=== PATIENT | male | born 1940 | race Caucasian/White ===

== ENCOUNTER → 2023-12-08 09:03 | Outpatient (REF) | payer MEDICARE, OTHER, SELFPAY ==
[2023-12-08 10:55] LABS: INR 2.37; PT 26.2 Sec (11.4-14.6)
== END ==
LOC: REG 09:03
PROVIDERS: ATTENDING PHYSICIAN Internal Medicine
DX: Z79.01 Long term (current) use of anticoagulants (principal)
CPT/HCPCS: 36415; 85610

== ENCOUNTER 2023-12-22 15:20 | Inpatient (IN) | payer MEDICARE, OTHER, SELFPAY ==
[2023-12-22] VITALS (7 sets, daily range): BP systolic 100–126; BP diastolic 62–88; BMI 25.5
--- NOTE | 2023-12-22 12:05 | ED.GENMED ---
History of Present Illness
General
Chief Complaint: Breathing Problem
Source: patient
Exam Limitations: none
Time Seen by Provider: 12/22/23 11:52
Travel History
Have you had any contact with someone who has COVID-19?: No
Do you have any symptoms of coronavirus? Fever > 100 degrees, chills, cough, shortness of breath, sore throat, loss of taste or smell, muscle aches, or headache?: No
History of Present Illness
History of Present Illness:
83-year-old male with history of atrial fibrillation has a pacer defibrillator on Coumadin presents with progressively worsening shortness of breath over the past 5 to 7 days. He notes a pound weight gain since last evening. He notes leg swelling.
He denies orthopnea. He has history of sleep apnea and uses CPAP machine. No fever or cough. No runny nose or nasal congestion. He has been taking his Coumadin.
Past History
Past History
ED Past Medical History: Arrthythmia, CHF, Hypothyroidism and Other (Status post AICD, A. fib, hypertension, ulcers colitis, sleep apnea)
ED Past Surgical History: Other (History of hernia repair)
Social History
Tobacco: Non-smoker
Alcohol: None
Personal:
Living: with family
Employment: Retired
Family History
Family History: Other (Sleep apnea)
Phy Exam
Physical Exam
Physical Exam:
General: Well-appearing male no acute respiratory distress
HEENT: Normocephalic atraumatic
Heart: Regular rate and rhythm no murmurs
Lungs: Clear bilaterally
Abd: soft, nontender
Ext: No cyanosis, pitting edema noted bilaterally
Scores
Heart Failure Risk
Heart Failure Risk Score: Not Applicable
Course
Orders/Labs/Results
Orders:
Orders
12/22/23 10:49
Electrocardiogram (*1) Urgent
Reason for Study: Shortness of Breath
EKG- Treatment ONCE
12/22/23 11:59
CR Chest - 2 Views Urgent
Comment:
Reason For Exam: sob
12/22/23 12:11
Complete Blood Count/With Diff Urgent
Comprehensive Metabolic Panel Urgent
NT-proBNP Urgent
12/22/23 13:53
Furosemide [Lasix] 40 mg IV NOW STA
Abnormal Lab Results
12/22/23
12:11
RBC 4.35 L 10^6/uL
(4.70-6.10)
MCH 31.5 H pg
(27.0-31.0)
RDW 14.6 H %
(11.5-14.5)
Absolute Lymphs (auto) 1.1 L 10^3/uL
(1.2-3.4)
Lymphocytes % 18.4 L %
(20.5-51.1)
Monocytes % 10.0 H %
(1.7-9.3)
Glucose 105 H mg/dl
(70-99)
Total Bilirubin 1.7 H mg/dl
(0.2-1.3)
12/22/23 12:11
12/22/23 12:11
Vital Signs
Initial and Last Documented VS:
Initial Vital Signs
Temp Pulse Resp BP Pulse Ox
98.1 F 81 24 101/68 97
12/22/23 10:47 12/22/23 10:47 12/22/23 10:47 12/22/23 10:47 12/22/23 10:47
Last Documented Vital Signs
Temp Pulse Resp BP Pulse Ox
98.1 F 75 23 108/81 92
12/22/23 10:47 12/22/23 13:30 12/22/23 13:30 12/22/23 13:18 12/22/23 13:30
MDM/Problems Addressed
Differential Diagnosis Includes:
Shortness of breath with exertion. Consider anemia or electrolyte abnormality CHF versus pneumonia
Patient does appear slightly volume overloaded. Check BNP labs and x-ray.
*Critical Care Note
Total Time (30-74mins, 75-104mins- exclusive of procedures): Not Applicable
Update Note
Update Note:
BNP 8840 chest x-ray consistent with cardiomegaly and trace pleural effusions. Upon minimal exertion here, patient is tachypneic and drops to 88%. Will admit for CHF exacerbation. Lasix IV ordered
ED Attending Note
-
Portions of this chart may have been created with voice recognition software.� Occasional wrong word or��sound alike� substitutions may have occurred due to the inherent limitations of voice recognition software.
Discharge Plan
Departure
Patient Disposition: Admit
Date of Disposition: 12/22/23
Time of Disposition: 13:56
Admit to: Telemetry
Presentation/result/management discussed w/ accepting MD/DO: Hospitalist
Patient with high blood pressure during this ER visit?: No
Discharge Problem:
CHF (congestive heart failure)
Prescriptions:
No Action
multivitamin with folic acid [Tab-A-Lauren] 1 TABLET tablet
1 tab PO DAILY
furosemide [Lasix] 40 MG tablet
40 mg PO DAILY
atorvastatin 20 MG tablet
20 mg PO QPM
enalapril maleate 2.5 MG tablet
2.5 mg PO BID
warfarin [Jantoven] 2.5 MG tablet
2.5 mg PO TH
aspirin [Adult Low Dose Aspirin] 81 MG tablet,delayed release (DR/EC)
81 mg PO DAILY
carvedilol 3.125 MG tablet
3.125 mg PO BID
warfarin [Jantoven] 5 MG tablet
5 mg PO .SUMOTUWEFRSA
mesalamine 800 MG tablet,delayed release (DR/EC)
800 mg PO TID
[id number] serr [Osteo Bi-Flex (5-Loxin)] 1 EACH tablet
1 tab PO DAILY
dofetilide 250 MCG capsule
250 mcg PO Q12H Qty: 60 6RF
docosahexaenoic acid-epa 1 CAP capsule
2 cap PO DAILY
spironolactone 12.5 MG tablet
6.25 mg PO DAILY
cephalexin 500 MG capsule
500 mg PO Q8 Qty: 90 0RF
Referrals:
Shay Mayers MD [Family Provider] -
Interventions
Interventions:
*Risk Screen - Suicide Last Done: 12/22/23 11:33
*General Assessment Last Done: 12/22/23 12:15
*Neglect/Abuse Screening Last Done: 12/22/23 11:33
ED- Fall Risk Assessment Last Done: 12/22/23 11:54
*ED COVID-19 Vaccine History Last Done: 12/22/23 10:49
ED- Cardiac Assessment Last Done: 12/22/23 11:54
ED- Pulmonary Assessment Last Done: 12/22/23 11:54
[2023-12-22 12:22] LABS: % Basophils 0.5 % (0-2); % Immature Granulocytes 0.3 % (0-0.5); % Lymphocytes 18.4 % (20.5-51.1); % Neutrophils 68.8 % (42.2-75.2); Absolute Eosinophils 0.1 10^3/uL (0-0.7); Absolute Lymphocytes 1.1 10^3/uL (1.2-3.4); Absolute Monocytes 0.6 10^3/uL (0.1-0.6); Absolute Neutrophils 4.2 10^3/uL (1.4-6.5); Hematocrit 40.4 % (39.0-52.0); Hemoglobin 13.7 g/dL (13.0-18.0); Mean Corp Hgb Conc. 33.9 g/dL (33.0-37.0); Mean Corpuscular Hgb 31.5 pg (27.0-31.0); Mean Corpuscular Volume 92.9 fL (80.0-94.0); Mean Platelet Volume 10.4 fL (7.4-10.4); Nucleated Red Blood Cells % 0 % (-); Platelet Count 191 10^3/uL (130-400); Red Blood Cell Count 4.35 10^6/uL (4.70-6.10); Red Cell Dist. Width 14.6 % (11.5-14.5)
[2023-12-22 12:35] LABS: ALT (SGPT) 42 U/L (0-50); AST (SGOT) 35 U/L (17-59); Albumin 4.1 g/dl (3.5-5.0); Alkaline Phosphatase 77 U/L (38-126); Blood Urea Nitrogen 20 mg/dl (9-20); Carbon Dioxide 25 mmol/L (22-30); Chloride 99 mmol/L (98-107); Glucose 105 mg/dl (70-99); Potassium 3.9 mmol/L (3.5-5.1); Sodium 135 mmol/L (135-145); Total Bilirubin 1.7 mg/dl (0.2-1.3); Total Protein 6.8 g/dl (6.3-8.2); eGFR > 60.00
[2023-12-22 12:44] LABS: NT-proBNP 8840 pg/ml
[2023-12-22] MEDS: LASIX 40 MG IV ×2 (14:06→20:35)
--- NOTE | 2023-12-22 14:10 | HPS.HSE ---
Addendum entered and electronically signed by Ra Oliveros MD 12/22/23 15:13:
I saw and examined the patient.
The PILATES COORDINATOR or PA's note was reviewed and I agree with the note.
Comment: 83-year-old gentleman with a week of increasing dyspnea on exertion and only minor weight gain has been noted only in the last day or so but more significantly short of breath today prompting evaluation found to have a proBNP of 8800 some
peripheral edema and small pleural effusions on chest x-ray with initial pulse ox of 88% on room air but presently at 96% off oxygen he has already had some diuresis with initial course of IV furosemide with history of chronic systolic heart failure
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
Follows with Dr. Irma monroy echo was sometime last year. Aside from elevated proBNP PT/INR of 3.63 noted with baseline usually in the 2.6-2.7 range had been on antibiotic course for a 'walking pneumonia last month but has been off antibiotics for
weeks. Prior history of ulcerative colitis that is remained stable and quiescent remains on mesalamine.
Agree with treatment for presumptive combined heart failure
-IV furosemide twice daily
-Continue dofetilide and carvedilol /correction of PILATES COORDINATOR note patient not on amlodipine
-Continue enalapril /spironolactone
-Update 2D echocardiogram
-Agree with holding dose of warfarin tonight and resume tomorrow with daily PT/INR
-Cardiology consultation
Listed history of hypothyroidism not on thyroid replacement (from prior amiodarone)?/will check TSH
Rest of comorbidities as outlined below and discussed and agreed on
Allow CPAP nightly l
Original Note:
Family Physician
-
Family Physician: Shay Mayers
Chief Complaint
-
Shortness of breath x 5 to 7 days
History of Present Illness
83-year-old male complaining of worsening shortness of breath over the past 5 to 7 days with a 2 pound weight gain this past week he also complains of bilateral leg pitting edema. He reports today he came to have his INR checked became very
dyspneic on exertion called his primary care provider who told him to come into the ER since he was here at [facility] in the outpatient center. He denies chest pain, orthopnea, palpitations, cough, fever, chills, abdominal pain, nausea,
vomiting, diarrhea, urinary symptoms.
PMH A-fib on Coumadin, V-fib status post AIC2016, HTN, chronic systolic CHF, amiodarone thyroiditis, ulcerative colitis, sleep apnea, CPAP full mask setting 16, history of epistaxis November 2019
Medical History
Past Medical History
Past Medical History: Reports Other
Additional Past Medical History:
A-fib on Coumadin
V-fib status post 2016
HTN, chronic systolic CHF
amiodarone thyroiditis
ulcerative colitis
sleep apnea, CPAP setting 16 full mask
Epistaxis with elevated Coumadin 2019
Past Surgical History: Reports Other
Additional Past Surgical History:
V-fib status post 2016
Hernia repair
Social History
Tobacco: Non-smoker
Alcohol: None
Drug: None
Personal:
Living: With Family ( [place])
Employment: Retired
Family History
Family History: Other (Father sleep apnea, COPD , mother HTN, COPD, heart problems)
Allergies / Home Medications
Allergies reflects when Allergies were last updated in [facility].
Home Medications with original date entered in [facility]
Allergy/Medication List:
Allergies
Allergy/AdvReac Type Severity Reaction Status Date / Time
amiodarone Allergy 'thyroid Verified 12/22/23 10:50
problems'
clindamycin Allergy Heartburn Verified 12/22/23 10:50
metoprolol [From Lopressor] Allergy Hallucinati Verified 12/22/23 10:50
ons
sulfamethoxazole Allergy Chest Verified 12/22/23 10:50
[From Bactrim] tightness
trimethoprim [From Bactrim] Allergy Chest Verified 12/22/23 10:50
tightness
Home Medications
multivitamin with folic acid 400 mcg tablet (Tab-A-Lauren) 1 tab PO DAILY 10/17/11
aspirin 81 mg tablet,delayed release (Adult Low Dose Aspirin) 81 mg PO DAILY 03/30/17
atorvastatin 20 mg tablet 20 mg PO QPM 03/30/17
carvedilol 3.125 mg tablet 3.125 mg PO BID 03/30/17
enalapril maleate 2.5 mg tablet 2.5 mg PO BID 03/30/17
furosemide 40 mg tablet (Lasix) 40 mg PO QPM 03/30/17
glucosamine CAt-I5-Kipbzkozj marylin 1,500 mg-400 unit-100 mg tablet (Osteo Bi-Flex (5-Loxin)) 1 tab PO DAILY 03/30/17
warfarin 2.5 mg tablet (Jantoven) 2.5 mg PO SUTH 03/30/17
warfarin 5 mg tablet (Jantoven) 5 mg PO MOTUWEFRSA 03/30/17
dofetilide 250 mcg capsule 250 mcg PO Q12H #60 caps 04/01/17
docosahexaenoic acid (dha)-epa 120 mg-180 mg capsule 2 cap PO DAILY 02/26/18
spironolactone 25 mg tablet 12.5 mg PO DAILY 02/26/18
mesalamine 400 mg capsule (with delayed release tablets inside) (Delzicol) 800 mg PO TID 12/22/23
Review of Systems
-
History Source: Patient and Family ( )
A 12 point ROS was completed and negative except as noted: Yes
Constitutional: Reports Weight Gain (2lbs past week ); Denies Fever or Chills
EENT: Denies Sore Throat or Runny Nose
Respiratory: Reports Trouble Breathing (jaramillo); Denies Cough
Cardiac: Denies Chest Pain, Diaphoresis, Palpitations or Syncope
Abdomen/GI: Denies Abdominal Pain, Nausea, Vomiting, Diarrhea, Constipated, Bloody Stools or Black Stools
: Denies Dysuria, Frequency, Flank Pain, Incontinence, Difficulty Voiding, Urgency, Bleeding or Dark Urine
Musculoskeletal: Reports Edema (+2 lower extremity pitting edema); Denies Joint Pain
Skin: Denies Itching or Rash
Neurological: Denies Dizzy, Headache or Weakness
Endocrine: Reports No Symptoms
Hematologic/Lymphatic: Reports No Symptoms
Psych: Reports Calm
Physical Exam
Vital Signs
Vital Signs
Temp Pulse Resp BP Pulse Ox
98.1 F 75 23 109/69 92
12/22/23 10:47 12/22/23 13:30 12/22/23 13:30 12/22/23 14:06 12/22/23 13:30
Physical Exam
General: Comfortable and Conversant; No Pain, Fever or Chills
HEENT: NormoCephalic, Anicteric, PERRLA, [place] Conjunctivae and No Ptosis
Respiratory: Clear; No Wheezes, Rales or Rhonchi
Cardiac: S1/S2, Murmur (2/6 systolic), Peripheral Edema (+2 lower extremity pitting edema) and Other (Paced); No Rub or Gallop
Breast: Deferred by me
GI: Soft, Non Tender, Non Distended, Normal Bowel Sounds and No Hepatosplenomegaly
Rectal: Deferred by Provider
Genito-urinary: Deferred by me
Musculoskeletal: No Clubbing, No Cyanosis, Edema, Left Lower Extremity (+2 lower extremity pitting edema) and Edema, Right Lower Extremity (+2 lower extremity pitting edema); No Edema, Left Upper Extremity or Edema, Right Upper Extremity
Skin: Warm and Dry; No Rash
Neuro: AO x 3, No Motor Deficits, Nonfocal/grossly intact, Cranial Nerves Intact and No Sensory Deficits; No Slurred Speech, Facial Droop or Tremors
Psych: Calm
Laboratory Results
-
12/22/23 12:11
12/22/23 12:11
Laboratory Results
PT Cancelled 12/22/23 12:07
INR Cancelled 12/22/23 12:07
Total Bilirubin 1.7 mg/dl (0.2-1.3) H 12/22/23 12:11
AST 35 U/L (17-59) 12/22/23 12:11
ALT 42 U/L (0-50) 12/22/23 12:11
Alkaline Phosphatase 77 U/L (38-126) 12/22/23 12:11
Impression/Plan
-
Impression/plan:
Admit to telemetry
#Acute hypoxic resp insuff 2/2 Acute on chronic systolic vs combined CHF
87% RA after ambulation, 96 % at rest
BNP 8840
-I/O, daily weights
-IV Lasix 40 mg twice daily
- Consult [facility] cardiology
-2d echo-eval cardiac murmur ? new
CXR: Moderate cardiomegaly, trace pleural effusion, no evidence of PNA
#A-fib on Coumadin
#Hx amiodarone thyroiditis
-INR 3.63
-HOLD Coumadin tonight 12/22/2023) pt's pcp manages his coumadin)
-check INR daily but resume dose Coumadin dosingfor now
-Continue carvedilol, Tikosyn
#Permanent pacemaker
#AICD Hx/V-fib 2016
EKG: Ventricular paced rhythm, biventricular pacemaker
#HTN-benign
bp stable
-Continue amlodipine, carvedilol 3.125 mg twice daily
#HLD
-Continue Lipitor
#Ulcerative colitis-no acute issues
-Continue mesalamine 800 mg p.o. 3 times daily
#Sleep apnea/CPAP
full mask setting 16
DVT prophylaxis
-Continue Coumadin
Full code
--- NOTE | 2023-12-22 15:37 | CON.CAR ---
Addendum entered and electronically signed by Dionisio Evans MD 12/22/23 17:04:
patient seen and examined
agree with DAVID Spaulding's notes and assessment
agree with DAVID Spaulding's plan
exam:
heent ncat
jvp 6-7
cor regular (paced)
lungs ctab
abd soft nt nd
1+ ext edema at ankle
he appears in only mild distress
Impression:
Acute HFrEF
CM EF 20-25% by echo 12/22/23
h/o NICM EF 25-45% since 2011
s/p [employer] ICT BUSINESS ANALYST-D
h/o VT/VF
Chronic Tikosyn therapy
Permanent Afib
s/p AV node ablation
Chronic warfarin OAC
h/o Amiodarone thyroiditis
Ulcerative colitis
JULIO CESAR on CPAP
Echo 06/2016: EF 35-40%, AV sclerosis with trivial AI, mildly dilated proximal ascending thoracic aorta
Echo 12/22/23:�preliminary report, EF 20-25%, mod to sev MR, mod AI
Plan:
-[facility] with increased SOB and is now admitted with acute HF. Patient follows with Dr. Davalos, but also follows with Dr. Arora for EP at [facility]. Patient was at in 2016 for VF and shock and his Tikosyn dose was lowered to 250
mcg q 12 hours at that time. Patient's last echo was in 2015 and his EF was 35-40%. He and his are living at [facility] now and patient reports eating soup every day last week and that afterwards he noticed increased SOB and LE edema. He has
been taking his Lasix 40 mg daily, he likes to take it at 1800 daily so that it does not interfere with his daytime activities. Patient was at outpatient lab having INR drawn today when he felt so SOB that he asked his to take him to the ER
instead of going home. In the ER his pro-BNP was 8800 and his initial pulse ox was 88% on RA. Patient reports symptomatic improvement after initial dose of Lasix 40 mg IV in the ER.
-Recommend Lasix 40 mg IV BID. Follow BMP. Patient was taking Lasix 40 mg PO daily prior to admission
-Preliminary echo report suggests that his EF is down to 20-25% and he now has moderate to severe MR and mod AI. Await official reading, but preliminary reports of reduced EF reviewed with patient and . Patient is able to recall that his EF has
been low in the past as well.
-GDMT includes Coreg 3.125 mg BID, spironolactone 12.5 mg daily and enalapril 2.5 mg BID.
-Patient has previously declined Entresto about 3 years ago because he thought he found information on the internet that it caused early Alzheimer's. He is willing to reconsider.
-Patient is also interested in Mirimus, will need to check cost. No changes made tonight because he wants to think about it.
-Will get Yebhi to check his ICT BUSINESS ANALYST-D
-Patient with h/o VT/VF. No recent shocks per his report. Will cont with usual dose of Tikosyn 250 mcg q 12 hours.
-Afib is permanent and he is s/p AVJ. ECG reviewed by me is v paced
-INRs managed by PCP with draws at lab.
Original Note:
Consultation
Consultation Request
Date/Time Consultation Requested: 12/22/23
Date/Time Consultation Performed: 12/22/23
Requesting Provider: Dr. Oliveros
Performing Provider: Dr. Evans
Reason for Consultation: Acute HF
Medical History
-
History of Present Illness:
Patient came to [facility] today with increased SOB and is now admitted with acute HF. Patient follows with Dr. Davalos, but also follows with Dr. Arora for EP at [facility]. Patient was at in 2017 for VF and shock and his Tikosyn dose was lowered to 250 mcg
q 12 hours at that time. Patient's last echo was in 2015 and his EF was 35-40%. He and his are living at [facility] now and patient reports eating soup every day last week and that afterwards he noticed increased SOB and LE edema. He has
been taking his Lasix 40 mg daily, he likes to take it at 1800 daily so that it does not interfere with his daytime activities. Patient was at outpatient lab having INR drawn today when he felt so SOB that he asked his to take him to the ER
instead of going home. In the ER his pro-BNP was 8800 and his initial pulse ox was 88% on RA. Patient reports symptomatic improvement after initial dose of Lasix 40 mg IV in the ER.
PMH:
Chronic HFrEF
CM EF 20-25% by echo 12/22/23
h/o NICM EF 25-45% since 2011
s/p [employer] ICT BUSINESS ANALYST-D
h/o VT/VF
Chronic Tikosyn therapy
Permanent Afib
s/p AV node ablation
Chronic warfarin OAC
h/o Amiodarone thyroiditis
Ulcerative colitis
JULIO CESAR on CPAP
Past Medical History
Past Medical History: Other (in HPI)
Past Surgical History: Cardiac ([employer] ICT BUSINESS ANALYST-D and AVN ablation 2011)
Social History
Tobacco: Non-Smoker
Alcohol: None
Drug: None
Personal:
Living: With Family (independent living at [facility])
Family History
Family History: CAD and Hypertension
Allergies / Home Medications
Allergy/AdvReac Type Severity Reaction Status Date / Time
amiodarone Allergy 'thyroid Verified 12/22/23 10:50
problems'
clindamycin Allergy Heartburn Verified 12/22/23 10:50
metoprolol [From Lopressor] Allergy Hallucinati Verified 12/22/23 10:50
ons
sulfamethoxazole Allergy Chest Verified 12/22/23 10:50
[From Bactrim] tightness
trimethoprim [From Bactrim] Allergy Chest Verified 12/22/23 10:50
tightness
Medication Instructions Recorded Confirmed Type
multivitamin with folic acid 400 1 tab PO DAILY 10/17/11 12/22/23 History
mcg tablet (Tab-A-Lauren)
aspirin 81 mg tablet,delayed 81 mg PO DAILY 03/30/17 12/22/23 History
release (Adult Low Dose Aspirin)
atorvastatin 20 mg tablet 20 mg PO QPM 03/30/17 12/22/23 History
carvedilol 3.125 mg tablet 3.125 mg PO BID 03/30/17 12/22/23 History
enalapril maleate 2.5 mg tablet 2.5 mg PO BID 03/30/17 12/22/23 History
furosemide 40 mg tablet (Lasix) 40 mg PO QPM 03/30/17 12/22/23 History
glucosamine [id number]-[id number]-Emgfjqkjq 1 tab PO DAILY 03/30/17 12/22/23 History
marylin 1,500 mg-400 unit-100 mg
tablet (Osteo Bi-Flex (5-Loxin))
warfarin 2.5 mg tablet (Jantoven) 2.5 mg PO SUTH 03/30/17 12/22/23 History
warfarin 5 mg tablet (Jantoven) 5 mg PO MOTUWEFRSA 03/30/17 12/22/23 History
dofetilide 250 mcg capsule 250 mcg PO Q12H #60 caps 04/01/17 12/22/23 Rx
docosahexaenoic acid (dha)-epa 120 2 cap PO DAILY 02/26/18 12/22/23 History
mg-180 mg capsule
spironolactone 25 mg tablet 12.5 mg PO DAILY 02/26/18 12/22/23 History
mesalamine 400 mg capsule (with 800 mg PO TID 12/22/23 12/22/23 History
delayed release tablets inside)
(Delzicol)
Review of Systems
-
History Source: Patient and Family (talked with as well )
All other systems: Negative unless noted
Physical Exam
Vital Signs
Temp Pulse Resp BP Pulse Ox
98.1 F 86 15 109/69 92
12/22/23 10:47 12/22/23 15:05 12/22/23 15:05 12/22/23 14:06 12/22/23 14:45
GEN: NAD. AAOx3
HEENT: EOMI, MMM
LUNGS: Decreased BS bases without wheeze
CV: Reg, S1/S2, no murmur
ABD: soft, BS+, NT, ND
EXT: Trace B/L LE edema. No cyanosis, clubbing or lesions B/L
NEURO: Gross non-focal
SKIN: Warm, pink, dry. No rash
Lab Results
12/22/23 12:11
12/22/23 12:11
Mpj-Q-Ybvasfnsbta Pept 8840 pg/ml 12/22/23 12:11
Impression / Plan
-
PCP: Dr. Mayers
Primary Machine Cell Tuber: Dr. Davalos
EP: Dr. Arora
Impression:
Acute HFrEF
CM EF 20-25% by echo 12/22/23
h/o NICM EF 25-45% since 2011
s/p [employer] ICT BUSINESS ANALYST-D
h/o VT/VF
Chronic Tikosyn therapy
Permanent Afib
s/p AV node ablation
Chronic warfarin OAC
h/o Amiodarone thyroiditis
Ulcerative colitis
JULIO CESAR on CPAP
Echo 06/2016: EF 35-40%, AV sclerosis with trivial AI, mildly dilated proximal ascending thoracic aorta
Echo 12/22/23: preliminary report, EF 20-25%, mod to sev MR, mod AI
Plan:
-Patient came to [facility] today with increased SOB and is now admitted with acute HF. Patient follows with Dr. Davalos, but also follows with Dr. Arora for EP at [facility]. Patient was at in 2017 for VF and shock and his Tikosyn dose was lowered to 250
mcg q 12 hours at that time. Patient's last echo was in 2016 and his EF was 35-40%. He and his are living at [facility] now and patient reports eating soup every day last week and that afterwards he noticed increased SOB and LE edema. He has
been taking his Lasix 40 mg daily, he likes to take it at 1800 daily so that it does not interfere with his daytime activities. Patient was at outpatient lab having INR drawn today when he felt so SOB that he asked his to take him to the ER
instead of going home. In the ER his pro-BNP was 8800 and his initial pulse ox was 88% on RA. Patient reports symptomatic improvement after initial dose of Lasix 40 mg IV in the ER.
-Recommend Lasix 40 mg IV BID. Follow BMP. Patient was taking Lasix 40 mg PO daily prior to admission
-Preliminary echo report suggests that his EF is down to 20-25% and he now has moderate to severe MR and mod AI. Await official reading, but preliminary reports of reduced EF reviewed with patient and . Patient is able to recall that his EF has
been low in the past as well.
-GDMT includes Coreg 3.125 mg BID, spironolactone 12.5 mg daily and enalapril 2.5 mg BID.
-Patient has previously declined Entresto about 3 years ago because he thought he found information on the internet that it caused early Alzheimer's. He is willing to reconsider.
-Patient is also interested in Mirimus, will need to check cost. No changes made tonight because he wants to think about it.
-Will get Yebhi to check his ICT BUSINESS ANALYST-D
-Patient with h/o VT/VF. No recent shocks per his report. Will cont with usual dose of Tikosyn 250 mcg q 12 hours.
-Afib is permanent and he is s/p AVJ. ECG reviewed by me is v paced
-INRs managed by PCP with draws at lab.
[2023-12-22] MEDS: ASACOL, DELZICOL DR 800 MG PO ×2 (20:28→23:22)
[2023-12-22] MEDS: COREG 3.125 MG PO (20:28)
[2023-12-22] MEDS: LIPITOR 20 MG PO (20:28)
[2023-12-22] MEDS: TIKOSYN 250 MCG PO (20:29)
[2023-12-22] MEDS: VASOTEC 2.5 MG PO (20:30)
[2023-12-23] VITALS (9 sets, daily range): BP systolic 101–119; BP diastolic 60–74; PULSE 78–79; O2SAT 93–94; BMI 25.0
--- NOTE | 2023-12-23 02:28 | PTCARENOTE ---
Patient arrived on unit @1923 via stretcher from ED, ambulate from stretcher to bed. Patient AAOx3 denies any pain or discomfort, no c/o SOB, ambualting hallways. Skin assessment completed, oriented to unit, call arizmendi within reach. Patient had 2
episodes of Vtach this shift which did not sustain. BREASTER made aware, Magnesium lab ordered for AM. Patient asymptomatic with both episodes of Vtach, patient reports 'normally I feel lightheaded with Vtach but I didn't feel anything', will continue
plan of care.
[2023-12-23 05:51] LABS: INR 2.91; PT 30.8 Sec (11.4-14.6)
[2023-12-23 06:07] LABS: % Basophils 0.9 % (0-2); % Eosinophils 3.4 % (0-6); % Immature Granulocytes 0.2 % (0-0.5); % Lymphocytes 26.1 % (20.5-51.1); % Neutrophils 57.4 % (42.2-75.2); Absolute Eosinophils 0.2 10^3/uL (0-0.7); Absolute Lymphocytes 1.2 10^3/uL (1.2-3.4); Absolute Monocytes 0.6 10^3/uL (0.1-0.6); Absolute Neutrophils 2.7 10^3/uL (1.4-6.5); Hematocrit 39.5 % (39.0-52.0); Hemoglobin 13.3 g/dL (13.0-18.0); Mean Corp Hgb Conc. 33.7 g/dL (33.0-37.0); Mean Corpuscular Volume 92.1 fL (80.0-94.0); Mean Platelet Volume 10.4 fL (7.4-10.4); Nucleated Red Blood Cells % 0 % (-); Platelet Count 175 10^3/uL (130-400); Red Blood Cell Count 4.29 10^6/uL (4.70-6.10); Red Cell Dist. Width 14.5 % (11.5-14.5); White Blood Cell Count 4.7 10^3/uL (4.8-10.8)
[2023-12-23 06:40] LABS: ALT (SGPT) 37 U/L (0-50); AST (SGOT) 28 U/L (17-59); Albumin 3.6 g/dl (3.5-5.0); Alkaline Phosphatase 70 U/L (38-126); Blood Urea Nitrogen 18 mg/dl (9-20); Calcium 8.6 mg/dl (8.4-10.2); Carbon Dioxide 25 mmol/L (22-30); Chloride 99 mmol/L (98-107); Estimated Creatinine Clearance 63 ml/min; Glucose 85 mg/dl (70-99); HDL Cholesterol 22 mg/dl; LDL Cholesterol, Calculated 49 mg/dl; Magnesium 2.2 mg/dl (1.6-2.3); Potassium 3.6 mmol/L (3.5-5.1); Sodium 136 mmol/L (135-145); Total Bilirubin 2.8 mg/dl (0.2-1.3); Total Cholesterol 84 mg/dl (50-199); Total Protein 6.2 g/dl (6.3-8.2); Triglyceride 68 mg/dl (10-149); Very Low Density Lipoprotein 13 mg/dl (0-30); eGFR > 60.00
--- NOTE | 2023-12-23 08:41 | W.PN.HOSP.TC ---
Today's Communication/Plan
-
Continue IV diuresis
Medtronic to interrogate ICD pacer
Monitor BMP
Cardiology on board with consideration toward GDMT>> Farxiga patient Entresto
Assessment / Plan
Assessment / Plan
83-year-old gentleman with a week of increasing dyspnea on exertion and only minor weight gain has been noted only in the last day or so but more significantly short of breath today prompting evaluation found to have a proBNP of 8800 some peripheral
edema and small pleural effusions on chest x-ray with initial pulse ox of 88% on room air but presently at 96% off oxygen he has already had some diuresis with initial course of IV furosemide with history of chronic systolic heart failure and
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
Follows with Dr. Irma monroy echo was sometime last year.� Aside from elevated proBNP PT/INR of 3.63 noted with baseline usually in the 2.6-2.7 range had been on antibiotic course for a 'walking pneumonia last month but has been off antibiotics for
weeks.� Prior history of ulcerative colitis that is remained stable and quiescent remains on mesalamine.
#Acute hypoxic resp insuff 2/2 Acute on chronic systolic vs combined CHF
87% RA after ambulation, 96 % at rest
BNP 8840/2D echocardiogram now shows only a 20% EF with biventricular dysfunction and moderate to severe MR
-I/O, daily weights
-IV Lasix 40 mg twice daily
-Prior consideration for Entresto refused by patient years ago now reconsidering also the addition of Farxiga.
- Consult [facility]ology
�� ���CXR:�Moderate cardiomegaly, trace pleural effusion, no evidence of PNA
#A-fib on Coumadin
#Hx amiodarone thyroiditis
-INR 3.63>> 2.91
-HOLD Coumadin tonight 12/22/2023) pt's pcp manages his coumadin)
-check INR daily but � resume dose Coumadin dosingfor now
-Continue carvedilol, Tikosyn
#Permanent pacemaker
#AICD Hx/V-fib 2016
EKG:�Ventricular paced rhythm, biventricular pacemaker
-2 episodes of nonsustained ventricular tachycardia that were asymptomatic no shock given
-Medtronic to interrogate
#HTN-benign
�bp stable
-Continue , carvedilol 3.125 mg twice daily
#HLD
-Continue Lipitor
#Ulcerative colitis-no acute issues
-Continue mesalamine 800 mg p.o. 3 times daily
#Sleep apnea/CPAP
�full mask setting 16
DVT prophylaxis
-Continue Coumadin
Full code
Anticipated Discharge: Within 24 hours
Subjective/Interval History
-
Date of Service: December 23, 2023
Still some shortness of breath and goes to the bathroom walks around room adequate diuresis since admission yesterday/had 2 apparent episodes of nonsustained V. tach that was asymptomatic last night
Objective Data
-
Labs:
Laboratory Results
12/23/23
05:18
WBC 4.7 L
Hgb 13.3
Hct 39.5
Plt Count 175
PT 30.8 H
INR 2.91
Sodium 136
Potassium 3.6
Chloride 99
Carbon Dioxide 25
BUN 18
Creatinine 1.0
Glucose 85
Calcium 8.6
Total Bilirubin 2.8 H D
AST 28
ALT 37
Alkaline Phosphatase 70
Vital Signs:
Vital Signs
Temp Pulse Resp BP Pulse Ox
97.7 F 76 18 114/60 96
12/23/23 03:31 12/23/23 03:31 12/23/23 03:31 12/23/23 03:31 12/23/23 03:31
I&O
12/22/23 12/23/23 12/24/23
06:59 06:59 06:59
Output Total 1939
Balance -1939 / -1939
Review of Systems
-
History Source: Patient
Constitutional: Reports No Symptoms
EENT: Reports No Symptoms Reported
Respiratory: Reports Trouble Breathing and Other (Dyspnea on exertion)
Cardiac: Reports No Symptoms
Abdomen/GI: Reports No Symptoms
Genitourinary: Reports Frequency
Physical Exam
-
General: No Apparent Distress
HEENT: Normocephalic
Respiratory: Crackles
Cardiac: Regular Rhythm (paced/)
Musculoskeletal: No Edema
Neuro: Awake, Alert and Oriented
Data Reviewed
-
Total Time Spent with Patient (in minutes): 45
Labs: Labs Reviewed by me (BNP of 8800/weight down to 87.7 kg from 89.7)
[2023-12-23] MEDS: TIKOSYN 250 MCG PO ×2 (09:00→21:30)
[2023-12-23] MEDS: ASACOL, DELZICOL DR 800 MG PO ×3 (09:00→21:30)
[2023-12-23] MEDS: THERAGRAN 1 TABLET PO (09:01)
[2023-12-23] MEDS: VASOTEC PO ×2 (09:01→21:31)
[2023-12-23] MEDS: COREG 3.125 MG PO ×2 (09:01→21:30)
[2023-12-23] MEDS: LASIX 40 MG IV (09:01)
[2023-12-23] MEDS: ASPIR LOW (ENTERIC COATED) 81 MG PO (09:01)
--- NOTE | 2023-12-23 11:53 | W.PN.CARDCBS ---
Today's Communication / Plan
-
Transition to PO lasix 40mg BID
Stable cardiac status, we will sign off
Recommend BMP in 1-2 weeks
And follow up with primary occupational therapist aide
Impression / Plan
-
PCP: Dr. Mayers
Primary End Worker: Dr. Davalos
EP: Dr. Arora
Impression:
Acute HFrEF
CM EF 20-25% by echo 12/22/23
h/o NICM EF 25-45% since 2011
s/p [employer] INTEGRATION ARCHITECT-D
h/o VT/VF
Chronic Tikosyn therapy
Permanent Afib
s/p AV node ablation
Chronic warfarin OAC
h/o Amiodarone thyroiditis
Ulcerative colitis
JULIO CESAR on CPAP
Echo 06/2016: EF 35-40%, AV sclerosis with trivial AI, mildly dilated proximal ascending thoracic aorta
Echo 12/22/23: preliminary report, EF 20-25%, mod to sev MR, mod AI
[facility] today with increased SOB and is now admitted with acute HF. Patient follows with Dr. Davalos, but also follows with Dr. Arora for EP at [facility]. Patient was at in 2016 for VF and shock and his Tikosyn dose was lowered to 250 mcg
q 12 hours at that time. Patient's last echo was in 2015 and his EF was 35-40%. He and his are living at [facility] now and patient reports eating soup every day last week and that afterwards he noticed increased SOB and LE edema. He has
been taking his Lasix 40 mg daily, he likes to take it at 1800 daily so that it does not interfere with his daytime activities. Patient was at outpatient lab having INR drawn today when he felt so SOB that he asked his to take him to the ER
instead of going home. In the ER his pro-BNP was 8800 and his initial pulse ox was 88% on RA. Patient reports symptomatic improvement after initial dose of Lasix 40 mg IV in the ER.
Plan:
-Volume status is significantly improved with IV lasix, edema has resolved and currently on RA
-Transition to PO lasix 40mg BID
-We reviewed GDMT for CHF. He would be willing to consider switch to Entresto and addition of SGLT2 inhibitor, but would like to discuss with his primary occupational therapist aide.
-Cont Coreg 3.125 mg BID, spironolactone 12.5 mg daily and enalapril 2.5 mg BID.
-Patient with h/o VT/VF. [employer] INTEGRATION ARCHITECT-D in place. No recent shocks per his report. QT interval appears to be estimated on ECG by my review, ok to cont usual dose of Tikosyn 250 mcg q 12 hours.
-Afib is permanent and he is s/p AVJ. ECG reviewed by me is v paced
-INRs managed by PCP with draws at lab.
Stable cardiac status, we will sign off
Recommend BMP in 1-2 weeks
And follow up with primary occupational therapist aide
Progress Note - End Worker
Subjective
Date of Service: December 23, 2023
No acute overnight events. Patient tells me that his breathing is comfortable and edema is significantly improved. Was previously walking the halls with physical therapy and felt well.
Objective
Labs:
12/23/23 05:18
12/23/23 05:18
Labs
Hgb 13.3 g/dL (13.0-18.0) 12/23/23 05:18
Hct 39.5 % (39.0-52.0) 12/23/23 05:18
Plt Count 175 10^3/uL (130-400) 12/23/23 05:18
PT 30.8 Sec (11.4-14.6) H 12/23/23 05:18
INR 2.91 12/23/23 05:18
Sodium 136 mmol/L (135-145) 12/23/23 05:18
Potassium 3.6 mmol/L (3.5-5.1) 12/23/23 05:18
BUN 18 mg/dl (9-20) 12/23/23 05:18
Creatinine 1.0 mg/dL (0.7-1.3) 12/23/23 05:18
Glucose 85 mg/dl (70-99) 12/23/23 05:18
Vital Signs and I&O:
Vital Signs
Temp Pulse Resp BP Pulse Ox
97.5 F 77 16 101/70 96
12/23/23 07:00 12/23/23 07:00 12/23/23 07:00 12/23/23 07:00 12/23/23 07:00
Vital Signs
Temp Pulse Resp BP Pulse Ox
97.5 F 77 16 101/70 96
12/23/23 07:00 12/23/23 07:00 12/23/23 07:00 12/23/23 07:00 12/23/23 07:00
Intake & Output
12/21/23 12/22/23 12/23/23 12/24/23
06:59 06:59 06:59 06:59
Output Total 1939
Balance -1939 /
Physical Exam
Physical Exam
Gen: NAD, AAOx3
HEENT: NC/AT, sclera anicteric
Neck: No JVD
CV: RRR, NL s1/s2
Lungs: CTAB on RA
Abd: S/ND
Ext: No LE edema, overlying chronic venous stasis changes
Skin: Warm, dry
Neuro: Non-focal
--- NOTE | 2023-12-23 15:21 | W.CARD.DEVCH ---
Cardiac Device Check
-
Device: Implanted Cardioverter-Defibrillator
Engineering Technical Writer: [employer]
The patient's device was interrogated with assistance of the device dental sales representative. The device had normal function. Required ATP x2 in 10/2023 for NSVT, which was previously addressed by primary security investigator per rep. Had 2 episodes of NSVT 12 and 14
beats today. will replete potassium as 3.6 today. Mag stable at 2.2
--- NOTE | 2023-12-23 16:21 | W.HF.CON ---
Heart Failure
- LV Function
Left ventricular function study result: LV Ejection fraction </= 35%
Ejection Fraction Percentage: 19-26
- ARNI
Patient already on ARNI: No
Heart Failure ARNI Contraindication: Patient Refusal
- ACEI/ARB
Patient already on ACEI/ARB: Yes
- Beta Sarita
Patient already on Evidence Based Beta Sarita: Yes
- Mineralocorticord Receptor Antagonist
Patient already on MRA: Yes
- SGLT-2 Inhibitor
Patient already on SGLT-2 Inhibitor: No
Heart Failure SGLT-2 Inhibitor Contraindication: Patient Refusal
- Afib Anticoagulation
Patient already on Anticoagulation for Afib: Yes
- NYHA CHF Classification
NYHA CHF Classification Level: Class III - Symptoms w/ min exertion, interferes w/ nml daily activity
- ACC/AHA Stage
ACC/AHA Stage: Stage C: Symptomatic Heart Failure
--- NOTE | 2023-12-23 16:42 | CM ---
Alert awake oriented patient who lives at [facility]. He is independent in driving and in all activities of daily living.He was offered VN he declined need.
CPAP
No VN hx / No SNF history
Pharmacy [facility]
PCP DR Mayers
PLAN Home Declined VN
[2023-12-23] MEDS: LIPITOR 20 MG PO (17:16)
[2023-12-23] MEDS: KCL 20 MEQ PO (17:16)
[2023-12-23] MEDS: LASIX 40 MG PO (17:16)
[2023-12-23] MEDS: COUMADIN 5 MG PO (17:16)
[2023-12-24 03:00] VITALS: BP 112/72
[2023-12-24 06:00] VITALS: BMI 24.6
[2023-12-24 07:00] VITALS: BP 109/70
[2023-12-24 08:12] LABS: % Eosinophils 4.6 % (0-6); % Lymphocytes 26.9 % (20.5-51.1); % Monocytes 12.6 % (1.7-9.3); % Neutrophils 54.9 % (42.2-75.2); Absolute Eosinophils 0.2 10^3/uL (0-0.7); Absolute Lymphocytes 1.1 10^3/uL (1.2-3.4); Absolute Monocytes 0.5 10^3/uL (0.1-0.6); Absolute Neutrophils 2.3 10^3/uL (1.4-6.5); Hematocrit 42.1 % (39.0-52.0); Hemoglobin 14.1 g/dL (13.0-18.0); Mean Corp Hgb Conc. 33.5 g/dL (33.0-37.0); Mean Corpuscular Hgb 31.2 pg (27.0-31.0); Mean Corpuscular Volume 93.1 fL (80.0-94.0); Mean Platelet Volume 10.6 fL (7.4-10.4); Nucleated Red Blood Cells % 0 % (-); Platelet Count 199 10^3/uL (130-400); Red Blood Cell Count 4.52 10^6/uL (4.70-6.10); Red Cell Dist. Width 14.3 % (11.5-14.5); White Blood Cell Count 4.1 10^3/uL (4.8-10.8)
[2023-12-24 08:15] LABS: INR 2.97; PT 30.8 Sec (11.4-14.6)
[2023-12-24] MEDS: ASACOL, DELZICOL DR 800 MG PO (08:18)
[2023-12-24] MEDS: TIKOSYN 250 MCG PO (08:19)
[2023-12-24] MEDS: VASOTEC PO (08:19)
[2023-12-24] MEDS: COREG 3.125 MG PO (08:19)
[2023-12-24] MEDS: THERAGRAN 1 TABLET PO (08:19)
[2023-12-24] MEDS: LASIX 40 MG PO (08:19)
[2023-12-24] MEDS: ASPIR LOW (ENTERIC COATED) 81 MG PO (08:19)
[2023-12-24 08:37] LABS: ALT (SGPT) 34 U/L (0-50); AST (SGOT) 33 U/L (17-59); Albumin 3.6 g/dl (3.5-5.0); Alkaline Phosphatase 79 U/L (38-126); Blood Urea Nitrogen 18 mg/dl (9-20); Calcium 8.3 mg/dl (8.4-10.2); Carbon Dioxide 26 mmol/L (22-30); Chloride 100 mmol/L (98-107); Estimated Creatinine Clearance 63 ml/min; Glucose 82 mg/dl (70-99); Potassium 3.4 mmol/L (3.5-5.1); Sodium 133 mmol/L (135-145); Total Bilirubin 2.6 mg/dl (0.2-1.3); Total Protein 6.2 g/dl (6.3-8.2); eGFR > 60.00
--- NOTE | 2023-12-24 10:12 | W.DS.TRANS ---
DC Summary - Administrative Assistant Front Desk
-
Discharge Instructions:
Discharge Diagnosis/Procedures Acute reduced EF heart failure
Nonischemic cardiomyopathy
Chronic Tikosyn therapy
History of V. tach/V-fib
Diet 2 Gram Sodium,Restrict fluids to 48 oz
Activity As tolerated
Driving Restrictions As prior to admission
Blood Work BMP/mag in 1 week
Specialty Instructions Weigh Daily
Instructions: *[facility] Heart Failure Instructions
Stand-Alone Forms:
Changes to Home Medications: Yes
Discharge Medications:
DC Medications w/original date entered in [employer]
multivitamin with folic acid 400 mcg tablet (Tab-A-Lauren) 1 tab PO DAILY Supplement 10/17/11
aspirin 81 mg tablet,delayed release (Adult Low Dose Aspirin) 81 mg PO DAILY Blood Clot Prevention/Tx 03/30/17
atorvastatin 20 mg tablet 20 mg PO QPM High Cholesterol 03/30/17
carvedilol 3.125 mg tablet 3.125 mg PO BID Heart Disease/Condition 03/30/17
enalapril maleate 2.5 mg tablet 2.5 mg PO BID Blood Pressure 03/30/17
glucosamine [id number] marylin 1,500 mg-400 unit-100 mg tablet (Osteo Bi-Flex (5-Loxin)) 1 tab PO DAILY Supplement 03/30/17
warfarin 2.5 mg tablet (Jantoven) 2.5 mg PO SUTH Blood Clot Prevention/Tx 03/30/17
warfarin 5 mg tablet (Jantoven) 5 mg PO MOTUWEFRSA Blood Clot Prevention/Tx 03/30/17
dofetilide 250 mcg capsule 250 mcg PO Q12H #60 caps 04/01/17
docosahexaenoic acid (dha)-epa 120 mg-180 mg capsule 2 cap PO DAILY Supplement 02/26/18
spironolactone 25 mg tablet 12.5 mg PO DAILY Fluid Retention/Swelling 02/26/18
mesalamine 400 mg capsule (with delayed release tablets inside) (Delzicol) 800 mg PO TID Gastrointestinal Issue 12/22/23
furosemide 40 mg tablet 40 mg PO BID AT 0800,1600 #0 tabs 12/24/23
Home Medication Changes
furosemide 40 mg tablet 40 mg PO BID AT 0800,1600 #0 tabs 12/24/23
Pending Results: No
Total time spent discharging patient (in min): 45
--- NOTE | 2023-12-24 10:44 | CM ---
Met with patient at bedside
IMM benefit explained; form signed
will transport home
Plan: discharge to home; no needs
--- NOTE | 2023-12-24 10:49 | W.PN.CARDCBS ---
Addendum entered and electronically signed by Frank Orlando MD 12/24/23 11:46:
Stable cardiology status for discharge
Discussed with primary service
Original Note:
Today's Communication / Plan
-
replete K
40mg po lasix BID
coreg, enalapril, aldactone. consider arni and SGLT2 inhibitor
BMP in 1 week
Op cardiac follow up arranged
Impression / Plan
-
PCP: Dr. Mayers
Primary Manager Bridge: Dr. Davalos
EP: Dr. Arora
Impression:
Acute HFrEF
CM EF 20-25% by echo 12/22/23
h/o NICM EF 25-45% since 2011
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
h/o VT/VF
Chronic Tikosyn therapy
Permanent Afib
s/p AV node ablation
Chronic warfarin OAC
h/o Amiodarone thyroiditis
Ulcerative colitis
JULIO CESAR on CPAP
Echo 06/2016: EF 35-40%, AV sclerosis with trivial AI, mildly dilated proximal ascending thoracic aorta
Echo 12/22/23: preliminary report, EF 20-25%, mod to sev MR, mod AI
Plan:
-He is feeling much improved. Weight down 11 pounds from admission if accurate. Transition to p.o. Lasix 40 mg BMP
-Device interrogation/review of telemetry with 1 12 beat and 1 14 beat run of NSVT yesterday. Now off telemetry. K 3.4 today, replete prior to discharge. Continue Tikosyn to 50 mcg every 12 hours
-Will need BMP in 1 week as an outpatient
-Continue Coreg, enalapril, spironolactone. Consider transition to Entresto and addition of SGLT2 inhibitor, but patient would like to discuss this with his primary newspaper carrier first
-Permanent A-fib status post AVJ. INR therapeutic.
-Outpatient follow-up with Dr. Davalos arranged
-For discharge today
-Discussed with nursing
PREADMIT DATA:
Patient came to [facility] today with increased SOB and is now admitted with acute HF. Patient follows with Dr. Davalos, but also follows with Dr. Arora for EP at [facility]. Patient was at in 2017 for VF and shock and his Tikosyn dose was lowered to 250 mcg
q 12 hours at that time. Patient's last echo was in 2015 and his EF was 35-40%. He and his are living at [facility] now and patient reports eating soup every day last week and that afterwards he noticed increased SOB and LE edema. He has
been taking his Lasix 40 mg daily, he likes to take it at 1800 daily so that it does not interfere with his daytime activities. Patient was at outpatient lab having INR drawn today when he felt so SOB that he asked his to take him to the ER
instead of going home. In the ER his pro-BNP was 8800 and his initial pulse ox was 88% on RA. Patient reports symptomatic improvement after initial dose of Lasix 40 mg IV in the ER.
Progress Note - Manager Bridge
Subjective
Date of Service: December 24, 2023
Denies chest pain, shortness of breath, palpitations. Feeling well, improved from admission. For discharge today
Objective
Labs:
12/24/23 06:38
12/24/23 06:38
Labs
Hgb 14.1 g/dL (13.0-18.0) 12/24/23 06:38
Hct 42.1 % (39.0-52.0) 12/24/23 06:38
Plt Count 199 10^3/uL (130-400) 12/24/23 06:38
PT 30.8 Sec (11.4-14.6) H 12/24/23 06:38
INR 2.97 12/24/23 06:38
Sodium 133 mmol/L (135-145) L 12/24/23 06:38
Potassium 3.4 mmol/L (3.5-5.1) L 12/24/23 06:38
BUN 18 mg/dl (9-20) 12/24/23 06:38
Creatinine 1.0 mg/dL (0.7-1.3) 12/24/23 06:38
Glucose 82 mg/dl (70-99) 12/24/23 06:38
Vital Signs and I&O:
Vital Signs
Temp Pulse Resp BP Pulse Ox
97.8 F 76 17 109/70 98
12/24/23 07:00 12/24/23 07:00 12/24/23 07:00 12/24/23 07:00 12/24/23 07:00
Vital Signs
Temp Pulse Resp BP Pulse Ox
97.8 F 76 17 109/70 98
12/24/23 07:00 12/24/23 07:00 12/24/23 07:00 12/24/23 07:00 12/24/23 07:00
Intake & Output
12/22/23 12/23/23 12/24/23 12/25/23
07:59 07:59 07:59 08:59
Intake Total 800 / 800
Output Total 1939 / 2199
Balance -1940 / -1939 -1400 / -1400
Physical Exam
Physical Exam
GEN: No distress, awake, alert, oriented x3. sitting in chair
HEENT: supple, anicteric, mmm, eomi
LUNGS: CTA B/L, no wheezes/rales
CV: Irreg, S1/S2, 1/6 syst LSB, no murmur
ABD: soft, BS+, NT/ND
EXT: No cyanosis, clubbing, edema
NEURO: Gross non-focal
SKIN: Warm, pink, dry. No rash
[2023-12-24] MEDS: PREVNAR 20 0.5 ML IM (11:12)
[2023-12-24] MEDS: KCL 40 MEQ PO (11:12)
--- NOTE | 2023-12-24 11:55 | W.DCSUMMARY ---
Discharge Summary
Discharge Data
Date of Admission: 12/22/23
Date of Discharge: 12/24/23
-
Pending Results: No
Hospital Course
Patient presents to the emergency room after increasing shortness of breath for the last several days and noted that he had had a subtle weight increase also. Patient has a longstanding history of nonischemic cardiomyopathy and has an ICD and had a
previous episode of V-fib and is on chronic Tikosyn therapy. He had been complaining of increasing shortness of breath with minimal exertion and was presented in a state of acute heart failure requiring low volumes of oxygen therapy on presentation
and had some relief no significant even in the ER from a single dose of IV furosemide. He was admitted to the medical service and cardiology was consulted he did state possible dietary indiscretions such as eating soup every day for the last week
that tasted pretty salty to him with subsequent increasing shortness of breath and lower extremity edema noted. He has been compliant with Lasix 40 mg daily but had a significant diuretic response with a 40 mg twice daily dosing of IV Lasix. He
has lost 11 pounds of water weight. He did have 2 separate episode of nonsustained ventricular tachycardia after overnight stay and he underwent went a device interrogation with review of telemetry with one 12 beat and 114 beat run of nonsustained
V. tach he will continue on Coreg enalapril and spironolactone he will again reconsider Entresto going forward and the addition of a SGLT2 inhibitor wants to discuss this with his primary income tax return preparer first. Of note his warfarin on presentation was
supratherapeutic and was held the first day he is to resume his prior dosing/only dosing change on medications is furosemide will be 40 mg twice a day/he will have follow-up with his outpatient income tax return preparer Dr. Solis
Prior EF of 35 to 40% now at 20 to 25% with moderate to severe MR and moderate AI
Discharge Plan
-
Patient Disposition: Home (Routine Discharge)
Discharge Diagnosis/Procedures: Acute reduced EF heart failure
Nonischemic cardiomyopathy
Chronic Tikosyn therapy
History of V. tach/V-fib
Diet: 2 Gram Sodium and Restrict fluids to 48 oz
Activity: As tolerated
Driving Restrictions: As prior to admission
Blood Work: BMP/mag in 1 week
Specialty Instructions: Weigh Daily- Call MD for wt gain/loss 3 lbs overnight/5 lbs in 1 week
Instructions: *[facility] Heart Failure Instructions
Referrals:
Shay Mayers MD [Family Provider] -
Chevy Davalos MD [Active] - 12/27/23 10:40 am (Your cardiology follow up appointment has been moved up from 01/19/24. Please call with questions. )
Prescriptions:
New
furosemide 40 mg Tablet
40 mg PO BID AT 0800,1600 Qty: 0 0RF
Continued
multivitamin with folic acid [Tab-A-Lauren] 1 TABLET tablet
1 tab PO DAILY
atorvastatin 20 MG tablet
20 mg PO QPM
enalapril maleate 2.5 MG tablet
2.5 mg PO BID
warfarin [Jantoven] 2.5 MG tablet
2.5 mg PO SUTH
aspirin [Adult Low Dose Aspirin] 81 MG tablet,delayed release (DR/EC)
81 mg PO DAILY
carvedilol 3.125 MG tablet
3.125 mg PO BID
warfarin [Jantoven] 5 MG tablet
5 mg PO MOTUWEFRSA
[id number] serr [Osteo Bi-Flex (5-Loxin)] 1 EACH tablet
1 tab PO DAILY
dofetilide 250 MCG capsule
250 mcg PO Q12H Qty: 60 6RF
docosahexaenoic acid-epa 1 CAP capsule
2 cap PO DAILY
spironolactone 12.5 MG tablet
12.5 mg PO DAILY
mesalamine [Delzicol] 400 mg Capsule (With Del Rel Tablets)
800 mg PO TID
Discontinued
furosemide [Lasix] 40 MG tablet
40 mg PO QPM
Discharge Orders:
Discharge Patient (As Directed); Ordered 12/24/23
Ordered By: Ra Oliveros
Discharge Date and Time
Discharge Date/Time: 12/24/23 11:48
== END 2023-12-24 11:48 | disposition home or self-care (01) | DRG 292 ==
LOC: 3 WEST ACU 15:20
PROVIDERS: Clinical Nurse Specialist Family Health; Internal Medicine Cardiovascular Disease; Physician Assistant; ADMITTING PHYSICIAN Internal Medicine; EMERGENCY PHYSICIAN Emergency Medicine; FAMILY PHYSICIAN Internal Medicine; OTHER PHYSICIAN Physician Assistant Medical
PROC: 4B02XTZ Measurement of Cardiac Defibrillator, External Approach (ICD-10-PCS; 2023-12-23)
DX: I50.23 Acute on chronic systolic (congestive) heart failure (principal); I42.8 Other cardiomyopathies; I48.21 Permanent atrial fibrillation; K51.90 Ulcerative colitis, unspecified, without complications; Z79.01 Long term (current) use of anticoagulants; E78.5 Hyperlipidemia, unspecified; G47.33 Obstructive sleep apnea (adult) (pediatric); I11.0 Hypertensive heart disease with heart failure
CPT/HCPCS: 36415; 71046; 80053; 80061; 83735; 83880; 84443; 85025; 85610; 87070; 90677; 93005; 93306; 94660; 96374; 97161; 97165; 99285; G0009

== ENCOUNTER → 2023-12-26 09:57 | Outpatient (REF) | payer MEDICARE, OTHER, SELFPAY ==
[2023-12-26 11:22] LABS: ALT (SGPT) 35 U/L (0-50); AST (SGOT) 34 U/L (17-59); Albumin 3.9 g/dl (3.5-5.0); Alkaline Phosphatase 75 U/L (38-126); Blood Urea Nitrogen 17 mg/dl (9-20); Carbon Dioxide 30 mmol/L (22-30); Chloride 98 mmol/L (98-107); Glucose 109 mg/dl (70-99); HDL Cholesterol 28 mg/dl; LDL Cholesterol, Calculated 47 mg/dl; Potassium 4.1 mmol/L (3.5-5.1); Sodium 137 mmol/L (135-145); Total Cholesterol 87 mg/dl (50-199); Total Protein 6.7 g/dl (6.3-8.2); Triglyceride 64 mg/dl (10-149); Very Low Density Lipoprotein 12 mg/dl (0-30); eGFR > 60.00
== END ==
LOC: REG 09:57
PROVIDERS: ATTENDING PHYSICIAN Internal Medicine Cardiovascular Disease; FAMILY PHYSICIAN Internal Medicine; REFERRING PHYSICIAN Internal Medicine Cardiovascular Disease
DX: E78.5 Hyperlipidemia, unspecified (principal); I25.10 Atherosclerotic heart disease of native coronary artery without angina pectoris
CPT/HCPCS: 36415; 80053; 80061

== ENCOUNTER → 2024-01-05 10:23 | Outpatient (REF) | payer MEDICARE, OTHER, SELFPAY ==
[2024-01-05 11:08] LABS: INR 2.63; PT 28.5 Sec (11.4-14.6)
[2024-01-05 11:28] LABS: ALT (SGPT) 31 U/L (0-50); AST (SGOT) 29 U/L (17-59); Albumin 4.1 g/dl (3.5-5.0); Alkaline Phosphatase 73 U/L (38-126); Blood Urea Nitrogen 21 mg/dl (9-20); Calcium 9.1 mg/dl (8.4-10.2); Carbon Dioxide 26 mmol/L (22-30); Chloride 99 mmol/L (98-107); Glucose 102 mg/dl (70-99); HDL Cholesterol 31 mg/dl; LDL Cholesterol, Calculated 48 mg/dl; Potassium 4.6 mmol/L (3.5-5.1); Sodium 135 mmol/L (135-145); Total Cholesterol 93 mg/dl (50-199); Total Protein 6.8 g/dl (6.3-8.2); Triglyceride 70 mg/dl (10-149); Very Low Density Lipoprotein 14 mg/dl (0-30); eGFR > 60.00
== END ==
LOC: REG 10:23
PROVIDERS: ATTENDING PHYSICIAN Internal Medicine Cardiovascular Disease; FAMILY PHYSICIAN Internal Medicine; REFERRING PHYSICIAN Internal Medicine Cardiovascular Disease
DX: I25.10 Atherosclerotic heart disease of native coronary artery without angina pectoris (principal); E78.5 Hyperlipidemia, unspecified
CPT/HCPCS: 36415; 80053; 80061; 85610

== ENCOUNTER → 2024-01-19 07:36 | Outpatient (REF) | payer MEDICARE, OTHER, SELFPAY ==
[2024-01-19 10:39] LABS: INR 2.82; PT 30.1 Sec (11.4-14.6)
== END ==
LOC: REG 07:36
PROVIDERS: ATTENDING PHYSICIAN Internal Medicine
DX: Z79.01 Long term (current) use of anticoagulants (principal)
CPT/HCPCS: 36415; 85610

== ENCOUNTER → 2024-02-02 10:50 | Outpatient (REF) | payer MEDICARE, OTHER, SELFPAY ==
[2024-02-02 12:10] LABS: INR 2.46; PT 26.9 Sec (11.4-14.6)
== END ==
LOC: REG 10:50
PROVIDERS: ATTENDING PHYSICIAN Internal Medicine
DX: Z79.01 Long term (current) use of anticoagulants (principal)
CPT/HCPCS: 36415; 85610

== ENCOUNTER → 2024-02-16 08:30 | Outpatient (REF) | payer MEDICARE, OTHER, SELFPAY ==
[2024-02-16 10:33] LABS: INR 2.69
== END ==
LOC: REG 08:30
PROVIDERS: ATTENDING PHYSICIAN Internal Medicine
DX: Z79.01 Long term (current) use of anticoagulants (principal)
CPT/HCPCS: 36415; 85610

== ENCOUNTER → 2024-03-01 09:15 | Outpatient (REF) | payer MEDICARE, OTHER, SELFPAY ==
[2024-03-01 10:37] LABS: INR 2.75; PT 29.5 Sec (11.4-14.6)
== END ==
LOC: REG 09:15
PROVIDERS: ATTENDING PHYSICIAN Internal Medicine
DX: Z79.01 Long term (current) use of anticoagulants (principal)
CPT/HCPCS: 36415; 85610

== ENCOUNTER → 2024-03-13 10:08 | Outpatient (REF) | payer MEDICARE, OTHER, SELFPAY ==
[2024-03-13 13:41] LABS: Blood Urea Nitrogen 16 mg/dl (9-20); Calcium 9.1 mg/dl (8.4-10.2); Carbon Dioxide 26 mmol/L (22-30); Chloride 102 mmol/L (98-107); Glucose 93 mg/dl (70-99); Potassium 4.7 mmol/L (3.5-5.1); Sodium 136 mmol/L (135-145); eGFR > 60.00
== END ==
LOC: REG 10:08
PROVIDERS: ATTENDING PHYSICIAN Internal Medicine Cardiovascular Disease; FAMILY PHYSICIAN Internal Medicine
DX: I25.10 Atherosclerotic heart disease of native coronary artery without angina pectoris (principal)
CPT/HCPCS: 36415; 80048

== ENCOUNTER → 2024-03-15 07:13 | Outpatient (REF) | payer MEDICARE, OTHER, SELFPAY ==
[2024-03-15 10:30] LABS: INR 2.66; PT 28.3 Sec (11.4-14.6)
== END ==
LOC: REG 07:13
PROVIDERS: ATTENDING PHYSICIAN Internal Medicine
DX: Z79.01 Long term (current) use of anticoagulants (principal)
CPT/HCPCS: 36415; 85610

== ENCOUNTER → 2024-03-29 17:51 | Outpatient (REF) | payer MEDICARE, OTHER, SELFPAY ==
[2024-03-29 11:13] LABS: INR 2.26; PT 25.2 Sec (11.4-14.6)
== END ==
LOC: OLAB 17:51
PROVIDERS: ATTENDING PHYSICIAN Internal Medicine
DX: Z79.01 Long term (current) use of anticoagulants (principal); Z79.02 Long term (current) use of antithrombotics/antiplatelets
CPT/HCPCS: 36415; 85610

== ENCOUNTER → 2024-04-12 09:25 | Outpatient (REF) | payer MEDICARE, OTHER, SELFPAY ==
[2024-04-12 11:17] LABS: INR 3.03; PT 31.8 Sec (11.4-14.6)
== END ==
LOC: REG 09:25
PROVIDERS: ATTENDING PHYSICIAN Internal Medicine
DX: Z79.01 Long term (current) use of anticoagulants (principal)
CPT/HCPCS: 36415; 85610

== ENCOUNTER → 2024-04-23 09:45 | Outpatient (REF) | payer MEDICARE, OTHER, SELFPAY ==
[2024-04-23 12:05] LABS: Carbon Dioxide 29 mmol/L (22-30); Chloride 94 mmol/L (98-107); Potassium 3.9 mmol/L (3.5-5.1); Sodium 134 mmol/L (135-145)
== END ==
LOC: REG 09:45
PROVIDERS: ATTENDING PHYSICIAN Internal Medicine Cardiovascular Disease; FAMILY PHYSICIAN Internal Medicine
DX: I50.9 Heart failure, unspecified (principal); I25.10 Atherosclerotic heart disease of native coronary artery without angina pectoris
CPT/HCPCS: 36415; 80051; 82565

== ENCOUNTER → 2024-04-26 08:38 | Outpatient (REF) | payer MEDICARE, OTHER, SELFPAY ==
[2024-04-26 11:10] LABS: INR 2.53; PT 27.6 Sec (11.4-14.6)
== END ==
LOC: REG 08:38
PROVIDERS: ATTENDING PHYSICIAN Internal Medicine
DX: Z79.01 Long term (current) use of anticoagulants (principal)
CPT/HCPCS: 36415; 85610

== ENCOUNTER → 2024-05-10 08:17 | Outpatient (REF) | payer MEDICARE, OTHER, SELFPAY ==
[2024-05-10 10:18] LABS: INR 2.47
[2024-05-10 11:56] LABS: Carbon Dioxide 29 mmol/L (22-30); Chloride 87 mmol/L (98-107); Potassium 2.9 mmol/L (3.5-5.1); Sodium 127 mmol/L (135-145)
== END ==
LOC: REG 08:17
PROVIDERS: ATTENDING PHYSICIAN Internal Medicine; REFERRING PHYSICIAN Internal Medicine Cardiovascular Disease
DX: Z79.01 Long term (current) use of anticoagulants (principal); I25.10 Atherosclerotic heart disease of native coronary artery without angina pectoris
CPT/HCPCS: 36415; 80051; 82565; 85610

== ENCOUNTER 2024-05-14 11:15 | Inpatient (IN) | payer MEDICARE, OTHER, SELFPAY ==
[2024-05-14] VITALS (17 sets, daily range): BP systolic 85–130; BP diastolic 63–107; PULSE 75
[2024-05-14 06:57] LABS: % Basophils 0.5 % (0-2); % Eosinophils 0.3 % (0-6); % Immature Granulocytes 1.9 % (0-0.5); % Lymphocytes 15.9 % (20.5-51.1); % Monocytes 11.2 % (1.7-9.3); % Neutrophils 70.2 % (42.2-75.2); Absolute Immature Granulocytes 0.1 10^3/uL (0-0.05); Absolute Monocytes 0.7 10^3/uL (0.1-0.6); Absolute Neutrophils 4.5 10^3/uL (1.4-6.5); Hematocrit 41.8 % (39.0-52.0); Hemoglobin 14.6 g/dL (13.0-18.0); Mean Corp Hgb Conc. 34.9 g/dL (33.0-37.0); Mean Corpuscular Hgb 30.7 pg (27.0-31.0); Mean Corpuscular Volume 87.8 fL (80.0-94.0); Mean Platelet Volume 11.1 fL (7.4-10.4); Nucleated Red Blood Cells % 0 % (-); Platelet Count 157 10^3/uL (130-400); Red Blood Cell Count 4.76 10^6/uL (4.70-6.10); Red Cell Dist. Width 17.2 % (11.5-14.5); White Blood Cell Count 6.4 10^3/uL (4.8-10.8)
[2024-05-14 07:06] LABS: INR 3.24; PT 33.1 Sec (11.4-14.6)
[2024-05-14 07:07] LABS: APTT 35.6 Sec (23.4-35.0)
[2024-05-14 07:12] LABS: ALT (SGPT) 31 U/L (0-50); AST (SGOT) 35 U/L (17-59); Albumin 4.4 g/dl (3.5-5.0); Alkaline Phosphatase 90 U/L (38-126); Blood Urea Nitrogen 40 mg/dl (9-20); Calcium 9.2 mg/dl (8.4-10.2); Carbon Dioxide 23 mmol/L (22-30); Chloride 90 mmol/L (98-107); Estimated Creatinine Clearance 45 ml/min; Glucose 145 mg/dl (70-99); Potassium 5.6 mmol/L (3.5-5.1); Sodium 125 mmol/L (135-145); Total Bilirubin 3.7 mg/dl (0.2-1.3); eGFR 49.87
[2024-05-14 07:21] LABS: NT-proBNP 16400 pg/ml; Troponin I < 0.012 ng/ml
--- NOTE | 2024-05-14 07:30 | ED.GENMED ---
History of Present Illness
<Otoniel Issa PA-C - Last Filed: 05/14/24 09:32>
General
Chief Complaint: Breathing Problem
Source: patient
Exam Limitations: none
Time Seen by Provider: 05/14/24 07:02
History of Present Illness
History of Present Illness:
83-year-old male with history of atrial fibrillation, CHF, coronary artery disease has a pacer defibrillator presents from [facility] with increased work of breathing and shortness of breath onset overnight. He notes actually
that he is losing weight and his appetite is down. He denies a fever or chest pain. He notes his legs seem to be less swollen than usual. He was here in December of this year for CHF exacerbation. He states this feels similar but not as bad. He
was found to be toxic upon EMS arrival and started on nasal cannula oxygen.
Past History
<Otoniel Issa PA-C - Last Filed: 05/14/24 09:32>
Past History
ED Past Medical History: Arrthythmia, CHF, Hypothyroidism and Other (Status post AICD, A. fib, hypertension, ulcers colitis, sleep apnea)
ED Past Surgical History: Other (History of hernia repair)
Social History
Tobacco: Non-smoker
Alcohol: None
Personal:
Living: with family
Employment: Retired
Family History
Family History: Other (Sleep apnea)
Phy Exam
<Otoniel Issa PA-C - Last Filed: 05/14/24 09:32>
Physical Exam
Physical Exam:
General: Well-appearing male slight increased work of breathing
HEENT: Normocephalic atraumatic neck is supple
Heart: Regular no audible murmurs
Lungs: Mostly clear no obvious wheeze or rales
Abdomen is soft nontender nondistended
Extremities: Mild pitting edema bilateral lower extremities
Skin is warm no rash
Scores
<Otoniel Issa PA-C - Last Filed: 05/14/24 09:32>
Heart Failure Risk
Heart Failure Risk Score: Not Applicable
Course
<Otoniel Issa PA-C - Last Filed: 05/14/24 09:32>
Orders/Labs/Results
Orders:
Orders
05/14/24 06:33
EKG [Electrocardiogram (*1)] Urgent
Reason for Study: Shortness of Breath
05/14/24 06:34
EKG- Treatment ONCE
05/14/24 06:40
Complete Blood Count/With Diff Urgent
Comprehensive Metabolic Panel Urgent
NT-proBNP Urgent
Serum Osmolality Urgent
Comment: SERUM OSM ADDED ON BY FLOOR 1:15 05-14-24
Troponin I Urgent
05/14/24 06:43
INR [Prothrombin Time] Urgent
PTT Urgent
05/14/24 07:29
Interrogate Pacemaker- Treatment ONCE
CR Chest - 2 Views Urgent
Comment:
Reason For Exam: sob
05/14/24 07:40
COVID-19 Antigen Urgent
Source: Nasal Swab
05/14/24 09:30
Furosemide [Lasix] 40 mg IV NOW STA
05/14/24 Lunch
Cholesterol Lowering
At Your Request: Full Participation
Fluid Restriction: 1500 mL/day (50 oz)
Cholesterol Lowering: Sodium, 2 Gram
05/14/24 10:57
Admit/Transfer Patient As Directed
Co-Sign Provider:
Level of Care: Inpatient admission
Assign to:: IVU
Physician / Group: hebert/hospitalist
Diagnosis: AECHF
Reason for Hospitalization: aechf
Expected length of stay greater than two midnights?: Yes
ELOS- Estimated Length of Stay in days: 4
I certify the patient meets the requirements for IP care: Yes
PRN Pain Medication Management As Directed
May give lesser potent ordered pain med per pt: Yes
preference::
Protocol:: Medication orders for pain may be administered in a
manner that supports deferring to patient preference
when the pt is:
- Requesting an ordered lesser potent pain medication.
Least to most potent pain medications are defined
as: acetaminophen < NSAID < tramadol < opioids
(morphine, oxycodone, hydromorphone).
- Requesting a lesser dose of the same medication IF
ORDERED.
- Requesting a less intrusive route of administration
if both routes are prescribed by the provider (PO <
IV).
05/14/24 10:59
Code Status As Directed
Resuscitation Status: Full Code
05/14/24 12:23
Aspirin Low Dose EC [Aspir Low (Enteric Coated)] 81 mg PO DAILY
Carvedilol [Coreg] 3.125 mg PO BID
Dofetilide [Tikosyn] 250 mcg PO Q12
Empagliflozin [Jardiance] 10 mg PO DAILY
vericiguat [Verquvo] 10 mg PO DAILY
05/14/24 12:23
CARDIOLOGY CONSULT Routine
Consulting Provider: Jamie Vasquez
Was physician already notified: Yes
HF DIETARY CONSULT Routine
HF EDUCATOR CONSULT Routine
Comment:
VTE Contraindication Routine
VTE Mechanical Device Contraindication: Edema of lower extremity
Pharmocologic Contraindication: Medical Contraindication
Comment: already on coumadin
Activity As Directed
Activity Level: Out of Bed-Early Mobility
Intake/ Output As Directed
Frequency: Per unit guidelines
Patient Education As Directed
Type: CHF folder
Comment: give on admission. Document in Interdisciplinary Education record
Sleep Apnea Assessment by RN As Directed
Comment:
Physician Instructions:
Vital Signs As Directed
Frequency: Other
Additional Instructions:: Q12 or per unit guidelines if more frequent.
Weight As Directed
Frequency: Daily
Type of Scale: Standing Scale
Comment: Daily morning weight. If unable to stand, use balanced bed scale.
Weight As Directed
Frequency: Once
Type of Scale: Standing Scale
Comment: Upon Admission. If unable to stand, use balanced bed scale.
Pulse Ox/cont/shift [RESP] Routine
Quantity: 1
Special Instructions: Daily pulse oximetry at rest. If greater than 92% at rest also obtain pulse oximetry
while ambulating as tolerated.
05/14/24 12:46
Troponin I Q6H
Comment: at admission & every 6 hours x 2 (3 total), ECG to be done with each level
05/14/24 16:00
Furosemide [Lasix] 40 mg IV BID AT 0800,1600
05/14/24 17:30
Mesalamine Delayed Release [Asacol, Delzicol Dr] 800 mg PO MEALS
05/14/24 18:00
Atorvastatin [Lipitor] 20 mg PO QPM
05/14/24 18:23
Troponin I Q6H
Comment: at admission & every 6 hours x 2 (3 total), ECG to be done with each level
05/15/24 00:23
Troponin I Q6H
Comment: at admission & every 6 hours x 2 (3 total), ECG to be done with each level
05/15/24 06:00
Basic Metabolic Panel IN AM
Magnesium IN AM
Prothrombin Time IN AM
05/15/24 08:00
Multivitamin [Theragran] 1 tablet PO DAILY
docosahexaenoic acid-epa 2 cap PO DAILY
05/16/24 06:00
Basic Metabolic Panel IN AM
Magnesium IN AM
Prothrombin Time IN AM
05/17/24 06:00
Basic Metabolic Panel IN AM
Magnesium IN AM
Prothrombin Time IN AM
05/18/24 06:00
Basic Metabolic Panel IN AM
Prothrombin Time IN AM
05/19/24 06:00
Basic Metabolic Panel IN AM
Prothrombin Time IN AM
05/20/24 06:00
Basic Metabolic Panel IN AM
Prothrombin Time IN AM
05/21/24 06:00
Basic Metabolic Panel IN AM
Prothrombin Time IN AM
Abnormal Lab Results
05/14/24 05/14/24
06:40 06:43
RDW 17.2 H %
(11.5-14.5)
MPV 11.1 H fL
(7.4-10.4)
Abs Immat Gran (auto) 0.1 H 10^3/uL
(0-0.05)
Absolute Lymphs (auto) 1.0 L 10^3/uL
(1.2-3.4)
Absolute Monos (auto) 0.7 H 10^3/uL
(0.1-0.6)
Immature Gran % 1.9 H %
(0-0.5)
Lymphocytes % 15.9 L %
(20.5-51.1)
Monocytes % 11.2 H %
(1.7-9.3)
PT 33.1 H Sec
(11.4-14.6)
APTT 35.6 H Sec
(23.4-35.0)
Sodium 125 L mmol/L
(135-145)
Potassium 5.6 H mmol/L
(3.5-5.1)
Chloride 90 L mmol/L
(98-107)
BUN 40 H mg/dl
(9-20)
Creatinine 1.4 H mg/dL
(0.7-1.3)
Glucose 145 H mg/dl
(70-99)
Total Bilirubin 3.7 H mg/dl
(0.2-1.3)
05/14/24 06:40
05/14/24 06:40
Vital Signs
Initial and Last Documented VS:
Initial Vital Signs
Pulse Resp BP Pulse Ox
77 26 92/69 96
05/14/24 06:30 05/14/24 06:30 05/14/24 06:30 05/14/24 06:30
Last Documented Vital Signs
Temp Pulse Resp BP Pulse Ox
98.5 F 76 22 90/78 97
05/14/24 12:28 05/14/24 14:20 05/14/24 12:00 05/14/24 14:20 05/14/24 12:00
<Jabier Hagan MD - Last Filed: 05/14/24 14:46>
Orders/Labs/Results
Orders:
Orders
05/14/24 06:33
EKG [Electrocardiogram (*1)] Urgent
Reason for Study: Shortness of Breath
05/14/24 06:34
EKG- Treatment ONCE
05/14/24 06:40
Complete Blood Count/With Diff Urgent
Comprehensive Metabolic Panel Urgent
NT-proBNP Urgent
Serum Osmolality Urgent
Comment: SERUM OSM ADDED ON BY FLOOR 1:15 05-14-24
Troponin I Urgent
05/14/24 06:43
INR [Prothrombin Time] Urgent
PTT Urgent
05/14/24 07:29
Interrogate Pacemaker- Treatment ONCE
CR Chest - 2 Views Urgent
Comment:
Reason For Exam: sob
05/14/24 07:40
COVID-19 Antigen Urgent
Source: Nasal Swab
05/14/24 09:30
Furosemide [Lasix] 40 mg IV NOW STA
05/14/24 Lunch
Cholesterol Lowering
At Your Request: Full Participation
Fluid Restriction: 1500 mL/day (50 oz)
Cholesterol Lowering: Sodium, 2 Gram
05/14/24 10:57
Admit/Transfer Patient As Directed
Co-Sign Provider:
Level of Care: Inpatient admission
Assign to:: IVU
Physician / Group: hebert/hospitalist
Diagnosis: AECHF
Reason for Hospitalization: aechf
Expected length of stay greater than two midnights?: Yes
ELOS- Estimated Length of Stay in days: 4
I certify the patient meets the requirements for IP care: Yes
PRN Pain Medication Management As Directed
May give lesser potent ordered pain med per pt: Yes
preference::
Protocol:: Medication orders for pain may be administered in a
manner that supports deferring to patient preference
when the pt is:
- Requesting an ordered lesser potent pain medication.
Least to most potent pain medications are defined
as: acetaminophen < NSAID < tramadol < opioids
(morphine, oxycodone, hydromorphone).
- Requesting a lesser dose of the same medication IF
ORDERED.
- Requesting a less intrusive route of administration
if both routes are prescribed by the provider (PO <
IV).
05/14/24 10:59
Code Status As Directed
Resuscitation Status: Full Code
05/14/24 12:23
Aspirin Low Dose EC [Aspir Low (Enteric Coated)] 81 mg PO DAILY
Carvedilol [Coreg] 3.125 mg PO BID
Dofetilide [Tikosyn] 250 mcg PO Q12
Empagliflozin [Jardiance] 10 mg PO DAILY
vericiguat [Verquvo] 10 mg PO DAILY
05/14/24 12:23
CARDIOLOGY CONSULT Routine
Consulting Provider: Jamie Vasquez
Was physician already notified: Yes
HF DIETARY CONSULT Routine
HF EDUCATOR CONSULT Routine
Comment:
VTE Contraindication Routine
VTE Mechanical Device Contraindication: Edema of lower extremity
Pharmocologic Contraindication: Medical Contraindication
Comment: already on coumadin
Activity As Directed
Activity Level: Out of Bed-Early Mobility
Intake/ Output As Directed
Frequency: Per unit guidelines
Patient Education As Directed
Type: CHF folder
Comment: give on admission. Document in Interdisciplinary Education record
Sleep Apnea Assessment by RN As Directed
Comment:
Physician Instructions:
Vital Signs As Directed
Frequency: Other
Additional Instructions:: Q12 or per unit guidelines if more frequent.
Weight As Directed
Frequency: Daily
Type of Scale: Standing Scale
Comment: Daily morning weight. If unable to stand, use balanced bed scale.
Weight As Directed
Frequency: Once
Type of Scale: Standing Scale
Comment: Upon Admission. If unable to stand, use balanced bed scale.
Pulse Ox/cont/shift [RESP] Routine
Quantity: 1
Special Instructions: Daily pulse oximetry at rest. If greater than 92% at rest also obtain pulse oximetry
while ambulating as tolerated.
05/14/24 12:46
Troponin I Q6H
Comment: at admission & every 6 hours x 2 (3 total), ECG to be done with each level
05/14/24 16:00
Furosemide [Lasix] 40 mg IV BID AT 0800,1600
05/14/24 17:30
Mesalamine Delayed Release [Asacol, Delzicol Dr] 800 mg PO MEALS
05/14/24 18:00
Atorvastatin [Lipitor] 20 mg PO QPM
05/14/24 18:23
Troponin I Q6H
Comment: at admission & every 6 hours x 2 (3 total), ECG to be done with each level
05/15/24 00:23
Troponin I Q6H
Comment: at admission & every 6 hours x 2 (3 total), ECG to be done with each level
05/15/24 06:00
Basic Metabolic Panel IN AM
Magnesium IN AM
Prothrombin Time IN AM
05/15/24 08:00
Multivitamin [Theragran] 1 tablet PO DAILY
docosahexaenoic acid-epa 2 cap PO DAILY
05/16/24 06:00
Basic Metabolic Panel IN AM
Magnesium IN AM
Prothrombin Time IN AM
05/17/24 06:00
Basic Metabolic Panel IN AM
Magnesium IN AM
Prothrombin Time IN AM
05/18/24 06:00
Basic Metabolic Panel IN AM
Prothrombin Time IN AM
05/19/24 06:00
Basic Metabolic Panel IN AM
Prothrombin Time IN AM
05/20/24 06:00
Basic Metabolic Panel IN AM
Prothrombin Time IN AM
05/21/24 06:00
Basic Metabolic Panel IN AM
Prothrombin Time IN AM
Abnormal Lab Results
05/14/24 05/14/24
06:40 06:43
RDW 17.2 H %
(11.5-14.5)
MPV 11.1 H fL
(7.4-10.4)
Abs Immat Gran (auto) 0.1 H 10^3/uL
(0-0.05)
Absolute Lymphs (auto) 1.0 L 10^3/uL
(1.2-3.4)
Absolute Monos (auto) 0.7 H 10^3/uL
(0.1-0.6)
Immature Gran % 1.9 H %
(0-0.5)
Lymphocytes % 15.9 L %
(20.5-51.1)
Monocytes % 11.2 H %
(1.7-9.3)
PT 33.1 H Sec
(11.4-14.6)
APTT 35.6 H Sec
(23.4-35.0)
Sodium 125 L mmol/L
(135-145)
Potassium 5.6 H mmol/L
(3.5-5.1)
Chloride 90 L mmol/L
(98-107)
BUN 40 H mg/dl
(9-20)
Creatinine 1.4 H mg/dL
(0.7-1.3)
Glucose 145 H mg/dl
(70-99)
Total Bilirubin 3.7 H mg/dl
(0.2-1.3)
05/14/24 06:40
05/14/24 06:40
Vital Signs
Initial and Last Documented VS:
Initial Vital Signs
Pulse Resp BP Pulse Ox
77 26 92/69 96
05/14/24 06:30 05/14/24 06:30 05/14/24 06:30 05/14/24 06:30
Last Documented Vital Signs
Temp Pulse Resp BP Pulse Ox
98.5 F 76 22 90/78 97
05/14/24 12:28 05/14/24 14:20 05/14/24 12:00 05/14/24 14:20 05/14/24 12:00
Anialt;Otoniel Issa PA-C - Last Filed: 05/14/24 09:32>
MDM/Problems Addressed
Differential Diagnosis Includes:
Shortness of breath. Differential could include CHF exacerbation versus pneumonia versus COVID. Unlikely to be PE secondary to anticoagulated state. INR today 3.2.
Patient has mild edema in the legs. He is sitting upright with slight increased work of breathing but is on room air satting at 97%.
Check labs including BNP. Chest x-ray pending COVID test pending and will interrogate pacemaker
Personally reviewed labs which demonstrate sodium of 125 which is lower than it has been. Most recent value was 127. Patient's potassium is now high at 5.6. He is on spironolactone. BNP also higher than its ever been at over 16,000.
<Otoniel Issa PA-C - Last Filed: 05/14/24 09:32>
*Critical Care Note
Total Time (30-74mins, 75-104mins- exclusive of procedures): Not Applicable
<Otoniel Issa PA-C - Last Filed: 05/14/24 09:32>
Update Note
Update Note:
BNP over 16,000. Chest x-ray shows cardiomegaly with trace bilateral pleural effusions. Patient ambulated here and gets tachypneic. Also while resting he drops to 84%. He is placed on 2 L nasal cannula oxygen. Will admit to hospital for CHF,
hyponatremia hyperkalemia and acute kidney injury
ED Attending Note
<Otoniel Issa PA-C - Last Filed: 05/14/24 09:32>
-
Portions of this chart may have been created with voice recognition software.� Occasional wrong word or��sound alike� substitutions may have occurred due to the inherent limitations of voice recognition software.
<Jabier Hagan MD - Last Filed: 05/14/24 14:46>
ED Attending Note
Patient seen and examined by attending physician: Yes
ED Attending Note:
History and exam concerning for CHF exacerbation. Patient without any exam findings no history concerning for an acute infectious component. During ambulation ED, patient noted to become tachypneic with shortness of breath, despite pulse ox
remaining greater than 92%. Patient will require IV diuresis and further assessment.
Discharge Plan
Departure
Patient Disposition: Admit
Date of Disposition: 05/14/24
Time of Disposition: 09:31
Admit to: Telemetry
Presentation/result/management discussed w/ accepting MD/DO: Hospitalist
Discharge Problem:
CHF (congestive heart failure), Acute hyponatremia, Acute hyperkalemia
Interventions
Interventions:
*Risk Screen - Suicide Last Done: 05/14/24 06:30
*General Assessment Last Done: 05/14/24 06:30
*Neglect/Abuse Screening Last Done: 05/14/24 06:30
ED- Fall Risk Assessment Last Done: 05/14/24 06:37
*ED COVID-19 Vaccine History Last Done: 05/14/24 13:42
*Nursing Disposition Last Done: 05/14/24 12:24
ED- Cardiac Assessment Last Done: 05/14/24 06:26
ED- Pulmonary Assessment Last Done: 05/14/24 06:38
Discharge Date and Time
Discharge Date/Time: 05/14/24 12:25
[2024-05-14 08:10] LABS: COVID-19 Antigen Negative (Negative)
--- NOTE | 2024-05-14 10:56 | HPS.HSE ---
Family Physician
-
Family Physician: * NONE
Chief Complaint
-
Shortness of breath
History of Present Illness
83-year-old male extensive past medical history of cardiomyopathy presenting from home with shortness of breath. Patient states dyspnea started yesterday. Was unable to sleep overnight basis or PND. States of improvement in lower extremity edema.
States as outpatient his cardiology recently placed him on stronger diuretic 3 times daily weekly which was stopped due to mild hyponatremia and hypokalemia and started on Aldactone. States of losing weight. States that chest pain earlier in the
ER which has resolved now. Denies chest pain with exertion. Denies any productive cough. Denies change in diet. Was unable to lie flat at home and was persistently feeling short of breath and thus decided to come into the ER. In the ER patient
was found to be severely elevated proBNP. Chest x-ray with mild pulmonary edema. Denies any fevers or chills or nausea or vomiting. Denies any abdominal pain. Denies decrease in urination. Currently was seen on oxygenation.
Medical History
Past Medical History
Past Medical History: Reports Other
Additional Past Medical History:
Permanent A-fib on Coumadin
V-fib status post 2016
HTN primary
chronic systolic CHF
amiodarone thyroiditis
ulcerative colitis
sleep apnea, CPAP setting 16 full mask
Epistaxis with elevated Coumadin 2019
Past Surgical History: Reports Other
Additional Past Surgical History:
V-fib status post 2016
Hernia repair
AV node ablation
Social History
Tobacco: Non-smoker
Alcohol: Occasional
Drug: None
Employment: Retired
Family History
Family History: Other (Father sleep apnea, COPD , mother HTN, COPD, heart problems)
Allergies / Home Medications
Allergies reflects when Allergies were last updated in [facility].
Home Medications with original date entered in [facility]
Allergy/Medication List:
Allergies
Allergy/AdvReac Type Severity Reaction Status Date / Time
amiodarone Allergy 'thyroid Verified 05/14/24 06:32
problems'
clindamycin Allergy Heartburn Verified 05/14/24 06:32
metoprolol [From Lopressor] Allergy Hallucinati Verified 05/14/24 06:32
ons
sulfamethoxazole Allergy Chest Verified 05/14/24 06:32
[From Bactrim] tightness
trimethoprim [From Bactrim] Allergy Chest Verified 05/14/24 06:32
tightness
Home Medications
multivitamin with folic acid 400 mcg tablet (Tab-A-Lauren) 1 tab PO DAILY Supplement 10/17/11
aspirin 81 mg tablet,delayed release (Adult Low Dose Aspirin) 81 mg PO DAILY Blood Clot Prevention/Tx 03/30/17
atorvastatin 20 mg tablet 20 mg PO QPM High Cholesterol 03/30/17
carvedilol 3.125 mg tablet 3.125 mg PO BID Heart Disease/Condition 03/30/17
enalapril maleate 2.5 mg tablet 2.5 mg PO DAILY Blood Pressure 03/30/17
glucosamine [id number] marylin 1,500 mg-400 unit-100 mg tablet (Osteo Bi-Flex (5-Loxin)) 1 tab PO DAILY Supplement 03/30/17
warfarin 2.5 mg tablet (Jantoven) 2.5 mg PO SUTH@1800 Blood Clot Prevention/Tx 03/30/17
warfarin 5 mg tablet (Jantoven) 5 mg PO MOTUWEFRSA@1800 Blood Clot Prevention/Tx 03/30/17
dofetilide 250 mcg capsule 250 mcg PO Q12H #60 caps 04/01/17
docosahexaenoic acid (dha)-epa 120 mg-180 mg capsule 2 cap PO DAILY Supplement 02/26/18
spironolactone 25 mg tablet 12.5 mg PO DAILY Fluid Retention/Swelling 02/26/18
mesalamine 400 mg capsule (with delayed release tablets inside) (Delzicol) 800 mg PO TID Gastrointestinal Issue 12/22/23
empagliflozin 10 mg tablet (Jardiance) 10 mg PO DAILY 05/14/24
furosemide 40 mg tablet 40 mg PO BID 05/14/24
potassium chloride 20 mEq tablet,extended release 20 meq PO DAILY 05/14/24
vericiguat 10 mg tablet (Verquvo) 10 mg PO DAILY 05/14/24
Review of Systems
-
History Source: Patient
A 12 point ROS was completed and negative except as noted: Yes
Physical Exam
Vital Signs
Vital Signs
Temp Pulse Resp BP Pulse Ox
97.5 F 75 24 100/73 93
05/14/24 06:36 05/14/24 08:05 05/14/24 08:05 05/14/24 08:05 05/14/24 08:05
Physical Exam
General: Well Developed, Well Nourished and No Apparent Distress
HEENT: NormoCephalic, Moist mucous membranes and Atraumatic
Respiratory: Clear
Cardiac: S1/S2 and Regular Rhythm; No Murmur or Rub
GI: Soft, Non Tender, Non Distended and Normal Bowel Sounds; No Organomegaly
Rectal: Deferred by Provider
Musculoskeletal: No Clubbing, No Cyanosis, Edema, Left Lower Extremity (trace ) and Edema, Right Lower Extremity (trace )
Skin: No Rash
Neuro: Awake and Nonfocal/grossly intact
Psych: Calm
Laboratory Results
-
05/14/24 06:40
05/14/24 06:40
Laboratory Results
PT 33.1 Sec (11.4-14.6) H 05/14/24 06:43
INR 3.24 05/14/24 06:43
APTT 35.6 Sec (23.4-35.0) H 05/14/24 06:43
Total Bilirubin 3.7 mg/dl (0.2-1.3) H 05/14/24 06:40
AST 35 U/L (17-59) 07/29/24 06:40
ALT 31 U/L (0-50) 05/14/24 06:40
Alkaline Phosphatase 90 U/L (38-126) 05/14/24 06:40
Troponin I < 0.012 ng/ml 05/14/24 06:40
Impression/Plan
-
#Acute hypoxic respiratory insufficiency likely secondary to acute on chronic HFrEF exacerbation
#Status post [employer] INSOLE R[employer]-D
Chest x-ray noted
Wean oxygen started
Start patient 40 mg of IV Lasix twice daily if blood pressure can tolerate it.
Echocardiogram last 01/07.
Trend troponin
Strict I's and O's. Daily weights
Continue goal-directed medical therapy with statin, carvedilol, Jardiance
Cardiology evaluation
#Permanent atrial fibrillation status post AV node ablation
#History of V. tach/V-fib
Chronic coagulopathy with Coumadin
Supratherapeutic INR at 3.23
Continue with Tikosyn. Monitor on telemetry. EGK with V-paced.
Hold Coumadin and restart once INR less than 3. Daily INR checks
#Hypokalemia likely secondary to KCl supplementation and on Aldactone
Hold KCl p.o. for now. Hold low-dose NAZIA for now
On diuretics should improve
Repeat BMP later today
#Hyponatremia likely secondary to hypervolemia
Check serum awesome and urine lites unclear if accurate as on diuretics
Repeat BMP later today- If worsening of sodium we will ask nephrology for input as may require Samsca
Ulcerative colitis
Continue mesalamine
DVT prophylaxis supratherapeutic INR. Restart Coumadin once INR less than 3
Full code
I spent a total of 79 minutes with the patient or on the floor. More than 50% of this time involved counseling and coordination of care.
[2024-05-14] MEDS: LASIX 40 MG IV (11:24)
[2024-05-14 13:24] LABS: Troponin I < 0.012 ng/ml
--- NOTE | 2024-05-14 13:41 | CM ---
Chart reviewed. Patient is independent of ADLS, lives with his in an apartment at [facility] [place], 0 DME. Patient is not current with VN. Plan is for the patient to return to [facility]. CM to follow
[2024-05-14] MEDS: ASPIR LOW (ENTERIC COATED) 81 MG PO (14:20)
[2024-05-14] MEDS: TIKOSYN 250 MCG PO ×2 (14:20→23:14)
[2024-05-14] MEDS: JARDIANCE 10 MG PO (14:20)
[2024-05-14] MEDS: COREG 3.125 MG PO ×2 (14:20→19:29)
[2024-05-14 14:42] LABS: Osmolality Serum 277 mOsm/kg (275-300)
--- NOTE | 2024-05-14 14:59 | PTCARENOTE ---
received patient from the ER, patient is on 2 LNC, o2 sat 95%, able to ambulate from stretcher to bed, BARBA. abd. is bloated, which is new for patient. noted on admission left calf/lora area has healed wound. monitor placed, AV paced, BP left 87/67
right 90/78, patient stated, 'My BP is always low'. strongly encouraged to use bottle to void so we get accurate measurement and to watch his fluid intake, patient was somewhat receptive. oriented patient to room and surroundings. patient is
ordering from menu, at bedside.
--- NOTE | 2024-05-14 15:36 | CON.CAR ---
Addendum entered and electronically signed by Jamie Vasquez DO 05/14/24 17:06:
I saw and examined the patient.
The Resident Surgeon's note was reviewed and I agree with the note.
Comment:
Plan:
Cont gentle IV diuresis with careful monitoring of electrolytes
Low threshold for nephrology consult given significant hyponatremia.
Dry wt is difficult due to some possible nutritional wt loss.
HF teaching.
Multiple recent admits for HF to different institutions.
Recent echo reviewed with EF 19-25% December 2023. Repeat echo ordered by primary service is pending.
Monitor QTc for Tikosyn
Cont Coreg.
ACEI and aldactone on hold
Discussed with family at bedside
HPI: Patient came to [facility] today with orthopnea and is now admitted with acute HF and cardiology has been consulted. Patient was admitted to 12/22/2023 until 12/24/2023 with acute HFrEF. Patient has a history of nonischemic cardiomyopathy with
ejection fraction ranging between 25% and 45% since 2011. Patient follows chronically with Dr. Davalos at [facility] and separately follows with Dr. Arora for EP at [facility]. He was previously intolerant to more aggressive GDMT due to hypotension. He also
previously declined Entresto when offered to him in 2020 because he did his own Internet research and found that it might cause early Alzheimer's. During his admission to in December he declined Entresto again and also declined the addition of
SGLT2 inhibitor. He did follow-up with his primary retarder operator as an outpatient and is now taking Jardiance 10 mg daily and was also started on Verquvo as an adjunct to heart failure therapy because he felt he could not tolerate Entresto due to
hypotension. He also had an interval admission to [facility] about 1 to 2 weeks after his admission for chest tightness and HF. During that admission he had a stress test to evaluate his reduced ejection fraction and there was no evidence of ischemia
and the EF was 19%. Looking through W the patient had a phone call to the primary cardiology office on 04/16/2024 for weight gain and edema and metolazone was added. The patient reports that he had tremendous diuresis and weight loss resulting in
electrolyte imbalance. He has been working on getting his electrolytes back on track and has stopped taking metolazone by his report. He has continued to take Lasix 40 mg twice daily. He reports that when he went to bed on Tuesday night he had
some shortness of breath, but this resolved with CPAP. When he tried to go to sleep last night and his orthopnea did not improve with CPAP and so he came to ER early this morning.
Original Note:
Consultation
Consultation Request
Date/Time Consultation Requested: 05/14/24
Date/Time Consultation Performed: 05/14/24
Requesting Provider: Dr. Jean
Performing Provider: Dr. Vasquez
Reason for Consultation: Acute HFrEF
Medical History
-
History of Present Illness:
Patient came to [facility] today with orthopnea and is now admitted with acute HF and cardiology has been consulted. Patient was admitted to 12/22/2023 until 12/24/2023 with acute HFrEF. Patient has a history of nonischemic cardiomyopathy with ejection
fraction ranging between 25% and 45% since 2011. Patient follows chronically with Dr. Davalos at [facility] and separately follows with Dr. Arora for EP at [facility]. He was previously intolerant to more aggressive GDMT due to hypotension. He also previously
declined Entresto when offered to him in 2020 because he did his own Internet research and found that it might cause early Alzheimer's. During his admission to in December he declined Entresto again and also declined the addition of SGLT2
inhibitor. He did follow-up with his primary retarder operator as an outpatient and is now taking Jardiance 10 mg daily and was also started on Verquvo as an adjunct to heart failure therapy because he felt he could not tolerate Entresto due to
hypotension. He also had an interval admission to [facility] about 1 to 2 weeks after his admission for chest tightness and HF. During that admission he had a stress test to evaluate his reduced ejection fraction and there was no evidence of ischemia
and the EF was 19%. Looking through eCW the patient had a phone call to the primary cardiology office on 04/16/2024 for weight gain and edema and metolazone was added. The patient reports that he had tremendous diuresis and weight loss resulting in
electrolyte imbalance. He has been working on getting his electrolytes back on track and has stopped taking metolazone by his report. He has continued to take Lasix 40 mg twice daily. He reports that when he went to bed on Tuesday night he had
some shortness of breath, but this resolved with CPAP. When he tried to go to sleep last night and his orthopnea did not improve with CPAP and so he came to ER early this morning.
PMH:
Chronic HFrEF
CM EF 20-25% by echo 12/22/23
h/o NICM EF between 25% and 45% since 2011
s/p [employer] TICKET PULLER-D
h/o VT/VF
Chronic Tikosyn therapy
Permanent Afib
s/p AV node ablation
Chronic warfarin OAC
h/o Amiodarone thyroiditis
Ulcerative colitis
JULIO CESAR on CPAP
Past Medical History
Past Medical History: Other
Past Surgical History: Cardiac ([employer] TICKET PULLER-D and AVN ablation 2011)
Social History
Tobacco: Non-Smoker
Alcohol: None
Drug: None
Personal:
Living: With Family (independent living at [facility] [place])
Family History
Family History: CAD and Hypertension
Allergies / Home Medications
Allergy/AdvReac Type Severity Reaction Status Date / Time
amiodarone Allergy 'thyroid Verified 05/14/24 06:32
problems'
clindamycin Allergy Heartburn Verified 05/14/24 06:32
metoprolol [From Lopressor] Allergy Hallucinati Verified 05/14/24 06:32
ons
sulfamethoxazole Allergy Chest Verified 05/14/24 06:32
[From Bactrim] tightness
trimethoprim [From Bactrim] Allergy Chest Verified 05/14/24 06:32
tightness
�Medication �Instructions �Recorded �Confirmed �Type
multivitamin with folic acid 400 1 tab PO DAILY Supplement 10/17/11 05/14/24 History
mcg tablet (Tab-A-Lauren)
aspirin 81 mg tablet,delayed 81 mg PO DAILY Blood Clot 03/30/17 05/14/24 History
release (Adult Low Dose Aspirin) Prevention/Tx
atorvastatin 20 mg tablet 20 mg PO QPM High Cholesterol 03/30/17 05/14/24 History
carvedilol 3.125 mg tablet 3.125 mg PO BID Heart 03/30/17 05/14/24 History
Disease/Condition
enalapril maleate 2.5 mg tablet 2.5 mg PO DAILY Blood Pressure 03/30/17 05/14/24 History
glucosamine GXl-C7-Xyyfibpbe 1 tab PO DAILY Supplement 03/30/17 05/14/24 History
marylin 1,500 mg-400 unit-100 mg
tablet (Osteo Bi-Flex (5-Loxin))
warfarin 2.5 mg tablet (Jantoven) 2.5 mg PO SUTH@1800 Blood Clot 03/30/17 05/14/24 History
Prevention/Tx
warfarin 5 mg tablet (Jantoven) 5 mg PO MOTUWEFRSA@1800 Blood Clot 03/30/17 05/14/24 History
Prevention/Tx
dofetilide 250 mcg capsule 250 mcg PO Q12H #60 caps 04/01/17 05/14/24 Rx
docosahexaenoic acid (dha)-epa 120 2 cap PO DAILY Supplement 02/26/18 05/14/24 History
mg-180 mg capsule
spironolactone 25 mg tablet 12.5 mg PO DAILY Fluid 02/26/18 05/14/24 History
Retention/Swelling
mesalamine 400 mg capsule (with 800 mg PO TID Gastrointestinal 12/22/23 05/14/24 History
delayed release tablets inside) Issue
(Delzicol)
empagliflozin 10 mg tablet 10 mg PO DAILY 05/14/24 05/14/24 History
(Jardiance)
furosemide 40 mg tablet 40 mg PO BID 05/14/24 05/14/24 History
potassium chloride 20 mEq 20 meq PO DAILY 05/14/24 05/14/24 History
tablet,extended release
vericiguat 10 mg tablet (Verquvo) 10 mg PO DAILY 05/14/24 05/14/24 History
Review of Systems
-
History Source: Patient and Family ( sitting bedside)
All other systems: Negative unless noted
Physical Exam
Vital Signs
Temp Pulse Resp BP Pulse Ox
98 F 75 20 100/77 100
05/14/24 15:11 05/14/24 15:15 05/14/24 15:11 05/14/24 15:13 05/14/24 15:11
GEN: NAD. AAOx3
HEENT: EOMI, MMM
LUNGS: Decreased BS bases without wheeze or rales
CV: Reg, S1/S2, no murmur
ABD: soft, BS+, NT, ND
EXT: +1 pitting B/L LE edema. No cyanosis, clubbing or lesions B/L
NEURO: Gross non-focal
SKIN: Warm, pink, dry. No rash
Lab Results
05/14/24 06:40
Troponin I < 0.012 ng/ml 05/14/24 12:46
Xcg-G-Rjljxiyhdtq Pept 45317 pg/ml 05/14/24 06:40
Impression / Plan
-
PCP: Dr. Mayers
Primary Commercial Fishing Vessel Operator: Dr. Davalos
EP: Dr. Arora
Impression:
Acute HFrEF
CM EF 20-25% by echo 12/22/23
h/o NICM EF between 25% and 45% since 2011
s/p [employer] TICKET PULLER-D
h/o VT/VF
Chronic Tikosyn therapy
Permanent Afib
s/p AV node ablation
Chronic warfarin OAC
h/o Amiodarone thyroiditis
Ulcerative colitis
JULIO CESAR on CPAP
Hyponatremia
Hyperkalemia, recent hypokalemia as an outpatient
Echo 06/2016: EF 35-40%, AV sclerosis with trivial AI, mildly dilated proximal ascending thoracic aorta
Echo 12/22/23: EF 19% by Cooper's method, 26% by volumetric assessment, global hypokinesis with anterior wall and anteroseptum moving best, reduced RV systolic function, mod MR, mild to mod TR with PAP 50 mmHg
Plan:
-Patient came to [facility] today with orthopnea and is now admitted with acute HF and cardiology has been consulted. Patient was admitted to 12/22/2023 until 12/24/2023 with acute HFrEF. Patient has a history of nonischemic cardiomyopathy with ejection
fraction ranging between 25% and 45% since 2011. Patient follows chronically with Dr. Davalos at [facility] and separately follows with Dr. Arora for EP at [facility]. He was previously intolerant to more aggressive GDMT due to hypotension. He also previously
declined Entresto when offered to him in 2020 because he did his own Internet research and found that it might cause early Alzheimer's. During his admission to in December he declined Entresto again and also declined the addition of SGLT2
inhibitor. He did follow-up with his primary retarder operator as an outpatient and is now taking Jardiance 10 mg daily and was also started on Verquvo as an adjunct to heart failure therapy because he felt he could not tolerate Entresto due to
hypotension. He also had an interval admission to [facility] about 1 to 2 weeks after his admission for chest tightness and HF. During that admission he had a stress test to evaluate his reduced ejection fraction and there was no evidence of ischemia
and the EF was 19%. Looking through eCW the patient had a phone call to the primary cardiology office on 04/16/2024 for weight gain and edema and metolazone was added. The patient reports that he had tremendous diuresis and weight loss resulting in
electrolyte imbalance. He has been working on getting his electrolytes back on track and has stopped taking metolazone by his report. He has continued to take Lasix 40 mg twice daily. He reports that when he went to bed on Tuesday night he had
some shortness of breath, but this resolved with CPAP. When he tried to go to sleep last night and his orthopnea did not improve with CPAP and so he came to ER early this morning.
-Patient reports dry weight at home is 175 lbs. Dry weight at last HF d/c from was 186 lbs. Suspect he has some amount of caloric and muscle mass weight loss and concomitant fluid weight gain. Will diurese and establish a new dry weight.
-Increase Lasix to 60 mg IV BID. Patient was taking Lasix 40 mg PO BID prior to admission.
-Patient will likely need a nephrology consult for hyponatremia. Agree with fluid restriction.
- regimen includes Coreg 3.125 mg BID and this will be continued.
-Outpatient doses of enalapril 2.5 mg daily and spironolactone 12.5 mg daily will be held for hyperkalemia.
-Outpatient dose of Verquvo 10 mg daily can be continued, but is not on formulary at . This was started by his primary retarder operator within the last couple of months.
-Outpatient dose of Jardiance 10 mg daily has been continued.
-Outpatient dose of Tikosyn 250 mcg every 12 hours should be continued. Patient takes this for history of VT/VF.
-Patient reports his [employer] TICKET PULLER�D was interrogated in the ER, will track down report. Device was checked during admission at 12/22/2023 until 12/24/2023 and there were no shocks at that time.
-Afib is permanent and he is s/p AVJ. ECG reviewed by me is v paced
-INRs managed by PCP with draws at lab and an INR goal of 2-3. INR 3.24 today and warfarin to be held tonight and recheck INR in AM
--- NOTE | 2024-05-14 15:53 | PTCARENOTE ---
Echo being completed at bedside.
[2024-05-14] MEDS: LASIX 60 MG IV (16:19)
[2024-05-14] MEDS: FLUSH (NSS) 1 FLUSH IV ×2 (16:23→19:30)
[2024-05-14] MEDS: LIPITOR 20 MG PO (17:35)
[2024-05-14] MEDS: ASACOL, DELZICOL DR 800 MG PO (17:35)
[2024-05-14 18:48] LABS: Troponin I < 0.012 ng/ml
[2024-05-14 18:50] LABS: Blood Urea Nitrogen 44 mg/dl (9-20); Calcium 9.3 mg/dl (8.4-10.2); Carbon Dioxide 28 mmol/L (22-30); Chloride 88 mmol/L (98-107); Estimated Creatinine Clearance 42 ml/min; Glucose 156 mg/dl (70-99); Potassium 5.3 mmol/L (3.5-5.1); Sodium 123 mmol/L (135-145); eGFR 45.91
--- NOTE | 2024-05-14 20:35 | PTCARENOTE ---
Patient received at shift report. Pt in bed, no cough, unlabored respirations. 96% on 2L. Pt encouraged to ask questions on heart failure. Heart failure packet at bedside. First dose of Tikosyn given late, will give second dose at midnight per
patient request. Call [email or web address] within reach.
[2024-05-15] VITALS (10 sets, daily range): BP systolic 84–151; BP diastolic 62–124; BMI 23.3
--- NOTE | 2024-05-15 02:59 | PTCARENOTE ---
Pt tolerated CPAP until 0245, sat on room air on 96%. AM labs sent.
[2024-05-15 03:33] LABS: INR 2.95; PT 30.7 Sec (11.4-14.6)
[2024-05-15 03:46] LABS: Blood Urea Nitrogen 46 mg/dl (9-20); Carbon Dioxide 22 mmol/L (22-30); Chloride 92 mmol/L (98-107); Estimated Creatinine Clearance 45 ml/min; Glucose 120 mg/dl (70-99); Magnesium 2.7 mg/dl (1.6-2.3); Potassium 5.1 mmol/L (3.5-5.1); Sodium 125 mmol/L (135-145); eGFR 49.87
[2024-05-15] MEDS: ASPIR LOW (ENTERIC COATED) 81 MG PO (08:23)
[2024-05-15] MEDS: THERAGRAN 1 TABLET PO (08:23)
[2024-05-15] MEDS: ASACOL, DELZICOL DR 800 MG PO ×3 (08:23→17:36)
[2024-05-15] MEDS: COREG 3.125 MG PO ×2 (08:24→20:12)
--- NOTE | 2024-05-15 09:02 | W.PN.CARDCBS ---
Addendum entered and electronically signed by Arden Hamilton MD 05/15/24 17:11:
I saw and examined the patient.
The Locker Room Attendant's note was reviewed and I agree with the note.
Comment: Briefly, 83-year-old man past medical history of NICM with severely reduced left ventricular ejection fraction (EF 10-15%) as well as VT/VF status post STATION ATTENDANT-D therapy who presents in decompensated heart failure.
Examines volume overloaded with elevated JVP and gallop on physical exam
Would continue IV Lasix twice daily
Monitor daily weights, renal function and electrolytes
Continue home cardiomyopathy meds as blood pressure will tolerate: beta-cali, SGLT2 and vericiguat
NAZIA inhibitor and aldactone on hold for hyperK, hopefully can add back NAZAI inhibitor for afterload reduction
Appreciate nephrology input
Original Note:
Today's Communication / Plan
-
Cont Lasix 60 mg IV BID
Impression / Plan
-
PCP: Dr. Mayers
Primary Compliance Auditor: Dr. Davalos
EP: Dr. Arora
Impression:
Acute HFrEF
CM EF 20-25% by echo 12/22/23
h/o NICM EF between 25% and 45% since 2011
s/p [employer] STATION ATTENDANT-D
h/o VT/VF
Chronic Tikosyn therapy
Permanent Afib
s/p AV node ablation
Chronic warfarin OAC
h/o Amiodarone thyroiditis
Ulcerative colitis
JULIO CESAR on CPAP
Hyponatremia
Hyperkalemia, recent hypokalemia as an outpatient
Echo 06/2016: EF 35-40%, AV sclerosis with trivial AI, mildly dilated proximal ascending thoracic aorta
Echo 12/22/23: EF 19% by Cooper's method, 26% by volumetric assessment, global hypokinesis with anterior wall and anteroseptum moving best, reduced RV systolic function, mod MR, mild to mod TR with PAP 50 mmHg
Echo 05/14/2024: EF 10 to 15% visually, severe global hypokinesis, stage II diastolic dysfunction, moderate to severe MR, moderate TR, mild aortic regurgitation
Plan:
-Weight is down 6 lbs overnight with Lasix 60 mg IV BID. He feels a bit less bloated, but not back to baseline yet. He is no longer requiring oxygen via NC. Patient was taking Lasix 40 mg PO BID prior to admission.
-Weight is down to 176 lbs on 05/15/24 and patient reports dry weight at home is 175 lbs. Dry weight at last HF d/c from was 186 lbs. Suspect he has some amount of caloric and muscle mass weight loss and concomitant fluid weight gain. Will diurese
and establish a new dry weight.
-Nephrology is following for hyponatremia and ODALIS, Samsca is being considered
-CM regimen includes Coreg 3.125 mg BID and this will be continued.
-Outpatient doses of enalapril 2.5 mg daily and spironolactone 12.5 mg daily will be held for hyperkalemia.
-Outpatient dose of Verquvo 10 mg daily can be continued, but is not on formulary at . This was started by his primary raveler within the last couple of months.
-Outpatient dose of Jardiance 10 mg daily has been continued.
-Outpatient dose of Tikosyn 250 mcg every 12 hours should be continued. Patient takes this for history of VT/VF.
-Patient reports his [employer] STATION ATTENDANT�D was interrogated in the ER, will track down report. Device was checked during admission at 12/22/2023 until 12/24/2023 and there were no shocks at that time.
-Afib is permanent and he is s/p AVJ. ECG reviewed by me is v paced
-INRs managed by PCP with draws at lab and an INR goal of 2-3. INR 3.24 today and warfarin to be held tonight and recheck INR in AM
HPI: Patient came to [facility] today with orthopnea and is now admitted with acute HF and cardiology has been consulted. Patient was admitted to 12/22/2023 until 12/24/2023 with acute HFrEF. Patient has a history of nonischemic cardiomyopathy with
ejection fraction ranging between 25% and 45% since 2011. Patient follows chronically with Dr. Davalos at [facility] and separately follows with Dr. Arora for EP at [facility]. He was previously intolerant to more aggressive GDMT due to hypotension. He also
previously declined Entresto when offered to him in 2020 because he did his own Internet research and found that it might cause early Alzheimer's. During his admission to in December he declined Entresto again and also declined the addition of
SGLT2 inhibitor. He did follow-up with his primary raveler as an outpatient and is now taking Jardiance 10 mg daily and was also started on Verquvo as an adjunct to heart failure therapy because he felt he could not tolerate Entresto due to
hypotension. He also had an interval admission to [facility] about 1 to 2 weeks after his admission for chest tightness and HF. During that admission he had a stress test to evaluate his reduced ejection fraction and there was no evidence of ischemia
and the EF was 19%. Looking through eCW the patient had a phone call to the primary cardiology office on 04/16/2024 for weight gain and edema and metolazone was added. The patient reports that he had tremendous diuresis and weight loss resulting in
electrolyte imbalance. He has been working on getting his electrolytes back on track and has stopped taking metolazone by his report. He has continued to take Lasix 40 mg twice daily. He reports that when he went to bed on Tuesday night he had
some shortness of breath, but this resolved with CPAP. When he tried to go to sleep last night and his orthopnea did not improve with CPAP and so he came to ER early this morning.
Progress Note - Compliance Auditor
Subjective
Date of Service: May 15, 2024
He feels a bit less bloated, but not back to baseline, less SOB
Objective
Labs:
05/14/24 06:40
05/15/24 02:54
Labs
Hgb 14.6 g/dL (13.0-18.0) 05/14/24 06:40
Hct 41.8 % (39.0-52.0) 05/14/24 06:40
Plt Count 157 10^3/uL (130-400) 05/14/24 06:40
PT 30.7 Sec (11.4-14.6) H 05/15/24 02:54
INR 2.95 05/15/24 02:54
APTT 35.6 Sec (23.4-35.0) H 05/14/24 06:43
Sodium 125 mmol/L (135-145) L 05/15/24 02:54
Potassium 5.1 mmol/L (3.5-5.1) 05/15/24 02:54
BUN 46 mg/dl (9-20) H 05/15/24 02:54
Creatinine 1.4 mg/dL (0.7-1.3) H 05/15/24 02:54
Glucose 120 mg/dl (70-99) H 05/15/24 02:54
Troponins
05/14/24 05/14/24 05/14/24
06:40 12:46 18:17
Troponin I < 0.012 < 0.012 < 0.012
05/15/24
00:23
Troponin I Cancelled
Vital Signs and I&O:
Vital Signs
Temp Pulse Resp BP Pulse Ox
97.7 F 75 16 91/73 97
05/15/24 08:04 05/15/24 08:45 05/15/24 08:04 05/15/24 08:04 05/15/24 08:46
Vital Signs
Temp Pulse Resp BP Pulse Ox
97.7 F 75 16 91/73 97
05/15/24 08:04 05/15/24 08:45 05/15/24 08:04 05/15/24 08:04 05/15/24 08:46
Intake & Output
05/13/24 05/14/24 05/15/24 05/16/24
06:59 06:59 06:59 06:59
Intake Total 480 / 480
Output Total 400 / 400 450 / 450
Balance 80 / 80 -450 / -450
Physical Exam
Physical Exam
GEN: NAD. AAOx3
HEENT: EOMI
LUNGS: No audible wheeze
CV: Paced on tele
ABD: soft, BS+, NT, ND
EXT: Trace to +1 pitting B/L LE edema
NEURO: Gross non-focal
SKIN: No rash
[2024-05-15] MEDS: LASIX 60 MG IV ×2 (09:30→15:54)
--- NOTE | 2024-05-15 09:40 | W.CON.NEPH ---
Consultation
-
Date/Time Consultation Requested: 9 AM
Date/Time Consultation Performed: 05/15/2024 940 AM
Requesting Provider: Dr. Jean
Performing Provider: Dr. Suarez
Reason for Consultation: Hyponatremia/ODALIS
Medical History
-
Chief Complaint: Hyponatremia
History of Present Illness:
83-year-old male extensive past medical history of cardiomyopathy (maintained on Jardiance and Lasix and enalapril )presenting from home with shortness of breath. The patient also has a history of atrial fibrillation for which she is maintained on
carvedilol and dofetilide and is anticoagulated with coumadin. He is maintained on statin therapy for his dyslipidemia. The patient underwent echocardiogram yesterday on presentations for his CHF symptoms and was noted to have an ejection
fraction of 10 to 15% with severe global hypokinesis. There is also associated moderate to severe mitral regurgitation and moderate tricuspid regurgitation. The patient states dyspnea started yesterday. He was unable to sleep overnight basis or
PND. States as outpatient his cardiology recently placed him on stronger diuretic 3 times daily weekly which was stopped due to mild hyponatremia,and hypokalemia and started on Aldactone. States that chest pain earlier in the ER which has
resolved now. Denies chest pain with exertion. Denies any productive cough. Denies change in diet. He was unable to lie flat at home and was persistently feeling short of breath and thus decided to come into the ER. In the ER patient was found
to be severely elevated proBNP. Chest x-ray with mild pulmonary edema. Denies any fevers or chills or nausea or vomiting. Denies any abdominal pain. Denies decrease in urination. Currently was seen on oxygenation. Nephrology was consulted to
see the patient for hyponatremia with a serum sodium level of 125.
Past Medical History
Nonischemic cardiomyopathy with EF 20% -25%
Permanent A-fib on Coumadin
V-fib status post AICD 2016
HTN primary
chronic systolic CHF
amiodarone thyroiditis
ulcerative colitis
sleep apnea, CPAP setting 16 full mask
Epistaxis with elevated Coumadin 2019
V-fib status post AICD 2016
Hernia repair
AV node ablation
Social History
Tobacco: Non-Smoker
Alcohol: Occasional
Family History
No chronic kidney disease
Allergies / Home Medications
Allergy/AdvReac Type Severity Reaction Status Date / Time
amiodarone Allergy 'thyroid Verified 05/14/24 06:32
problems'
clindamycin Allergy Heartburn Verified 05/14/24 06:32
metoprolol [From Lopressor] Allergy Hallucinati Verified 05/14/24 06:32
ons
sulfamethoxazole Allergy Chest Verified 05/14/24 06:32
[From Bactrim] tightness
trimethoprim [From Bactrim] Allergy Chest Verified 05/14/24 06:32
tightness
�Medication �Instructions �Recorded �Confirmed �Type
multivitamin with folic acid 400 1 tab PO DAILY Supplement 10/17/11 05/14/24 History
mcg tablet (Tab-A-Lauren)
aspirin 81 mg tablet,delayed 81 mg PO DAILY Blood Clot 03/30/17 05/14/24 History
release (Adult Low Dose Aspirin) Prevention/Tx
atorvastatin 20 mg tablet 20 mg PO QPM High Cholesterol 03/30/17 05/14/24 History
carvedilol 3.125 mg tablet 3.125 mg PO BID Heart 03/30/17 05/14/24 History
Disease/Condition
enalapril maleate 2.5 mg tablet 2.5 mg PO DAILY Blood Pressure 03/30/17 05/14/24 History
glucosamine XAj-P2-Plkapsujo 1 tab PO DAILY Supplement 03/30/17 05/14/24 History
marylin 1,500 mg-400 unit-100 mg
tablet (Osteo Bi-Flex (5-Loxin))
warfarin 2.5 mg tablet (Jantoven) 2.5 mg PO SUTH@1800 Blood Clot 03/30/17 05/14/24 History
Prevention/Tx
warfarin 5 mg tablet (Jantoven) 5 mg PO MOTUWEFRSA@1800 Blood Clot 03/30/17 05/14/24 History
Prevention/Tx
dofetilide 250 mcg capsule 250 mcg PO Q12H #60 caps 04/01/17 05/14/24 Rx
docosahexaenoic acid (dha)-epa 120 2 cap PO DAILY Supplement 02/26/18 05/14/24 History
mg-180 mg capsule
spironolactone 25 mg tablet 12.5 mg PO DAILY Fluid 02/26/18 05/14/24 History
Retention/Swelling
mesalamine 400 mg capsule (with 800 mg PO TID Gastrointestinal 12/22/23 05/14/24 History
delayed release tablets inside) Issue
(Delzicol)
empagliflozin 10 mg tablet 10 mg PO DAILY Heart 05/14/24 05/14/24 History
(Jardiance) Disease/Condition
furosemide 40 mg tablet 40 mg PO BID Fluid 05/14/24 05/14/24 History
Retention/Swelling
potassium chloride 20 mEq 20 meq PO DAILY Electrolyte 05/14/24 05/14/24 History
tablet,extended release Repletion
vericiguat 10 mg tablet (Verquvo) 10 mg PO DAILY Heart Failure 05/14/24 05/14/24 History
Review of Systems
-
History Source: Patient
All other systems: Negative unless noted
Constitutional: Fatigue
Respiratory: Other (sob)
Cardiac: Chest Pain and Other (Orthopnea)
Physical Exam
Vital Signs
Vital Signs
Temp Pulse Resp BP Pulse Ox
97.7 F 75 16 91/73 97
05/15/24 08:04 05/15/24 08:45 05/15/24 08:04 05/15/24 08:04 05/15/24 08:46
Lab Results
05/14/24 06:40
05/15/24 02:54
WBC 6.4 10^3/uL (4.8-10.8) 05/14/24 06:40
RBC 4.76 10^6/uL (4.70-6.10) 05/14/24 06:40
Hgb 14.6 g/dL (13.0-18.0) 05/14/24 06:40
Hct 41.8 % (39.0-52.0) 05/14/24 06:40
Plt Count 157 10^3/uL (130-400) 05/14/24 06:40
Sodium 125 mmol/L (135-145) L 05/15/24 02:54
Potassium 5.1 mmol/L (3.5-5.1) 05/15/24 02:54
Chloride 92 mmol/L (98-107) L 05/15/24 02:54
Carbon Dioxide 22 mmol/L (22-30) 05/15/24 02:54
BUN 46 mg/dl (9-20) H 05/15/24 02:54
Creatinine 1.4 mg/dL (0.7-1.3) H 05/15/24 02:54
eGFR 49.87 05/15/24 02:54
Glucose 120 mg/dl (70-99) H 05/15/24 02:54
Calcium 9.0 mg/dl (8.4-10.2) 05/15/24 02:54
Ssi-Z-Zbqhqnvloyy Pept 01645 pg/ml 05/14/24 06:40
Albumin 4.4 g/dl (3.5-5.0) 05/14/24 06:40
Physical Exam
General: AOx3, Nontoxic , NAD
HEENT: PERRL, EOMI, Anicteric, Conjunctivae Clear, Ear/Nose Intact, Hearing Normal, Oropharynx Clear/Moist, Dentition Intact, Facial Symmetry, Neck Supple, Neck: Trachea Midline, No JVD and No Thyromegaly, no Bruits
Respiratory: Coarse breath sounds with decreased breath sounds to the base bilaterally with normal lung exersion, no rales rhonchi or wheezes
Cardiac: S1/S2 and Regular Rate/Rhythm
Breast: Deferred by me
Abdomen: Soft, Nontender, Nondistended, Normal Bowel Sounds and No Hepatosplenomegaly
Rectal: Deferred by Provider
Genito-urinary: No Costovertebral Tenderness
Extremities: No Clubbing, No Cyanosis , no edema
Skin: No Rash or open lesions
Neuro: Nonfocal/Grossly Intact, CN II-XII (Intact) and Strength (Musculoskeletal exam 5 out of 5 both upper and lower extremities)
Hematologic/Lymphatic: No Cervical Lymphadenopathy, No Submandibular Lymphadenopathy and No Supraclavicular Lymphadenopathy
Psych: Mood/afflect pleasant, Insight/judgement good and Appropriate
Vascular: plus 1 pedal and radial pulses
Data Reviewed
-
Radiology: Report Reviewed by me (Chest x-ray personally reviewed notes pacemaker device in left anterior chest wall compartment: no edema or infiltrate)
Medical Tests (Nuc Med, Echo etc): Other (EKG report reviewed shows biventricular pacer at 75 beats per minute per report)
Labs: Labs Reviewed by me (BMP CBC)
Old Records: Reviewed (Sodium level 134 on 04/23/2024 as per review of medical record)
Assessment/Plan
-
Impression:
Hyponatremia
ODALIS
Decompensated congestive heart failure in setting of nonischemic cardiomyopathy
Nonischemic cardiomyopathy with EF of 10 to 15%
History of VT/VF
History of hypothyroidism
Atrial fibrillation (with history of AV node ablation)
History of ulcerative colitis
Plan:
Hyponatremia
-Likely due to elevated ADH in the presence of decompensated congestive heart failure and hypotension
-Maintain fluid restrict (adjusted down to 48oz)
-Obtain urine osmolality and if hyponatremia exacerbates will provide Samsca
-Concur with IV diuresis
ODALIS:
-Likely prerenal in setting of evolving cardiorenal syndrome
-Unfortunately patient will likely require right heart cath his volume status is exceedingly difficult to determine (exam notes no overload)
-If creatinine continues to rise we will need to discontinue the Jardiance
-Follow accurate I's and O's and daily weight
-Will check UA
[2024-05-15] MEDS: TIKOSYN 250 MCG PO ×2 (09:55→20:12)
--- NOTE | 2024-05-15 10:23 | CM ---
Chart reviewed. Patient independent of ADLS, lives with his in a apartment in [place] at [address], 0 DME. Patient does not have VN and is not interested. Plan is for the patient to return home. CM to follow
[2024-05-15] MEDS: JARDIANCE PO (11:22)
[2024-05-15 11:49] LABS: Osmolality Urine 408 mOsm/kg (300-900)
[2024-05-15 11:56] LABS: Urine Albumin Trace (Neg - Trace); Urine Bilirubin Negative (Negative); Urine Character Clear (Clear); Urine Color Yellow; Urine Glucose 3+ (Negative); Urine Ketone Negative (Negative); Urine Leukocyte Negative (Negative); Urine Nitrite Negative (Negative); Urine Occult Blood Negative (Negative); Urine Specific Gravity 1.015 (<1.030); Urine Urobilinogen Negative (Neg - 1+)
--- NOTE | 2024-05-15 12:27 | W.PN.HOSP.TC ---
Addendum entered and electronically signed by Maxx Jean MD 05/15/24 13:56:
Dictation error- should read hyperkalemia (not Hypokalemia)
Original Note:
Today's Communication/Plan
-
IV lasix
trend cr
trend na
Assessment / Plan
Assessment / Plan
General: Well Developed, Well Nourished and No Apparent Distress
HEENT: NormoCephalic, Moist mucous membranes and Atraumatic
Respiratory: Clear
Cardiac: S1/S2 and Regular Rhythm; No Murmur or Rub
GI: Soft, Non Tender, Non Distended and Normal Bowel Sounds; No Organomegaly
Musculoskeletal: No Clubbing, No Cyanosis, Edema, Left Lower Extremity (trace ) and Edema, Right Lower Extremity (trace )
Skin: No Rash
Neuro: Awake and Nonfocal/grossly intact
Psych: Calm
#Acute hypoxic respiratory insufficiency likely secondary to acute on chronic HFrEF and HFpEF exacerbation
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
Chest x-ray noted
Wean oxygen started-seen on room air
Start patient 60 mg of IV Lasix twice daily if blood pressure can tolerate it.
Echocardiogram EF of 10-15%. Severe global hypokinesis. Stage II diastolic dysfunction. Moderate to severe mitral regurgitation. Aortic sclerosis. Moderate tricuspid regurgitation.
Strict I's and O's. Daily weights
Continue goal-directed medical therapy with statin, carvedilol, Jardiance and on Verquvo
May need RHC to assess volume status
Cardiology evaluation
#Permanent atrial fibrillation status post AV node ablation
#History of V. tach/V-fib
Chronic coagulopathy with Coumadin
Supratherapeutic INR on admission
Continue with Tikosyn. Monitor on telemetry. EGK with V-paced.
Daily INR checks
INR downtrended to 2.95. Restart coumadin
#Hypokalemia likely secondary to KCl supplementation and on Aldactone
Hold KCl p.o. for now. Hold low-dose NAZIA for now
On diuretics should improve
K downtrended
#Acute on chronic Hyponatremia likely secondary to hypervolemia
Continue with aggressive IV Lasix.
Nephrology has been consulted.
Ulcerative colitis
Continue mesalamine
DVT prophylaxis-coumadin
Full code
d/w with nephrology
Anticipated Discharge: > 48 hours
Subjective/Interval History
-
Date of Service: May 15, 2024
states breathing has improved
Objective Data
-
Labs:
Laboratory Results
05/15/24
02:54
PT 30.7 H
INR 2.95
Sodium 125 L
Potassium 5.1
Chloride 92 L
Carbon Dioxide 22
BUN 46 H
Creatinine 1.4 H
Glucose 120 H
Calcium 9.0
Vital Signs:
Vital Signs
Temp Pulse Resp BP Pulse Ox
98.5 F 75 16 93/73 97
05/15/24 11:45 05/15/24 11:45 05/15/24 11:45 05/15/24 11:43 05/15/24 11:45
I&O
05/14/24 05/15/24 05/16/24
06:59 06:59 06:59
Intake Total 480 / 480 360 / 360
Output Total 400 / 400 1075 / 1075
Balance 80 / 80 -715 / -715
Data Reviewed
-
Total Time Spent with Patient (in minutes): 58
[2024-05-15] MEDS: NON-FORMULARY ITEM 10 MG PO (15:46)
[2024-05-15] MEDS: JARDIANCE 10 MG PO (15:53)
--- NOTE | 2024-05-15 16:17 | PTCARENOTE ---
Pt c/o had episode earlier of nausea while eating, felt SOB, then had 'chills', called nurse in room, warm blankets given. Bp 84/66, 85/64, HR 70's V-paced, denied lightheadedness. Episode lasted briefly and then he said he felt better.
[2024-05-15] MEDS: LIPITOR 20 MG PO (17:36)
[2024-05-16] VITALS (9 sets, daily range): BP systolic 93–105; BP diastolic 71–83; PULSE 80–82; BMI 23.0
[2024-05-16 05:00] LABS: INR 2.49; PT 26.9 Sec (11.4-14.6)
[2024-05-16 05:15] LABS: Blood Urea Nitrogen 46 mg/dl (9-20); Carbon Dioxide 25 mmol/L (22-30); Chloride 92 mmol/L (98-107); Estimated Creatinine Clearance 48 ml/min; Glucose 101 mg/dl (70-99); Magnesium 2.7 mg/dl (1.6-2.3); Potassium 5.1 mmol/L (3.5-5.1); Sodium 129 mmol/L (135-145); eGFR 54.51
[2024-05-16] MEDS: ASACOL, DELZICOL DR 800 MG PO ×3 (08:46→17:42)
[2024-05-16] MEDS: ASPIR LOW (ENTERIC COATED) 81 MG PO (08:46)
[2024-05-16] MEDS: COREG 3.125 MG PO ×2 (08:46→19:36)
[2024-05-16] MEDS: TIKOSYN 250 MCG PO ×2 (08:46→19:36)
[2024-05-16] MEDS: THERAGRAN 1 TABLET PO (08:47)
[2024-05-16] MEDS: NON-FORMULARY ITEM 10 MG PO (08:47)
[2024-05-16] MEDS: LASIX 60 MG IV ×2 (08:48→15:46)
--- NOTE | 2024-05-16 09:59 | W.PN.CARDCBS ---
Addendum entered and electronically signed by Arden Hamilton MD 05/16/24 13:20:
I saw and examined the patient.
The Process Area Supervisor's note was reviewed and I agree with the note.
Comment: Briefly, 83-year-old man past medical history of end-stage heart failure with reduced ejection fraction (EF 10-15%) presenting in decompensated heart failure
He reports improvement in his dyspnea today
With diuresis his renal function and sodium are improving consistent with cardiorenal syndrome
Suspect his dry weight is closer to 170 pounds
Would continue IV diuresis, appreciate nephrology input
Hopefully can transition to oral diuretics in the next 24 to 48 hours
Would continue to hold NAZIA inhibitor and spironolactone in the setting of ODALIS and hyperkalemia
Original Note:
Today's Communication / Plan
-
Cont Lasix 60 mg IV BID
Follow BMP
Impression / Plan
-
PCP: Dr. Mayers
Primary Sandblast Or Shotblast Equipment Tender: Dr. Davalos
EP: Dr. Arora
Impression:
Acute HFrEF
CM EF 20-25% by echo 12/22/23
h/o NICM EF between 25% and 45% since 2011
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
h/o VT/VF
Chronic Tikosyn therapy
Permanent Afib
s/p AV node ablation
Chronic warfarin OAC
h/o Amiodarone thyroiditis
Ulcerative colitis
JULIO CESAR on CPAP
Hyponatremia
Hyperkalemia, recent hypokalemia as an outpatient
Echo 06/2016: EF 35-40%, AV sclerosis with trivial AI, mildly dilated proximal ascending thoracic aorta
Echo 12/22/23: EF 19% by Cooper's method, 26% by volumetric assessment, global hypokinesis with anterior wall and anteroseptum moving best, reduced RV systolic function, mod MR, mild to mod TR with PAP 50 mmHg
Echo 05/14/24: EF 10 to 15% visually, severe global hypokinesis, stage II diastolic dysfunction, moderate to severe MR, moderate TR, mild aortic regurgitation
Plan:
-Weight is down 8 lbs from admission with Lasix 60 mg IV BID. Patient is now below previous dry weight of 175 lbs at home by his report. Dry weight at last HF d/c from 12/2023 was 186 lbs. Suspect he has some amount of caloric and muscle mass
weight loss and concomitant fluid weight gain.
-Nephrology is following for hyponatremia and ODALIS, Samsca is being considered
-CM regimen includes Coreg 3.125 mg BID and this will be continued.
-Outpatient doses of enalapril 2.5 mg daily and spironolactone 12.5 mg daily will be held for hyperkalemia.
-Outpatient dose of Verquvo 10 mg daily continued. This was started by his primary social work case manager within the last couple of months.
-Outpatient dose of Jardiance 10 mg daily has been continued.
-Outpatient dose of Tikosyn 250 mcg every 12 hours should be continued. Patient takes this for history of VT/VF.
-Afib is permanent and he is s/p AVJ.
-INRs managed by PCP with draws at lab and an INR goal of 2-3. INR supratherapeutic on admission and improved with holding warfarin. Warfarin 2.5 mg SuTh and 5 mg MoTuWeFrSa resumed. INR is 2.49 on 05/16/24.
HPI: [facility] with orthopnea and is now admitted with acute HF and cardiology has been consulted. Patient was admitted to 12/22/2023 until 12/24/2023 with acute HFrEF. Patient has a history of nonischemic cardiomyopathy with
ejection fraction ranging between 25% and 45% since 2011. Patient follows chronically with Dr. Davalos at [facility] and separately follows with Dr. Arora for EP at [facility]. He was previously intolerant to more aggressive GDMT due to hypotension. He also
previously declined Entresto when offered to him in 2020 because he did his own Internet research and found that it might cause early Alzheimer's. During his admission to in December he declined Entresto again and also declined the addition of
SGLT2 inhibitor. He did follow-up with his primary social work case manager as an outpatient and is now taking Jardiance 10 mg daily and was also started on Verquvo as an adjunct to heart failure therapy because he felt he could not tolerate Entresto due to
hypotension. He also had an interval admission to [facility] about 1 to 2 weeks after his admission for chest tightness and HF. During that admission he had a stress test to evaluate his reduced ejection fraction and there was no evidence of ischemia
and the EF was 19%. Looking through eCW the patient had a phone call to the primary cardiology office on 04/16/2024 for weight gain and edema and metolazone was added. The patient reports that he had tremendous diuresis and weight loss resulting in
electrolyte imbalance. He has been working on getting his electrolytes back on track and has stopped taking metolazone by his report. He has continued to take Lasix 40 mg twice daily. He reports that when he went to bed on Tuesday night he had
some shortness of breath, but this resolved with CPAP. When he tried to go to sleep last night and his orthopnea did not improve with CPAP and so he came to ER early this morning.
Progress Note - Sandblast Or Shotblast Equipment Tender
Subjective
Date of Service: May 16, 2024
He thinks he is near baseline today
Objective
Labs:
05/14/24 06:40
05/16/24 04:15
Labs
Hgb 14.6 g/dL (13.0-18.0) 05/14/24 06:40
Hct 41.8 % (39.0-52.0) 05/14/24 06:40
Plt Count 157 10^3/uL (130-400) 05/14/24 06:40
PT 26.9 Sec (11.4-14.6) H 05/16/24 04:15
INR 2.49 05/16/24 04:15
APTT 35.6 Sec (23.4-35.0) H 05/14/24 06:43
Sodium 129 mmol/L (135-145) L 05/16/24 04:15
Potassium 5.1 mmol/L (3.5-5.1) 05/16/24 04:15
BUN 46 mg/dl (9-20) H 05/16/24 04:15
Creatinine 1.3 mg/dL (0.7-1.3) 05/16/24 04:15
Glucose 101 mg/dl (70-99) H 05/16/24 04:15
Troponins
05/14/24 05/14/24 05/14/24
06:40 12:46 18:17
Troponin I < 0.012 < 0.012 < 0.012
05/15/24
00:23
Troponin I Cancelled
Vital Signs and I&O:
Vital Signs
Temp Pulse Resp BP Pulse Ox
98.2 F 75 18 105/77 98
05/16/24 08:35 05/16/24 05:15 05/16/24 08:35 05/16/24 04:05 05/16/24 08:38
Vital Signs
Temp Pulse Resp BP Pulse Ox
98.2 F 75 18 105/77 98
05/16/24 08:35 05/16/24 05:15 05/16/24 08:35 05/16/24 04:05 05/16/24 08:38
Intake & Output
05/14/24 05/15/24 05/16/24 05/17/24
06:59 06:59 06:59 06:59
Intake Total 480 / 480 840 / 840
Output Total 400 / 400 1875 / 1875 675 / 675
Balance 80 / 80 -1035 / -1035 -675 / -675
Physical Exam
Physical Exam
GEN: NAD. AAOx3
HEENT: EOMI
LUNGS: No audible wheeze
CV: Paced on tele
ABD: ND
EXT: Trace pitting B/L LE edema
NEURO: Gross non-focal
SKIN: No rash
--- NOTE | 2024-05-16 11:08 | W.PN.HOSP.TC ---
Today's Communication/Plan
-
Continue with IV Lasix
Trend INR
Nephrology recs
Trend BMP
Assessment / Plan
Assessment / Plan
General: Well Developed, Well Nourished and No Apparent Distress
HEENT: NormoCephalic, Moist mucous membranes and Atraumatic
Respiratory: Clear
Cardiac: S1/S2 and Regular Rhythm; No Murmur or Rub
GI: Soft, Non Tender, Non Distended and Normal Bowel Sounds; No Organomegaly
Musculoskeletal: No Clubbing, No Cyanosis, Edema, Left Lower Extremity (trace ) and Edema, Right Lower Extremity (trace )
Skin: No Rash
Neuro: Awake and Nonfocal/grossly intact
Psych: Calm
#Acute hypoxic respiratory insufficiency likely secondary to acute on chronic HFrEF and HFpEF exacerbation
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
Chest x-ray noted
Wean oxygen started-seen on room air
Start patient 60 mg of IV Lasix twice daily if blood pressure can tolerate it.
Echocardiogram EF of 10-15%. Severe global hypokinesis. Stage II diastolic dysfunction. Moderate to severe mitral regurgitation. Aortic sclerosis. Moderate tricuspid regurgitation.
Strict I's and O's. Daily weights
Continue goal-directed medical therapy with statin, carvedilol, Jardiance and on Verquvo
May need RHC to assess volume status
Cardiology evaluation
#Permanent atrial fibrillation status post AV node ablation
#History of V. tach/V-fib
Chronic coagulopathy with Coumadin
Supratherapeutic INR on admission
Continue with Tikosyn. Monitor on telemetry. EGK with V-paced.
Daily INR checks
INR downtrended to 2.5. Restart coumadin home regimen
#Hypokalemia likely secondary to KCl supplementation and on Aldactone
Hold KCl p.o. for now. Hold low-dose NAZIA for now
On diuretics should improve
K downtrended
#Acute on chronic Hyponatremia likely secondary to hypervolemia
Continue with aggressive IV Lasix. Sodium slowly improving to 129.
Nephrology has been consulted.
# Elevated creatinine likely secondary to cardiorenal syndrome in the setting of severe heart failure exacerbation
Monitor creatinine closely with diuresis.
Ulcerative colitis
Continue mesalamine
DVT prophylaxis-coumadin
Full code
Anticipated Discharge: > 48 hours
Subjective/Interval History
-
Date of Service: May 16, 2024
States breathing has improved
Tolerating diet
Objective Data
-
Labs:
Laboratory Results
05/16/24
04:15
PT 26.9 H
INR 2.49
Sodium 129 L
Potassium 5.1
Chloride 92 L
Carbon Dioxide 25
BUN 46 H
Creatinine 1.3
Glucose 101 H
Calcium 9.0
Vital Signs:
Vital Signs
Temp Pulse Resp BP Pulse Ox
98.2 F 75 18 105/77 98
05/16/24 08:35 05/16/24 05:15 05/16/24 08:35 05/16/24 04:05 05/16/24 08:38
I&O
05/15/24 05/16/24 05/17/24
06:59 06:59 06:59
Intake Total 480 / 480 840 / 840 180 / 180
Output Total 400 / 400 1875 / 1875 849 / 849
Balance 80 / 80 -1035 / -1035 -669 / -669
Data Reviewed
-
Total Time Spent with Patient (in minutes): 54
--- NOTE | 2024-05-16 12:06 | CM ---
Chart reviewed. Patient is independent of ADLS, lives with his in a apartment in [place] at [address], 0 DME. Plan is for the patient to return home.
--- NOTE | 2024-05-16 13:08 | W.PN.NEPH.PH ---
Today's Communication / Plan
-
cont lasix
Assessment/Plan
-
Impression:
Hyponatremia
ODALIS
Decompensated congestive heart failure in setting of nonischemic cardiomyopathy
Nonischemic cardiomyopathy with EF of 10 to 15%
History of VT/VF
History of hypothyroidism
Atrial fibrillation (with history of AV node ablation)
History of ulcerative colitis
Plan:
Hyponatremia
-Likely due to elevated ADH(U osmo 408) in the presence of decompensated congestive heart failure and hypotension
-Maintain fluid restrict (adjusted down to 48oz)
sodium improving with lasix, cont same for now
may use samsca if sodium worsens
ODALIS:
-Likely prerenal in setting of evolving cardiorenal syndrome
UA bland and improving cr with diuresis
follow daily wts and labs
BP soft but stable
-
-
Date of Service: May 16, 2024
CC / HPI / ROS
-
Chief Complaint:
ODALIS, hyponatremia
History of Present Illness:
cr better at 1.3, sodium better at 129
wt decreasing, k better at 5.1
BP soft
Review of Systems:
no cp or sob at rest
feels well today
Labs
-
Labs:
WBC 6.4 10^3/uL (4.8-10.8) 05/14/24 06:40
RBC 4.76 10^6/uL (4.70-6.10) 05/14/24 06:40
Hgb 14.6 g/dL (13.0-18.0) 05/14/24 06:40
Hct 41.8 % (39.0-52.0) 05/14/24 06:40
Plt Count 157 10^3/uL (130-400) 05/14/24 06:40
Sodium 129 mmol/L (135-145) L 05/16/24 04:15
Potassium 5.1 mmol/L (3.5-5.1) 05/16/24 04:15
Chloride 92 mmol/L (98-107) L 05/16/24 04:15
Carbon Dioxide 25 mmol/L (22-30) 05/16/24 04:15
BUN 46 mg/dl (9-20) H 05/16/24 04:15
Creatinine 1.3 mg/dL (0.7-1.3) 05/16/24 04:15
eGFR 54.51 05/16/24 04:15
Glucose 101 mg/dl (70-99) H 05/16/24 04:15
Calcium 9.0 mg/dl (8.4-10.2) 05/16/24 04:15
Iww-S-Toyuskxhfxm Pept 65134 pg/ml 05/14/24 06:40
Albumin 4.4 g/dl (3.5-5.0) 05/14/24 06:40
Physical Exam
-
Vital Signs:
Vital Signs
Temp Pulse Resp BP Pulse Ox
98.5 F 75 18 101/71 97
05/16/24 11:32 05/16/24 11:31 05/16/24 11:32 05/16/24 11:31 05/16/24 11:32
Cardiovascular:: Regular rate and rhythm
Respiratory:: Bilateral: CTA
Lung Excursion:: Normal
Abdomen:: Nontender and Soft
Extremity Edema:: None: Bilateral:
Hood Catheter: No
[2024-05-16] MEDS: JARDIANCE 10 MG PO (15:46)
[2024-05-16] MEDS: COUMADIN 5 MG PO (17:42)
[2024-05-16] MEDS: LIPITOR 20 MG PO (17:42)
--- NOTE | 2024-05-16 19:22 | PTCARENOTE ---
Pt up walking frequently, he denies any discomfort and continues to diurese well. Telemetry shows vent. paced rhythm.
[2024-05-17] VITALS (9 sets, daily range): BP systolic 86–104; BP diastolic 53–79; PULSE 75–88; BMI 23.0
--- NOTE | 2024-05-17 00:36 | PTCARENOTE ---
Pt received start of shift, HR v-paced. Pt updated on plan of care, pt states no questions at this time. Pt w/ a 15 beat run VT - pt states they were sleeping. Asymptomatic. BP 103/77.
[2024-05-17 05:29] LABS: INR 2.39; PT 26.4 Sec (11.4-14.6)
[2024-05-17 05:50] LABS: Blood Urea Nitrogen 38 mg/dl (9-20); Calcium 8.4 mg/dl (8.4-10.2); Carbon Dioxide 25 mmol/L (22-30); Chloride 93 mmol/L (98-107); Estimated Creatinine Clearance 52 ml/min; Glucose 92 mg/dl (70-99); Magnesium 2.6 mg/dl (1.6-2.3); Potassium 3.9 mmol/L (3.5-5.1); Sodium 126 mmol/L (135-145); eGFR > 60.00
--- NOTE | 2024-05-17 06:40 | PTCARENOTE ---
21 beat VT ~0623, asymptomatic
[2024-05-17] MEDS: TIKOSYN 250 MCG PO ×2 (08:53→19:49)
[2024-05-17] MEDS: ASACOL, DELZICOL DR 800 MG PO ×3 (08:53→17:49)
[2024-05-17] MEDS: KCL 20 MEQ PO (08:54)
[2024-05-17] MEDS: LASIX 60 MG IV (08:54)
[2024-05-17] MEDS: ASPIR LOW (ENTERIC COATED) 81 MG PO (08:54)
[2024-05-17] MEDS: COREG 3.125 MG PO ×2 (08:54→19:48)
[2024-05-17] MEDS: THERAGRAN 1 TABLET PO (08:54)
[2024-05-17] MEDS: NON-FORMULARY ITEM 10 MG PO (08:55)
[2024-05-17] MEDS: SAMSCA 7.5 MG PO (10:13)
--- NOTE | 2024-05-17 10:46 | W.PN.HOSP.TC ---
Today's Communication/Plan
-
Trend na/nephro recs
restart lasix
monitor on tele
Assessment / Plan
Assessment / Plan
General: Well Developed, Well Nourished and No Apparent Distress
HEENT: NormoCephalic, Moist mucous membranes and Atraumatic
Respiratory: Clear
Cardiac: S1/S2 and Regular Rhythm; No Murmur or Rub
GI: Soft, Non Tender, Non Distended and Normal Bowel Sounds; No Organomegaly
Musculoskeletal: No Clubbing, No Cyanosis, Edema, Left Lower Extremity (trace ) and Edema, Right Lower Extremity (trace )
Skin: No Rash
Neuro: Awake and Nonfocal/grossly intact
Psych: Calm
#Acute hypoxic respiratory insufficiency likely secondary to acute on chronic HFrEF and HFpEF exacerbation
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
Chest x-ray noted
Wean oxygen started-seen on room air
Start patient 60 mg of IV Lasix twice daily if blood pressure can tolerate it.
Echocardiogram EF of 10-15%. Severe global hypokinesis. Stage II diastolic dysfunction. Moderate to severe mitral regurgitation. Aortic sclerosis. Moderate tricuspid regurgitation.
Strict I's and O's. Daily weights
Continue goal-directed medical therapy with statin, carvedilol, Jardiance and on Verquvo
Cardiology evaluation
#Permanent atrial fibrillation status post AV node ablation
#History of V. tach/V-fib
Chronic coagulopathy with Coumadin
Supratherapeutic INR on admission
Continue with Tikosyn. Monitor on telemetry. EGK with V-paced.
Daily INR checks
INR downtrended to 2.4 Restart coumadin home regimen
#Hyperkalemia likely secondary to KCl supplementation and on Aldactone
Hold low-dose NAZIA for now
On diuretics should improve
K downtrended
#Acute on chronic Hyponatremia likely secondary to hypervolemia
Continue with aggressive IV Lasix. Sodium worsened to 126.
?may need samsca
Nephrology has been consulted.
# Elevated creatinine likely secondary to cardiorenal syndrome in the setting of severe heart failure exacerbation
Monitor creatinine closely with diuresis.
Cr improving
Ulcerative colitis
Continue mesalamine
JULIO CESAR on CPAP
DVT prophylaxis-coumadin
Full code
Anticipated Discharge: Within 24 hours
Subjective/Interval History
-
Date of Service: May 17, 2024
overnight with NSVT
Improvement in sob
Objective Data
-
Labs:
Laboratory Results
05/17/24
04:21
PT 26.4 H
INR 2.39
Sodium 126 L
Potassium 3.9
Chloride 93 L
Carbon Dioxide 25
BUN 38 H
Creatinine 1.2
Glucose 92
Calcium 8.4
Vital Signs:
Vital Signs
Temp Pulse Resp BP Pulse Ox
98.5 F 75 20 95/71 99
05/17/24 07:50 05/17/24 08:30 05/17/24 07:50 05/17/24 07:52 05/17/24 08:38
I&O
05/16/24 05/17/24 05/18/24
06:59 06:59 06:59
Intake Total 840 / 840 180 / 180 240 / 240
Output Total 1875 / 1875 1924 / 1924 925 / 925
Balance -1035 / -1035 -1744 / -1744 -685 / -685
--- NOTE | 2024-05-17 11:22 | CM ---
Chart reviewed. Patient is independent of ADLS, lives with his in a apartment at [facility] [place], 0 DME. Plan is for the patient to return home. CM to follow
[2024-05-17] MEDS: MIRALAX 17 GRAMS PO (12:45)
--- NOTE | 2024-05-17 13:08 | W.PN.NEPH.PH ---
Today's Communication / Plan
-
- samsca, lasix on hold
Assessment/Plan
-
Impression:
Hyponatremia
ODALIS
Decompensated congestive heart failure in setting of nonischemic cardiomyopathy
Nonischemic cardiomyopathy with EF of 10 to 15%
History of VT/VF
History of hypothyroidism
Atrial fibrillation (with history of AV node ablation)
History of ulcerative colitis
Plan:
Hyponatremia
-Likely due to elevated ADH(U osmo 408) in the presence of decompensated congestive heart failure and hypotension
-Maintain fluid restrict (adjusted down to 48oz)
-Na initially improved with lasix, slight drop today
-Samsca today, hold lasix for now
ODALIS:
-Likely prerenal in setting of evolving cardiorenal syndrome
-UA bland and improving cr with diuresis
-follow daily wts and labs
-BP soft but stable
-
-
Date of Service: May 17, 2024
CC / HPI / ROS
-
Chief Complaint:
ODALIS, hyponatremia
History of Present Illness:
cr better at 1.2, sodium worse at 126
wt decreasing, k down to 3.9
BP soft
Review of Systems:
no cp or sob at rest
feels well today
Labs
-
Labs:
WBC 6.4 10^3/uL (4.8-10.8) 05/14/24 06:40
RBC 4.76 10^6/uL (4.70-6.10) 05/14/24 06:40
Hgb 14.6 g/dL (13.0-18.0) 05/14/24 06:40
Hct 41.8 % (39.0-52.0) 05/14/24 06:40
Plt Count 157 10^3/uL (130-400) 05/14/24 06:40
Sodium 126 mmol/L (135-145) L 05/17/24 04:21
Potassium 3.9 mmol/L (3.5-5.1) 05/17/24 04:21
Chloride 93 mmol/L (98-107) L 05/17/24 04:21
Carbon Dioxide 25 mmol/L (22-30) 05/17/24 04:21
BUN 38 mg/dl (9-20) H 05/17/24 04:21
Creatinine 1.2 mg/dL (0.7-1.3) 05/17/24 04:21
eGFR > 60.00 05/17/24 04:21
Glucose 92 mg/dl (70-99) 05/17/24 04:21
Calcium 8.4 mg/dl (8.4-10.2) 05/17/24 04:21
Mur-Q-Fdoimjhfnyo Pept 80613 pg/ml 05/14/24 06:40
Albumin 4.4 g/dl (3.5-5.0) 05/14/24 06:40
Physical Exam
-
Vital Signs:
Vital Signs
Temp Pulse Resp BP Pulse Ox
98.5 F 75 20 95/71 99
05/17/24 07:50 05/17/24 12:45 05/17/24 07:50 05/17/24 07:52 05/17/24 08:38
Cardiovascular:: Regular rate and rhythm
Respiratory:: Bilateral: Coarse
Lung Excursion:: Normal
Abdomen:: Nontender and Soft
Bowel Sounds:: Normal
Extremity Edema:: +1: Bilateral:
Hood Catheter: No
--- NOTE | 2024-05-17 13:57 | W.PN.CARDCBS ---
Addendum entered and electronically signed by Jamie Vasquez DO 05/17/24 14:23:
I saw and examined the patient.
The Logistician's note was reviewed and I agree with the note.
Comment:
Plan:
Appears euvolemic. Lasix on hold as per nephrology. Receiving Samsca
Resume oral lasix once ok with nephrology
NSVT noted, cont Coreg.
Perm aFib s/p AVJ ablation PPM
INRs managed by PCP
Discussed with nursing.
Original Note:
Today's Communication / Plan
-
Lasix on hold per nephrology. Diuresed with Lasix 60 mg IV BID this admission and was taking Lasix 40 mg PO BID prior to admission.
Follow tele
Impression / Plan
-
PCP: Dr. Mayers
Primary Education Trainer: Dr. Davalos
EP: Dr. Arora
Impression:
Acute HFrEF
CM EF 20-25% by echo 12/22/23
h/o NICM EF between 25% and 45% since 2011
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
h/o VT/VF
Chronic Tikosyn therapy
Permanent Afib
s/p AV node ablation
Chronic warfarin OAC
h/o Amiodarone thyroiditis
Ulcerative colitis
JULIO CESAR on CPAP
Hyponatremia
Hyperkalemia, recent hypokalemia as an outpatient
Echo 06/2016: EF 35-40%, AV sclerosis with trivial AI, mildly dilated proximal ascending thoracic aorta
Echo 12/22/23: EF 19% by Cooper's method, 26% by volumetric assessment, global hypokinesis with anterior wall and anteroseptum moving best, reduced RV systolic function, mod MR, mild to mod TR with PAP 50 mmHg
Echo 05/14/24: EF 10 to 15% visually, severe global hypokinesis, stage II diastolic dysfunction, moderate to severe MR, moderate TR, mild aortic regurgitation
Plan:
-Overnight tele reviewed by me and patient with runs of NSVT. Potassium was 5.1 on 05/16/24 and down to 3.9 on 05/17/24. Magnesium 2.6. KCl 20 meq daily ordered. Outpatient dose of spironolactone 12.5 mg daily has been on hold due to ODALIS.
-Weight is stable at 174 lbs on 05/17/24. Patient is now below previous dry weight of 175 lbs at home by his report. Dry weight at last HF d/c from 12/2023 was 186 lbs.
-Lasix on hold per nephrology. Diuresed with Lasix 60 mg IV BID this admission and was taking Lasix 40 mg PO BID prior to admission.
-Nephrology is following for hyponatremia and ODALIS, Samsca ordered 05/17/24
-CM regimen includes Coreg 3.125 mg BID and this will be continued.
-Outpatient doses of enalapril 2.5 mg daily and spironolactone 12.5 mg daily will be held for hyperkalemia.
-Outpatient dose of Verquvo 10 mg daily continued. This was started by his primary clear coat sprayer within the last couple of months.
-Outpatient dose of Jardiance 10 mg daily has been continued.
-Outpatient dose of Tikosyn 250 mcg every 12 hours should be continued. Patient takes this for history of VT/VF.
-Afib is permanent and he is s/p AVJ.
-INRs managed by PCP with draws at lab and an INR goal of 2-3. INR supratherapeutic on admission and improved with holding warfarin. Warfarin 2.5 mg SuTh and 5 mg MoTuWeFrSa resumed. INR is 2.39 on 05/17/24.
HPI: Patient came to [facility] today with orthopnea and is now admitted with acute HF and cardiology has been consulted. Patient was admitted to 12/22/2023 until 12/24/2023 with acute HFrEF. Patient has a history of nonischemic cardiomyopathy with
ejection fraction ranging between 25% and 45% since 2011. Patient follows chronically with Dr. Davalos at [facility] and separately follows with Dr. Arora for EP at [facility]. He was previously intolerant to more aggressive GDMT due to hypotension. He also
previously declined Entresto when offered to him in 2020 because he did his own Internet research and found that it might cause early Alzheimer's. During his admission to in December he declined Entresto again and also declined the addition of
SGLT2 inhibitor. He did follow-up with his primary clear coat sprayer as an outpatient and is now taking Jardiance 10 mg daily and was also started on Verquvo as an adjunct to heart failure therapy because he felt he could not tolerate Entresto due to
hypotension. He also had an interval admission to [facility] about 1 to 2 weeks after his admission for chest tightness and HF. During that admission he had a stress test to evaluate his reduced ejection fraction and there was no evidence of ischemia
and the EF was 19%. Looking through W the patient had a phone call to the primary cardiology office on 04/16/2024 for weight gain and edema and metolazone was added. The patient reports that he had tremendous diuresis and weight loss resulting in
electrolyte imbalance. He has been working on getting his electrolytes back on track and has stopped taking metolazone by his report. He has continued to take Lasix 40 mg twice daily. He reports that when he went to bed on Tuesday night he had
some shortness of breath, but this resolved with CPAP. When he tried to go to sleep last night and his orthopnea did not improve with CPAP and so he came to ER early this morning.
Progress Note - Education Trainer
Subjective
Date of Service: May 17, 2024
No palpitations
Objective
Labs:
05/14/24 06:40
05/17/24 04:21
Labs
Hgb 14.6 g/dL (13.0-18.0) 05/14/24 06:40
Hct 41.8 % (39.0-52.0) 05/14/24 06:40
Plt Count 157 10^3/uL (130-400) 05/14/24 06:40
PT 26.4 Sec (11.4-14.6) H 05/17/24 04:21
INR 2.39 05/17/24 04:21
APTT 35.6 Sec (23.4-35.0) H 05/14/24 06:43
Sodium 126 mmol/L (135-145) L 05/17/24 04:21
Potassium 3.9 mmol/L (3.5-5.1) 05/17/24 04:21
BUN 38 mg/dl (9-20) H 05/17/24 04:21
Creatinine 1.2 mg/dL (0.7-1.3) 05/17/24 04:21
Glucose 92 mg/dl (70-99) 05/17/24 04:21
Troponins
05/14/24 05/15/24
18:17 00:23
Troponin I < 0.012 Cancelled
Vital Signs and I&O:
Vital Signs
Temp Pulse Resp BP Pulse Ox
98.5 F 75 18 86/53 99
05/17/24 13:31 05/17/24 13:31 05/17/24 13:31 05/17/24 13:31 05/17/24 08:38
Vital Signs
Temp Pulse Resp BP Pulse Ox
98.5 F 75 18 86/53 99
05/17/24 13:31 05/17/24 13:31 05/17/24 13:31 05/17/24 13:31 05/17/24 08:38
Intake & Output
05/15/24 05/16/24 05/17/24 05/18/24
06:59 06:59 06:59 06:59
Intake Total 480 / 480 840 / 840 180 / 180 240 / 240
Output Total 400 / 400 1875 / 1875 1924 / 1924 1550 / 1550
Balance 80 / 80 -1035 / -1035 -1744 / -1744 -1310 / -1310
Physical Exam
Physical Exam
GEN: NAD. AAOx3
HEENT: EOMI
LUNGS: No audible wheeze
CV: Paced on tele
ABD: ND
EXT: Trace pitting B/L LE edema
NEURO: Gross non-focal
SKIN: No rash
[2024-05-17] MEDS: LIPITOR 20 MG PO (17:49)
[2024-05-17] MEDS: COUMADIN 2.5 MG PO (17:49)
[2024-05-17] MEDS: JARDIANCE 10 MG PO (17:49)
--- NOTE | 2024-05-17 18:34 | PTCARENOTE ---
Pt up walking in halls, he denies any discomfort. Pt continues to diurese well. Telemetry shows vent. paced rhythm with frequent PVC's and NSVT up to 8 beats today, aware.
--- NOTE | 2024-05-17 20:30 | PTCARENOTE ---
Pt on TELE monitor that alarmed at 19:47 showing a 10 beat run of VTach. Patient was asymptomatic during episode of vt. Pt denied chest pain or palpitations. Patients BP was taken and stable when compared to pt baseline (see flowchart). Pt agreed
to report any pain or discomfort. Yong ARREOLA notified. Tele monitor currently shows VPaced rhythm. Patient sitting at bedside with call arizmendi in reach. Plan of care ongoing.
[2024-05-18] VITALS (12 sets, daily range): BP systolic 81–102; BP diastolic 61–78; PULSE 78; BMI 22.7
--- NOTE | 2024-05-18 03:30 | PTCARENOTE ---
Rec'd pt at change of shift. Pt on TELE monitor in V-paced rhythm. Pt agreed to continue using urninal to get accurate measurement of output. Pt verbalized understanding of monitoring CHF S/S and knowing when to contact HCP.
[2024-05-18 04:59] LABS: PT 27.3 Sec (11.4-14.6)
[2024-05-18 05:08] LABS: Blood Urea Nitrogen 31 mg/dl (9-20); Calcium 8.8 mg/dl (8.4-10.2); Carbon Dioxide 25 mmol/L (22-30); Chloride 96 mmol/L (98-107); Estimated Creatinine Clearance 57 ml/min; Glucose 101 mg/dl (70-99); Potassium 3.7 mmol/L (3.5-5.1); Sodium 130 mmol/L (135-145); eGFR > 60.00
--- NOTE | 2024-05-18 08:24 | W.PN.NEPH.PH ---
Today's Communication / Plan
-
Observe on fluid restriction and IV diuretic
Follow BMP
Assessment/Plan
-
Impression:
Hyponatremia
ODALIS
Decompensated congestive heart failure in setting of nonischemic cardiomyopathy
Nonischemic cardiomyopathy with EF of 10 to 15%
History of VT/VF
History of hypothyroidism
Atrial fibrillation (with history of AV node ablation)
History of ulcerative colitis
Plan:
Hyponatremia
-Likely due to elevated ADH(U osmo 408) in the presence of decompensated congestive heart failure and hypotension
-Maintain fluid restrict (adjusted down to 48oz)
-Na initially improved with lasix
-Samsca provided on 05/17/2024 with sodium rise to 130
-Maintain Lasix with dropping weight
ODALIS:
-Likely prerenal in setting of evolving cardiorenal syndrome
-Creatinine now back to baseline at 1 point
-UA bland and improving cr with diuresis
-follow daily wts and labs
-BP soft but stable
-
-
Date of Service: May 18, 2024
CC / HPI / ROS
-
Chief Complaint:
ODALIS, hyponatremia
History of Present Illness:
cr better at 1.1,
sodium improved to 130 after Samsca administration on 05/17/2024
wt decreasing, k down to 3.9
BP soft
Review of Systems:
no cp or sob at rest
feels well today
Labs
-
Labs:
WBC 6.4 10^3/uL (4.8-10.8) 05/14/24 06:40
RBC 4.76 10^6/uL (4.70-6.10) 05/14/24 06:40
Hgb 14.6 g/dL (13.0-18.0) 05/14/24 06:40
Hct 41.8 % (39.0-52.0) 05/14/24 06:40
Plt Count 157 10^3/uL (130-400) 05/14/24 06:40
Sodium 130 mmol/L (135-145) L 05/18/24 04:23
Potassium 3.7 mmol/L (3.5-5.1) 05/18/24 04:23
Chloride 96 mmol/L (98-107) L 05/18/24 04:23
Carbon Dioxide 25 mmol/L (22-30) 05/18/24 04:23
BUN 31 mg/dl (9-20) H 05/18/24 04:23
Creatinine 1.1 mg/dL (0.7-1.3) 05/18/24 04:23
eGFR > 60.00 05/18/24 04:23
Glucose 101 mg/dl (70-99) H 05/18/24 04:23
Calcium 8.8 mg/dl (8.4-10.2) 05/18/24 04:23
Qts-P-Eqmezrpusbm Pept 85119 pg/ml 05/14/24 06:40
Albumin 4.4 g/dl (3.5-5.0) 05/14/24 06:40
Physical Exam
-
Vital Signs:
Vital Signs
Temp Pulse Resp BP Pulse Ox
98 F 76 20 98/78 97
05/18/24 07:06 05/18/24 05:24 05/18/24 07:06 05/18/24 04:25 05/18/24 07:06
Cardiovascular:: Regular rate and rhythm
Respiratory:: Bilateral: CTA
Lung Excursion:: Normal
Abdomen:: Nontender and Soft
Bowel Sounds:: Normal
Extremity Edema:: None: Bilateral:
[2024-05-18] MEDS: MIRALAX 17 GRAMS PO (09:03)
[2024-05-18] MEDS: KCL 20 MEQ PO ×2 (09:03→11:17)
[2024-05-18] MEDS: ASACOL, DELZICOL DR 800 MG PO ×3 (09:03→17:52)
[2024-05-18] MEDS: COREG 3.125 MG PO ×2 (09:03→19:53)
[2024-05-18] MEDS: NON-FORMULARY ITEM 10 MG PO (09:04)
[2024-05-18] MEDS: THERAGRAN 1 TABLET PO (09:04)
[2024-05-18] MEDS: ASPIR LOW (ENTERIC COATED) 81 MG PO (09:04)
[2024-05-18] MEDS: TIKOSYN 250 MCG PO ×2 (09:04→19:53)
[2024-05-18] MEDS: FLUSH (NSS) 1 FLUSH IV (09:05)
--- NOTE | 2024-05-18 09:48 | W.PN.CARDCBS ---
Addendum entered and electronically signed by Arden Hamilton MD 05/18/24 11:10:
I saw and examined the patient.
The Gas Welder Apprentice's note was reviewed and I agree with the note.
Comment: Briefly, 83-year-old past medical history of end-stage cardiomyopathy EF 10-15% presenting decompensated heart failure
Volume status is significantly improved with IV diuretics, could tentatively transition to oral Lasix, but will defer to nephrology who is also managing hyponatremia
Would not discharge on spironolactone or NAZIA inhibitor due to hyper kalemia and renal insufficiency as well as marginal blood pressure
Patient would prefer to follow-up with our office as it is more convenient, we will arrange for this
Original Note:
Today's Communication / Plan
-
Diuresis per nephrology, may be close to transitioning to PO lasix
Continue coreg for medical therapy
Continue Tikosyn
Will arrange follow up
Impression / Plan
-
PCP: Dr. Mayers
Primary Metalsmith: Dr. Davalos
EP: Dr. Arora
Impression:
Acute HFrEF
CM EF 20-25% by echo 12/22/23
h/o NICM EF between 25% and 45% since 2011
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
h/o VT/VF
Chronic Tikosyn therapy
Permanent Afib
s/p AV node ablation
Chronic warfarin OAC
h/o Amiodarone thyroiditis
Ulcerative colitis
JULIO CESAR on CPAP
Hyponatremia
Hyperkalemia, recent hypokalemia as an outpatient
Echo 06/2016: EF 35-40%, AV sclerosis with trivial AI, mildly dilated proximal ascending thoracic aorta
Echo 12/22/2023: EF 19% by Cooper's method, 26% by volumetric assessment, global hypokinesis with anterior wall and anteroseptum moving best, reduced RV systolic function, mod MR, mild to mod TR with PAP 50 mmHg
Echo 05/14/2024: EF 10 to 15% visually, severe global hypokinesis, stage II diastolic dysfunction, moderate to severe MR, moderate TR, mild aortic regurgitation
Plan:
-Presented with orthopnea and admitted with acute heart failure exacerbation.
-Diuresing with IV lasix 60mg BID, however then developed ODALIS and lasix held in PM 05/17.
-Nephrology saw patient this AM, creat improved to 1.1.
-Weight down to 171lbs, which is below prior dry weight. May be able to transition to PO lasix in AM.
-EF 10-15% by echo 05/14. Continue medical therapy as able. Enalapril and spironolactone held on admission due to hyperkalemia and ODALIS.
-Continue Coreg 3.125mg BID, Verquvo 10mg daily, Jardiance 10mg daily.
-He has permanent atrial fibrillation s/p AVJ ablation.
-On chronic warfarin anticoagulation. INR 2.5 05/18. Goal INR 2-3.
-Continues on Tikosyn 250mcg Q12H for h/o VT/VF
-Continues to have short runs of NSVT on telemetry. K down to 3.7 05/18. On KCl 20 meq daily, will give additional 20meq today with ongoing diuresis.
-Will arrange follow up.
HPI: Patient [facility] today with orthopnea and is now admitted with acute HF and cardiology has been consulted. Patient was admitted to 12/22/2023 until 12/24/2023 with acute HFrEF. Patient has a history of nonischemic cardiomyopathy with
ejection fraction ranging between 25% and 45% since 2011. Patient follows chronically with Dr. Davalos at [facility] and separately follows with Dr. Arora for EP at [facility]. He was previously intolerant to more aggressive GDMT due to hypotension. He also
previously declined Entresto when offered to him in 2020 because he did his own Internet research and found that it might cause early Alzheimer's. During his admission to in December he declined Entresto again and also declined the addition of
SGLT2 inhibitor. He did follow-up with his primary varnishing unit operator as an outpatient and is now taking Jardiance 10 mg daily and was also started on Verquvo as an adjunct to heart failure therapy because he felt he could not tolerate Entresto due to
hypotension. He also had an interval admission to [facility] about 1 to 2 weeks after his admission for chest tightness and HF. During that admission he had a stress test to evaluate his reduced ejection fraction and there was no evidence of ischemia
and the EF was 19%. Looking through eCW the patient had a phone call to the primary cardiology office on 04/16/2024 for weight gain and edema and metolazone was added. The patient reports that he had tremendous diuresis and weight loss resulting in
electrolyte imbalance. He has been working on getting his electrolytes back on track and has stopped taking metolazone by his report. He has continued to take Lasix 40 mg twice daily. He reports that when he went to bed on Tuesday night he had
some shortness of breath, but this resolved with CPAP. When he tried to go to sleep last night and his orthopnea did not improve with CPAP and so he came to ER early this morning.
Progress Note - Metalsmith
Subjective
Date of Service: May 18, 2024
Breathing feels improved today. No issues overnight.
Objective
Labs:
05/14/24 06:40
05/18/24 04:23
Labs
Hgb 14.6 g/dL (13.0-18.0) 05/14/24 06:40
Hct 41.8 % (39.0-52.0) 05/14/24 06:40
Plt Count 157 10^3/uL (130-400) 05/14/24 06:40
PT 27.3 Sec (11.4-14.6) H 05/18/24 04:23
INR 2.50 05/18/24 04:23
APTT 35.6 Sec (23.4-35.0) H 05/14/24 06:43
Sodium 130 mmol/L (135-145) L 05/18/24 04:23
Potassium 3.7 mmol/L (3.5-5.1) 05/18/24 04:23
BUN 31 mg/dl (9-20) H 05/18/24 04:23
Creatinine 1.1 mg/dL (0.7-1.3) 05/18/24 04:23
Glucose 101 mg/dl (70-99) H 05/18/24 04:23
Vital Signs and I&O:
Vital Signs
Temp Pulse Resp BP Pulse Ox
98 F 76 20 102/75 97
05/18/24 07:06 05/18/24 08:00 05/18/24 07:06 05/18/24 07:10 05/18/24 07:06
Vital Signs
Temp Pulse Resp BP Pulse Ox
98 F 76 20 102/75 97
05/18/24 07:06 05/18/24 08:00 05/18/24 07:06 05/18/24 07:10 05/18/24 07:06
Intake & Output
05/16/24 05/17/24 05/18/24 05/19/24
06:59 06:59 06:59 06:59
Intake Total 840 / 840 180 / 180 660 / 660
Output Total 1875 / 1875 1924 / 1924 2500 / 2500 400 / 400
Balance -1035 / -1035 -1744 / -1744 -1840 / -1840 -400 / -400
Physical Exam
Physical Exam
GEN: No distress, awake, alert, oriented x3
HEENT: supple, anicteric, mmm
LUNGS: CTA b/l, no wheezes/rales
CV: Reg, S1/S2, no murmur
EXT: No clubbing, cyanosis, or edema
NEURO: Gross non-focal
SKIN: Warm, dry, no rash
--- NOTE | 2024-05-18 11:49 | CM ---
Chart reviewed. Patient is independent of ADLS, lives with his in a apartment at [facility] [place], 0 DME. Plan is for the patient to return home. CM to follow
--- NOTE | 2024-05-18 12:14 | W.PN.HOSP.TC ---
Today's Communication/Plan
-
IV lasix per nephro
monitor BP
Assessment / Plan
Assessment / Plan
General: Well Developed, Well Nourished and No Apparent Distress
HEENT: NormoCephalic, Moist mucous membranes and Atraumatic
Respiratory: Clear
Cardiac: S1/S2 and Regular Rhythm; No Murmur or Rub
GI: Soft, Non Tender, Non Distended and Normal Bowel Sounds; No Organomegaly
Musculoskeletal: No Clubbing, No Cyanosis, Edema, Left Lower Extremity (trace ) and Edema, Right Lower Extremity (trace )
Skin: No Rash
Neuro: Awake and Nonfocal/grossly intact
Psych: Calm
#Acute hypoxic respiratory insufficiency likely secondary to acute on chronic HFrEF and HFpEF exacerbation
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
Chest x-ray noted
Wean oxygen started-seen on room air
Start patient 60 mg of IV Lasix twice daily if blood pressure can tolerate it.
Echocardiogram EF of 10-15%. Severe global hypokinesis. Stage II diastolic dysfunction. Moderate to severe mitral regurgitation. Aortic sclerosis. Moderate tricuspid regurgitation.
Strict I's and O's. Daily weights
Continue goal-directed medical therapy with statin, carvedilol, Jardiance and on Verquvo
Cardiology evaluation
#Permanent atrial fibrillation status post AV node ablation
#History of V. tach/V-fib
Chronic coagulopathy with Coumadin
Supratherapeutic INR on admission
Continue with Tikosyn. Monitor on telemetry. EGK with V-paced.
Daily INR checks
INR downtrended to 2.4 Restart coumadin home regimen
#Hyperkalemia likely secondary to KCl supplementation and on Aldactone
Hold low-dose NAZIA for now
On diuretics should improve
K downtrended
#Acute on chronic Hyponatremia likely secondary to hypervolemia
Continue with aggressive IV Lasix.
s/p samsca -improvement in sodium to 130
Nephrology has been consulted.
# Elevated creatinine likely secondary to cardiorenal syndrome in the setting of severe heart failure exacerbation
Monitor creatinine closely with diuresis.
Cr improving
Ulcerative colitis
Continue mesalamine
JULIO CESAR on CPAP
DVT prophylaxis-coumadin
Full code
Anticipated Discharge: 24 - 48 hours
Subjective/Interval History
-
Date of Service: May 18, 2024
walking around
no sob
Objective Data
-
Labs:
Laboratory Results
05/18/24
04:23
PT 27.3 H
INR 2.50
Sodium 130 L
Potassium 3.7
Chloride 96 L
Carbon Dioxide 25
BUN 31 H
Creatinine 1.1
Glucose 101 H
Calcium 8.8
Vital Signs:
Vital Signs
Temp Pulse Resp BP Pulse Ox
98.5 F 75 20 91/66 92
05/18/24 11:12 05/18/24 11:14 05/18/24 11:12 05/18/24 11:14 05/18/24 11:14
I&O
05/17/24 05/18/24 05/19/24
06:59 06:59 06:59
Intake Total 180 / 180 660 / 660 480 / 480
Output Total 1923 / 1923 2500 / 2500 400 / 400
Balance -1744 / -1744 -1840 / -1840 80 / 80
[2024-05-18] MEDS: LASIX 60 MG IV (16:09)
[2024-05-18] MEDS: JARDIANCE 10 MG PO (16:12)
[2024-05-18] MEDS: FLUSH (NSS) 2 FLUSH IV (16:12)
[2024-05-18] MEDS: COUMADIN 5 MG PO (17:52)
[2024-05-18] MEDS: LIPITOR 20 MG PO (17:53)
--- NOTE | 2024-05-18 18:30 | PTCARENOTE ---
The patient has been stable all shift. V-pacing noted on the monitor with PVCs. No episodes of NSVT/VT noted. His vitals remain stable. He has been ambulatory all shift, walking frequently throughout in the halls.
[2024-05-18] MEDS: TYLENOL 650 MG PO (23:55)
[2024-05-19] VITALS (7 sets, daily range): BP systolic 86–95; BP diastolic 58–76; BMI 22.8
--- NOTE | 2024-05-19 00:37 | PTCARENOTE ---
Pt on TELE monitor and alarmed showing 13 beat run of VTACH at 23:19. Upon assessment pt laying in bed watching TV. Denies any chest pain during this brief episode of NSVT. BP 90/75. Pt had another episode of 13 beat run of VT at 23:33. RN
notified ELBA Jeffries in regards to both episodes of VT. Orders obtained to add on Magnesium w/ AM labs on 05/19. At approximately 23:38 pt called reporting dull chest discomfort rating pain a a 1 out of 10. Per patient ' pain only lasted 8
seconds'. STAT EKG obtained at 23:51. EKG Vpaced and QT/Qtc 544/607. Tylenol given per order for pain and pt on 2L of oxygen for comfort. PA notified for chest pain. Pt currently chest pain free and resting in Bed with HOB elevated and call arizmendi
in reach. Pt agreed to report any discomfort, pt still on cardiac nurse, and A+O*3. No further orders obtained at this time. Plan of care Continues.
[2024-05-19 04:09] LABS: INR 2.49; PT 26.8 Sec (11.4-14.6)
[2024-05-19 04:22] LABS: Blood Urea Nitrogen 31 mg/dl (9-20); Carbon Dioxide 24 mmol/L (22-30); Chloride 97 mmol/L (98-107); Estimated Creatinine Clearance 56 ml/min; Glucose 120 mg/dl (70-99); Magnesium 2.7 mg/dl (1.6-2.3); Potassium 4.4 mmol/L (3.5-5.1); Sodium 129 mmol/L (135-145); eGFR > 60.00
--- NOTE | 2024-05-19 07:37 | W.PN.CARDCBS ---
Today's Communication / Plan
-
Transition to oral lasix once ok with nephrology.
Monitor lytes
Cont coumadin, INR therapeutic
Outpt cardiac follow up.
Impression / Plan
-
.
PCP: Dr. Mayers
Primary Software Engineer Mobile: Dr. Davalos
EP: Dr. Arora
Impression:
Acute HFrEF
CM EF 20-25% by echo 12/22/23
h/o NICM EF between 25% and 45% since 2011
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
h/o VT/VF
Chronic Tikosyn therapy
Permanent Afib
s/p AV node ablation
Chronic warfarin OAC
h/o Amiodarone thyroiditis
Ulcerative colitis
JULIO CESAR on CPAP
Hyponatremia
Hyperkalemia, recent hypokalemia as an outpatient
Echo 06/2016: EF 35-40%, AV sclerosis with trivial AI, mildly dilated proximal ascending thoracic aorta
Echo 12/22/2023: EF 19% by Cooper's method, 26% by volumetric assessment, global hypokinesis with anterior wall and anteroseptum moving best, reduced RV systolic function, mod MR, mild to mod TR with PAP 50 mmHg
Echo 05/14/2024: EF 10 to 15% visually, severe global hypokinesis, stage II diastolic dysfunction, moderate to severe MR, moderate TR, mild aortic regurgitation
Plan:
-Presented with orthopnea and admitted with acute heart failure exacerbation.
Diuresed with IV lasix 60mg BID, however then developed ODALIS and lasix held in PM 05/17. Nephrology resumed IV lasix.
Cr stable.
Weight is flat last 24 hrs and may be below prior dry weight. May be able to transition to PO lasix in AM but defer to nephro who is managing hyponatremia
Transition to oral lasix once ok with nephrology.
Cont coumadin for Perm aFib s/p AVJ ablation
Cont Tikosyn for hx VT
Monitor EKG, V paced.
Cont to replete lytes as needed
Discussed with nursing.
HPI: Patient came to [facility] today with orthopnea and is now admitted with acute HF and cardiology has been consulted. Patient was admitted to 12/22/2023 until 12/24/2023 with acute HFrEF. Patient has a history of nonischemic cardiomyopathy with
ejection fraction ranging between 25% and 45% since 2011. Patient follows chronically with Dr. Davalos at [facility] and separately follows with Dr. Arora for EP at [facility]. He was previously intolerant to more aggressive GDMT due to hypotension. He also
previously declined Entresto when offered to him in 2020 because he did his own Internet research and found that it might cause early Alzheimer's. During his admission to in December he declined Entresto again and also declined the addition of
SGLT2 inhibitor. He did follow-up with his primary funeral location manager as an outpatient and is now taking Jardiance 10 mg daily and was also started on Verquvo as an adjunct to heart failure therapy because he felt he could not tolerate Entresto due to
hypotension. He also had an interval admission to [facility] about 1 to 2 weeks after his admission for chest tightness and HF. During that admission he had a stress test to evaluate his reduced ejection fraction and there was no evidence of ischemia
and the EF was 19%. Looking through W the patient had a phone call to the primary cardiology office on 04/16/2024 for weight gain and edema and metolazone was added. The patient reports that he had tremendous diuresis and weight loss resulting in
electrolyte imbalance. He has been working on getting his electrolytes back on track and has stopped taking metolazone by his report. He has continued to take Lasix 40 mg twice daily. He reports that when he went to bed on Tuesday night he had
some shortness of breath, but this resolved with CPAP. When he tried to go to sleep last night and his orthopnea did not improve with CPAP and so he came to ER early this morning.
Progress Note - Software Engineer Mobile
Subjective
Date of Service: May 19, 2024
Pt seen and examined. No complaints. No chest pain or shortness of breath.
Objective
Labs:
05/14/24 06:40
05/19/24 03:48
Labs
Hgb 14.6 g/dL (13.0-18.0) 05/14/24 06:40
Hct 41.8 % (39.0-52.0) 05/14/24 06:40
Plt Count 157 10^3/uL (130-400) 05/14/24 06:40
PT 26.8 Sec (11.4-14.6) H 05/19/24 03:48
INR 2.49 05/19/24 03:48
APTT 35.6 Sec (23.4-35.0) H 05/14/24 06:43
Sodium 129 mmol/L (135-145) L 05/19/24 03:48
Potassium 4.4 mmol/L (3.5-5.1) 05/19/24 03:48
BUN 31 mg/dl (9-20) H 05/19/24 03:48
Creatinine 1.1 mg/dL (0.7-1.3) 05/19/24 03:48
Glucose 120 mg/dl (70-99) H 05/19/24 03:48
Vital Signs and I&O:
Vital Signs
Temp Pulse Resp BP Pulse Ox
97.9 F 75 18 86/58 100
05/19/24 03:00 05/19/24 07:25 05/19/24 03:00 05/19/24 07:25 05/19/24 03:00
Vital Signs
Temp Pulse Resp BP Pulse Ox
97.9 F 75 18 86/58 100
05/19/24 03:00 05/19/24 07:25 05/19/24 03:00 05/19/24 07:25 05/19/24 03:00
Intake & Output
08/01/24 08/02/24 08/03/24 08/04/24
06:59 06:59 06:59 06:59
Intake Total 180 / 180 660 / 660 1320 / 1320
Output Total 192 / 192 2500 / 2500 1425 / 1425
Balance -1744 / -1744 -1840 / -1840 -105 / -105
Physical Exam
Physical Exam
General: No acute distress, AAOX3
Neck: Negative JVD
Heart: Paced, Negative S3 positive S1/S2, Negative S4, No murmur
Lungs: CTA b/l, negative wheezes/rales/rhonchi
Abd: Positive BS, NT/ND, neg rebound/rigidity/guarding
Ext: Negative cyanosis/clubbing/edema
Neuro: nonfocal
[2024-05-19] MEDS: MIRALAX 17 GRAMS PO (08:30)
[2024-05-19] MEDS: NON-FORMULARY ITEM 10 MG PO (08:33)
[2024-05-19] MEDS: KCL 20 MEQ PO (08:34)
[2024-05-19] MEDS: LASIX 60 MG IV (08:34)
[2024-05-19] MEDS: COREG 3.125 MG PO (08:34)
[2024-05-19] MEDS: THERAGRAN 1 TABLET PO (08:34)
[2024-05-19] MEDS: FLUSH (NSS) 2 FLUSH IV (08:34)
[2024-05-19] MEDS: ASPIR LOW (ENTERIC COATED) 81 MG PO (08:34)
[2024-05-19] MEDS: TIKOSYN 250 MCG PO (08:34)
[2024-05-19] MEDS: ASACOL, DELZICOL DR 800 MG PO ×2 (08:34→13:02)
--- NOTE | 2024-05-19 10:53 | W.PN.HOSP.TC ---
Today's Communication/Plan
-
Nephro recs
Cont coumadin
IV lasix 60mg
Hold ACEI/Aldactone
Assessment / Plan
Assessment / Plan
General: Well Developed, Well Nourished and No Apparent Distress
HEENT: NormoCephalic, Moist mucous membranes and Atraumatic
Respiratory: Clear
Cardiac: S1/S2 and Regular Rhythm; No Murmur or Rub
GI: Soft, Non Tender, Non Distended and Normal Bowel Sounds; No Organomegaly
Musculoskeletal: No Clubbing, No Cyanosis, Edema, Left Lower Extremity (trace ) and Edema, Right Lower Extremity (trace )
Skin: No Rash
Neuro: Awake and Nonfocal/grossly intact
Psych: Calm
#Acute hypoxic respiratory insufficiency likely secondary to acute on chronic HFrEF and HFpEF exacerbation
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
Chest x-ray noted
Wean oxygen started-seen on room air
Start patient 60 mg of IV Lasix twice daily if blood pressure can tolerate it.
Echocardiogram EF of 10-15%. Severe global hypokinesis. Stage II diastolic dysfunction. Moderate to severe mitral regurgitation. Aortic sclerosis. Moderate tricuspid regurgitation.
Strict I's and O's. Daily weights
Continue goal-directed medical therapy with statin, carvedilol, Jardiance and on Verquvo
Holding NAZIA and Aldactone due to hypotension and can be followed up as outpatient for up titration.
Cardiology evaluation
#Permanent atrial fibrillation status post AV node ablation
#History of V. tach/V-fib
Chronic coagulopathy with Coumadin
Supratherapeutic INR on admission
Continue with Tikosyn. Monitor on telemetry. EGK with V-paced.
Daily INR checks
INR downtrended to 2.49 Restart coumadin home regimen
#Hyperkalemia likely secondary to KCl supplementation and on Aldactone
Hold low-dose NAZIA for now
On diuretics should improve
K downtrended
#Acute on chronic Hyponatremia likely secondary to hypervolemia
Continue with aggressive IV Lasix.
s/p samsca -sodium at 129.
Nephrology has been consulted.
# Elevated creatinine likely secondary to cardiorenal syndrome in the setting of severe heart failure exacerbation
Monitor creatinine closely with diuresis.
Cr improving at 1.1
Ulcerative colitis
Continue mesalamine
JULIO CESAR on CPAP
DVT prophylaxis-coumadin
Full code
Anticipated Discharge: Within 24 hours
Subjective/Interval History
-
Date of Service: May 19, 2024
Feeling better
Tolerating diet
Denies chest pain or shortness of breath
Objective Data
-
Labs:
Laboratory Results
05/19/24
03:48
PT 26.8 H
INR 2.49
Sodium 129 L
Potassium 4.4
Chloride 97 L
Carbon Dioxide 24
BUN 31 H
Creatinine 1.1
Glucose 120 H
Calcium 9.0
Vital Signs:
Vital Signs
Temp Pulse Resp BP Pulse Ox
98.1 F 75 12 86/58 99
05/19/24 08:28 05/19/24 07:25 05/19/24 07:00 05/19/24 07:25 05/19/24 07:00
I&O
05/18/24 05/19/24 05/20/24
06:59 06:59 06:59
Intake Total 660 / 660 1320 / 1320
Output Total 2500 / 2500 1425 / 1425 350 / 350
Balance -1840 / -1840 -105 / -105 -350 / -350
--- NOTE | 2024-05-19 11:03 | W.PN.NEPH.PH ---
Today's Communication / Plan
-
Will change to Lasix 60 mg p.o. twice daily
Assessment/Plan
-
Impression:
Hyponatremia
ODALIS
Decompensated congestive heart failure in setting of nonischemic cardiomyopathy
Nonischemic cardiomyopathy with EF of 10 to 15%
History of VT/VF
History of hypothyroidism
Atrial fibrillation (with history of AV node ablation)
History of ulcerative colitis
Plan:
Hyponatremia
-Likely due to elevated ADH(U osmo 408) in the presence of decompensated congestive heart failure and hypotension
-Maintain fluid restrict (adjusted down to 48oz)
-Na initially improved with lasix
-Samsca provided on 05/17/2024 with sodium rise to 129
-Maintain Lasix with dropping weight
ODALIS:
-Likely prerenal in setting of evolving cardiorenal syndrome
-Creatinine now back to baseline at 1.1
-UA bland and improving cr with diuresis
-follow daily wts and labs
-BP soft but stable
CHF:
-Hypotensive in setting of end-stage cardio myopathy
-Will place back on oral Lasix 60mg po bid
-
-
Date of Service: May 19, 2024
CC / HPI / ROS
-
Chief Complaint:
ODALIS, hyponatremia
History of Present Illness:
cr better at 1.1,
sodium improved to 120 after Samsca administration on 05/17/2024
wt decreasing
BP soft
Review of Systems:
no cp or sob at rest
feels well today
Nonoliguric
Labs
-
Labs:
WBC 6.4 10^3/uL (4.8-10.8) 05/14/24 06:40
RBC 4.76 10^6/uL (4.70-6.10) 05/14/24 06:40
Hgb 14.6 g/dL (13.0-18.0) 05/14/24 06:40
Hct 41.8 % (39.0-52.0) 05/14/24 06:40
Plt Count 157 10^3/uL (130-400) 05/14/24 06:40
Sodium 129 mmol/L (135-145) L 05/19/24 03:48
Potassium 4.4 mmol/L (3.5-5.1) 05/19/24 03:48
Chloride 97 mmol/L (98-107) L 05/19/24 03:48
Carbon Dioxide 24 mmol/L (22-30) 05/19/24 03:48
BUN 31 mg/dl (9-20) H 05/19/24 03:48
Creatinine 1.1 mg/dL (0.7-1.3) 05/19/24 03:48
eGFR > 60.00 05/19/24 03:48
Glucose 120 mg/dl (70-99) H 05/19/24 03:48
Calcium 9.0 mg/dl (8.4-10.2) 05/19/24 03:48
Btr-V-Roumokqlgjy Pept 36731 pg/ml 05/14/24 06:40
Albumin 4.4 g/dl (3.5-5.0) 05/14/24 06:40
Physical Exam
-
Vital Signs:
Vital Signs
Temp Pulse Resp BP Pulse Ox
98.1 F 75 12 86/58 99
05/19/24 08:28 05/19/24 07:25 05/19/24 07:00 05/19/24 07:25 05/19/24 07:00
Cardiovascular:: Regular rate and rhythm
Respiratory:: Bilateral: CTA
Lung Excursion:: Normal
Abdomen:: Nontender and Soft
Bowel Sounds:: Normal
Extremity Edema:: None: Bilateral:
--- NOTE | 2024-05-19 12:01 | W.DCSUMMARY ---
Discharge Summary
Discharge Data
Date of Admission: 05/14/24
Date of Discharge: 05/19/24
-
Pending Results: No
Hospital Course
83-year-old male past medical history of atrial fibrillation status post ablation, history of V. 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
weakness and shortness of breath. Patient was found to be in heart failure exacerbation. Patient with advanced heart failure. Patient was on 60 mg IV Lasix twice daily. Patient echocardiogram with EF of 10-15%. Severe global hypokinesis. Stage
II diastolic dysfunction. Moderate to severe mitral regurgitation. Aortic sclerosis. Moderate tricuspid regurgitation. Patient also with worsening hyponatremia and nephrology was consulted. Patient potassium was elevated on admission and
lisinopril and Aldactone was discontinued. Potassium down trended. Patient on high-dose of Lasix and KCl was started. Patient sodium down trended and received Samsca. Creatinine improved with diuresis. Sodium stabilized. Plan will be to
discontinue enalapril and Aldactone. On discharge Lasix will be increased to 60 mg twice daily (prior to arrival 40 mg twice daily). Patient INR was elevated on admission and Coumadin was held on admission. His INR down trended. Will be
continued on home dose of Coumadin.
Discharge Plan
-
Patient Disposition: Home with Home Care
Discharge Diagnosis/Procedures: Acute hypoxic respiratory insufficiency due to acute on chronic systolic and diastolic heart failure exacerbation
Hyperkalemia
Hyponatremia
Elevated creatinine
Condition: Fair
Diet: 2 Gram Sodium and Restrict fluids to 48 oz
Activity: With assistance and As tolerated
Driving Restrictions: As prior to admission
Blood Work: BMP in 1 week with primary doctor.
Instructions: *DCA Heart Failure Instructions
Referrals:
NONE,* [Family Provider] -
Elvin Jones MD [Active] - 05/21/24 11:20 am ( You have a follow up visit with Dr. Jones at the [facility] in [place]. Please call with questions. )
Additional Discharge Medication Instructions: Enalapril and Aldactone has been discontinued.
Prescriptions:
New
furosemide 20 mg Tablet
60 mg PO BID AT 0800,1600 30 Days Qty: 180 0RF
Continued
multivitamin with folic acid [Tab-A-Lauren] 1 TABLET tablet
1 tab PO DAILY
atorvastatin 20 MG tablet
20 mg PO QPM
warfarin [Jantoven] 2.5 MG tablet
2.5 mg PO SUTH@1800
aspirin [Adult Low Dose Aspirin] 81 MG tablet,delayed release (DR/EC)
81 mg PO DAILY
carvedilol 3.125 MG tablet
3.125 mg PO BID
warfarin [Jantoven] 5 MG tablet
5 mg PO MOTUWEFRSA@1800
[id number] serr [Osteo Bi-Flex (5-Loxin)] 1 EACH tablet
1 tab PO DAILY
dofetilide 250 MCG capsule
250 mcg PO Q12H Qty: 60 6RF
docosahexaenoic acid-epa 1 CAP capsule
2 cap PO DAILY
mesalamine [Delzicol] 400 mg Capsule (With Del Rel Tablets)
800 mg PO TID
potassium chloride 20 mEq Tablet Extended Release
20 meq PO DAILY
Jardiance 10 mg Tablet
10 mg PO DAILY
Verquvo 10 mg Tablet
10 mg PO DAILY
Discontinued
enalapril maleate 2.5 MG tablet
2.5 mg PO DAILY
spironolactone 12.5 MG tablet
12.5 mg PO DAILY
furosemide 40 mg tablet
40 mg PO BID
Discharge Orders:
Discharge Patient (As Directed); Ordered 05/19/24
Ordered By: Maxx Jean
Care Plan Goals
Care Plan Goals:
Problem: Readiness for enhanced knowledge related to diagnosis and treatment plan
Goal: Understand your diagnosis and treatment plan needs, including medications if applicable.
Instructions: Know your diagnosis, underlying causes and treatment plan options, including medications if applicable. Consult with your health care team to learn about your diagnosis and treatment plan, including medications if applicable.
Discharge Date and Time
Print Language: MOLDOVAN
--- NOTE | 2024-05-19 15:08 | PTCARENOTE ---
The patient remained stable all shift. He frequently ambulated in the halls without assist. V-paced noted on the monitor.
--- NOTE | 2024-05-21 11:54 | W.HF.CON ---
Heart Failure
- LV Function
Left ventricular function study result: LV Ejection fraction </= 35%
Ejection Fraction Percentage: 10-15
- ARNI
Patient already on ARNI: No
Heart Failure ARNI Contraindication: Acute Renal Failure
- ACEI/ARB
Patient already on ACEI/ARB: No
Heart Failure ACEI/ARB Contraindication: Acute Renal Failure
- Beta Sarita
Patient already on Evidence Based Beta Sarita: Yes
- Mineralocorticord Receptor Antagonist
Patient already on MRA: No
Heart Failure MRA Contraindication: Acute Renal Insufficiency
- SGLT-2 Inhibitor
Patient already on SGLT-2 Inhibitor: Yes
- Afib Anticoagulation
Patient already on Anticoagulation for Afib: Yes
- NYHA CHF Classification
NYHA CHF Classification Level: Class III - Symptoms w/ min exertion, interferes w/ nml daily activity
- ACC/AHA Stage
ACC/AHA Stage: Stage D: Advanced Heart Failure
== END 2024-05-19 15:23 | disposition home health service (06) | DRG 291 ==
LOC: IVU 11:15
PROVIDERS: Physician Assistant; ADMITTING PHYSICIAN Hospitalist; CONSULT PHYSICIAN Nuclear Medicine Nuclear Cardiology; CONSULT PHYSICIAN Specialist; EMERGENCY PHYSICIAN Emergency Medicine
PROC: 5A09357 Assistance with Respiratory Ventilation, Less than 24 Consecutive Hours, Continuous Positive Airway Pressure (ICD-10-PCS; 2024-05-16)
DX: I11.0 Hypertensive heart disease with heart failure (principal); I50.43 Acute on chronic combined systolic (congestive) and diastolic (congestive) heart failure; I48.21 Permanent atrial fibrillation; E87.1 Hypo-osmolality and hyponatremia; K51.90 Ulcerative colitis, unspecified, without complications; D68.32 Hemorrhagic disorder due to extrinsic circulating anticoagulants; N17.9 Acute kidney failure, unspecified; I47.20 Ventricular tachycardia, unspecified; I25.10 Atherosclerotic heart disease of native coronary artery without angina pectoris; E03.9 Hypothyroidism, unspecified; I42.8 Other cardiomyopathies; G47.33 Obstructive sleep apnea (adult) (pediatric); E87.5 Hyperkalemia; I08.1 Rheumatic disorders of both mitral and tricuspid valves; I95.9 Hypotension, unspecified; R06.89 Other abnormalities of breathing; T45.515A Adverse effect of anticoagulants, initial encounter; R09.02 Hypoxemia; E78.00 Pure hypercholesterolemia, unspecified; Z95.810 Presence of automatic (implantable) cardiac defibrillator; Z79.82 Long term (current) use of aspirin; Z79.84 Long term (current) use of oral hypoglycemic drugs; Z88.2 Allergy status to sulfonamides; Z88.1 Allergy status to other antibiotic agents; Z82.49 Family history of ischemic heart disease and other diseases of the circulatory system; Z79.899 Other long term (current) drug therapy; Z11.52 Encounter for screening for COVID-19
CPT/HCPCS: 71046; 80048; 80053; 81003; 83735; 83880; 83930; 83935; 84484; 85025; 85610; 85730; 87811; 93005; 93288; 93306; 94660; 99285

== ENCOUNTER → 2024-05-31 10:07 | Outpatient (REF) | payer MEDICARE, OTHER, SELFPAY ==
[2024-05-31 11:09] LABS: INR 3.97; PT 39.5 Sec (11.4-14.6)
[2024-05-31 11:51] LABS: Blood Urea Nitrogen 22 mg/dl (9-20); Calcium 8.9 mg/dl (8.4-10.2); Carbon Dioxide 29 mmol/L (22-30); Chloride 95 mmol/L (98-107); Glucose 98 mg/dl (70-99); Potassium 3.8 mmol/L (3.5-5.1); Sodium 133 mmol/L (135-145); eGFR > 60.00
[2024-05-31 11:55] LABS: NT-proBNP 15500 pg/ml
[2024-05-31 12:22] LABS: Digoxin 0.4 ng/ml (0.8-2.0)
== END ==
LOC: REG 10:07
PROVIDERS: ATTENDING PHYSICIAN Internal Medicine Cardiovascular Disease; FAMILY PHYSICIAN Internal Medicine
DX: I50.22 Chronic systolic (congestive) heart failure (principal); I44.7 Left bundle-branch block, unspecified; E78.5 Hyperlipidemia, unspecified; Z79.01 Long term (current) use of anticoagulants
CPT/HCPCS: 36415; 80048; 80162; 83880; 85610

== ENCOUNTER → 2024-06-14 08:32 | Outpatient (REF) | payer MEDICARE, OTHER, SELFPAY ==
[2024-06-14 10:22] LABS: INR 2.98; PT 31.4 Sec (11.4-14.6)
== END ==
LOC: REG 08:32
PROVIDERS: ATTENDING PHYSICIAN Internal Medicine
DX: Z79.01 Long term (current) use of anticoagulants (principal)
CPT/HCPCS: 36415; 85610

== ENCOUNTER → 2024-06-28 09:24 | Outpatient (REF) | payer MEDICARE, OTHER, SELFPAY ==
[2024-06-28 10:51] LABS: INR 3.09; PT 32.3 Sec (11.4-14.6)
[2024-06-28 11:11] LABS: NT-proBNP 14000 pg/ml
[2024-06-28 11:23] LABS: Blood Urea Nitrogen 15 mg/dl (9-20); Calcium 9.1 mg/dl (8.4-10.2); Carbon Dioxide 30 mmol/L (22-30); Chloride 97 mmol/L (98-107); Digoxin 0.5 ng/ml (0.8-2.0); Glucose 101 mg/dl (70-99); Potassium 3.9 mmol/L (3.5-5.1); Sodium 138 mmol/L (135-145); eGFR > 60.00
== END ==
LOC: REG 09:24
PROVIDERS: ATTENDING PHYSICIAN Internal Medicine Cardiovascular Disease; FAMILY PHYSICIAN Internal Medicine
DX: I50.23 Acute on chronic systolic (congestive) heart failure (principal); Z79.01 Long term (current) use of anticoagulants
CPT/HCPCS: 36415; 80048; 80162; 83880; 85610

== ENCOUNTER → 2024-07-12 10:12 | Outpatient (REF) | payer MEDICARE, OTHER, SELFPAY ==
[2024-07-12 11:16] LABS: INR 4.08; PT 40.3 Sec (11.4-14.6)
== END ==
LOC: REG 10:12
PROVIDERS: ATTENDING PHYSICIAN Internal Medicine
DX: Z79.01 Long term (current) use of anticoagulants (principal)
CPT/HCPCS: 36415; 85610

== ENCOUNTER 2024-07-13 21:05 | Inpatient (IN) | payer MEDICARE, OTHER, SELFPAY ==
[2024-07-13 18:22] VITALS: BP 100/71
[2024-07-13 18:38] LABS: % Basophils 1.2 % (0-2); % Eosinophils 1.2 % (0-6); % Immature Granulocytes 0.4 % (0-0.5); % Lymphocytes 18.1 % (20.5-51.1); % Monocytes 11.5 % (1.7-9.3); % Neutrophils 67.6 % (42.2-75.2); Absolute Basophils 0.1 10^3/uL (0-0.2); Absolute Eosinophils 0.1 10^3/uL (0-0.7); Absolute Lymphocytes 0.9 10^3/uL (1.2-3.4); Absolute Monocytes 0.6 10^3/uL (0.1-0.6); Absolute Neutrophils 3.3 10^3/uL (1.4-6.5); Hematocrit 39.2 % (39.0-52.0); Hemoglobin 13.5 g/dL (13.0-18.0); Mean Corp Hgb Conc. 34.4 g/dL (33.0-37.0); Mean Corpuscular Hgb 29.6 pg (27.0-31.0); Mean Platelet Volume 10.6 fL (7.4-10.4); Nucleated Red Blood Cells % 0 % (-); Platelet Count 182 10^3/uL (130-400); Red Blood Cell Count 4.56 10^6/uL (4.70-6.10); Red Cell Dist. Width 20.2 % (11.5-14.5); White Blood Cell Count 4.9 10^3/uL (4.8-10.8)
[2024-07-13 18:50] LABS: ALT (SGPT) 27 U/L (0-50); AST (SGOT) 36 U/L (17-59); Albumin 3.9 g/dl (3.5-5.0); Alkaline Phosphatase 101 U/L (38-126); Blood Urea Nitrogen 19 mg/dl (9-20); Calcium 8.8 mg/dl (8.4-10.2); Carbon Dioxide 25 mmol/L (22-30); Chloride 98 mmol/L (98-107); Glucose 124 mg/dl (70-99); Potassium 3.7 mmol/L (3.5-5.1); Sodium 136 mmol/L (135-145); Total Bilirubin 2.8 mg/dl (0.2-1.3); Total Protein 6.6 g/dl (6.3-8.2); eGFR > 60.00
[2024-07-13 18:52] LABS: INR 3.98; PT 38.9 Sec (11.4-14.6)
[2024-07-13 19:02] LABS: NT-proBNP 11900 pg/ml; Troponin I 0.018 ng/ml
--- NOTE | 2024-07-13 19:25 | ED.GENMED ---
History of Present Illness
General
Chief Complaint: Breathing Problem
Time Seen by Provider: 07/13/24 19:05
History of Present Illness
History of Present Illness:
Patient is a 83-year-old male with history of CHF, A-fib on Coumadin, hypertension, hyperlipidemia presenting to the emergency department with difficulty breathing. Patient states that for the past few days he has been feeling bloated, worsening
leg swelling is having difficulty breathing specially on exertion. This felt like his prior CHF exacerbations. He talked to his doctor who increased his Lasix to 80 mg twice daily. He states that he is still at 172 pounds and his dry weight is
166 pound. He is having ongoing dyspnea on exertion with worsening leg swelling so he came in for further evaluation. Per chart review patient was recently admitted for CHF exacerbation as well as acute hyperkalemia. He denies any chest pain. No
nausea or vomiting. No abdominal pain. He has been compliant with his medications.
Past History
Past History
ED Past Medical History: Arrthythmia, CHF, Hypothyroidism and Other (Status post AICD, A. fib, hypertension, ulcers colitis, sleep apnea)
ED Past Surgical History: Other (History of hernia repair)
Social History
Tobacco: Non-smoker
Alcohol: None
Personal:
Living: with family
Employment: Retired
Family History
Family History: Other (Sleep apnea)
Phy Exam
Physical Exam
Physical Exam:
GENERAL: in no acute distress
HEENT: normocephalic, extraocular movements intact, moist oral mucosa
NECK: normal inspection
RESPIRATORY: no respiratory distress, fine rales at the bases
CARDIOVASCULAR: regular rate and rhythm
ABDOMEN/: soft, , non-tender to palpation, no rebound or guarding
EXTREMITIES: non-tender, bilateral pitting edema
NEUROLOGIC: awake and alert, moves all extremities
SKIN: warm
Scores
Heart Failure Risk
Heart Failure Risk Score: Not Applicable
Course
Orders/Labs/Results
Orders:
Orders
07/13/24 18:21
Electrocardiogram (*1) Urgent
Reason for Study: Shortness of Breath
EKG- Treatment ONCE
07/13/24 18:29
Complete Blood Count/With Diff Urgent
Comprehensive Metabolic Panel Urgent
NT-proBNP Urgent
Troponin I Urgent
07/13/24 18:30
PT/INR [Prothrombin Time] Urgent
07/13/24 19:08
CR Chest - 2 Views Urgent
Comment:
Reason For Exam: sob
07/13/24 19:17
Furosemide [Lasix] 40 mg IV NOW STA
Abnormal Lab Results
07/13/24 07/13/24
18:29 18:30
RBC 4.56 L 10^6/uL
(4.70-6.10)
RDW 20.2 H %
(11.5-14.5)
MPV 10.6 H fL
(7.4-10.4)
Absolute Lymphs (auto) 0.9 L 10^3/uL
(1.2-3.4)
Lymphocytes % 18.1 L %
(20.5-51.1)
Monocytes % 11.5 H %
(1.7-9.3)
PT 38.9 H Sec
(11.4-14.6)
Glucose 124 H mg/dl
(70-99)
Total Bilirubin 2.8 H mg/dl
(0.2-1.3)
07/13/24 18:29
07/13/24 18:29
Vital Signs
Initial and Last Documented VS:
Initial Vital Signs
Temp Pulse Resp Pulse Ox
97.4 F 75 16 97
07/13/24 18:17 07/13/24 18:17 07/13/24 18:17 07/13/24 18:17
Last Documented Vital Signs
Temp Pulse Resp BP Pulse Ox
97.4 F 75 16 100/71 97
07/13/24 18:17 07/13/24 18:17 07/13/24 18:17 07/13/24 18:22 07/13/24 18:17
MDM/Problems Addressed
Differential Diagnosis Includes:
Patient is a 83-year-old male with history of CHF, A-fib on Coumadin, hypertension, hyperlipidemia presenting to the emergency department with dyspnea on exertion and worsening leg swelling. He did increase his Lasix outpatient. Vitals here
notable for blood pressure of 100/71. Exam does show rales at the bases as well as bilateral pitting edema. Likely CHF exacerbation. History and exam not consistent with pneumonia or viral illness. History and exam not consistent with ACS. He
could have some metabolic derangement. Blood work obtained prior to my evaluation does show an INR of 3.98. His goal is 2-3. Will hold Coumadin and trend. He will need admission for IV diuresis. Given the low blood pressure we will start off at
40 mg IV and give additional as needed based off of blood pressure. Discussed with hospitalist who accepted patient to their service. Chest x-ray pending at this time.
*Critical Care Note
Total Time (30-74mins, 75-104mins- exclusive of procedures): Not Applicable
ED Attending Note
-
Portions of this chart may have been created with voice recognition software.� Occasional wrong word or��sound alike� substitutions may have occurred due to the inherent limitations of voice recognition software.
Discharge Plan
Departure
Patient Disposition: Admit
Date of Disposition: 07/13/24
Time of Disposition: 19:29
Presentation/result/management discussed w/ accepting MD/DO: Hospitalist
Discharge Problem:
CHF exacerbation
Prescriptions:
No Action
multivitamin with folic acid [Tab-A-Lauren] 1 TABLET tablet
1 tab PO DAILY
atorvastatin 20 MG tablet
20 mg PO QPM
warfarin [Jantoven] 2.5 MG tablet
2.5 mg PO SUTH@1800
aspirin [Adult Low Dose Aspirin] 81 MG tablet,delayed release (DR/EC)
81 mg PO DAILY
carvedilol 3.125 MG tablet
3.125 mg PO BID
warfarin [Jantoven] 5 MG tablet
5 mg PO MOTUWEFRSA@1800
[id number] serr [Osteo Bi-Flex (5-Loxin)] 1 EACH tablet
1 tab PO DAILY
dofetilide 250 MCG capsule
250 mcg PO Q12H Qty: 60 6RF
docosahexaenoic acid-epa 1 CAP capsule
2 cap PO DAILY
mesalamine [Delzicol] 400 mg Capsule (With Del Rel Tablets)
800 mg PO TID
potassium chloride 20 mEq Tablet Extended Release
20 meq PO DAILY
Jardiance 10 mg Tablet
10 mg PO DAILY
Verquvo 10 mg Tablet
10 mg PO DAILY
furosemide 20 mg Tablet
60 mg PO BID AT 0800,1600 30 Days Qty: 180 0RF
Discharge Date and Time
Print Language: COLOMBIAN
[2024-07-13 19:47] VITALS: BP 101/74
[2024-07-13 19:48] VITALS: BMI 23.6
[2024-07-13] MEDS: LASIX 40 MG IV (19:54)
--- NOTE | 2024-07-13 20:09 | HPS.HSE ---
Family Physician
-
Family Physician: Shay Mayers
Chief Complaint
-
Increasing weight gain and dyspnea on exertion
History of Present Illness
This is an 83-year-old male past medical history of atrial fibrillation status post ablation, history of V. 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
He was last admitted in and discharged [place] CHF exacerbation. He was discharged on lasix 60mg bid. Patient reported that he had decreasing and then stabilized weight at around 165 Ib. Over the last 2 weeks he has been having
increasing weight gain and lower extremity swelling. About 2 days ago he started having skin drainage from his lower extremity swelling. He reports that lasix dose was increased to 80mg bid starting tuesday. Despite this, his weight has steadily
increased from 165Ib to 172 Ibs today with increasing lower extremity edema as well as increased abdominal girth. Due to lack of response to increasing oral lasix patient was advised to come to the emergency department.
He denies chest pain, palpitations, lightheadedness or dizziness. He denies any cough. No shortness of breath, no fevers chills. Denies any other changes in medications.
On arrival in ED he was afebrile. BP 101/74, p 79, 96% on RA. ECG shows a ventricular paced rhythm rate of 82 which is unchanged from prior. QTc 593. CBC was unremarkable. Chemistries are stable with a potassium of 3.7, BUN of 19 and creatinine
of 1.1. Troponin was negative at 0.018. BNP was elevated at 11,900.
Medical History
Past Medical History
Past Medical History: Reports Arrhythmia (afib) and CHF
Additional Past Medical History:
Ulcerative Colitis
Past Surgical History: Reports Cardiac
Social History
Tobacco: Non-smoker
Alcohol: None
Drug: None
Personal:
Living: With Family
Employment: Not Employed
Family History
Family History: Not pertinent
Allergies / Home Medications
Allergies reflects when Allergies were last updated in [facility].
Home Medications with original date entered in [facility]
Allergy/Medication List:
Allergies
Allergy/AdvReac Type Severity Reaction Status Date / Time
amiodarone Allergy 'thyroid Verified 05/14/24 06:32
problems'
clindamycin Allergy Heartburn Verified 05/14/24 06:32
metoprolol [From Lopressor] Allergy Hallucinati Verified 05/14/24 06:32
ons
sulfamethoxazole Allergy Chest Verified 05/14/24 06:32
[From Bactrim] tightness
trimethoprim [From Bactrim] Allergy Chest Verified 05/14/24 06:32
tightness
Home Medications
multivitamin with folic acid 400 mcg tablet (Tab-A-Lauren) 1 tab PO DAILY Supplement 10/17/11
atorvastatin 20 mg tablet 20 mg PO QPM High Cholesterol 03/30/17
carvedilol 3.125 mg tablet 3.125 mg PO BID Heart Disease/Condition 03/30/17
glucosamine [id number] marylin 1,500 mg-400 unit-100 mg tablet (Osteo Bi-Flex (5-Loxin)) 1 tab PO DAILY Supplement 03/30/17
warfarin 5 mg tablet (Jantoven) 5 mg PO MOWESA@1800 Blood Clot Prevention/Tx 03/30/17
docosahexaenoic acid (dha)-epa 120 mg-180 mg capsule 2 cap PO DAILY Supplement 02/26/18
mesalamine 400 mg capsule (with delayed release tablets inside) (Delzicol) 800 mg PO TID@0800,1600,2300 Gastrointestinal Issue 12/22/23
empagliflozin 10 mg tablet (Jardiance) 10 mg PO DAILY Heart Disease/Condition 05/14/24
potassium chloride 20 mEq tablet,extended release 20 meq PO DAILY Electrolyte Repletion 05/14/24
vericiguat 10 mg tablet (Verquvo) 10 mg PO DAILY Heart Failure 05/14/24
digoxin 125 mcg (0.125 mg) tablet 125 mcg PO DAILY@2200 Heart Disease/Condition 07/13/24
dofetilide 250 mcg capsule 250 mcg PO BID@1000,2200 Arrhythmia 07/13/24
furosemide 20 mg tablet 60 mg PO BID@0800,1800 Heart Failure 07/13/24
warfarin 5 mg tablet 2.5 mg PO SUTUTHFR@1800 Blood Clot Prevention/Tx 07/13/24
Review of Systems
-
History Source: Patient
Constitutional: Reports No Symptoms
EENT: Reports No Symptoms
Respiratory: Reports Trouble Breathing
Cardiac: Reports Other (dyspnea on exertion, weight gain)
Abdomen/GI: Reports Other (increased abdominal girth)
: Reports No Symptoms
Musculoskeletal: Reports Edema
Skin: Reports No Symptoms
Neurological: Reports No Symptoms
Hematologic/Lymphatic: Reports No Symptoms
Psych: Reports No Symptoms
Physical Exam
Vital Signs
Vital Signs
Temp Pulse Resp BP Pulse Ox
97.4 F 81 21 101/74 96
07/13/24 18:17 07/13/24 19:54 07/13/24 19:47 07/13/24 19:54 07/13/24 19:47
Physical Exam
General: No Apparent Distress
HEENT: NormoCephalic, Moist mucous membranes, Atraumatic and PERRLA
Respiratory: Clear
Cardiac: S1/S2 and Regular Rhythm
GI: Soft, Non Tender and Normal Bowel Sounds
Rectal: Deferred by Provider
Genito-urinary: Deferred by me
Musculoskeletal: No Clubbing, No Cyanosis, Edema, Left Lower Extremity (2+ pitting and non-pitting edema) and Edema, Right Lower Extremity (2+ pitting and non-pitting edema)
Skin: Warm
Neuro: AO x 3
Hematologic/Lymphatic: No Lymphadenopathy
Psych: Calm
Laboratory Results
-
07/13/24 18:29
07/13/24 18:
Laboratory Results
PT 38.9 Sec (11.4-14.6) H 07/13/24 18:30
INR 3.98 07/13/24 18:30
Total Bilirubin 2.8 mg/dl (0.2-1.3) H 07/13/24 18:
AST 36 U/L (17-59) 07/13/24 18:
ALT 27 U/L (0-50) 07/13/24 18:
Alkaline Phosphatase 101 U/L (38-126) 07/13/24 18:
Troponin I 0.018 ng/ml 07/13/24 18:29
Data Reviewed
-
Medical Tests (Nuc Med, Echo, EKG etc): Image Personally Visualized and interpreted and Report Reviewed by me
Lab Data: Labs Reviewed by me
Old Records: Reviewed
Impression/Plan
-
IMPRESSION:
PLAN:
1. CHF Exacerbation - Patient with increasing weight gain, lower extremity edema and dyspnea on exertion despite increasing oral doses of lasix to 80mg bid over the last 5 days. Weights 172 up from 165 Ib. No oxygen requirements or rales on exam.
Significant JVD noted. Increased abdominal girth and severe LE edema. Renal function is stable. BUN is fairly low. Suspect worsening cardiac function (EF ~10%) with likely gut edema. BP is 100/70 which is around is baseline. He is already on
digoxin and Verquvo.
- admit to telemetry
- trial of iv lasix 80mg iv bid to tid or diuretic gtt
- strict i/o and daily weights
- target approximately 500 ml net fluid loss daily while maintaining bp
- monitor renal changes
- keep K, mag > 4,2
- continue digoxin, and verquvo (hold verquvo if SBP < 90)
- hold jardiance
- continue carvedilol 3.125 w/ hold parameters
2. AFIB - Patient in Vpaced rhythm.
- continue coumadin 5mg //, 2.5 mg other days. INR goal 2-3
- continue digoxin and dofetilide
- QTc is prolonged since December 2023 on dofetilide. Monitor qt, check digoxin level
3. UC
- continue mesalamine
4. JULIO CESAR
- CPAP 10 HS
DVT PPX - on coumadin
Code status - CPR ok, no intubation.
[2024-07-13 20:23] VITALS: BP 97/74
[2024-07-13 21:00] VITALS: BP 94/72
[2024-07-13 21:37] VITALS: BP 99/67; BMI 22.6
[2024-07-13 21:43] VITALS: BMI 22.6
[2024-07-13] MEDS: TIKOSYN 250 MCG PO (22:45)
[2024-07-13] MEDS: LANOXIN 125 MCG PO (22:46)
[2024-07-13] MEDS: ASACOL, DELZICOL DR 800 MG PO (22:46)
[2024-07-13 23:00] VITALS: BP 108/67
[2024-07-14] VITALS (8 sets, daily range): BP systolic 94–108; BP diastolic 61–67; PULSE 85–88; BMI 22.6
[2024-07-14 07:00] LABS: INR 3.64; PT 36.2 Sec (11.4-14.6)
[2024-07-14 07:46] LABS: Blood Urea Nitrogen 16 mg/dl (9-20); Calcium 8.4 mg/dl (8.4-10.2); Carbon Dioxide 26 mmol/L (22-30); Chloride 99 mmol/L (98-107); Digoxin 0.7 ng/ml (0.8-2.0); Estimated Creatinine Clearance 61 ml/min; Glucose 83 mg/dl (70-99); Magnesium 2.3 mg/dl (1.6-2.3); Sodium 137 mmol/L (135-145); eGFR > 60.00
--- NOTE | 2024-07-14 07:51 | CON.CAR ---
Addendum entered and electronically signed by Dionisio Evans MD 07/14/24 13:37:
QTc is noted to be slightly prolonged (is paced) at 593msec although hand measurement appears closer to 540msec. will hold dofetilide today and check ecg in am. dofetilide is for VT so hope to continue in correction. discussed w nursing
Original Note:
Consultation
Consultation Request
Date/Time Consultation Requested: 07/13/2024
Date/Time Consultation Performed: 07/14/2024
Requesting Provider: Hospitalist
Performing Provider: Cristina
Reason for Consultation: Heart failure
Medical History
-
Chief Complaint: Congestive heart failure
History of Present Illness:
Mr. Cooper presents with increased dyspnea on exertion, orthopnea and symptoms of signs of acute on chronic systolic congestive heart failure. Dyspneic with less and less movement. His testing is delineated as below. Complicated
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 He is responding to BiPAP therapy and Lasix. He does have hypokalemia as noted and was
admitted for hyperkalemia in the late summer. Seen at the bedside he is currently feeling much more comfortable today after receiving his Lasix.
PCP: Dr. Mayers
Primary Guardian Family Member: Dr. Davalos
EP: Dr. Arora
PMHx:
Acute HFrEF
CM EF 20-25% by echo 12/22/23
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
h/o VT/VF
Chronic Tikosyn therapy
Permanent Afib
s/p AV node ablation
Chronic warfarin OAC
h/o Amiodarone thyroiditis
Ulcerative colitis
JULIO CESAR on CPAP
Hyponatremia
Hyperkalemia, recent hypokalemia as an outpatient
Echo 06/2016: EF 35-40%, AV sclerosis with trivial AI, mildly dilated proximal ascending thoracic aorta
Echo 12/22/2023: EF 19% by Cooper's method, 26% by volumetric assessment, global hypokinesis with anterior wall and anteroseptum moving best, reduced RV systolic function, mod MR, mild to mod TR with PAP 50 mmHg
Echo 05/14/2024: EF 10 to 15% visually, severe global hypokinesis, stage II diastolic dysfunction, moderate to severe MR, moderate TR, mild aortic regurgitation
Past Medical History
Past Medical History: Arrhythmias and CHF
Social History
Tobacco: Non-Smoker
Alcohol: None
Drug: None
Personal: Other
Living: Other
Employment: Other
Family History
Family History: Reviewed & Not Pertinent
Allergies / Home Medications
Allergy/AdvReac Type Severity Reaction Status Date / Time
amiodarone Allergy 'thyroid Verified 05/14/24 06:32
problems'
clindamycin Allergy Heartburn Verified 05/14/24 06:32
metoprolol [From Lopressor] Allergy Hallucinati Verified 05/14/24 06:32
ons
sulfamethoxazole Allergy Chest Verified 05/14/24 06:32
[From Bactrim] tightness
trimethoprim [From Bactrim] Allergy Chest Verified 05/14/24 06:32
tightness
�Medication �Instructions �Recorded �Confirmed �Type
multivitamin with folic acid 400 1 tab PO DAILY Supplement 10/17/11 07/13/24 History
mcg tablet (Tab-A-Lauren)
atorvastatin 20 mg tablet 20 mg PO QPM High Cholesterol 03/30/17 07/13/24 History
carvedilol 3.125 mg tablet 3.125 mg PO BID Heart 03/30/17 07/13/24 History
Disease/Condition
glucosamine [id number] 1 tab PO DAILY Supplement 03/30/17 07/13/24 History
marylin 1,500 mg-400 unit-100 mg
tablet (Osteo Bi-Flex (5-Loxin))
warfarin 5 mg tablet (Jantoven) 5 mg PO MOWESA@1800 Blood Clot 03/30/17 07/13/24 History
Prevention/Tx
docosahexaenoic acid (dha)-epa 120 2 cap PO DAILY Supplement 02/26/18 07/13/24 History
mg-180 mg capsule
mesalamine 400 mg capsule (with 800 mg PO TID@0800,1600,2300 12/22/23 07/13/24 History
delayed release tablets inside) Gastrointestinal Issue
(Delzicol)
empagliflozin 10 mg tablet 10 mg PO DAILY Heart 05/14/24 07/13/24 History
(Jardiance) Disease/Condition
potassium chloride 20 mEq 20 meq PO DAILY Electrolyte 05/14/24 07/13/24 History
tablet,extended release Repletion
vericiguat 10 mg tablet (Verquvo) 10 mg PO DAILY Heart Failure 05/14/24 07/13/24 History
digoxin 125 mcg (0.125 mg) tablet 125 mcg PO DAILY@2200 Heart 07/13/24 07/13/24 History
Disease/Condition
dofetilide 250 mcg capsule 250 mcg PO BID@1000,2200 Arrhythmia 07/13/24 07/13/24 History
furosemide 20 mg tablet 60 mg PO BID@0800,1800 Heart 07/13/24 07/13/24 History
Failure
warfarin 5 mg tablet 2.5 mg PO SUTUTHFR@1800 Blood Clot 07/13/24 07/13/24 History
Prevention/Tx
Review of Systems
-
All other systems: Negative unless noted
Constitutional: No Symptoms
Respiratory: Trouble Breathing
Cardiac: No Symptoms
Physical Exam
Vital Signs
Temp Pulse Resp BP Pulse Ox
97.6 F 77 18 108/67 95
07/14/24 03:33 07/14/24 03:33 07/14/24 03:33 07/14/24 03:33 07/14/24 03:33
Lab Results
09/27/24 18:29
07/14/24 06:16
Troponin I 0.018 ng/ml 07/13/24 18:29
Apn-Z-Gjjeiiyqvbw Pept 36234 pg/ml 07/13/24 18:29
Physical Exam
General: Well Developed and Well Nourished
HEENT: Normocephalic and Anicteric
Respiratory: Crackles and Non Labored Respirations
Cardiac: Regular Rhythm
Breast: Deferred by me
GI: Soft, Non Tender and Non Distended
Rectal: Deferred by Provider
Musculoskeletal: No Clubbing and No Cyanosis
Skin: Warm, Dry and Rash
Neuro: Awake, Alert and Oriented
Hematologic/Lymphatic: No Lymphadenopathy
Psych: Calm
Impression / Plan
-
PCP: Dr. Mayers
Primary Guardian Family Member: Dr. Davalos
EP: Dr. Arora
Impression
Acute HFrEF
CM EF 20-25% by echo 12/22/23
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
h/o VT/VF
Chronic Tikosyn therapy
Permanent Afib
s/p AV node ablation
Chronic warfarin OAC
h/o Amiodarone thyroiditis
Ulcerative colitis
JULIO CESAR on CPAP
Hyponatremia
Hyperkalemia, recent hypokalemia as an outpatient
Echo 06/2016: EF 35-40%, AV sclerosis with trivial AI, mildly dilated proximal ascending thoracic aorta
Echo 12/22/2023: EF 19% by Cooper's method, 26% by volumetric assessment, global hypokinesis with anterior wall and anteroseptum moving best, reduced RV systolic function, mod MR, mild to mod TR with PAP 50 mmHg
Echo 05/14/2024: EF 10 to 15% visually, severe global hypokinesis, stage II diastolic dysfunction, moderate to severe MR, moderate TR, mild aortic regurgitation
Recommendations:
Continue guideline based medical therapy as you are for congestive heart failure.
CPAP or BiPAP as needed
Continue IV Lasix
Please replete potassium to greater than 4 given history of VT. Maintain dofetilide
If he is amenable could consider Entresto or medication such as Jardiance although he has deferred in the past
Outpatient follow-up with Dr. 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 Arora at [facility] although he appears to be getting his nighttime and weekend care here at [place] more recently
Data Reviewed
-
EKG: Tracing Personally Visualized and interpreted
Radiology: Report Reviewed by me
Medical Tests (Nuc Med, Echo etc): Image Personally Visualized and interpreted
Labs: Labs Reviewed by me
Old Records: Reviewed
[2024-07-14] MEDS: LASIX 60 MG IV ×2 (09:06→16:53)
[2024-07-14] MEDS: TIKOSYN 250 MCG PO (09:06)
[2024-07-14] MEDS: ASACOL, DELZICOL DR 800 MG PO ×3 (09:30→22:17)
[2024-07-14] MEDS: KCL 40 MEQ PO ×2 (13:08→16:52)
--- NOTE | 2024-07-14 14:41 | W.PN.HOSP.TC ---
Today's Communication/Plan
-
see note
Assessment / Plan
Assessment / Plan
1. Acute on chronic combined systolic/diastolic CHF
NICM
-TTE in May 09 showing EF 10-15%, severe global hypokinesis, stage II diastolic dysfunction, Mod-sev MR, mod TR, mild AR
-patient was taking oral lasix 80mg/bid at home and continued to have weight gain/swelling in LE
-CXR clear and no crackles/no hypoxia
-maintained on IV lasix 60mg/bid currently
-f/u weight/cr
-Cardiology following and help appreciated
2. Permanent afib
Supratherapeutic INR
On tikosyn therapy
-maintain on home dose coreg and digoxin
-INR 3.6 and hold warfarin dose for now, f/u INR
-Continue home dose of tikosyn, monitor renal function and will need dose adjusment
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
h/o of VT/VF
Hypokalemia
-EKG reviewed and have paced rhythm
-replaced K 40 meq, repeat 40meq in afternoon, goal K of 4
s/p AV node ablation
h/o Amiodarone thyroiditis
Ulcerative colitis
JULIO CESAR on CPAP
Hyponatremia
DVT PPX - warfarin
Limited DNR -no intubation
Total time spent : 52 mins
Anticipated Discharge: 24 - 48 hours
Subjective/Interval History
-
Date of Service: July 14, 2024
denies having dyspnea/palpitation/chest discomfort
no new issues
Objective Data
-
Labs:
Laboratory Results
07/14/24
06:16
PT 36.2 H
INR 3.64
Sodium 137
Potassium 3.0 L
Chloride 99
Carbon Dioxide 26
BUN 16
Creatinine 1.0
Glucose 83
Calcium 8.4
Vital Signs:
Vital Signs
Temp Pulse Resp BP Pulse Ox
97.9 F 77 18 99/61 98
07/14/24 11:44 07/14/24 11:44 07/14/24 11:44 07/14/24 11:44 07/14/24 11:44
I&O
07/13/24 07/14/24 07/15/24
06:59 06:59 06:59
Intake Total 480 / 480
Output Total 225 / 225
Balance 255 / 255
Review of Systems
-
Respiratory: Reports No Symptoms
Cardiac: Reports No Symptoms
Abdomen/GI: Reports No Symptoms
Physical Exam
-
General: No Apparent Distress and Comfortable
HEENT: Negative Oxygen
Respiratory: Clear to Auscultation
Cardiac: Regular Rhythm and S1/S2; Negative Murmur or Rub
GI: Soft, Nontender, Nondistended and Normal Bowel Sounds
Musculoskeletal: Edema, Right Lower Extrem and Edema, Left Lower Extrem
Neuro: Awake, Alert, Oriented, No Motor Deficits and Nonfocal/Grossly Intact
Psych: Calm
[2024-07-14] MEDS: LIPITOR 20 MG PO (16:53)
[2024-07-14] MEDS: COREG 1.5625 MG PO (22:16)
[2024-07-14] MEDS: LANOXIN 125 MCG PO (22:16)
[2024-07-15] VITALS (8 sets, daily range): BP systolic 95–109; BP diastolic 57–74; PULSE 80–81; BMI 22.6
[2024-07-15 08:14] LABS: INR 3.45; PT 34.7 Sec (11.4-14.6)
[2024-07-15] MEDS: ASACOL, DELZICOL DR 800 MG PO ×3 (08:29→23:03)
[2024-07-15] MEDS: COREG 1.5625 MG PO ×2 (08:29→20:02)
[2024-07-15] MEDS: LASIX 60 MG IV ×2 (08:29→16:57)
--- NOTE | 2024-07-15 08:29 | W.PN.CARDCBS ---
Today's Communication / Plan
-
Cont IV diuresis
Resume Dofetilide
Monitor lytes and replete as needed
Follow Is and Os
Impression / Plan
-
.
PCP: Dr. Mayers
Primary [employer] Employee: Dr. Davalos
EP: Dr. Arora
Impression
Acute HFrEF
CM EF 10-15% by echo May 09
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
Hx VT/VF
Chronic Tikosyn therapy
Permanent Afib
s/p AV node ablation
Chronic warfarin OAC
h/o Amiodarone thyroiditis
Ulcerative colitis
JULIO CESAR on CPAP
Hyponatremia
Hyperkalemia, recent hypokalemia as an outpatient
Echo 06/2016: EF 35-40%, AV sclerosis with trivial AI, mildly dilated proximal ascending thoracic aorta
Echo 12/22/2023: EF 19% by Cooper's method, 26% by volumetric assessment, global hypokinesis with anterior wall and anteroseptum moving best, reduced RV systolic function, mod MR, mild to mod TR with PAP 50 mmHg
Echo 05/14/2024: EF 10 to 15% visually, severe global hypokinesis, stage II diastolic dysfunction, moderate to severe MR, moderate TR, mild aortic regurgitation
Plan:
Continue IV diuresis with lasix currently at 60 mg IV BID
Wt is flat but Is and Os negative almost 1L
Monitor lytes with hx VT, keep potassium greater than 4 and Mg greater than 2
Recent echo reviewed, EF is 10-15% by recent echo
Cr stable at 1 on Jul 14.
If he is amenable could consider Entresto or medication such as Jardiance although he has deferred in the past
Cont BiPAP for CPAP
History of VT, and Dofetilide held Jul 14 for increased QTc which has improved
Resume Dofetilide and continue to monitor QTc
Cont Coumadin for Perm aFib s/p AVJ ablation
Monitor INRs
Dig level 0.7 Jul 14.
Outpatient follow-up with Dr. Davalos at [facility] for his cardiomyopathy and his roll carrier is Dr. Arora at [facility]
Discussed with nursing.
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
HPI: Mr. Cooper presents with increased dyspnea on exertion, orthopnea and symptoms of signs of acute on chronic systolic congestive heart failure. Dyspneic with less and less movement. His testing is delineated as below. Complicated
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 He is responding to BiPAP therapy and Lasix. He does have hypokalemia as noted and was
admitted for hyperkalemia in the late summer. Seen at the bedside he is currently feeling much more comfortable today after receiving his Lasix.
Progress Note - [employer]
Subjective
Date of Service: July 15, 2024
Pt seen and examined. No complaints. No chest pain or shortness of breath.
Objective
Labs:
07/13/24 18:29
Labs
Hgb 13.5 g/dL (13.0-18.0) 07/13/24 18:29
Hct 39.2 % (39.0-52.0) 07/13/24 18:29
Plt Count 182 10^3/uL (130-400) 07/13/24 18:29
PT 34.7 Sec (11.4-14.6) H 07/15/24 07:40
INR 3.45 07/15/24 07:40
Sodium 137 mmol/L (135-145) 07/14/24 06:16
Potassium 3.0 mmol/L (3.5-5.1) L 07/14/24 06:16
BUN 16 mg/dl (9-20) 07/14/24 06:16
Creatinine 1.0 mg/dL (0.7-1.3) 07/14/24 06:16
Glucose 83 mg/dl (70-99) 07/14/24 06:16
Digoxin 0.7 ng/ml (0.8-2.0) L 07/14/24 06:16
Troponins
07/13/24
18:29
Troponin I 0.018
Vital Signs and I&O:
Vital Signs
Temp Pulse Resp BP Pulse Ox
97.9 F 103 18 97/74 95
07/15/24 08:26 07/15/24 08:26 07/15/24 08:26 07/15/24 08:26 07/15/24 08:26
Vital Signs
Temp Pulse Resp BP Pulse Ox
97.9 F 103 18 97/74 95
07/15/24 08:26 07/15/24 08:26 07/15/24 08:26 07/15/24 08:26 07/15/24 08:26
Intake & Output
07/13/24 07/14/24 07/15/24 07/16/24
06:59 06:59 06:59 06:59
Intake Total 480 / 480 1440 / 1440
Output Total 225 / 225 2400 / 2400
Balance 255 / 255 -960 / -960
Physical Exam
Physical Exam
General: No acute distress, AAOX3
Neck: Negative JVD
Heart: Regular, Negative S3 positive S1/S2, Negative S4, No murmur
Lungs: CTA b/l, negative wheezes/rales/rhonchi
Abd: Positive BS, NT/ND, neg rebound/rigidity/guarding
Ext: Negative cyanosis/clubbing. + b/l edema
Neuro: nonfocal
[2024-07-15 08:46] LABS: Blood Urea Nitrogen 16 mg/dl (9-20); Calcium 8.6 mg/dl (8.4-10.2); Carbon Dioxide 29 mmol/L (22-30); Chloride 99 mmol/L (98-107); Estimated Creatinine Clearance 62 ml/min; Glucose 95 mg/dl (70-99); Potassium 3.7 mmol/L (3.5-5.1); Sodium 138 mmol/L (135-145); eGFR > 60.00
[2024-07-15] MEDS: TIKOSYN 250 MCG PO ×2 (10:21→23:02)
--- NOTE | 2024-07-15 13:18 | W.PN.HOSP.TC ---
Today's Communication/Plan
-
provide dose of metolazone
f/u weight/cr
Assessment / Plan
Assessment / Plan
1. Acute on chronic combined systolic/diastolic CHF
NICM
-TTE in May 09 showing EF 10-15%, severe global hypokinesis, stage II diastolic dysfunction, Mod-sev MR, mod TR, mild AR
-patient was taking oral lasix 80mg/bid at home and continued to have weight gain/swelling in LE
-CXR clear and no crackles/no hypoxia
-maintained on IV lasix 60mg/bid currently
-Cardiology following and help appreciated
-weight didnot improve much , will provide metolaxone 5mg x1 dose
-leg elevation as tolerated and [place] wrapping recommended
2. Permanent afib
Supratherapeutic INR
On tikosyn therapy
-maintain on home dose coreg and digoxin
-INR 3.6 and hold warfarin dose for now, f/u INR
-Continue home dose of tikosyn, monitor renal function and will need dose adjusment
3. 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
h/o of VT/VF
Hypokalemia
-EKG reviewed and have paced rhythm
-replace PRN, goal of 4 with h/o of VT/VF
4. LE venous stasis ulcer
-wound care consulted for help
s/p AV node ablation
h/o Amiodarone thyroiditis
Ulcerative colitis
JULIO CESAR on CPAP
Hyponatremia
DVT PPX - warfarin
Limited DNR -no intubation
Anticipated Discharge: > 48 hours
Subjective/Interval History
-
Date of Service: July 15, 2024
no new issues overnight
denies dyspnea/chest discomfort/shortness breath
Objective Data
-
Labs:
Laboratory Results
07/15/24
07:40
PT 34.7 H
INR 3.45
Sodium 138
Potassium 3.7
Chloride 99
Carbon Dioxide 29
BUN 16
Creatinine 1.0
Glucose 95
Calcium 8.6
Vital Signs:
Vital Signs
Temp Pulse Resp BP Pulse Ox
98.1 F 77 16 95/57 93
07/15/24 12:07/15/24 12:07/15/24 12:09 07/15/24 12:07/15/24 12:09
I&O
07/14/24 07/15/24 07/16/24
06:59 06:59 06:59
Intake Total 480 / 480 1440 / 1440
Output Total 225 / 225 2400 / 2400
Balance 255 / 255 -960 / -960
Review of Systems
-
Respiratory: Reports No Symptoms
Cardiac: Reports No Symptoms
Abdomen/GI: Reports No Symptoms
Physical Exam
-
General: No Apparent Distress and Comfortable
HEENT: Negative Oxygen
Respiratory: Clear to Auscultation
Cardiac: Regular Rhythm and S1/S2; Negative Murmur or Rub
GI: Soft, Nontender, Nondistended and Normal Bowel Sounds
Musculoskeletal: Edema, Right Lower Extrem and Edema, Left Lower Extrem
Neuro: Awake, Alert, Oriented, No Motor Deficits and Nonfocal/Grossly Intact
Psych: Calm
[2024-07-15] MEDS: ZAROXOLYN 5 MG PO (13:32)
[2024-07-15] MEDS: LIPITOR 20 MG PO (16:57)
[2024-07-15] MEDS: LANOXIN 125 MCG PO (23:02)
[2024-07-16] VITALS (7 sets, daily range): BP systolic 91–119; BP diastolic 59–71; PULSE 79; BMI 21.8
[2024-07-16] MEDS: ASACOL, DELZICOL DR 800 MG PO ×3 (08:45→22:00)
[2024-07-16] MEDS: COREG 1.5625 MG PO ×2 (08:47→20:42)
[2024-07-16] MEDS: LASIX 60 MG IV ×2 (08:50→14:54)
[2024-07-16 09:17] LABS: INR 2.78; PT 29.2 Sec (11.4-14.6)
[2024-07-16 09:56] LABS: Blood Urea Nitrogen 16 mg/dl (9-20); Calcium 8.7 mg/dl (8.4-10.2); Carbon Dioxide 33 mmol/L (22-30); Chloride 93 mmol/L (98-107); Estimated Creatinine Clearance 59 ml/min; Glucose 89 mg/dl (70-99); Sodium 138 mmol/L (135-145); eGFR > 60.00
[2024-07-16] MEDS: TIKOSYN 250 MCG PO ×2 (10:08→21:55)
--- NOTE | 2024-07-16 10:28 | WOUNDNOTE ---
[facility] RN NOTE: Reviewed chart, met with patient. Patient is a good historian who reports blister of left posterior leg which opened during weight gain/edema. Patient has bilateral LE with venous stasis changes and does not wear compression at home.
+palpable pedal pulses. The wound has a pink wound bed and is surrounded by ecchymosis and adjacent intact blister. Local wound care provided and NAZIA compression applied. Recommended following up at [facility] and for continued assessment during
healing process. Instructed patient on skin care for venous stasis and benefits on use of compression. Patient reports good appetite and ambulates to chair. Sacrum and heels intact. RN Ricardo updated. Will continue to follow as needed.
--- NOTE | 2024-07-16 11:56 | WOUNDNOTE ---
LEFT POSTERIOR LEG WOUND
[2024-07-16] MEDS: KCL 40 MEQ PO (12:50)
--- NOTE | 2024-07-16 13:00 | W.PN.HOSP.TC ---
Addendum entered and electronically signed by Doug Garcia MD 07/16/24 14:26:
I saw and evaluated the patient. I reviewed the resident�s note and agree with findings and plan as documented in the resident�s note.
1. Acute on chronic combined systolic/diastolic CHF
NICM
-TTE in May 09 showing EF 10-15%, severe global hypokinesis, stage II diastolic dysfunction, Mod-sev MR, mod TR, mild AR
-patient was taking oral lasix 80mg/bid at home and continued to have weight gain/swelling in LE
-CXR clear and no crackles/no hypoxia
-maintained on IV lasix 60mg/bid currently
-Cardiology following and help appreciated
-Got dose of metolazone, weight down to 75Kg today, was 77.5 yesterday
2. Permanent afib
Supratherapeutic INR
On tikosyn therapy
-maintain on home dose coreg and digoxin
-Continue home dose of tikosyn, monitor renal function and will need dose adjustment
-INR therapeutic today, resume back on warfarin.
3. 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
h/o of VT/VF
Hypokalemia
-EKG reviewed and have paced rhythm
-K 3 today, giving 40meq K
4. LE venous stasis ulcer
-wound care consulted for help
s/p AV node ablation
h/o Amiodarone thyroiditis
Ulcerative colitis
JULIO CESAR on CPAP
Hyponatremia
DVT PPX - warfarin
Limited DNR -no intubation
Original Note:
Today's Communication/Plan
-
adjust diuretic dose with cardiology consult
echocardiography
wound care consult
discharge tommorrow
Assessment / Plan
Assessment / Plan
IMPRESSION
Patient is 83 year old male,admitted with Acute on chronic heart failure(ejection fraction as of April 2024 is 10-15%). Dry weight 165-167 pounds. Bilateral lower leg edema present with stasis dermatitis.
Assessment and Plan
1. Acute on chronic combined systolic/diastolic CHF
-TTE in May 09 showing EF 10-15%, severe global hypokinesis, stage II diastolic dysfunction, Mod-sev MR, mod TR, mild AR
-patient shows no signs of hypoxia, breathing at room air
-CXR clear
-currently on 60mg intravenous Lasix
-Cardiology following and help appreciated
_Echocardiography today to assess heart function
2. Permanent atrial fibrillation
Supratherapeutic INR
On tikosyn( dofetilide) therapy
-maintain on home dose coreg and digoxin -INR 3.4
-Continue home dose of tikosyn,
- monitor renal function
-monitor QT interval (504),
3. 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
h/o of VT/VF
Hypokalemia
-EKG reviewed and have paced rhythm
-Potassium 3.7, replace as needed and keep monitoring
4. Bilateral venous stasis ulcer
-wound care consulted for help
s/p AV node ablation
h/o Amiodarone thyroiditis
Ulcerative colitis
JULIO CESAR on CPAP
Hyponatremia currently its 137
DVT PPX - warfarin
Limited DNR -no intubation
Anticipated Discharge: 24 - 48 hours
Subjective/Interval History
-
Date of Service: July 16, 2024
Patient able to use washroom and walk in room without being short of breath. He is back to his baseline weight(165-167). breathing on room air, feels comfortable.
Objective Data
-
Labs:
Laboratory Results
07/16/24
08:36
PT 29.2 H
INR 2.78
Sodium 138
Potassium 3.0 L
Chloride 93 L
Carbon Dioxide 33 H
BUN 16
Creatinine 1.0
Glucose 89
Calcium 8.7
Vital Signs:
Vital Signs
Temp Pulse Resp BP Pulse Ox
97.5 F 78 18 104/67 97
07/16/24 11:44 07/16/24 11:44 07/16/24 11:44 07/16/24 11:44 07/16/24 11:44
I&O
07/15/24 07/16/24 07/17/24
06:59 06:59 06:59
Intake Total 1440 / 1440 480 / 480
Output Total 2400 / 2400 1900 / 1900
Balance -960 / -960 -1420 / -1420
Review of Systems
-
All other systems: Reviewed and negative
Physical Exam
-
General: Well Developed, Well Nourished, No Apparent Distress and Comfortable
HEENT: Normocephalic, Atraumatic and Other (breathing on room air))
Respiratory: Clear to Auscultation and Crackles (occasional)
Cardiac: Regular Rhythm and S1/S2
GI: Soft, Nontender and Normal Bowel Sounds
Genito-urinary: No Costovertebral Tender
Musculoskeletal: No Clubbing, No Cyanosis, Edema, Right Lower Extrem (mild), Edema, Left Lower Extrem (mild) and Other (stasis dermatitis on both lower extremities)
Skin: Warm and Other (bilateral stasis dermatitis)
Neuro: Awake, Alert and Oriented
Hematologic / Lymphatic: No Lymphadenopathy
Psych: Calm
--- NOTE | 2024-07-16 14:06 | CM ---
Patient seen bedside, initial assessment completed. Patient resides at [facility], denies use of DME, VN, or SNF. Patient confirms PCP Benjy Mayers, pharmacy [facility] [place] [facility] confirms prescription coverage. Patient
denies insecurities at home, reports he is driving. CM will continue to follow for all discharge planing needs.
Plan; return to [facility]
[2024-07-16] MEDS: ZAROXOLYN 5 MG PO (14:25)
[2024-07-16] MEDS: KCL 270 MEQ IV (14:54)
--- NOTE | 2024-07-16 16:35 | W.PN.CARDCBS ---
Addendum entered and electronically signed by Jamie Vasquez DO 07/16/24 19:45:
I saw and examined the patient.
The Crinkling Machine Operator's note was reviewed and I agree with the note.
Comment:
Continue Lasix 60 mg IV BID
Improved with diuresis with metolazone yesterday, will give another dose today.
Is and Os negative almost 3500 cc.
Wt was flat and is now coming down
Replete potassium
Monitor lytes with hx VT, keep potassium greater than 4 and Mg greater than 2
Recent echo reviewed, EF is 10-15% by echo today
Cr stable remaining stable at 1
Hypotension currently precludes Entresto
He declined Jardiance in the past
Cont BiPAP for CPAP
Cont Coumadin for Perm aFib s/p AVJ ablation
Monitor INRs
Original Note:
Today's Communication / Plan
-
Another dose of metolazone today
Impression / Plan
-
.
PCP: Dr. Mayers
Primary Wallcovering Hanger: Dr. Davalos
EP: Dr. Arora
Impression
Acute HFrEF
CM EF 10-15% by echo May 09
h/o NICM EF between 25% and 45% since 2011s/p [employer] HADOOP ENGINEER-D
Hx VT/VF
Chronic Tikosyn therapy
Permanent Afib
s/p AV node ablation
Chronic warfarin OAC
h/o Amiodarone thyroiditis
Ulcerative colitis
JULIO CESAR on CPAP
Hyponatremia
Hyperkalemia, recent hypokalemia as an outpatient
Hypokalemia
Echo 06/2016: EF 35-40%, AV sclerosis with trivial AI, mildly dilated proximal ascending thoracic aorta
Echo 12/22/2023: EF 19% by Cooper's method, 26% by volumetric assessment, global hypokinesis with anterior wall and anteroseptum moving best, reduced RV systolic function, mod MR, mild to mod TR with PAP 50 mmHg
Echo 05/14/2024: EF 10 to 15% visually, severe global hypokinesis, stage II diastolic dysfunction, moderate to severe MR, moderate TR, mild aortic regurgitation
Plan:
-Weight down 6 lbs overnight after additiona of metolazone 5 mg PO x1 on 07/15/24. Will given another dose of metolazone 5 mg PO x1 at 1430 on 07/16/24 and then his ordered dose of Lasix 60 mg IV BID will give at 1500 to decrease nocturia
-Potassium 3.0 on 07/16/24. KCl 40 meq now and then 40 meq K-rider at 1500 ordered by me
-EF 10-15%.
-Cont Coreg 1.5625 mg BID
-No NAZIA/ARB/aldosterone antagonist due to hypotension
-Patient has declined addition of SGLT-2 in the past
-History of VT and Dofetilide held 07/14/24 for increased QTc which has improved
-INR therapeutic at 2.78 on 07/16/24
-Dig level 0.7 07/14/24
-Outpatient follow-up with Dr. Davalos at [facility] for his cardiomyopathy and his tarring machine operator is Dr. Arora at [facility]
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
HPI: Mr. Cooper presents with increased dyspnea on exertion, orthopnea and symptoms of signs of acute on chronic systolic congestive heart failure. Dyspneic with less and less movement. His testing is delineated as below. Complicated
electrophysiologic history status post permanent atrial fibrillation with AVJ ablation, chronic dofetilide therapy for VT and has a HADOOP ENGINEER-D incensed 2011. He is responding to BiPAP therapy and Lasix. He does have hypokalemia as noted and was
admitted for hyperkalemia in the late summer. Seen at the bedside he is currently feeling much more comfortable today after receiving his Lasix.
Progress Note - Wallcovering Hanger
Subjective
Date of Service: July 16, 2024
He was up frequently to urinate last night
Objective
Labs:
07/13/24 18:29
07/16/24 08:36
Labs
Hgb 13.5 g/dL (13.0-18.0) 07/13/24 18:29
Hct 39.2 % (39.0-52.0) 07/13/24 18:29
Plt Count 182 10^3/uL (130-400) 07/13/24 18:29
PT 29.2 Sec (11.4-14.6) H 07/16/24 08:36
INR 2.78 07/16/24 08:36
Sodium 138 mmol/L (135-145) 07/16/24 08:36
Potassium 3.0 mmol/L (3.5-5.1) L 07/16/24 08:36
BUN 16 mg/dl (9-20) 07/16/24 08:36
Creatinine 1.0 mg/dL (0.7-1.3) 07/16/24 08:36
Glucose 89 mg/dl (70-99) 07/16/24 08:36
Digoxin 0.7 ng/ml (0.8-2.0) L 07/14/24 06:16
Troponins
07/13/24
18:29
Troponin I 0.018
Vital Signs and I&O:
Vital Signs
Temp Pulse Resp BP Pulse Ox
97.6 F 77 18 93/59 93
07/16/24 15:22 07/16/24 15:22 07/16/24 15:22 07/16/24 15:22 07/16/24 15:22
Vital Signs
Temp Pulse Resp BP Pulse Ox
97.6 F 77 18 93/59 93
07/16/24 15:22 07/16/24 15:22 07/16/24 15:22 07/16/24 15:22 07/16/24 15:22
Intake & Output
0907/15/24 07/16/24 07/17/24
06:59 06:59 06:59 06:59
Intake Total 480 / 480 1440 / 1440 480 / 480
Output Total 225 / 225 2400 / 2400 1900 / 1900
Balance 255 / 255 -960 / -960 -1420 / -1420
[2024-07-16] MEDS: LIPITOR 20 MG PO (17:35)
[2024-07-16] MEDS: COUMADIN 5 MG PO (17:35)
--- NOTE | 2024-07-16 19:40 | PTCARENOTE ---
Addendum entered by Lili Donohue RN 07/16/24 22:51:
A-V pacing
Original Note:
Patient had a run of about 15 beats of V-Tach. Patient AAOx3, VSS. Asymptomatic. Patient back to V-Pacing on the monitor. DRILLING CONTRACTOR aware. No new orders.
[2024-07-16] MEDS: LANOXIN 125 MCG PO (21:55)
[2024-07-17] VITALS (9 sets, daily range): BP systolic 83–108; BP diastolic 54–67; PULSE 81–88; BMI 21.0
--- NOTE | 2024-07-17 07:46 | W.PN.HOSP.TC ---
Addendum entered and electronically signed by Doug Garcia MD 07/17/24 15:08:
I saw and evaluated the patient. I reviewed the resident�s note and agree with findings and plan as documented in the resident�s note.
Weight continued to improve, 159 pound today.
Creatinine remains stable around 1.1. Patient have some contraction alkalosis setting in with Bicab 37. Will provide dose of Diamox tomorrow based on bicarb.
Patient severely hypokalemic with potassium of 2.5 -combination from diuresis and transcellular shift with worsening alkalosis. Provide 40meq IV and 40meq oral K, rechekc K in evening, Mg WNL.
Diuretics to be held today until potassium within acceptable range
Discussed with cardiology as well.
INR 2.3 today, will get 2.5 mg warfarin today, f/u INR
Venous stasis ulcer, images reviewed, floor scraper following.
Original Note:
Today's Communication/Plan
-
monitor potassium and magnesium levels
adjust lasix dosing accordingly
Assessment / Plan
Assessment / Plan
IMPRESSION
Patient is 83 year old male,admitted with Acute on chronic heart failure(ejection fraction as of April 2024 is 10-15%). Dry weight 165-167 pounds. Bilateral lower leg edema present with stasis dermatitis.
Assessment and Plan
1. Acute on chronic combined systolic/diastolic CHF
-TTE in May 09 showing EF 10-15%, severe global hypokinesis, stage II diastolic dysfunction, Mod-sev MR, mod TR, mild AR
-patient shows no signs of hypoxia, breathing at room air
-CXR clear
-currently on 60mg intravenous Lasix
-two doses of metazolone given
-Cardiology following and help appreciated
Given significant hypokalemia, will hold further Metolazone for now.
Cont potassium repletion with oral KCL 40 meq and K rider 40 meq and recheck potassium
monitor lytes with hx VT, keep potassium greater than 4 and Mg greater than 2
Repeat Echocardiography 10-15 percent EF(07/16)
2. Permanent atrial fibrillation
Perm aFib s/p AVJ ablation
Supratherapeutic INR
On tikosyn( dofetilide) therapy
-maintain on home dose coreg and digoxin -inr 2.7
potassium 2.5
hold morning lasix
replete potassium
recheck serum potassium and magnesium
-Continue home dose of tikosyn,
- monitor renal function and serum electrolytes
-monitor QT interval (562), 07/16
3. s/p RIVET CATCHER-D
h/o of VT/VF
Hypokalemia
-EKG reviewed and have paced rhythm
-Potassium 3.0, given 40 eq yesterday
repeat serum K and replete as needed
4. Bilateral venous stasis ulcer
-wound care consulted for help
Local wound care provided and NAZIA compression applied. Recommended following up at [facility] and [facility] for continued assessment during healing process. Instructed patient on skin care for venous stasis and benefits on use of compression. Patient reports
good appetite and ambulates to chair. Sacrum and heels intact. DION Silva updated. Will continue to follow as needed.
5.Metabolic Alkalosis
Bicarb is 37
monitor for now, lasix is on hold
if it continues, can give acetazolamide tomorrow
s/p AV node ablation
h/o Amiodarone thyroiditis
Ulcerative colitis
JULIO CESAR on CPAP
Hyponatremia currently its 137
DVT PPX - warfarin
Limited DNR -no intubation
Anticipated Discharge: 24 - 48 hours
Subjective/Interval History
-
Date of Service: July 17, 2024
Asymptomatic, feels well,breathing on room air
Objective Data
-
Labs:
Laboratory Results
07/17/24
07:30
PT Pending
INR Pending
Sodium Pending
Potassium Pending
Chloride Pending
Carbon Dioxide Pending
BUN Pending
Creatinine Pending
Glucose Pending
Calcium Pending
Vital Signs:
Vital Signs
Temp Pulse Resp BP Pulse Ox
97.4 F 77 18 108/65 97
07/17/24 03:20 07/17/24 03:20 07/17/24 03:20 07/17/24 03:20 07/17/24 03:20
I&O
07/16/24 07/17/24 07/18/24
06:59 06:59 06:59
Intake Total 480 / 480 860 / 860 240 / 240
Output Total 1900 / 1900 2455 / 2455 2135 / 2135
Balance -1420 / -1420 -1595 / -1595 -1895 / -1895
Review of Systems
-
All other systems: Reviewed and negative
Physical Exam
-
General: Well Developed, Well Nourished, Comfortable and Conversant
HEENT: Normocephalic and Atraumatic
Respiratory: Clear to Auscultation
Cardiac: Regular Rhythm and S1/S2
GI: Soft, Nontender and Normal Bowel Sounds
Genito-urinary: No Costovertebral Tender
Musculoskeletal: No Clubbing, No Cyanosis and No Edema
Skin: Warm and Dry
Neuro: Awake, Alert and Oriented
Hematologic / Lymphatic: No Lymphadenopathy
Psych: Calm
[2024-07-17 07:59] LABS: INR 2.29; PT 25.1 Sec (11.4-14.6)
[2024-07-17 09:11] LABS: Blood Urea Nitrogen 18 mg/dl (9-20); Calcium 8.9 mg/dl (8.4-10.2); Carbon Dioxide 37 mmol/L (22-30); Chloride 89 mmol/L (98-107); Estimated Creatinine Clearance 52 ml/min; Glucose 98 mg/dl (70-99); Potassium 2.5 mmol/L (3.5-5.1); Sodium 136 mmol/L (135-145); eGFR > 60.00
[2024-07-17] MEDS: ASACOL, DELZICOL DR 800 MG PO ×3 (09:32→22:09)
[2024-07-17] MEDS: COREG 1.5625 MG PO (09:33)
--- NOTE | 2024-07-17 10:04 | W.PN.CARDCBS ---
Today's Communication / Plan
-
Wt is down another 6 lbs (over 10 lbs in last 48 hrs) with Metolazone last 2 days.
Cont IV lasix 60 mg BID.
Given significant hypokalemia, will hold further Metolazone for now.
Cont potassium repletion with oral KCL 40 meq and K rider 40 meq and recheck potassium
Reviewed echo and EF remains 10-15%.
-Cont Coreg 1.5625 mg BID
-No NAZIA/ARB/aldosterone antagonist due to hypotension
-Patient has declined addition of SGLT-2 in the past
History of VT and Dofetilide held 07/14/24 for increased QTc which has improved
-Cont Dofetilide
Cont Coumadin for perm Aib
Monitor INRs
Impression / Plan
-
.
PCP: Dr. Mayers
Primary Associate Software Engineer: Dr. Davalos
EP: Dr. Arora
Impression
Acute HFrEF
CM EF 10-15% by echo May 09
h/o NICM EF between 25% and 45% since 2011s/p [employer] GO GO DANCER-D
Hx VT/VF
Chronic Tikosyn therapy
Permanent Afib
s/p AV node ablation
Chronic warfarin OAC
h/o Amiodarone thyroiditis
Ulcerative colitis
JULIO CESAR on CPAP
Hyponatremia
Hyperkalemia, recent hypokalemia as an outpatient
Hypokalemia
Echo 06/2016: EF 35-40%, AV sclerosis with trivial AI, mildly dilated proximal ascending thoracic aorta
Echo 12/22/2023: EF 19% by Cooper's method, 26% by volumetric assessment, global hypokinesis with anterior wall and anteroseptum moving best, reduced RV systolic function, mod MR, mild to mod TR with PAP 50 mmHg
Echo 05/14/2024: EF 10 to 15% visually, severe global hypokinesis, stage II diastolic dysfunction, moderate to severe MR, moderate TR, mild aortic regurgitation
Echo Sept 2023: Left ventricle is moderately dilated. Severely reduced left ventricular systolic function. EF 10-15%, 17% by Cooper's method; Global hypokinesis. Pacer wire seen in right heart
Moderate to severe mitral regurgitation Mild aortic regurgitation. Moderate to severe tricuspid regurgitation. Estimated pulmonary artery pressure of 35 mmHg,. The IVC is dilated.
-Dig level 0.7 07/14/24
Plan:
Wt is down another 6 lbs (over 10 lbs in last 48 hrs) with Metolazone last 2 days.
Cont IV lasix 60 mg BID.
Given significant hypokalemia, will hold further Metolazone for now.
Cont potassium repletion with oral KCL 40 meq and K rider 40 meq and recheck potassium
Reviewed echo and EF remains 10-15%.
-Cont Coreg 1.5625 mg BID
-No NAZIA/ARB/aldosterone antagonist due to hypotension
-Patient has declined addition of SGLT-2 in the past
History of VT and Dofetilide held 07/14/24 for increased QTc which has improved
-Cont Dofetilide
Cont Coumadin for perm Aib
Monitor INRs
-Outpatient follow-up with Dr. Davalos at [facility] for his cardiomyopathy and his formula clerk is Dr. Arora at [facility]
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 Cooper presents with increased dyspnea on exertion, orthopnea and symptoms of signs of acute on chronic systolic congestive heart failure. Dyspneic with less and less movement. His testing is delineated as below. Complicated
electrophysiologic history status post permanent atrial fibrillation with AVJ ablation, chronic dofetilide therapy for VT and has a GO GO DANCER-D incensed 2011. He is responding to BiPAP therapy and Lasix. He does have hypokalemia as noted and was
admitted for hyperkalemia in the late summer. Seen at the bedside he is currently feeling much more comfortable today after receiving his Lasix.
Progress Note - Associate Software Engineer
Subjective
Date of Service: July 17, 2024
Pt seen and examined. No cp or dyspnea.
Objective
Labs:
07/13/24 18:29
Labs
Hgb 13.5 g/dL (13.0-18.0) 07/13/24 18:29
Hct 39.2 % (39.0-52.0) 07/13/24 18:29
Plt Count 182 10^3/uL (130-400) 07/13/24 18:29
PT 25.1 Sec (11.4-14.6) H 07/17/24 07:30
INR 2.29 07/17/24 07:30
Sodium 136 mmol/L (135-145) 07/17/24 07:30
Potassium 2.5 mmol/L (3.5-5.1) L* 07/17/24 07:30
BUN 18 mg/dl (9-20) 07/17/24 07:30
Creatinine 1.1 mg/dL (0.7-1.3) 07/17/24 07:30
Glucose 98 mg/dl (70-99) 07/17/24 07:30
Digoxin 0.7 ng/ml (0.8-2.0) L 07/14/24 06:16
Vital Signs and I&O:
Vital Signs
Temp Pulse Resp BP Pulse Ox
97.8 F 76 18 103/67 98
07/17/24 06:38 07/17/24 06:38 07/17/24 06:38 07/17/24 06:38 07/17/24 06:38
Vital Signs
Temp Pulse Resp BP Pulse Ox
97.8 F 76 18 103/67 98
07/17/24 06:38 07/17/24 06:38 07/17/24 06:38 07/17/24 06:38 07/17/24 06:38
Intake & Output
07/15/24 07/16/24 07/17/24 07/18/24
06:59 06:59 06:59 06:59
Intake Total 1440 / 1440 480 / 480 860 / 860 240 / 240
Output Total 2400 / 2400 1900 / 1900 2455 / 2455 2135 / 2135
Balance -960 / -960 -1420 / -1420 -1595 / -1595 -1895 / -1895
Physical Exam
Physical Exam
General: No acute distress, AAOX3
Neck: Negative JVD
Heart: Irregularly irregular, Negative S3 positive S1/S2, Negative S4, No murmur
Lungs: CTA b/l, negative wheezes/rales/rhonchi
Abd: Positive BS, NT/ND, neg rebound/rigidity/guarding
Ext: Negative cyanosis/clubbing. +1 b/l edema
Neuro: nonfocal
[2024-07-17] MEDS: LASIX IV (10:16)
[2024-07-17] MEDS: TIKOSYN 250 MCG PO ×2 (11:18→22:06)
[2024-07-17] MEDS: KCL 270 MEQ IV (11:19)
[2024-07-17] MEDS: KCL 40 MEQ PO (11:19)
[2024-07-17 15:45] LABS: Potassium 3.5 mmol/L (3.5-5.1)
[2024-07-17] MEDS: COUMADIN 2.5 MG PO (18:14)
[2024-07-17] MEDS: LIPITOR 20 MG PO (18:15)
[2024-07-17] MEDS: COREG PO (22:06)
[2024-07-17] MEDS: LANOXIN 125 MCG PO (22:06)
[2024-07-18] VITALS (7 sets, daily range): BP systolic 92–117; BP diastolic 62–77; BMI 21.2
--- NOTE | 2024-07-18 07:12 | W.PN.HOSP.TC ---
Addendum entered and electronically signed by Doug Garcia MD 07/18/24 15:41:
I saw and evaluated the patient. I reviewed the resident�s note and agree with findings and plan as documented in the resident�s note.
Systolic heart failure exacerbation -patient diuretics needed to be held yesterday due to severe hypokalemia. Today potassium of 3 point 4 in the morning and patient getting another 40 mEq of potassium. Will provide IV Lasix 60 mg in the
afternoon. Weight has been up 2 lb within last 24hrs. Cr remains stable
Metabolic alkalosis -contraction alkalosis with IV Lasix, bicarb improved somewhat today with 33 years Lasix needed to be held yesterday. Will provide dose of Diamox tomorrow if alkalosis persist. Patient have allergic reaction reported of chest
tightness from Bactrim although able to tolerate Lasix. Will provide trial dose of Diamox tomorrow.
Permanent afib -on Tikosyn/digoxin, continue regimen. Monitor renal function. EKG not helpful to monitor QTc as patient has paced rhythm
Original Note:
Today's Communication/Plan
-
Keep monitoring serum potassium
discuss with cardiology about resuming lasix
can give acetazolamide, after discussing with pharma about sulfa allergy
Assessment / Plan
Assessment / Plan
IMPRESSION
Patient is 83 year old male,admitted with Acute on chronic heart failure with reduced EF(ejection fraction as of April 2024 is 10-15%). Dry weight 165-167 pounds by patient history. Bilateral lower leg edema present with stasis dermatitis.
Assessment and Plan
1. Acute on chronic combined systolic/diastolic CHF
-TTE in May 09 showing EF 10-15%, severe global hypokinesis, stage II diastolic dysfunction, Mod-sev MR, mod TR, mild AR
-patient shows no signs of hypoxia, breathing at room air
-CXR clear
-currently on 60mg intravenous Lasix
-two doses of metazolone given
Given significant hypokalemia, will hold further Metolazone for now.
Cont potassium repletion with oral KCL 40 meq and K rider 40 meq and recheck potassium
monitor electrolytes with hx VT, keep potassium greater than 4 and Mg greater than 2
Echocardiography 10-15 percent EF(07/16)
Cardiology consult appreciated, will give single dose of Lasix 60 mg today,
Potassium replaced 40 mEq in the morning, will replace another 40 mEq, check serum potassium to decide further management.
Serum magnesium follow-up.
2. Permanent atrial fibrillation
Perm aFib s/p AVJ ablation
Supratherapeutic INR
On tikosyn( dofetilide) therapy
-maintain on home dose coreg and digoxin -inr 2.7
-Continue home dose of tikosyn,
- monitor renal function and serum electrolytes
-monitor QT interval (562), 07/16
3. s/p PRESS BRAKE OPERATOR-D
h/o of VT/VF
-EKG reviewed and have paced rhythm
-Potassium 3.3
repeat serum K and replete as needed
4. Bilateral venous stasis ulcer
-wound care consulted for help
Local wound care provided and ANZIA compression applied. Recommended following up at [facility] and [facility] for continued assessment during healing process. Instructed patient on skin care for venous stasis and benefits on use of compression. Patient reports
good appetite and ambulates to chair. Sacrum and heels intact. DION Silva updated. Will continue to follow as needed.
5.Metabolic Alkalosis
Bicarb was 37,Lasix held for hypokalemia concerns, today potassium is 3.3 and bicarb is 32
Discuss about giving Diamox
patient is allergic to sulfonamides
monitor for now
s/p AV node ablation
h/o Amiodarone thyroiditis
Ulcerative colitis
JULIO CESAR on CPAP
Hyponatremia currently its 137
DVT PPX - warfarin
Limited DNR -no intubation
Anticipated Discharge: 24 - 48 hours
Subjective/Interval History
-
Date of Service: July 18, 2024
Weight increase by 1 pound since holding lasix, patient had hypokalemia(potassium 2.5), replaced 80meq, potassium 3.5 and then 3.3.
Still has to resume lasix dose
complains of mild pain on stasis dermatitis wound on legs
Objective Data
-
Labs:
Laboratory Results
07/18/24
07:01
PT Pending
INR Pending
Sodium Pending
Potassium Pending
Chloride Pending
Carbon Dioxide Pending
BUN Pending
Creatinine Pending
Glucose Pending
Calcium Pending
Vital Signs:
Vital Signs
Temp Pulse Resp BP Pulse Ox
97.9 F 77 16 116/73 96
07/18/24 03:56 07/18/24 03:56 07/18/24 03:56 07/18/24 03:56 07/18/24 03:56
I&O
07/17/24 07/18/24 07/19/24
06:59 06:59 06:59
Intake Total 860 / 860 1180 / 1180
Output Total 2455 / 2455 2385 / 2385
Balance -1595 / -1595 -1205 / -1205
Review of Systems
-
All other systems: Reviewed and negative
Physical Exam
-
General: Well Developed, Well Nourished, No Apparent Distress and Comfortable
HEENT: Normocephalic and Atraumatic
Respiratory: Clear to Auscultation and Crackles (occasional)
Cardiac: Regular Rhythm and S1/S2
GI: Soft, Nontender, Nondistended and Normal Bowel Sounds
Genito-urinary: No Costovertebral Tender
Musculoskeletal: Edema, Right Lower Extrem, Edema, Left Lower Extrem and Other
Skin: Warm and Dry
Neuro: Awake, Alert and Oriented
Hematologic / Lymphatic: No Lymphadenopathy
Psych: Calm
[2024-07-18 07:34] LABS: INR 2.61; PT 27.8 Sec (11.4-14.6)
[2024-07-18 07:45] LABS: Blood Urea Nitrogen 22 mg/dl (9-20); Calcium 8.8 mg/dl (8.4-10.2); Carbon Dioxide 32 mmol/L (22-30); Chloride 92 mmol/L (98-107); Estimated Creatinine Clearance 64 ml/min; Glucose 111 mg/dl (70-99); Potassium 3.3 mmol/L (3.5-5.1); Sodium 135 mmol/L (135-145); eGFR > 60.00
[2024-07-18] MEDS: ASACOL, DELZICOL DR 800 MG PO ×3 (09:56→23:26)
[2024-07-18] MEDS: COREG 1.5625 MG PO (09:56)
[2024-07-18] MEDS: TIKOSYN 250 MCG PO ×2 (09:58→21:35)
[2024-07-18] MEDS: FLUSH (NSS) 1 FLUSH IV ×2 (09:59→13:09)
[2024-07-18] MEDS: KCL 40 MEQ PO ×2 (09:59→12:30)
--- NOTE | 2024-07-18 10:26 | CM ---
Patient seen bedside, reports no needs to CM at this time. IMM reviewed, signed, placed in chart. CM will continue to follow for all discharge planning needs.
Plan; return to [place], watch for VN needs.
[2024-07-18] MEDS: TYLENOL 650 MG PO (10:42)
--- NOTE | 2024-07-18 13:02 | W.PN.CARDCBS ---
Addendum entered and electronically signed by Evon Florez DO 07/18/24 18:16:
I saw and examined the patient.
The Dairy Manufacturing Technologist's note was reviewed and I agree with the note.
Comment: Patient seen and examined sitting out of bed to chair. Overall offers no new complaints. He has noted some improvement in shortness of breath and edema. No chest pain or pressure. No dizziness.
GEN: NAD. AAOx3
LUNGS: Bronchovesicular breath sounds, decreased at bases but overall clear
CV: Regular, positive S1-S2. + device +2/6 SM
ABD: ND/NT + BS
EXT: Trace pitting B/L LE edema
Echo 07/16/24: LV moderately dilated with EF 10-15%, 17% by Cooper's method, global hypokinesis, mod to sev MR, mild aortic regurgitation, mod to sev TR with PAP 35 mmHg
Plan:
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
-proBNP 11,900
-Slow improvement in volume status limited by electrolyte abnormalities
-Aggressive repletion of potassium and repeat basic metabolic profile later today. If potassium is normalized would like to resume Zaroxolyn with IV Lasix
-Close monitoring of potassium/magnesium. K greater than 4, mag greater than 2
-Continue attempts to optimize goal-directed medical therapy:Cont Coreg 1.5625 mg BID. no NAZIA/ARB/aldosterone antagonist due to hypotension
-Patient has declined addition of SGLT-2 in the past-will readdress this admission
History of permanent atrial fibrillation status post AV node ablation
-Continue warfarin therapy
-Patient is on Tikosyn and digoxin.
-Digoxin level not elevated, 0.7 on 07/06/2024
-INRs have been therapeutic. Goal INR 2�3 managed by primary care physician
History of VT/VF status post ICD
-Continue Tikosyn and correct electrolytes
-Monitor telemetry
-Repeat EKG
-Outpatient follow-up with Dr. PATRICIA Jones for his cardiomyopathy and his software development coordinator is Dr. Arora at [facility]
Original Note:
Today's Communication / Plan
-
Check QTc on ECG
Cont Tikosyn
Lasix 60 mg IV x1 today
KCl 40 meq PO x1 ordered by me this morning and will order another dose now
Impression / Plan
-
PCP: Dr. Mayers
Primary Fisher Swordfish: Dr. PATRICIA Jones
EP: Dr. Arora
Impression
Acute HFrEF
CM EF 10-15% by echo May 09
h/o NICM EF between 25% and 45% since /p [employer] OTHER SPATIAL SCIENTIST-D
Hx VT/VF
Chronic Tikosyn therapy
Permanent Afib
s/p AV node ablation
Chronic warfarin OAC managed by PCP with labs drawn at
h/o Amiodarone thyroiditis
Ulcerative colitis
JULIO CESAR on CPAP
Hyponatremia
Hyperkalemia, recent hypokalemia as an outpatient
Hypokalemia
Echo 06/2016: EF 35-40%, AV sclerosis with trivial AI, mildly dilated proximal ascending thoracic aorta
Echo 12/22/2023: EF 19% by Cooper's method, 26% by volumetric assessment, global hypokinesis with anterior wall and anteroseptum moving best, reduced RV systolic function, mod MR, mild to mod TR with PAP 50 mmHg
Echo 05/14/2024: EF 10 to 15% visually, severe global hypokinesis, stage II diastolic dysfunction, moderate to severe MR, moderate TR, mild aortic regurgitation
Echo 07/16/24: LV moderately dilated with EF 10-15%, 17% by Cooper's method, global hypokinesis, mod to sev MR, mild aortic regurgitation, mod to sev TR with PAP 35 mmHg
Plan:
-Patient weight is up 2 lbs overnight after Lasix 60 mg IV BID placed on hold 07/17/24 due to profound diuresis and hypokalemia. Will give a dose of Lasix 60 mg IV x1 on 07/18/24
-Potassium has improved with aggressive supplementation. KCl 40 meq given early 07/18/24 and another KCl 40 meq ordered for noon on 07/18/24
-Patient diuresed 10 lbs with Lasix 60 mg IV BID plus metolazone 5 mg PO on 07/16/24 and 07/17/24. Will hold further doses of metolazone.
-EF 10-15% by echo 07/16/24
-Cont Coreg 1.5625 mg BID
-No NAZIA/ARB/aldosterone antagonist due to hypotension
-Patient has declined addition of SGLT-2 in the past
-Patient takes Tikosyn for h/o VT. Tikosyn held on admission for QTc 593 which then improved to 562 and so Tikosyn resumed at usual dose of 250 mcg q 12 hours. Recheck ECG 07/18/24.
-INR therapeutic at 2.61 on 07/18/24. INRs managed by PCP with draws at lab and an INR goal of 2-3.
-Outpatient follow-up with Dr. PATRICIA Jones for his cardiomyopathy and his software development coordinator is Dr. Arora at [facility]
HPI: Mr. Cooper presents with increased dyspnea on exertion, orthopnea and symptoms of signs of acute on chronic systolic congestive heart failure. Dyspneic with less and less movement. His testing is delineated as below. Complicated
electrophysiologic history status post permanent atrial fibrillation with AVJ ablation, chronic dofetilide therapy for VT and has a OTHER SPATIAL SCIENTIST-D incensed 2011. He is responding to BiPAP therapy and Lasix. He does have hypokalemia as noted and was
admitted for hyperkalemia in the late summer. Seen at the bedside he is currently feeling much more comfortable today after receiving his Lasix.
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
Progress Note - Fisher Swordfish
Subjective
Date of Service: July 18, 2024
No chest pain
Objective
Labs:
07/13/24 18:29
Labs
Hgb 13.5 g/dL (13.0-18.0) 07/13/24 18:29
Hct 39.2 % (39.0-52.0) 07/13/24 18:29
Plt Count 182 10^3/uL (130-400) 07/13/24 18:29
PT 27.8 Sec (11.4-14.6) H 07/18/24 07:01
INR 2.61 07/18/24 07:01
Sodium 135 mmol/L (135-145) 07/18/24 07:01
Potassium 3.3 mmol/L (3.5-5.1) L 07/18/24 07:01
BUN 22 mg/dl (9-20) H 07/18/24 07:01
Creatinine 0.9 mg/dL (0.7-1.3) 07/18/24 07:01
Glucose 111 mg/dl (70-99) H 07/18/24 07:01
Digoxin 0.7 ng/ml (0.8-2.0) L 07/14/24 06:16
Vital Signs and I&O:
Vital Signs
Temp Pulse Resp BP Pulse Ox
97.6 F 76 18 104/71 91
07/18/24 11:28 07/18/24 11:28 07/18/24 11:28 07/18/24 11:28 07/18/24 11:28
Vital Signs
Temp Pulse Resp BP Pulse Ox
97.6 F 76 18 104/71 91
07/18/24 11:28 07/18/24 11:28 07/18/24 11:28 07/18/24 11:28 07/18/24 11:28
Intake & Output
07/16/24 07/17/24 07/18/24 07/19/24
06:59 06:59 06:59 06:59
Intake Total 480 / 480 860 / 860 1180 / 1180
Output Total 1900 / 1900 2455 / 2455 2385 / 2385
Balance -1420 / -1420 -1595 / -1595 -1205 / -1205
Physical Exam
Physical Exam
GEN: NAD. AAOx3
HEENT: EOMI
LUNGS: No audible wheeze
CV: Paced on tele
ABD: ND
EXT: Trace pitting B/L LE edema
NEURO: Gross non-focal
SKIN: No rash
[2024-07-18] MEDS: LASIX 60 MG IV (13:09)
--- NOTE | 2024-07-18 16:22 | PTCARENOTE ---
Pt AAO x3, SOTO well, OOB in room/to chair; joyce well, no c/o weakness/dizziness. VSS. Telemetry:V-paced rhythm. On room air- pulseox 97%, no SOB noted. Abd soft, rounded joyce PO well; 1500 ml fl restriction maintained. Voids clear river urine in
urinal. NAZIA wraps intact to BLE. Resting in bed at present, no c/o. Will continue to monitor
[2024-07-18 16:54] LABS: Blood Urea Nitrogen 22 mg/dl (9-20); Calcium 9.2 mg/dl (8.4-10.2); Carbon Dioxide 33 mmol/L (22-30); Chloride 92 mmol/L (98-107); Estimated Creatinine Clearance 58 ml/min; Glucose 97 mg/dl (70-99); Magnesium 2.3 mg/dl (1.6-2.3); Potassium 4.3 mmol/L (3.5-5.1); Sodium 137 mmol/L (135-145); eGFR > 60.00
[2024-07-18] MEDS: COUMADIN 5 MG PO (18:02)
[2024-07-18] MEDS: LIPITOR 20 MG PO (18:02)
[2024-07-18] MEDS: COREG PO (21:32)
[2024-07-18] MEDS: LANOXIN 125 MCG PO (21:35)
[2024-07-19 03:35] VITALS: BP 118/97
[2024-07-19 05:37] VITALS: BMI 21.3
--- NOTE | 2024-07-19 06:38 | W.PN.HOSP.TC ---
Addendum entered and electronically signed by Doug Garcia MD 07/19/24 14:10:
I saw and evaluated the patient. I reviewed the resident�s note and agree with findings and plan as documented in the resident�s note.
Patient potassium has been improved to 3.8 today. Creatinine remain stable on 1
Weight remained close to 161 pound.
Recent back on IV Lasix 60 mg twice daily
Discussed with cardiology and patient getting dose of metolazone 2.5 mg 1 time as well
Possible d/c tomorrow
Original Note:
Today's Communication/Plan
-
Resume 60mg lasix IV twice daily as potassium and magnesium within desired range
Give stat dose of Tramadol for leg pain secondary to venous ulcers on legs due to stasis
Give stat dose of Diamox, Bicarb is 32
Plan discharge with potassium supplements and increased lasix dose after discussing with cardiology
Assessment / Plan
Assessment / Plan
IMPRESSION
Patient is 83 year old male,admitted with Acute on chronic heart failure with reduced EF(ejection fraction as of April 2024 is 10-15%). Dry weight 165-167 pounds by patient history. Bilateral lower leg edema present with stasis dermatitis.
Assessment and Plan
1. Acute on chronic combined systolic/diastolic CHF
-TTE in May 09 showing EF 10-15%, severe global hypokinesis, stage II diastolic dysfunction, Mod-sev MR, mod TR, mild AR
-patient shows no signs of hypoxia, breathing at room air
-CXR clear
-currently on 60mg intravenous Lasix, resumed twice daily as patient has potassium in normal range now
-two doses of metazolone given
-Echocardiography 10-15 percent EF(07/16)
-Cardiology consult appreciated,80 mEq potassium replaced yesterday, follow-up potassium was 4.3 and magnesium was 2.3
- Another metolazone dose given, total 3 doses given till now
-
2. Permanent atrial fibrillation
Perm aFib s/p AVJ ablation
Supratherapeutic INR
On tikosyn( dofetilide) therapy
-maintain on home dose coreg and digoxin -Keep INR between 2-3
-Continue home dose of tikosyn,
- monitor renal function and serum electrolytes
-monitor QT interval (562), 07/16, due to paced heart rhythm not helpful in this patient
3. s/p SWIMMING POOL ATTENDANT-D
h/o of VT/VF
-EKG reviewed and have paced rhythm
-Potassium 4.3
repeat serum K and replete as needed
4. Bilateral venous stasis ulcer
-wound care consulted for help
Local wound care provided and NAZIA compression applied. Recommended following up at WC and VN for continued assessment during healing process. Instructed patient on skin care for venous stasis and benefits on use of compression. Patient reports
good appetite and ambulates to chair. Sacrum and heels intact. RN Ricardo updated. Will continue to follow as needed.
5.Metabolic Alkalosis
Bicarb was 37,Lasix held for hypokalemia concerns,July 18, 2024 potassium was 3.3 and bicarb is 32
After another 80 mEq repletion, potassium 4.3 and magnesium 2.3
Observed bicarb, and downward trend, observe for now
patient is allergic to sulfonamides
Bicarb 32, give Diamox 250mg Po dose stat as single dose(jul)
s/p AV node ablation
h/o Amiodarone thyroiditis
Ulcerative colitis
JULIO CESAR on CPAP
Hyponatremia currently its 137
DVT PPX - warfarin
Limited DNR -no intubation
Anticipated Discharge: 24 - 48 hours
Subjective/Interval History
-
Date of Service: July 19, 2024
Patient has no new complaints. He feels improvement in his shortness of breath and edema. Some pain in the stasis dermatitis wound but not unbearable. Overall feels well
Objective Data
-
Labs:
Laboratory Results
07/19/24
06:00
PT Pending
INR Pending
Sodium Pending
Potassium Pending
Chloride Pending
Carbon Dioxide Pending
BUN Pending
Creatinine Pending
Glucose Pending
Calcium Pending
Vital Signs:
Vital Signs
Temp Pulse Resp BP Pulse Ox
97.4 F 75 16 118/97 96
07/19/24 03:35 07/19/24 03:35 07/19/24 03:35 07/19/24 03:35 07/19/24 03:35
I&O
07/17/24 07/18/24 07/19/24
06:59 06:59 06:59
Intake Total 860 / 860 1180 / 1180 780 / 780
Output Total 2455 / 2455 2385 / 2385 1450 / 1450
Balance -1595 / -1595 -1205 / -1205 -670 / -670
Review of Systems
-
All other systems: Reviewed and negative
Physical Exam
-
General: Well Developed, Well Nourished, No Apparent Distress and Comfortable
HEENT: Normocephalic, Atraumatic and Oxygen (Breathing on room air)
Respiratory: Clear to Auscultation and Decreased Breath Sounds (At bilateral lung base decreased breath sounds, but no crackles)
Cardiac: Regular Rhythm and S1/S2
GI: Soft, Nontender, Nondistended and Normal Bowel Sounds
Genito-urinary: No Costovertebral Tender
Musculoskeletal: No Clubbing, No Cyanosis and No Edema
Skin: Warm and Dry
Neuro: Awake, Alert and Oriented
Hematologic / Lymphatic: No Lymphadenopathy
Psych: Calm
[2024-07-19 08:11] LABS: Blood Urea Nitrogen 26 mg/dl (9-20); Calcium 9.1 mg/dl (8.4-10.2); Carbon Dioxide 32 mmol/L (22-30); Chloride 92 mmol/L (98-107); Estimated Creatinine Clearance 58 ml/min; Glucose 109 mg/dl (70-99); Potassium 3.8 mmol/L (3.5-5.1); Sodium 136 mmol/L (135-145); eGFR > 60.00
[2024-07-19 08:14] VITALS: BP 99/67
[2024-07-19] MEDS: COREG 1.5625 MG PO ×2 (08:44→21:42)
[2024-07-19] MEDS: ASACOL, DELZICOL DR 800 MG PO ×3 (08:44→22:02)
[2024-07-19] MEDS: ULTRAM 25 MG PO (08:45)
[2024-07-19] MEDS: ZAROXOLYN 2.5 MG PO (08:48)
--- NOTE | 2024-07-19 09:19 | PTCARENOTE ---
Telemetry shows 15 beat Vtach; pt sitting up in bed, no c/o. Dr. Garcia notified. Will continue to monitor.
[2024-07-19] MEDS: DIAMOX 250 MG PO (09:36)
[2024-07-19] MEDS: TIKOSYN 250 MCG PO ×2 (09:39→21:42)
[2024-07-19 11:07] VITALS: BMI 21.3
[2024-07-19 11:36] VITALS: BP 91/59
--- NOTE | 2024-07-19 13:37 | W.PN.CARDCBS ---
Addendum entered and electronically signed by Arden Hamilton MD 07/19/24 16:06:
I saw and examined the patient.
The Revenue Specialist's note was reviewed and I agree with the note.
Comment: Briefly, 83-year-old man past medical history of end-stage cardiomyopathy most recent EF 10 to 15% who is presenting in decompensated heart failure
With metolazone and IV Lasix his volume status is significantly improved but unfortunately this brisk diuresis precipitated hypokalemia
Potassium back in the normal range today, will resume IV Lasix
Suspect we can transition to oral Lasix in the next 24 to 48 hours
Would recommend discharging with once weekly metolazone to augment diuresis as an outpatient
Rest per Neisha Spaulding
Original Note:
Today's Communication / Plan
-
Restart Lasix 60 mg IV BID now
Change to Lasix 60 mg PO BID upon d/c plus metolazone 2.5 mg every Tuesday
Cont KCl 20 meq daily except increase to 40 meq BID on Mondays
Check BMP every other week along with INR for the next 3 months to ensure stability given h/o hypokalemia, hyperkalemia, AAD use and VT
Impression / Plan
-
PCP: Dr. Mayers
Primary Basting Machine Operator: Dr. PATRICIA Jones
EP: Dr. Aorra
Impression
Acute HFrEF
CM EF 10-15% by echo May 09
h/o NICM EF between 25% and 45% since 2011s/p [employer] AUTOMOTIVE SERVICES MANAGER-D
Hx VT/VF
Chronic Tikosyn therapy
Permanent Afib
s/p AV node ablation
Chronic warfarin OAC managed by PCP with labs drawn at
h/o Amiodarone thyroiditis
Ulcerative colitis
JULIO CESAR on CPAP
Hyponatremia
Hyperkalemia, recent hypokalemia as an outpatient
Hypokalemia
Echo 06/2016: EF 35-40%, AV sclerosis with trivial AI, mildly dilated proximal ascending thoracic aorta
Echo 12/22/2023: EF 19% by Cooper's method, 26% by volumetric assessment, global hypokinesis with anterior wall and anteroseptum moving best, reduced RV systolic function, mod MR, mild to mod TR with PAP 50 mmHg
Echo 05/14/2024: EF 10 to 15% visually, severe global hypokinesis, stage II diastolic dysfunction, moderate to severe MR, moderate TR, mild aortic regurgitation
Echo 07/16/24: LV moderately dilated with EF 10-15%, 17% by Cooper's method, global hypokinesis, mod to sev MR, mild aortic regurgitation, mod to sev TR with PAP 35 mmHg
Plan:
-Weight is down 12+ lbs this admission. Weight is stable at 161 lbs on 07/19/24. Patient had profound diuresis with Lasix 60 mg IV BID plus metolazone 5 mg PO on 07/16/24 and 07/17/24. Patient then became profoundly hypokalemic with metabolic
alkalosis. Lasix was held 07/17/24 and then resumed with Lasix 60 mg IV x1 on 07/18/24.
-Lasix 60 mg IV BID with doses at 1400 and 2000 on 07/19/24 and then Lasix 60 mg IV BID@0800,1600 starting 07/20/24. If patient continues to feel symptomatically improved then can probably d/c to home 07/20/24 and patient is in agreement.
-Made a plan for metolazone 2.5 mg PO every Tuesday. Due to h/o hypokalemia with metolazone made a plan for KCl 40 meq BID on Mondays otherwise patient will continue his usual dose of KCl 20 meq daily.
-D/C patient a philosophy of quality of life and reducing hospitalization and that metolazone, higher dose KCl and more frequent labs might help us achieve that goal and he was in agreement.
-Patient with h/o hyperkalemia on spironolactone and enalapril, neither of which he is taking now. Check BMP with INR draws every other week for the next 3 months to ensure stability.
-EF 10-15% by echo 07/16/24
-Cont Coreg 1.5625 mg BID
-Outpatient dose of Jardiance changed to Farxiga due to formulary at .
-No NAZIA/ARB/aldosterone antagonist due to hypotension
-Patient has declined addition of SGLT-2 in the past
-Patient takes Tikosyn for h/o VT. Tikosyn held on admission for QTc 593. QTc improved to 533 on 07/18/24.
-INR therapeutic at 2.70 on 07/19/24. INRs managed by PCP with draws at lab and an INR goal of 2-3.
-Outpatient follow-up with Dr. PATRICIA Jones for his cardiomyopathy and his low vision therapist is Dr. Arora at [facility]
HPI: Mr. Cooper presents with increased dyspnea on exertion, orthopnea and symptoms of signs of acute on chronic systolic congestive heart failure. Dyspneic with less and less movement. His testing is delineated as below. Complicated
electrophysiologic history status post permanent atrial fibrillation with AVJ ablation, chronic dofetilide therapy for VT and has a AUTOMOTIVE SERVICES MANAGER-D incensed 2011. He is responding to BiPAP therapy and Lasix. He does have hypokalemia as noted and was
admitted for hyperkalemia in the late summer. Seen at the bedside he is currently feeling much more comfortable today after receiving his Lasix.
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
Progress Note - Basting Machine Operator
Subjective
Date of Service: July 19, 2024
He feels edema has improved, he walked 3 laps in the unit so far today
Objective
Labs:
07/13/24 18:29
07/19/24 07:26
Labs
Hgb 13.5 g/dL (13.0-18.0) 07/13/24 18:29
Hct 39.2 % (39.0-52.0) 07/13/24 18:29
Plt Count 182 10^3/uL (130-400) 07/13/24 18:29
PT 29.0 Sec (11.4-14.6) H 07/19/24 07:26
INR 2.70 07/19/24 07:26
Sodium 136 mmol/L (135-145) 07/19/24 07:26
Potassium 3.8 mmol/L (3.5-5.1) 07/19/24 07:26
BUN 26 mg/dl (9-20) H 07/19/24 07:26
Creatinine 1.0 mg/dL (0.7-1.3) 07/19/24 07:26
Glucose 109 mg/dl (70-99) H 07/19/24 07:26
Digoxin 0.7 ng/ml (0.8-2.0) L 07/14/24 06:16
Vital Signs and I&O:
Vital Signs
Temp Pulse Resp BP Pulse Ox
97.7 F 77 18 91/59 97
07/19/24 11:36 07/19/24 11:36 07/19/24 11:36 07/19/24 11:36 07/19/24 11:36
Vital Signs
Temp Pulse Resp BP Pulse Ox
97.7 F 77 18 91/59 97
07/19/24 11:36 07/19/24 11:36 07/19/24 11:36 07/19/24 11:36 07/19/24 11:36
Intake & Output
07/17/24 07/18/24 07/19/24 07/20/24
06:59 06:59 06:59 06:59
Intake Total 860 / 860 1180 / 1180 780 / 780
Output Total 2455 / 2455 2385 / 2385 1450 / 1450
Balance -1595 / -1595 -1205 / -1205 -670 / -670
Physical Exam
Physical Exam
GEN: NAD. AAOx3
HEENT: EOMI
LUNGS: No audible wheeze
CV: Paced on tele
ABD: ND
EXT: Trace pitting B/L LE edema
NEURO: Gross non-focal
SKIN: No rash
[2024-07-19] MEDS: LASIX 60 MG IV ×2 (14:33→20:05)
[2024-07-19] MEDS: FLUSH (NSS) 1 FLUSH IV (14:34)
[2024-07-19 15:40] VITALS: BP 91/63
--- NOTE | 2024-07-19 17:06 | PTCARENOTE ---
Pt AAO x3, SOTO well, OOB in room/ayala, joyce well without c/o weakness/dizziness. VSS. Telemetry: A noemí with V-pacing; occ shorts runs of Vtach- pt asymptomatic. On room air- pulseox 98%, no SOB noted. Abd soft, non-tender; joyce PO well. Voids
mod amts clear irver urine in urinal. NAZIA wraps intact to BLE. Resting in bed at present. Will continue to monitor.
[2024-07-19] MEDS: COUMADIN 2.5 MG PO (18:18)
[2024-07-19] MEDS: LIPITOR 20 MG PO (18:19)
[2024-07-19 20:13] VITALS: BP 97/66
[2024-07-19] MEDS: LANOXIN 125 MCG PO (21:42)
--- NOTE | 2024-07-19 22:45 | PTCARENOTE ---
Patient had 8 beats of Vtach, asymptomatic. ABBY Lisa made aware.
[2024-07-19 23:21] VITALS: BP 102/69
[2024-07-20 03:27] VITALS: BP 99/63
[2024-07-20 05:07] VITALS: BMI 21.0
[2024-07-20 07:30] VITALS: BP 100/69
[2024-07-20 08:41] LABS: Hematocrit 38.7 % (39.0-52.0); Hemoglobin 13.2 g/dL (13.0-18.0); Mean Corp Hgb Conc. 34.1 g/dL (33.0-37.0); Mean Platelet Volume 10.6 fL (7.4-10.4); Platelet Count 168 10^3/uL (130-400); Red Cell Dist. Width 19.6 % (11.5-14.5); White Blood Cell Count 5.4 10^3/uL (4.8-10.8)
[2024-07-20 09:12] LABS: ALT (SGPT) 26 U/L (0-50); AST (SGOT) 29 U/L (17-59); Albumin 3.7 g/dl (3.5-5.0); Alkaline Phosphatase 99 U/L (38-126); Blood Urea Nitrogen 27 mg/dl (9-20); Calcium 8.9 mg/dl (8.4-10.2); Carbon Dioxide 35 mmol/L (22-30); Chloride 89 mmol/L (98-107); Estimated Creatinine Clearance 52 ml/min; Glucose 95 mg/dl (70-99); Potassium 2.5 mmol/L (3.5-5.1); Sodium 135 mmol/L (135-145); Total Bilirubin 2.3 mg/dl (0.2-1.3); Total Protein 6.3 g/dl (6.3-8.2); eGFR > 60.00
[2024-07-20] MEDS: ASACOL, DELZICOL DR 800 MG PO ×3 (09:41→22:53)
[2024-07-20] MEDS: FARXIGA 10 MG PO (09:41)
[2024-07-20] MEDS: COREG 1.5625 MG PO (09:42)
[2024-07-20] MEDS: TIKOSYN 250 MCG PO ×2 (09:45→21:16)
[2024-07-20] MEDS: TYLENOL 650 MG PO (09:48)
--- NOTE | 2024-07-20 10:11 | CM ---
Patient seen bedside, patient reports no needs at this time. CM offered VN to patient, declining at this time. IMM reviewed, signed, placed in chart. CM will continue to follow for all discharge planning needs.
Plan; return to [place] when stable.
[2024-07-20] MEDS: KCL 40 MEQ PO (10:59)
[2024-07-20] MEDS: KCL 270 MEQ IV (11:00)
[2024-07-20 11:09] VITALS: BP 90/60
--- NOTE | 2024-07-20 11:36 | W.PN.CARDCBS ---
Addendum entered and electronically signed by Arden Hamilton MD 07/20/24 16:21:
I saw and examined the patient.
The Clinical Medical Transcriptionist's note was reviewed and I agree with the note.
Comment: Briefly, 83-year-old man past medical history of end-stage heart failure with a EF 10 to 15% presenting in acute decompensated heart failure
Volume status is significantly improved from admission, still has mild lower extremity edema and would likely benefit from an additional 24 hours of IV Lasix here however his diuretics are limited by hypokalemia
Continue aggressive potassium repletion
Can potentially transition to p.o. Lasix in the next 24 to 48 hours
Unfortunately his blood pressure has been marginal and therefore will likely not tolerate the addition of spironolactone, Entresto or NAZIA/ARB to his medication regimen
Rest per Jessika Lama
Original Note:
Today's Communication / Plan
-
Continue diuresis
Replete K
Impression / Plan
-
PCP: Dr. Mayers
Primary [employer] Unified Communications Engineer: Dr. PATRICIA Jones
EP: Dr. Arora
Impression
Acute HFrEF
CM EF 10-15% by echo May 09
h/o NICM EF between 25% and 45% since 2011s/p [employer] OPTICAL SYSTEMS ENGINEER-D
Hx VT/VF
Chronic Tikosyn therapy
Permanent Afib
s/p AV node ablation
Chronic warfarin OAC managed by PCP with labs drawn at
h/o Amiodarone thyroiditis
Ulcerative colitis
JULIO CESAR on CPAP
Hyponatremia
Hyperkalemia, recent hypokalemia as an outpatient
Hypokalemia
Echo 06/2016: EF 35-40%, AV sclerosis with trivial AI, mildly dilated proximal ascending thoracic aorta
Echo 12/22/2023: EF 19% by Cooper's method, 26% by volumetric assessment, global hypokinesis with anterior wall and anteroseptum moving best, reduced RV systolic function, mod MR, mild to mod TR with PAP 50 mmHg
Echo 05/14/2024: EF 10 to 15% visually, severe global hypokinesis, stage II diastolic dysfunction, moderate to severe MR, moderate TR, mild aortic regurgitation
Echo 07/16/24: LV moderately dilated with EF 10-15%, 17% by Cooper's method, global hypokinesis, mod to sev MR, mild aortic regurgitation, mod to sev TR with PAP 35 mmHg
Plan:
-Presented with increased dyspnea on exertion and orthopnea. Admitted with acute heart failure exacerbation.
-Diuresing with IV Lasix 60 mg BID. Weight down at least 14 pounds this admission, down to 159 pounds 07/20/2024.
-Creatinine stable at 1.1. Likely is close to transitioning to PO lasix. At discharge, would consider once weekly metolazone as he previously has done well with this.
-He has struggled with recurrent hypokalemia this admission. K down to 2.5 again 07/20. Agree with repletion. Continue to follow w/ ongoing diuresis.
-Patient with h/o hyperkalemia on spironolactone and enalapril, neither of which he is taking now. Would recommend checking BMP with INR draws every other week for the next 3 months to ensure stability.
-EF 10-15% by echo 07/16/24
-Cont Coreg 1.5625 mg BID. OP Jardiance changed to Farxiga due to formulary at .
-No NAZIA/ARB/aldosterone antagonist due to hypotension
-Patient takes Tikosyn for h/o VT. Tikosyn held on admission for QTc 593. QTc improved to 533 on 07/18/24.
-INR therapeutic at 2.70 on 07/19/24. INRs managed by PCP with draws at lab and an INR goal of 2-3.
-Outpatient follow-up with Dr. PATRICIA Jones has been arranged
HPI: Mr. Cooper presents with increased dyspnea on exertion, orthopnea and symptoms of signs of acute on chronic systolic congestive heart failure. Dyspneic with less and less movement. His testing is delineated as below. Complicated
electrophysiologic history status post permanent atrial fibrillation with AVJ ablation, chronic dofetilide therapy for VT and has a OPTICAL SYSTEMS ENGINEER-D incensed 2011. He is responding to BiPAP therapy and Lasix. He does have hypokalemia as noted and was
admitted for hyperkalemia in the late summer. Seen at the bedside he is currently feeling much more comfortable today after receiving his Lasix. 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
Progress Note - Cisco Unified Communications Engineer
Subjective
Date of Service: July 20, 2024
No complaints other than LE edema and wound. No SOB.
Objective
Labs:
07/20/24 07:49
07/20/24 07:49
Labs
Hgb 13.2 g/dL (13.0-18.0) 07/20/24 07:49
Hct 38.7 % (39.0-52.0) L 07/20/24 07:49
Plt Count 168 10^3/uL (130-400) 07/20/24 07:49
PT 29.0 Sec (11.4-14.6) H 07/19/24 07:26
INR 2.70 07/19/24 07:26
Sodium 135 mmol/L (135-145) 07/20/24 07:49
Potassium 2.5 mmol/L (3.5-5.1) L* D 07/20/24 07:49
BUN 27 mg/dl (9-20) H 07/20/24 07:49
Creatinine 1.1 mg/dL (0.7-1.3) 07/20/24 07:49
Glucose 95 mg/dl (70-99) 07/20/24 07:49
Digoxin 0.7 ng/ml (0.8-2.0) L 07/14/24 06:16
Vital Signs and I&O:
Vital Signs
Temp Pulse Resp BP Pulse Ox
98.0 F 77 18 90/60 97
07/20/24 11:09 07/20/24 11:09 07/20/24 11:09 07/20/24 11:09 07/20/24 11:09
Vital Signs
Temp Pulse Resp BP Pulse Ox
98.0 F 77 18 90/60 97
07/20/24 11:09 07/20/24 11:09 07/20/24 11:09 07/20/24 11:09 07/20/24 11:09
Intake & Output
07/18/24 07/19/24 07/20/24 07/21/24
06:59 06:59 06:59 06:59
Intake Total 1180 / 1180 780 / 780 840 / 840
Output Total 2385 / 2385 1450 / 1450 3150 / 3150
Balance -1205 / -1205 -670 / -670 -2310 / -2310
Physical Exam
Physical Exam
GEN: NAD. AAOx3
HEENT: EOMI
LUNGS: No audible wheeze
CV: Regular rate/rhythm
EXT: Trace pitting B/L LE edema
NEURO: Gross non-focal
SKIN: No rash
--- NOTE | 2024-07-20 13:19 | W.PN.UPDATE ---
Update Note
Progress Note Update
I saw and evaluated the patient. I reviewed the resident�s note and agree with findings and plan as documented in the resident�s note.
Acute on chronic systolic HF exacerbation
-hold morning lasix dose as will need correction of hypokalemia before resumption of lasix
-weight down to 159 lb, continue monitoring
Recurrent Hypokalemia
Episode of NSVT
-Potassium 2.5 > giving IV 40meq and oral 40meq in morning
-check K and Mg in afternoon
-Maintain on oral Kcl 40meq bid
Hold discharge today
--- NOTE | 2024-07-20 13:35 | W.PN.HOSP.TC ---
Today's Communication/Plan
-
Replete potassium 80 mEq and repeat basic metabolic profile including serum magnesium in the afternoon at 3 PM
Hold Lasix till further order
Monitor INR daily as patient is on warfarin
Assessment / Plan
Assessment / Plan
IMPRESSION
Patient is 83 year old male,admitted with Acute on chronic heart failure with reduced EF(ejection fraction as of April 2024 is 10-15%). Dry weight 165-167 pounds by patient history. Bilateral lower leg edema present with stasis dermatitis.
Assessment and Plan
1. Acute on chronic combined systolic/diastolic CHF
-TTE in May 09 showing EF 10-15%, severe global hypokinesis, stage II diastolic dysfunction, Mod-sev MR, mod TR, mild AR
-patient shows no signs of hypoxia, breathing at room air
-CXR clear
-currently on 60mg intravenous Lasix, resumed on july as patient had potassium in normal range now
-two doses of metazolone given
-Echocardiography 10-15 percent EF(07/16)
-Cardiology consult appreciated,80 mEq potassium replaced on July 18, 2024, follow-up potassium was 4.3 and magnesium was 2.3
- Another metolazone dose given, total 3 doses given till now
-Today on July 20, 2024, patient's potassium 2.5
-Lasix held on July 20, 2024 till further labs available
-Replace 40 mEq potassium orally and 40 mEq potassium intravenously
-Place a maintenance order for potassium
-Repeat basic metabolic profile in the afternoon of July 20, 2024 and manage accordingly
2. Permanent atrial fibrillation
Perm aFib s/p AVJ ablation
-On tikosyn( dofetilide) therapy
-maintain on home dose coreg and digoxin -Keep INR between 2-3
-Last INR done on July 18, 2024 is 2.7
-Repeat INR daily as patient is on warfarin
-Continue home dose of tikosyn,
- monitor renal function and serum electrolytes
-monitor QT interval (562), 07/16, due to paced heart rhythm not helpful in this patient
3. s/p DIRECTOR OF CONSERVATION-D
h/o of VT/VF
-EKG reviewed and have paced rhythm so not helpful in this patient to monitor QT interval
-Potassium 2.5
-Give at least 80 mEq of potassium and repeat serum potassium serum magnesium in the afternoon at 3 PM
4. Bilateral venous stasis ulcer
-wound care consulted for help
Local wound care provided and NAZIA compression applied. Recommended following up at [facility] and VN for continued assessment during healing process. Instructed patient on skin care for venous stasis and benefits on use of compression. Patient reports
good appetite and ambulates to chair. Sacrum and heels intact. RN Ricardo updated. Will continue to follow as needed.
5.Metabolic Alkalosis
Bicarb was 37,Lasix held for hypokalemia concerns,July 18, 2024 potassium was 3.3 and bicarb is 32
After another 80 mEq repletion, potassium 4.3 and magnesium 2.3
Observed bicarb, and downward trend, observe for now
patient is allergic to sulfonamides
Bicarb 32, give Diamox 250mg Po dose stat as single dose(jul)
Bicarb 35 today, replete potassium, hold Lasix till further order
s/p AV node ablation
h/o Amiodarone thyroiditis
Ulcerative colitis
JULIO CESAR on CPAP
Hyponatremia currently its 137
DVT PPX - warfarin
Limited DNR -no intubation
Anticipated Discharge: 24 - 48 hours
Subjective/Interval History
-
Date of Service: July 20, 2024
Patient feels weak and complains of pain in both legs possibly from venous stasis ulcers that have been cleaned by the wound care management.
Objective Data
-
Labs:
Laboratory Results
07/20/24 07/20/24
07:49 15:00
WBC 5.4
Hgb 13.2
Hct 38.7 L
Plt Count 168
Sodium 135 Pending
Potassium 2.5 L* D Pending
Chloride 89 L Pending
Carbon Dioxide 35 H Pending
BUN 27 H Pending
Creatinine 1.1 Pending
Glucose 95 Pending
Calcium 8.9 Pending
Total Bilirubin 2.3 H
AST 29
ALT 26
Alkaline Phosphatase 99
Vital Signs:
Vital Signs
Temp Pulse Resp BP Pulse Ox
98.0 F 77 18 90/60 97
07/20/24 11:09 07/20/24 11:09 07/20/24 11:09 07/20/24 11:09 07/20/24 11:09
I&O
07/19/24 07/20/24 07/21/24
06:59 06:59 06:59
Intake Total 780 / 780 840 / 840
Output Total 1450 / 1450 3150 / 3150
Balance -670 / -670 -2310 / -2310
Review of Systems
-
All other systems: Reviewed and negative
Physical Exam
-
General: Comfortable, Conversant and Cachectic
HEENT: Normocephalic and Atraumatic
Respiratory: Clear to Auscultation and Crackles (Occasional)
Cardiac: Regular Rhythm and S1/S2
GI: Soft, Nontender, Nondistended and Normal Bowel Sounds
Genito-urinary: No Costovertebral Tender
Musculoskeletal: No Clubbing, No Cyanosis and No Edema
Skin: Warm and Other (bilateral redness in both legs, venous stasis ulcers with absorbent bandage in place)
Neuro: Awake, Alert, Oriented and No Motor Deficits
Hematologic / Lymphatic: No Lymphadenopathy
Psych: Calm
[2024-07-20] MEDS: LASIX IV (13:45)
--- NOTE | 2024-07-20 14:30 | PTCARENOTE ---
Assumed care of pt from previous nurse. Pt with some discomfort to ble, tylenol provided with positive results. pt is on tele running a/v paced. Pt call arizmendi placed within reach, pt rings herlinda. will cont to monitor.
[2024-07-20 15:34] VITALS: BP 89/62
[2024-07-20 16:40] LABS: Blood Urea Nitrogen 28 mg/dl (9-20); Calcium 9.5 mg/dl (8.4-10.2); Carbon Dioxide 34 mmol/L (22-30); Chloride 89 mmol/L (98-107); Estimated Creatinine Clearance 52 ml/min; Glucose 101 mg/dl (70-99); Magnesium 2.2 mg/dl (1.6-2.3); Potassium 4.1 mmol/L (3.5-5.1); Sodium 134 mmol/L (135-145); eGFR > 60.00
[2024-07-20] MEDS: LIPITOR 20 MG PO (17:08)
[2024-07-20] MEDS: LASIX 60 MG IV (17:09)
[2024-07-20] MEDS: COUMADIN 2.5 MG PO (17:12)
[2024-07-20] MEDS: SENOKOT-S 1 TABLET PO (17:31)
[2024-07-20] MEDS: DIAMOX 250 MG PO (18:38)
[2024-07-20 19:36] VITALS: BP 97/61
[2024-07-20] MEDS: KLOR-CON 40 MEQ PO (21:14)
[2024-07-20] MEDS: LANOXIN 125 MCG PO (21:16)
[2024-07-20] MEDS: NON-FORMULARY ITEM PO ×6 (22:50→22:52)
[2024-07-20 23:00] VITALS: BP 92/62
[2024-07-21] VITALS (8 sets, daily range): BP systolic 92–104; BP diastolic 57–76; PULSE 74; BMI 20.9
[2024-07-21 08:52] LABS: PT 26.9 Sec (11.4-14.6)
[2024-07-21 08:55] LABS: Blood Urea Nitrogen 25 mg/dl (9-20); Calcium 8.8 mg/dl (8.4-10.2); Carbon Dioxide 33 mmol/L (22-30); Chloride 91 mmol/L (98-107); Estimated Creatinine Clearance 52 ml/min; Glucose 99 mg/dl (70-99); Potassium 2.9 mmol/L (3.5-5.1); Sodium 136 mmol/L (135-145); eGFR > 60.00
[2024-07-21] MEDS: COREG PO ×2 (09:30→09:38)
[2024-07-21] MEDS: ASACOL, DELZICOL DR 800 MG PO ×3 (09:30→21:55)
[2024-07-21] MEDS: KLOR-CON 40 MEQ PO ×2 (09:31→21:55)
[2024-07-21] MEDS: TIKOSYN 250 MCG PO ×2 (09:31→21:54)
[2024-07-21] MEDS: NON-FORMULARY ITEM 10 MG PO (09:32)
[2024-07-21] MEDS: LASIX 60 MG IV ×2 (09:40→17:16)
[2024-07-21] MEDS: FARXIGA 10 MG PO (10:07)
--- NOTE | 2024-07-21 13:50 | W.PN.UPDATE ---
Update Note
Progress Note Update
I saw and evaluated the patient. I reviewed the resident�s note and agree with findings and plan as documented in the resident�s note.
1. Acute on chronic combined systolic/diastolic CHF
NICM
-TTE in May 09 showing EF 10-15%, severe global hypokinesis, stage II diastolic dysfunction, Mod-sev MR, mod TR, mild AR
-patient was taking oral lasix 80mg/bid at home and continued to have weight gain/swelling in LE
-CXR clear and no crackles/no hypoxia
-Patient currently being maintained on IV Lasix 60 mg twice daily, weight history down to 158 pound
2. Recurrent hypokalemia
-Patient have recurrent hypokalemia and requiring repeated potassium supplement
-Currently patient being given 40�20- 40 mEq potassium (totaling 100meq today)
-Mag wnl
-Encouraged patient to have K containing diet
3. NSVT
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
h/o of VT/VF
-Have brief episode of NSVT, asymptomatic
-Maintain potassium and magnesium level in normal range
-Continue on Tikosyn therapy
-INR therapeutic, continue monitoring
4. Chronic hypotension
-due to systolic HF, remains asymptomatic
-OK to give diuretics
-Hold coreg if needed
s/p AV node ablation
h/o Amiodarone thyroiditis
Ulcerative colitis
JULIO CESAR on CPAP
Hyponatremia
DVT PPX - warfarin
Limited DNR -no intubation
Care plan discussed with cardio
Total time spent : 51 mins
[2024-07-21] MEDS: KCL 20 MEQ PO (14:37)
--- NOTE | 2024-07-21 14:40 | PTCARENOTE ---
This nurse assumed care at this time. VSS, pt. sleeping in bed, call arizmendi within reach.
[2024-07-21] MEDS: SENOKOT-S 1 TABLET PO (14:41)
--- NOTE | 2024-07-21 16:31 | W.PN.HOSP.TC ---
Today's Communication/Plan
-
Replace potassium 40 mg in the morning 20mg in the afternoon and 40 mg in the evening
Monitor potassium magnesium and bicarb levels
Keep an eye on heart rhythm for VT episodes
Assessment / Plan
Assessment / Plan
IMPRESSION
Patient is 83 year old male,admitted with Acute on chronic heart failure with reduced EF(ejection fraction as of April 2024 is 10-15%)complicated with hypokalemia and metabolic alkalosis. Dry weight 165-167 pounds by patient history.
Assessment and Plan
1. Acute on chronic combined systolic/diastolic CHF
-TTE in May 09 showing EF 10-15%, severe global hypokinesis, stage II diastolic dysfunction, Mod-sev MR, mod TR, mild AR,
--Echocardiography 10-15 percent EF(07/16)
-patient shows no signs of hypoxia, breathing at room air
-three doses of metazolone given
-Patient is dealing with on and off hypokalemia'
Patient put on a maintenance dose of potassium 40 mg morning 20 mg afternoon and 40 mg in the evening
Will continue Lasix at 60 mg IV twice daily
Plan is to find a balance between diuretic dose and potassium replacement required
2. Permanent atrial fibrillation
Perm aFib s/p AVJ ablation
-On tikosyn( dofetilide) therapy and -Patient has paced heart rhythm
-maintain on home dose coreg and digoxin -Keep INR between 2-3
-Last INR done on July 21, 2024 is 2.5
-Repeat INR daily as patient is on warfarin
-Continue home dose of tikosyn,
- monitor renal function and serum electrolytes
3. 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
h/o of VT/VF
-Patient had multiple episodes of asymptomatic ventricular tachycardia on and off possibly due to electrolyte derangements
These episodes did not require any intervention and resolved on their own within minutes
Keep an eye on patient's rhythm and manage electrolytes aggressively
-EKG reviewed and have paced rhythm so not helpful in this patient to monitor QT interval
4. Bilateral venous stasis ulcer
-wound care consulted for help
Local wound care provided and NAZIA compression applied. Recommended following up at [facility] and VN for continued assessment during healing process. Instructed patient on skin care for venous stasis and benefits on use of compression. Patient reports
good appetite and ambulates to chair. Sacrum and heels intact. RN Ricardo updated. Will continue to follow as needed.
5.Metabolic Alkalosis
Patient had contraction metabolic alkalosis due to diuresis
2 doses of Diamox given, no improvement observed
s/p AV node ablation
h/o Amiodarone thyroiditis
Ulcerative colitis
JULIO CESAR on CPAP
Hyponatremia currently its 134 -137
DVT PPX - warfarin
Limited DNR -no intubation
Anticipated Discharge: 24 - 48 hours
Subjective/Interval History
-
Date of Service: July 21, 2024
Patient has some pain in the legs due to venous stasis dermatitis, he feels better with the as needed tramadol.
Patient had multiple episodes of asymptomatic ventricular tachycardia on an off that resolved spontaneously within minutes without requiring any additional management
Objective Data
-
Labs:
Laboratory Results
07/21/24
08:20
PT 26.9 H
INR 2.50
Sodium 136
Potassium 2.9 L D
Chloride 91 L
Carbon Dioxide 33 H
BUN 25 H
Creatinine 1.1
Glucose 99
Calcium 8.8
Vital Signs:
Vital Signs
Temp Pulse Resp BP Pulse Ox
97.8 F 76 18 99/66 94
07/21/24 11:15 07/21/24 11:15 07/21/24 11:15 07/21/24 11:15 07/21/24 11:15
I&O
07/20/24 07/21/24 07/22/24
06:59 06:59 06:59
Intake Total 840 / 840 360 / 360
Output Total 3150 / 3150 800 / 800 800 / 800
Balance -2310 / -2310 -440 / -440 -800 / -800
Review of Systems
-
All other systems: Reviewed and negative
Physical Exam
-
General: Well Developed, Well Nourished, No Apparent Distress, Comfortable and Other (Bandage on both legs, venous stasis dermatitis wound)
HEENT: Normocephalic and Nose Appears Normal
Respiratory: Clear to Auscultation and Rales (Occasional)
Cardiac: Regular Rhythm and S1/S2
GI: Soft, Nontender and Normal Bowel Sounds
Genito-urinary: No Costovertebral Tender
Musculoskeletal: No Clubbing, No Cyanosis and Other (Both legs have redness and venous dermatitis ulcers, healing well, bandage dry at the time of examination)
Skin: Warm and Dry
Neuro: Awake, Alert and Oriented
Hematologic / Lymphatic: No Lymphadenopathy
Psych: Calm
--- NOTE | 2024-07-21 17:11 | W.PN.CARDCBS ---
Today's Communication / Plan
-
Continue IV Lasix for now, hopefully can transition in the next 24 to 48 hours
Aggressive repletion of potassium
Impression / Plan
-
PCP: Dr. Mayers
Primary Rn Night: Dr. PATRICIA Jones
EP: Dr. Arora
Impression
Acute HFrEF
CM EF 10-15% by echo May 09
h/o NICM EF between 25% and 45% since /p [employer] EXHIBIT DISPLAY REPRESENTATIVE-D
Hx VT/VF
Chronic Tikosyn therapy
Permanent Afib
s/p AV node ablation
Chronic warfarin OAC managed by PCP with labs drawn at
h/o Amiodarone thyroiditis
Ulcerative colitis
JULIO CESAR on CPAP
Hyponatremia
Hyperkalemia, recent hypokalemia as an outpatient
Hypokalemia
Echo 06/2016: EF 35-40%, AV sclerosis with trivial AI, mildly dilated proximal ascending thoracic aorta
Echo 12/22/2023: EF 19% by Cooper's method, 26% by volumetric assessment, global hypokinesis with anterior wall and anteroseptum moving best, reduced RV systolic function, mod MR, mild to mod TR with PAP 50 mmHg
Echo 05/14/2024: EF 10 to 15% visually, severe global hypokinesis, stage II diastolic dysfunction, moderate to severe MR, moderate TR, mild aortic regurgitation
Echo 07/16/24: LV moderately dilated with EF 10-15%, 17% by Cooper's method, global hypokinesis, mod to sev MR, mild aortic regurgitation, mod to sev TR with PAP 35 mmHg
Plan:
-Presented with increased dyspnea on exertion and orthopnea. Admitted with acute heart failure exacerbation.
-Diuresing with IV Lasix 60 mg BID. Weight down significantly.
-Creatinine stable at 1.1.
-Suspect we can transition to PO lasix in the next 24-48hrs. At discharge, would consider once weekly metolazone as he previously has done well with this.
-He has struggled with recurrent hypokalemia this admission. K down to 2.5 again 07/20. Agree with repletion. Continue to follow w/ ongoing diuresis.
-Patient with h/o hyperkalemia on spironolactone and enalapril, neither of which he is taking now. Would recommend checking BMP with INR draws every other week for the next 3 months to ensure stability.
-Cont Coreg 1.5625 mg BID. OP Jardiance changed to Farxiga due to formulary at .
-No NAZIA/ARB/aldosterone antagonist due to hypotension
-Patient takes Tikosyn for h/o VT. Tikosyn held on admission for QTc 593. QTc improved to 533 on 07/18/24.
-INR therapeutic. INRs managed by PCP with draws at lab and an INR goal of 2-3.
-Outpatient follow-up with Dr. PATRICIA Jones has been arranged
HPI: Mr. Cooper presents with increased dyspnea on exertion, orthopnea and symptoms of signs of acute on chronic systolic congestive heart failure. Dyspneic with less and less movement. His testing is delineated as below. Complicated
electrophysiologic history status post permanent atrial fibrillation with AVJ ablation, chronic dofetilide therapy for VT and has a EXHIBIT DISPLAY REPRESENTATIVE-D incensed 2011. He is responding to BiPAP therapy and Lasix. He does have hypokalemia as noted and was
admitted for hyperkalemia in the late summer. Seen at the bedside he is currently feeling much more comfortable today after receiving his Lasix. He was in [employer] in the [place] for the [employer] and I thanked him for his service
Progress Note - Rn Night
Subjective
Date of Service: July 21, 2024
No acute overnight events. Tells me that his breathing has been comfortable and is walking the halls. Still with very mild lower extremity edema but is significantly improved from his initial presentation.
Objective
Labs:
07/20/24 07:49
07/21/24 08:20
Labs
Hgb 13.2 g/dL (13.0-18.0) 07/20/24 07:49
Hct 38.7 % (39.0-52.0) L 07/20/24 07:49
Plt Count 168 10^3/uL (130-400) 07/20/24 07:49
PT 26.9 Sec (11.4-14.6) H 07/21/24 08:20
INR 2.50 07/21/24 08:20
Sodium 136 mmol/L (135-145) 07/21/24 08:20
Potassium 2.9 mmol/L (3.5-5.1) L D 07/21/24 08:20
BUN 25 mg/dl (9-20) H 07/21/24 08:20
Creatinine 1.1 mg/dL (0.7-1.3) 07/21/24 08:20
Glucose 99 mg/dl (70-99) 07/21/24 08:20
Digoxin 0.7 ng/ml (0.8-2.0) L 07/14/24 06:16
Vital Signs and I&O:
Vital Signs
Temp Pulse Resp BP Pulse Ox
97.5 F 77 16 98/70 100
07/21/24 15:40 07/21/24 15:40 07/21/24 15:40 07/21/24 15:40 07/21/24 15:40
Vital Signs
Temp Pulse Resp BP Pulse Ox
97.5 F 77 16 98/70 100
07/21/24 15:40 07/21/24 15:40 07/21/24 15:40 07/21/24 15:40 07/21/24 15:40
Intake & Output
07/19/24 07/20/24 07/21/24 07/22/24
06:59 06:59 06:59 06:59
Intake Total 780 / 780 840 / 840 360 / 360
Output Total 1450 / 1450 3150 / 3150 800 / 800 800 / 800
Balance -670 / -670 -2310 / -2310 -440 / -440 -800 / -800
Physical Exam
Physical Exam
Gen: NAD, AAOx3
HEENT: NC/AT, sclera anicteric
Neck: Mildly elevated JVP
CV: RRR, NL s1/s2
Lungs: CTAB
Abd: S/ND
Ext: Trace LE edema
Skin: Warm, dry
Neuro: Non-focal
[2024-07-21] MEDS: LIPITOR 20 MG PO (17:15)
[2024-07-21] MEDS: COUMADIN 5 MG PO (17:15)
[2024-07-21] MEDS: LANOXIN 125 MCG PO (21:54)
[2024-07-21] MEDS: COREG 1.5625 MG PO (21:55)
[2024-07-22 03:21] VITALS: BP 98/62
[2024-07-22 04:59] VITALS: BMI 20.7
[2024-07-22 07:00] VITALS: BP 104/71
[2024-07-22 07:01] LABS: Hemoglobin 13.2 g/dL (13.0-18.0); Mean Corp Hgb Conc. 33.8 g/dL (33.0-37.0); Mean Corpuscular Hgb 29.9 pg (27.0-31.0); Mean Corpuscular Volume 88.2 fL (80.0-94.0); Mean Platelet Volume 10.6 fL (7.4-10.4); Platelet Count 176 10^3/uL (130-400); Red Blood Cell Count 4.42 10^6/uL (4.70-6.10); Red Cell Dist. Width 19.9 % (11.5-14.5); White Blood Cell Count 4.2 10^3/uL (4.8-10.8)
[2024-07-22 07:25] LABS: ALT (SGPT) 25 U/L (0-50); AST (SGOT) 29 U/L (17-59); Albumin 3.7 g/dl (3.5-5.0); Alkaline Phosphatase 99 U/L (38-126); Blood Urea Nitrogen 23 mg/dl (9-20); Calcium 8.8 mg/dl (8.4-10.2); Carbon Dioxide 32 mmol/L (22-30); Chloride 94 mmol/L (98-107); Estimated Creatinine Clearance 51 ml/min; Glucose 98 mg/dl (70-99); Magnesium 2.3 mg/dl (1.6-2.3); Potassium 3.2 mmol/L (3.5-5.1); Sodium 136 mmol/L (135-145); Total Bilirubin 2.6 mg/dl (0.2-1.3); Total Protein 6.3 g/dl (6.3-8.2); eGFR > 60.00
[2024-07-22 07:30] LABS: INR 2.45; PT 26.5 Sec (11.4-14.6)
[2024-07-22] MEDS: ASACOL, DELZICOL DR 800 MG PO (08:20)
[2024-07-22] MEDS: FARXIGA 10 MG PO (08:20)
[2024-07-22] MEDS: KLOR-CON 40 MEQ PO (08:20)
[2024-07-22] MEDS: COREG 1.5625 MG PO (08:20)
[2024-07-22] MEDS: LASIX 60 MG IV (08:21)
[2024-07-22] MEDS: NON-FORMULARY ITEM 10 MG PO (08:21)
[2024-07-22] MEDS: TIKOSYN 250 MCG PO (10:56)
[2024-07-22 11:00] VITALS: BP 94/67
--- NOTE | 2024-07-22 11:00 | W.DCSUMMARY ---
Discharge Summary
Discharge Data
Date of Admission: 07/13/24
Date of Discharge: 07/22/24
-
Pending Results: No
Hospital Course
Discharging physician: Doug Ortiz, Dr. Purvis
Primary care physician : Richie Mayers
Principal Discharge diagnosis :
Acute on chronic systolic and diastolic heart failure,
Chronic Discharge diagnosis :
Combined systolic diastolic heart failure
Permanent atrial fibrillation S/P AV node ablation
S/p BREAD BAKER-D
History of VT/V-fib
Ulcerative colitis
JULIO CESAR on CPAP
Amiodarone thyroiditis
Hospital Course :
Mr. Cooper is a 83-year-old male known case of combined systolic diastolic heart failure, permanent atrial fibrillation, history of VT with A-fib s/p BREAD BAKER who presented with complaints of increased dyspnea on exertion, orthopnea and symptoms and
signs of acute on chronic heart failure.
Patient's heart failure exacerbation was treated with IV Lasix 60 mg twice daily and total 3 doses of metolazone helped in reversing the patient to baseline weight.
Patient's hospital course was complicated by hypokalemia, which required aggressive potassium replacement, patient kept under observation and home regime decided with cardiology to keep the heart function optimized as well as potassium within normal
limits..
Patient also had bilateral venous stasis dermatitis, wound care consultation was done and NAZIA compression applied. Patient had a superficial skin wound with blistering that was treated and patient was advised about wound care and use of compression
stockings
Problem#1 Acute on chronic heart failure
Patient was managed aggressively with IV Lasix and oral metolazone. Potassium replacement was done and labs were monitored attentively. Care plan discussed with cardiology patient being discharged with daily 60 mg Lasix, 2.5 mg metolazone every
Tuesday, 40 mq(potassium daily and additional 20 if the patient takes metolazone
Problem#2Permanent atrial fibrillation
-maintain on home dose coreg and digoxin -Keep INR between 2-3
-Last INR done on July 21, 2024 is 2.45
-Continue home dose of tikosyn,
Problem#3. s/p BREAD BAKER-D NSVT episodes
-Patient had multiple episodes of asymptomatic ventricular tachycardia on and off possibly due to electrolyte derangements
These episodes did not require any intervention and resolved on their own within minutes
Patient has paced heart rhythm
Problem#4. Bilateral venous stasis ulcer
-wound care consulted for help
Local wound care provided and NAZIA compression applied. Recommended following up at [facility] and for continued assessment during healing process. Instructed patient on skin care for venous stasis and benefits on use of compression. Patient reports
good appetite and ambulates to chair. Sacrum and heels intact. RN Ricardo updated. Will continue to follow as needed.
Problem#5.Metabolic Alkalosis
Patient had contraction metabolic alkalosis due to diuresis
2 doses of Diamox given, no improvement observed
Important image findings
Echocardiography done on June 25, 2024 showed an ejection fraction of 10 to 15% that is unchanged from April 2024
Discharge Plan
-
Patient Disposition: Home (Routine Discharge)
Discharge Diagnosis/Procedures: Acute on chronic combined systolic and diastolic heart failure, s/p BREAD BAKER-D, Permanent Atrial fibrillation
Condition: Fair
Diet: 2 Gram Sodium and Restrict fluids to 48 oz
Activity: As tolerated
Driving Restrictions: As prior to admission
Bathing Restrictions: None
Blood Work: -Check basic metabolic panel to monitor kidney function and electrolytes when you check your INRs every other week. Next check will be 07/26/24.
Specialty Instructions: Weigh Daily- Call MD for wt gain/loss 3 lbs overnight/5 lbs in 1 week
Activity Restrictions/Additional Instructions:
Wound Care Instructions Left LE- Clean with normal saline, soap and water or wound cleanser. Apply adaptic and ABD. Change every other day or PRN if loose or soiled.
Apply NAZIA compression to bilateral LE daily
Apply lotion to skin on dry LE daily
Follow up at wound care center call for an appointment.
Instructions: *[facility] Heart Failure Instructions
Referrals:
Shay Mayers MD [Family Provider] -
Jessika Lama PA-C [Specified Professional Personl] - 08/01/24 12:40 pm (You have cardiology follow-up with Jessika Lama PA-C on August 01 at 12:40 PM in [place] [address] and the [facility] which is located behind the hospital. If you are unable to
make this appointment please call [phone] to reschedule)
Elvin Jones MD [Active] - in two weeks
Additional Discharge Medication Instructions: -Take Lasix (furosemide) 60 mg twice a day (8 AM and 4 PM)
-Take metolazone (Zaroxolyn) 2.5 mg every Tuesday about 30 minutes before the morning dose of Lasix (furosemide).
-Take potassium chloride (KCl) 20 meq once a day except on Mondays take potassium 40 meq (two 20 meq tablets) twice a day.
Prescriptions:
New
carvedilol 3.125 mg Tablet
1.5625 mg PO BID 30 Days Qty: 60 0RF
metolazone 2.5 mg tablet
2.5 mg PO DAILY PRN (Reason: For weight gain > 2 Lb) Qty: 30 0RF
potassium chloride [Klor-Con M20] 20 mEq tablet,ER particles/crystals
40 meq PO DAILY Qty: 60 0RF
potassium chloride [Klor-Con M20] 20 mEq tablet,ER particles/crystals
20 meq PO DAILY PRN (Reason: Take extra with metolazone) Qty: 30 0RF
Rx Instructions:
TAKE ON TOP OF SCHEDULED 40MEQ TO MAKE TOTAL 60MEQ ON THE DAY YOU TAKE METOLAZONE
Continued
multivitamin with folic acid [Tab-A-Lauren] 1 TABLET tablet
1 tab PO DAILY
atorvastatin 20 MG tablet
20 mg PO QPM
warfarin [Jantoven] 5 MG tablet
5 mg PO MOWESA@1800
[id number] serr [Osteo Bi-Flex (5-Loxin)] 1 EACH tablet
1 tab PO DAILY
docosahexaenoic acid-epa 1 CAP capsule
2 cap PO DAILY
mesalamine [Delzicol] 400 mg Capsule (With Del Rel Tablets)
800 mg PO TID@0800,1600,2300
Jardiance 10 mg Tablet
10 mg PO DAILY
Verquvo 10 mg Tablet
10 mg PO DAILY
warfarin 5 mg tablet
2.5 mg PO SUTUTHFR@1800
digoxin 125 mcg (0.125 mg) tablet
125 mcg PO DAILY@2200
dofetilide 250 MCG capsule
250 mcg PO BID@1000,2200
furosemide 20 mg tablet
60 mg PO BID@0800,1800
Discontinued
carvedilol 3.125 MG tablet
3.125 mg PO BID
Rx Instructions:
take 1/2 tab BID
potassium chloride 20 mEq Tablet Extended Release
20 meq PO DAILY
Discharge Orders:
Discharge Patient (As Directed); Ordered 07/22/24
Ordered By: Sharad Purvis
Discharge Date and Time
Discharge Date/Time: 07/22/24 13:23
Print Language: SOMALI
--- NOTE | 2024-07-22 11:27 | W.PN.HOSP.TC ---
Today's Communication/Plan
-
Plan discharge after cardiology consultation
Assessment / Plan
Assessment / Plan
IMPRESSION
Patient is 83 year old male,admitted with Acute on chronic heart failure with reduced EF(ejection fraction as of April 2024 is 10-15%)complicated with hypokalemia and metabolic alkalosis. Dry weight 165-167 pounds by patient history.
Assessment and Plan
1. Acute on chronic combined systolic/diastolic CHF
-TTE in May 09 showing EF 10-15%, severe global hypokinesis, stage II diastolic dysfunction, Mod-sev MR, mod TR, mild AR,
--Echocardiography 10-15 percent EF(07/16)
-patient shows no signs of hypoxia, breathing at room air
-three doses of metazolone given
-Patient is dealing with on and off hypokalemia'
Potassium within normal range on jul 22
Discharge plan discussed with cardiology
Patient will be on oral Lasix 60 mg per oral twice daily
Metolazone 2.5 mg every Tuesday and on as-needed basis if patient has greater than 2 pounds weight gain in 24 hours
Potassium replacement would be 40 meq daily with extra 20 mEq if patient takes metolazone
For the next 3 months patient will have repeat BMP every other week to monitor response to therapy
INR would also be repeated every other week
2. Permanent atrial fibrillation
Perm aFib s/p AVJ ablation
-On tikosyn( dofetilide) therapy and -Patient has paced heart rhythm
-maintain on home dose coreg and digoxin -Keep INR between 2-3
-Last INR done on July 21, 2024 is 2.5
-Continue home dose of tikosyn,
- monitor renal function and serum electrolytes
3. s/p TUBE MAN-D NSVT episodes
h/o of VT/VF
-Patient had multiple episodes of asymptomatic ventricular tachycardia on and off possibly due to electrolyte derangements
These episodes did not require any intervention and resolved on their own within minutes
Keep an eye on patient's rhythm and manage electrolytes aggressively
-EKG reviewed and have paced rhythm so not helpful in this patient to monitor QT interval
4. Bilateral venous stasis ulcer
-wound care consulted for help
Local wound care provided and NAZIA compression applied. Recommended following up at [facility] and VN for continued assessment during healing process. Instructed patient on skin care for venous stasis and benefits on use of compression. Patient reports
good appetite and ambulates to chair. Sacrum and heels intact. RN Ricardo updated. Will continue to follow as needed.
5.Metabolic Alkalosis
Patient had contraction metabolic alkalosis due to diuresis
2 doses of Diamox given, no improvement observed
s/p AV node ablation
h/o Amiodarone thyroiditis
Ulcerative colitis
JULIO CESAR on CPAP
Hyponatremia currently its 134 -137
DVT PPX - warfarin
Limited DNR -no intubation
Anticipated Discharge: Today
Subjective/Interval History
-
Date of Service: July 22, 2024
No active issues. Mild pain in both legs due to stasis dermatitis. wound care provided and pain is manageable
Objective Data
-
Labs:
Laboratory Results
07/22/24
06:46
WBC 4.2 L
Hgb 13.2
Hct 39.0
Plt Count 176
PT 26.5 H
INR 2.45
Sodium 136
Potassium 3.2 L
Chloride 94 L
Carbon Dioxide 32 H
BUN 23 H
Creatinine 1.1
Glucose 98
Calcium 8.8
Total Bilirubin 2.6 H
AST 29
ALT 25
Alkaline Phosphatase 99
Vital Signs:
Vital Signs
Temp Pulse Resp BP Pulse Ox
97.1 F 77 18 104/71 96
07/22/24 07:00 07/22/24 07:00 07/22/24 07:00 07/22/24 07:00 07/22/24 08:20
I&O
07/21/24 07/22/24 07/23/24
06:59 06:59 06:59
Intake Total 360 / 360 720 / 720
Output Total 800 / 800 3950 / 3950
Balance -440 / -440 -3230 / -3230
Review of Systems
-
All other systems: Reviewed and negative
Physical Exam
-
General: Comfortable, Conversant and Cachectic
HEENT: Normocephalic and Atraumatic
Respiratory: Clear to Auscultation
Cardiac: Regular Rhythm and S1/S2
GI: Soft, Nontender, Nondistended and Normal Bowel Sounds
Genito-urinary: No Costovertebral Tender
Musculoskeletal: Other (bilateral stasis dermatitis with well healing venous ulcers)
Skin: Warm and Other
Neuro: Awake, Alert, Oriented and No Motor Deficits
Hematologic / Lymphatic: No Lymphadenopathy
Psych: Calm
--- NOTE | 2024-07-22 11:59 | CM ---
CM following re: discharge planning.
Reviewed pt's chart, met with pt.
Discharge order noted. pt is aware, expressed his agreement with discharge and pt stated he will drive home, his car is parked on the parking lot.
Per RN pt will need wound care and VN services requested. pt is aware, expressed his agreement and pt preferred [facility]. A referral to [facility] made.
Please fax discharge instructions to [facility] at [phone]
D/C plan: return back to his independent apartment at [facility] with [facility]. Pt will drive home, his car is parked on the parking lot.
No other discharge needs identified.
--- NOTE | 2024-07-22 13:39 | W.PN.CARDCBS ---
Today's Communication / Plan
-
Plan to transition to p.o. Lasix with once weekly metolazone
Stable for discharge from my perspective
Outpatient follow-up has been arranged
Impression / Plan
-
PCP: Dr. Mayers
Primary Land Planner: Dr. PATRICIA Jones
EP: Dr. Arora
Impression
Acute HFrEF
CM EF 10-15% by echo May 09
h/o NICM EF between 25% and 45% since 2011 s/p [employer] CONFERENCE ASSISTANT-D
Hx VT/VF
Chronic Tikosyn therapy
Permanent Afib
s/p AV node ablation
Chronic warfarin OAC managed by PCP with labs drawn at
h/o Amiodarone thyroiditis
Ulcerative colitis
JULIO CESAR on CPAP
Hyponatremia
Hyperkalemia, recent hypokalemia as an outpatient
Hypokalemia
Echo 06/2016: EF 35-40%, AV sclerosis with trivial AI, mildly dilated proximal ascending thoracic aorta
Echo 12/22/2023: EF 19% by Cooper's method, 26% by volumetric assessment, global hypokinesis with anterior wall and anteroseptum moving best, reduced RV systolic function, mod MR, mild to mod TR with PAP 50 mmHg
Echo 05/14/2024: EF 10 to 15% visually, severe global hypokinesis, stage II diastolic dysfunction, moderate to severe MR, moderate TR, mild aortic regurgitation
Echo 07/16/24: LV moderately dilated with EF 10-15%, 17% by Cooper's method, global hypokinesis, mod to sev MR, mild aortic regurgitation, mod to sev TR with PAP 35 mmHg
Plan:
-Presented with increased dyspnea on exertion and orthopnea. Admitted with acute heart failure exacerbation.
-Diuresed with IV Lasix + metolazone, but unfortunately developed hypokalemia
-Creatinine stable at 1.1.
-Transition to PO lasix with once weekly metolazone, previously has done well with this combination
-He has struggled with recurrent hypokalemia this admission.
-Patient with h/o hyperkalemia on spironolactone and enalapril, neither of which he is taking now. Would recommend checking BMP with INR draws every other week for the next 3 months to ensure stability.
-Cont Coreg 1.5625 mg BID. OP Jardiance changed to Farxiga due to formulary at .
-No NAZIA/ARB/aldosterone antagonist due to hypotension
-Patient takes Tikosyn for h/o VT. Tikosyn held on admission for QTc 593. QTc improved to 533 on 07/18/24.
-INR therapeutic. INRs managed by PCP with draws at lab and an INR goal of 2-3.
Outpatient follow-up with Dr. PATRICIA Jones has been arranged
Stable for discharge from my perspective
HPI: Mr. Cooper presents with increased dyspnea on exertion, orthopnea and symptoms of signs of acute on chronic systolic congestive heart failure. Dyspneic with less and less movement. His testing is delineated as below. Complicated
electrophysiologic history status post permanent atrial fibrillation with AVJ ablation, chronic dofetilide therapy for VT and has a CONFERENCE ASSISTANT-D incensed 2011. He is responding to BiPAP therapy and Lasix. He does have hypokalemia as noted and was
admitted for hyperkalemia in the late summer. Seen at the bedside he is currently feeling much more comfortable today after receiving his Lasix. He was in [place] for the [employer] and I thanked him for his service
Progress Note - Land Planner
Subjective
Date of Service: July 22, 2024
No acute overnight events. Patient feels well this morning, tells me he is on extremity no significantly improved. Breathing is comfortable. He has been ambulating without chest pain. No lightheadedness or dizziness despite marginal blood
pressure.
Objective
Labs:
07/22/24 06:46
07/22/24 06:46
Labs
Hgb 13.2 g/dL (13.0-18.0) 07/22/24 06:46
Hct 39.0 % (39.0-52.0) 07/22/24 06:46
Plt Count 176 10^3/uL (130-400) 07/22/24 06:46
PT 26.5 Sec (11.4-14.6) H 07/22/24 06:46
INR 2.45 07/22/24 06:46
Sodium 136 mmol/L (135-145) 07/22/24 06:46
Potassium 3.2 mmol/L (3.5-5.1) L 07/22/24 06:46
BUN 23 mg/dl (9-20) H 07/22/24 06:46
Creatinine 1.1 mg/dL (0.7-1.3) 07/22/24 06:46
Glucose 98 mg/dl (70-99) 07/22/24 06:46
Digoxin 0.7 ng/ml (0.8-2.0) L 07/14/24 06:16
Vital Signs and I&O:
Vital Signs
Temp Pulse Resp BP Pulse Ox
98.3 F 76 18 94/67 98
07/22/24 11:00 07/22/24 11:00 07/22/24 11:00 07/22/24 11:00 07/22/24 11:00
Vital Signs
Temp Pulse Resp BP Pulse Ox
98.3 F 76 18 94/67 98
07/22/24 11:00 07/22/24 11:00 07/22/24 11:00 07/22/24 11:00 07/22/24 11:00
Intake & Output
07/20/24 07/21/24 07/22/24 07/23/24
06:59 06:59 06:59 06:59
Intake Total 840 / 840 360 / 360 720 / 720 960 / 960
Output Total 3150 / 3150 800 / 800 3950 / 3950 200 / 200
Balance -2310 / -2310 -440 / -440 -3230 / -3230 760 / 760
Physical Exam
Physical Exam
Gen: NAD, AAOx3
HEENT: NC/AT, sclera anicteric
Neck: Mildly elevated JVP
CV: RRR, NL s1/s2, no M/R/G
Lungs: CTAB on RA
Abd: S/ND
Ext: Trace LE edema
Skin: Warm, dry
Neuro: Non-focal
--- NOTE | 2024-07-22 14:02 | W.PN.UPDATE ---
Update Note
Progress Note Update
I saw and evaluated the patient. I reviewed the resident�s note and agree with findings and plan as documented in the resident�s note.
1. Acute on chronic combined systolic/diastolic CHF
NICM
-TTE in May 09 showing EF 10-15%, severe global hypokinesis, stage II diastolic dysfunction, Mod-sev MR, mod TR, mild AR
-patient was taking oral lasix 80mg/bid at home and continued to have weight gain/swelling in LE
-CXR clear and no crackles/no hypoxia
-Patient dry weight close to 157 pound
-Patient will be discharged on oral Lasix 60 mg twice daily with metolazone 2.5 mg daily as needed for weight gain.
-Patient to maintain on oral potassium 40 mEq daily with extra 20 meq dose
-Repeat BMP in 1 week and f/u with Dr Dayana wright in office.
2. Recurrent hypokalemia
-Patient have recurrent hypokalemia and requiring repeated potassium supplement
-Mag wnl
-Encouraged patient to have K containing diet
3. NSVT
s/p RELAY TESTER HELPER-D
h/o of VT/VF
-Have brief episode of NSVT, asymptomatic
-Maintain potassium and magnesium level in normal range
-Continue on Tikosyn therapy
-INR therapeutic, continue monitoring
4. Chronic hypotension
-due to systolic HF, remains asymptomatic
-OK to give diuretics
-Hold coreg if needed
s/p AV node ablation
h/o Amiodarone thyroiditis
Ulcerative colitis
JULIO CESAR on CPAP
Hyponatremia
DVT PPX - warfarin
Limited DNR -no intubation
Care plan discussed with cardio
== END 2024-07-22 13:23 | disposition home health service (06) | DRG 291 ==
LOC: 4 EAST ACU 21:05
PROVIDERS: Emergency Medicine; Internal Medicine Cardiovascular Disease; ADMITTING PHYSICIAN Internal Medicine; ATTENDING PHYSICIAN Hospitalist; CONSULT PHYSICIAN Internal Medicine Cardiovascular Disease; EMERGENCY PHYSICIAN Student in an Organized Health Care Education/Training Program; FAMILY PHYSICIAN Internal Medicine
DX: I11.0 Hypertensive heart disease with heart failure (principal); I49.01 Ventricular fibrillation; I50.43 Acute on chronic combined systolic (congestive) and diastolic (congestive) heart failure; I48.21 Permanent atrial fibrillation; K51.90 Ulcerative colitis, unspecified, without complications; I47.20 Ventricular tachycardia, unspecified; L97.819 Non-pressure chronic ulcer of other part of right lower leg with unspecified severity; L97.829 Non-pressure chronic ulcer of other part of left lower leg with unspecified severity; E87.1 Hypo-osmolality and hyponatremia; E87.3 Alkalosis; G47.33 Obstructive sleep apnea (adult) (pediatric); E06.4 Drug-induced thyroiditis; T46.2X5A Adverse effect of other antidysrhythmic drugs, initial encounter; E87.6 Hypokalemia; I83.018 Varicose veins of right lower extremity with ulcer other part of lower leg; I83.028 Varicose veins of left lower extremity with ulcer other part of lower leg
CPT/HCPCS: 93308; 36415; 71046; 80048; 80053; 80162; 83735; 83880; 84132; 84484; 85025; 85027; 85610; 93005; 93321; 93325; 94660; 96374; 99285

== ENCOUNTER → 2024-07-26 11:18 | Outpatient (REF) | payer MEDICARE, OTHER, SELFPAY ==
[2024-07-26 12:06] LABS: INR 2.95; PT 31.1 Sec (11.4-14.6)
[2024-07-26 12:29] LABS: Blood Urea Nitrogen 26 mg/dl (9-20); Calcium 9.1 mg/dl (8.4-10.2); Carbon Dioxide 35 mmol/L (22-30); Chloride 91 mmol/L (98-107); Glucose 101 mg/dl (70-99); Sodium 138 mmol/L (135-145); eGFR > 60.00
== END ==
LOC: REG 11:18
PROVIDERS: ATTENDING PHYSICIAN Hospitalist; FAMILY PHYSICIAN Internal Medicine; REFERRING PHYSICIAN Internal Medicine Cardiovascular Disease
DX: Z79.01 Long term (current) use of anticoagulants (principal); R06.02 Shortness of breath
CPT/HCPCS: 36415; 80048; 85610

== ENCOUNTER → 2024-08-02 12:38 | Outpatient (REF) | payer MEDICARE, OTHER, SELFPAY | LOC: WOUND 12:38 | PROVIDERS: ATTENDING PHYSICIAN Surgery; FAMILY PHYSICIAN Internal Medicine | DX: I87.313 Chronic venous hypertension (idiopathic) with ulcer of bilateral lower extremity (principal); L97.212 Non-pressure chronic ulcer of right calf with fat layer exposed; L97.222 Non-pressure chronic ulcer of left calf with fat layer exposed; I87.2 Venous insufficiency (chronic) (peripheral); I73.9 Peripheral vascular disease, unspecified; I50.9 Heart failure, unspecified; I51.9 Heart disease, unspecified; I25.10 Atherosclerotic heart disease of native coronary artery without angina pectoris; I42.9 Cardiomyopathy, unspecified | CPT/HCPCS: 11042; 99204 ==

== ENCOUNTER → 2024-08-06 14:27 | Outpatient (REF) | payer MEDICARE, OTHER, SELFPAY | LOC: WOUND 14:27 | PROVIDERS: ATTENDING PHYSICIAN Surgery; FAMILY PHYSICIAN Internal Medicine | DX: I87.313 Chronic venous hypertension (idiopathic) with ulcer of bilateral lower extremity (principal); L97.212 Non-pressure chronic ulcer of right calf with fat layer exposed; L97.222 Non-pressure chronic ulcer of left calf with fat layer exposed; I87.2 Venous insufficiency (chronic) (peripheral); I73.9 Peripheral vascular disease, unspecified; I50.9 Heart failure, unspecified; I51.9 Heart disease, unspecified; I25.10 Atherosclerotic heart disease of native coronary artery without angina pectoris; I42.9 Cardiomyopathy, unspecified | CPT/HCPCS: 11042 ==

== ENCOUNTER → 2024-08-09 11:52 | Outpatient (REF) | payer MEDICARE, OTHER, SELFPAY ==
[2024-08-09 13:44] LABS: INR 2.19; PT 24.6 Sec (11.4-14.6)
[2024-08-09 13:56] LABS: Blood Urea Nitrogen 24 mg/dl (9-20); Calcium 9.1 mg/dl (8.4-10.2); Carbon Dioxide 34 mmol/L (22-30); Chloride 89 mmol/L (98-107); Glucose 111 mg/dl (70-99); Potassium 2.8 mmol/L (3.5-5.1); Sodium 138 mmol/L (135-145); eGFR > 60.00
== END ==
LOC: REG 11:52
PROVIDERS: ATTENDING PHYSICIAN Physician Assistant; FAMILY PHYSICIAN Internal Medicine
DX: I50.23 Acute on chronic systolic (congestive) heart failure (principal); Z79.01 Long term (current) use of anticoagulants
CPT/HCPCS: 36415; 80048; 85610

== ENCOUNTER → 2024-08-13 14:30 | Outpatient (REF) | payer MEDICARE, OTHER, SELFPAY | LOC: WOUND 14:30 | PROVIDERS: ATTENDING PHYSICIAN Surgery; FAMILY PHYSICIAN Internal Medicine | DX: I87.313 Chronic venous hypertension (idiopathic) with ulcer of bilateral lower extremity (principal); L97.212 Non-pressure chronic ulcer of right calf with fat layer exposed; L97.222 Non-pressure chronic ulcer of left calf with fat layer exposed; I87.2 Venous insufficiency (chronic) (peripheral); I73.9 Peripheral vascular disease, unspecified; I50.9 Heart failure, unspecified | CPT/HCPCS: 11042 ==

== ENCOUNTER → 2024-08-16 12:41 | Outpatient (REF) | payer MEDICARE, OTHER, SELFPAY ==
[2024-08-16 14:48] LABS: Blood Urea Nitrogen 31 mg/dl (9-20); Calcium 8.9 mg/dl (8.4-10.2); Carbon Dioxide 24 mmol/L (22-30); Chloride 94 mmol/L (98-107); Glucose 83 mg/dl (70-99); Magnesium 2.5 mg/dl (1.6-2.3); Potassium 4.8 mmol/L (3.5-5.1); Sodium 133 mmol/L (135-145); eGFR > 60.00
== END ==
LOC: REG 12:41
PROVIDERS: ATTENDING PHYSICIAN Internal Medicine Cardiovascular Disease; FAMILY PHYSICIAN Internal Medicine
DX: I50.23 Acute on chronic systolic (congestive) heart failure (principal); I25.10 Atherosclerotic heart disease of native coronary artery without angina pectoris; I50.22 Chronic systolic (congestive) heart failure
CPT/HCPCS: 36415; 80048; 83735

== ENCOUNTER → 2024-08-23 09:25 | Outpatient (REF) | payer MEDICARE, OTHER, SELFPAY ==
[2024-08-23 11:44] LABS: INR 4.11
== END ==
LOC: REG 09:25
PROVIDERS: ATTENDING PHYSICIAN Internal Medicine
DX: Z79.01 Long term (current) use of anticoagulants (principal)
CPT/HCPCS: 36415; 85610

== ENCOUNTER → 2024-08-27 14:28 | Outpatient (REF) | payer MEDICARE, OTHER, SELFPAY | LOC: WOUND 14:28 | PROVIDERS: ATTENDING PHYSICIAN Surgery; FAMILY PHYSICIAN Internal Medicine | DX: I87.313 Chronic venous hypertension (idiopathic) with ulcer of bilateral lower extremity (principal); L97.222 Non-pressure chronic ulcer of left calf with fat layer exposed; I87.2 Venous insufficiency (chronic) (peripheral); I73.9 Peripheral vascular disease, unspecified; I50.9 Heart failure, unspecified; I51.9 Heart disease, unspecified; I25.10 Atherosclerotic heart disease of native coronary artery without angina pectoris; I42.9 Cardiomyopathy, unspecified | CPT/HCPCS: 11042 ==

== ENCOUNTER → 2024-08-29 12:49 | Outpatient (REF) | payer MEDICARE, OTHER, SELFPAY ==
[2024-08-29 16:12] LABS: INR 1.49; PT 18.6 Sec (11.4-14.6)
== END ==
LOC: HWLAB 12:49
PROVIDERS: ATTENDING PHYSICIAN Internal Medicine Cardiovascular Disease; FAMILY PHYSICIAN Internal Medicine Geriatric Medicine
DX: Z79.01 Long term (current) use of anticoagulants (principal); I48.0 Paroxysmal atrial fibrillation
CPT/HCPCS: 36415; 85610

== ENCOUNTER → 2024-09-03 14:03 | Outpatient (REF) | payer MEDICARE, OTHER, SELFPAY | LOC: WOUND 14:03 | PROVIDERS: ATTENDING PHYSICIAN Surgery; FAMILY PHYSICIAN Internal Medicine | DX: I87.313 Chronic venous hypertension (idiopathic) with ulcer of bilateral lower extremity (principal); I42.9 Cardiomyopathy, unspecified; L97.222 Non-pressure chronic ulcer of left calf with fat layer exposed; I87.2 Venous insufficiency (chronic) (peripheral); I73.9 Peripheral vascular disease, unspecified; I50.9 Heart failure, unspecified; I51.9 Heart disease, unspecified; I25.10 Atherosclerotic heart disease of native coronary artery without angina pectoris | CPT/HCPCS: 97597 ==

== ENCOUNTER → 2024-09-06 11:45 | Outpatient (REF) | payer MEDICARE, OTHER, SELFPAY ==
[2024-09-06 12:52] LABS: PT 31.5 Sec (11.4-14.6)
== END ==
LOC: REG 11:45
PROVIDERS: ATTENDING PHYSICIAN Internal Medicine Cardiovascular Disease
DX: Z79.01 Long term (current) use of anticoagulants (principal); I48.0 Paroxysmal atrial fibrillation
CPT/HCPCS: 36415; 85610

== ENCOUNTER → 2024-09-10 14:43 | Outpatient (REF) | payer MEDICARE, OTHER, SELFPAY | LOC: WOUND 14:43 | PROVIDERS: ATTENDING PHYSICIAN Surgery; FAMILY PHYSICIAN Internal Medicine Geriatric Medicine | DX: I87.313 Chronic venous hypertension (idiopathic) with ulcer of bilateral lower extremity (principal); L97.222 Non-pressure chronic ulcer of left calf with fat layer exposed; I87.2 Venous insufficiency (chronic) (peripheral); I73.9 Peripheral vascular disease, unspecified; I50.9 Heart failure, unspecified; I51.9 Heart disease, unspecified | CPT/HCPCS: 11042 ==

== ENCOUNTER → 2024-09-17 13:39 | Outpatient (REF) | payer MEDICARE, OTHER, SELFPAY ==
[2024-09-17 15:42] LABS: INR 4.66; PT 43.3 Sec (11.4-14.6)
[2024-09-17 15:58] LABS: Blood Urea Nitrogen 47 mg/dl (9-20); Carbon Dioxide 23 mmol/L (22-30); Chloride 87 mmol/L (98-107); Glucose 120 mg/dl (70-99); Potassium 5.5 mmol/L (3.5-5.1); Sodium 125 mmol/L (135-145); eGFR 36.89
== END ==
LOC: REG 13:39
PROVIDERS: ATTENDING PHYSICIAN Internal Medicine Cardiovascular Disease; FAMILY PHYSICIAN Internal Medicine Geriatric Medicine
DX: I50.20 Unspecified systolic (congestive) heart failure (principal); Z79.01 Long term (current) use of anticoagulants; I48.0 Paroxysmal atrial fibrillation
CPT/HCPCS: 36415; 80048; 85610

== ENCOUNTER → 2024-09-17 14:18 | Outpatient (REF) | payer MEDICARE, OTHER, SELFPAY | LOC: WOUND 14:18 | PROVIDERS: ATTENDING PHYSICIAN Surgery; FAMILY PHYSICIAN Internal Medicine Geriatric Medicine | DX: I87.313 Chronic venous hypertension (idiopathic) with ulcer of bilateral lower extremity (principal); L97.222 Non-pressure chronic ulcer of left calf with fat layer exposed; L97.522 Non-pressure chronic ulcer of other part of left foot with fat layer exposed; I87.2 Venous insufficiency (chronic) (peripheral); I73.9 Peripheral vascular disease, unspecified; I50.9 Heart failure, unspecified; I51.9 Heart disease, unspecified; I25.10 Atherosclerotic heart disease of native coronary artery without angina pectoris; I42.9 Cardiomyopathy, unspecified | CPT/HCPCS: 11042 ==

== ENCOUNTER → 2024-09-19 11:03 | Outpatient (REF) | payer MEDICARE, OTHER, SELFPAY ==
[2024-09-19 12:25] LABS: INR 3.96; PT 38.8 Sec (11.4-14.6)
== END ==
LOC: REG 11:03
PROVIDERS: ATTENDING PHYSICIAN Internal Medicine Cardiovascular Disease; FAMILY PHYSICIAN Internal Medicine Geriatric Medicine
DX: Z79.01 Long term (current) use of anticoagulants (principal)
CPT/HCPCS: 36415; 85610

== ENCOUNTER → 2024-09-22 11:13 | Outpatient (REF) | payer MEDICARE, OTHER, SELFPAY ==
[2024-09-22 13:00] LABS: INR 2.44; PT 26.5 Sec (11.4-14.6)
== END ==
LOC: REG 11:13
PROVIDERS: ATTENDING PHYSICIAN Internal Medicine Cardiovascular Disease
DX: Z79.01 Long term (current) use of anticoagulants (principal); I48.0 Paroxysmal atrial fibrillation
CPT/HCPCS: 36415; 85610

== ENCOUNTER → 2024-09-24 10:34 | Outpatient (REF) | payer MEDICARE, OTHER, SELFPAY ==
[2024-09-24 11:40] LABS: INR 2.56; PT 27.6 Sec (11.4-14.6)
[2024-09-24 12:01] LABS: Blood Urea Nitrogen 45 mg/dl (9-20); Calcium 9.2 mg/dl (8.4-10.2); Carbon Dioxide 26 mmol/L (22-30); Chloride 87 mmol/L (98-107); Glucose 109 mg/dl (70-99); Potassium 3.8 mmol/L (3.5-5.1); Sodium 127 mmol/L (135-145); eGFR 45.91
== END ==
LOC: REG 10:34
PROVIDERS: ATTENDING PHYSICIAN Internal Medicine Cardiovascular Disease; FAMILY PHYSICIAN Internal Medicine Geriatric Medicine
DX: I50.20 Unspecified systolic (congestive) heart failure (principal); Z79.01 Long term (current) use of anticoagulants; I48.0 Paroxysmal atrial fibrillation
CPT/HCPCS: 36415; 80048; 85610

== ENCOUNTER → 2024-09-24 14:02 | Outpatient (REF) | payer MEDICARE, OTHER, SELFPAY | LOC: WOUND 14:02 | PROVIDERS: ATTENDING PHYSICIAN Surgery; FAMILY PHYSICIAN Internal Medicine Geriatric Medicine | DX: I87.313 Chronic venous hypertension (idiopathic) with ulcer of bilateral lower extremity (principal); L97.222 Non-pressure chronic ulcer of left calf with fat layer exposed; L97.522 Non-pressure chronic ulcer of other part of left foot with fat layer exposed; I87.2 Venous insufficiency (chronic) (peripheral); I73.9 Peripheral vascular disease, unspecified; I50.9 Heart failure, unspecified; I25.10 Atherosclerotic heart disease of native coronary artery without angina pectoris; I42.9 Cardiomyopathy, unspecified | CPT/HCPCS: 11042; 97597 ==

== ENCOUNTER → 2024-09-28 12:57 | Outpatient (REF) | payer MEDICARE, OTHER, SELFPAY ==
[2024-09-28 15:09] LABS: INR 2.93; PT 30.5 Sec (11.4-14.6)
== END ==
LOC: REG 12:57
PROVIDERS: ATTENDING PHYSICIAN Internal Medicine Cardiovascular Disease; FAMILY PHYSICIAN Internal Medicine Geriatric Medicine
DX: Z79.01 Long term (current) use of anticoagulants (principal)
CPT/HCPCS: 36415; 85610

== ENCOUNTER 2024-10-01 18:52 | Inpatient (IN) | payer MEDICARE, OTHER, SELFPAY ==
[2024-10-01] VITALS (27 sets, daily range): BP systolic 71–89; BP diastolic 48–72; BMI 19.3
[2024-10-01 13:47] LABS: % Eosinophils 0.2 % (0-6); % Immature Granulocytes 0.4 % (0-0.5); % Lymphocytes 15.4 % (20.5-51.1); % Monocytes 8.5 % (1.7-9.3); % Neutrophils 75.5 % (42.2-75.2); Absolute Lymphocytes 0.7 10^3/uL (1.2-3.4); Absolute Monocytes 0.4 10^3/uL (0.1-0.6); Absolute Neutrophils 3.6 10^3/uL (1.4-6.5); Hematocrit 44.3 % (39.0-52.0); Hemoglobin 15.1 g/dL (13.0-18.0); Mean Corp Hgb Conc. 34.1 g/dL (33.0-37.0); Mean Corpuscular Hgb 31.7 pg (27.0-31.0); Mean Corpuscular Volume 93.1 fL (80.0-94.0); Mean Platelet Volume 11.8 fL (7.4-10.4); Nucleated Red Blood Cells % 0 % (-); Platelet Count 118 10^3/uL (130-400); Red Blood Cell Count 4.76 10^6/uL (4.70-6.10); Red Cell Dist. Width 18.8 % (11.5-14.5); White Blood Cell Count 4.8 10^3/uL (4.8-10.8)
[2024-10-01 13:57] LABS: ALT (SGPT) 63 U/L (0-50); AST (SGOT) 89 U/L (17-59); Albumin 4.1 g/dl (3.5-5.0); Alkaline Phosphatase 147 U/L (38-126); Blood Urea Nitrogen 40 mg/dl (9-20); Calcium 8.6 mg/dl (8.4-10.2); Carbon Dioxide 20 mmol/L (22-30); Chloride 92 mmol/L (98-107); Glucose 90 mg/dl (70-99); Sodium 128 mmol/L (135-145); Total Bilirubin 4.6 mg/dl (0.2-1.3); Total Protein 7.2 g/dl (6.3-8.2); eGFR 49.87
[2024-10-01 14:00] LABS: INR 3.03; PT 31.2 Sec (11.4-14.6)
[2024-10-01 14:05] LABS: Venous Blood Gas B.E. -7.1 mmol/L (-4 to +4); Venous Blood Gas HCO3 18.7 mmol/L (22-27); Venous Blood Gas pCO2 38 mmHg (35-48); Venous Blood Gas pO2 46 mmHg (30-50)
[2024-10-01] MEDS: NSS 1000 IV ×2 (14:08→15:29)
[2024-10-01 14:14] LABS: COVID-19 Antigen Negative (Negative)
[2024-10-01 14:18] LABS: Lactic Acid 3.9 mmol/L (0.7-2.0)
[2024-10-01 14:22] LABS: NT-proBNP 18900 pg/ml; Troponin I 0.014 ng/ml
--- NOTE | 2024-10-01 15:37 | ED.GENMED ---
History of Present Illness
General
Chief Complaint: Fall
Time Seen by Provider: 10/01/24 13:34
History of Present Illness
History of Present Illness:
83-year-old male with history of CHF, A-fib on Coumadin, history of ventricular tachycardia with pacemaker presenting to the emergency department for a fall. Patient reports that he was going to the doctors today and prior to arrival, felt his legs
give out from general weakness and fell to the ground, striking his head. Denies loss of consciousness. Medics were called, found patient in the parking lot, noted to be hypotensive. Patient subsequently brought to the emergency department.
Patient reports that he has been feeling short of breath and generally weak for the past 2 days. He also reports some chest tightness. Denies any recent cough or fever. Denies abdominal pain or GI symptoms. Does note chronic lower extremity
swelling. Denies any neck pain. Denies additional acute medical complaints.
Past History
Past History
ED Past Medical History: Arrthythmia, CHF, Hypothyroidism and Other (Status post AICD, A. fib, hypertension, ulcers colitis, sleep apnea)
ED Past Surgical History: Other (History of hernia repair)
Social History
Tobacco: Non-smoker
Alcohol: None
Personal:
Living: with family
Employment: Retired
Family History
Family History: Other (Sleep apnea)
Phy Exam
Physical Exam
Physical Exam:
General: Tachypneic
HEENT: protecting airway
Neck: appears supple, cervical collar in place. No midline cervical neck tenderness.
CV: Normal heart rate, regular rhythm, no evidence of cyanosis
Resp: Tachypneic with diminished air movement bilaterally, no focal abnormal lung sounds or crackles
Abd: Soft and non-distended, no tenderness to palpation
Extremities: No deformities, +2 pitting edema bilaterally to the lower extremity
Neuro: alert, no focal neurologic deficit
: deferred
Rectal: deferred
Psych: Normal affect
Skin: Intact
Course
Orders/Labs/Results
Orders:
Orders
10/01/24 13:28
Electrocardiogram (*1) Urgent
Reason for Study: Chest Pain
EKG- Treatment ONCE
10/01/24 13:30
CMP [Comprehensive Metabolic Panel] Urgent
Complete Blood Count/With Diff Urgent
PT/INR [Prothrombin Time] Urgent
Pro-BNP [NT-proBNP] Urgent
Troponin I Urgent
10/01/24 13:34
CT Head W/o Iv Contrast Urgent
Comment:
Reason For Exam: fall on coumadin
10/01/24 13:35
0.9% Sodium Chloride 1000 ml [Nss] 1,500 ml IV BOLUS
10/01/24 13:36
CR Chest Portable - 1 View Urgent
Comment:
Reason For Exam: SOB
Reason Study Needs to be Portable: Patient Unstable
10/01/24 13:46
COVID-19 Antigen Urgent
Source: Nasal Swab
Influenza A+B Rapid Molecular Urgent
KIMBERLY Source: Nasal Swab
Specimen Description:
10/01/24 13:53
Lactic Acid Q4H
Comment: CANCEL 2nd LACTIC ACID IF 1st LACTIC ACID IS LESS THAN 2
Venous Blood Gas Urgent
%Oxygen/Room Air: 30
Blood Culture Q30M
KIMBERLY Source: Blood/Venous
Specimen Description:
10/01/24 13:58
Blood Culture Q30M
KIMBERLY Source: Blood/Venous
Specimen Description:
10/01/24 14:34
CT Chest/abd/pelvis Angio W/wo Urgent
Comment:
Reason For Exam: hypoxia, fall
10/01/24 15:25
0.9% Sodium Chloride 1000 ml [Nss] 1,000 ml IV BOLUS
10/01/24 17:45
Lactic Acid Q4H
Comment: CANCEL 2nd LACTIC ACID IF 1st LACTIC ACID IS LESS THAN 2
Abnormal Lab Results
10/01/24 10/01/24
13:30 13:53
MCH 31.7 H pg
(27.0-31.0)
RDW 18.8 H %
(11.5-14.5)
Plt Count 118 L 10^3/uL
(130-400)
MPV 11.8 H fL
(7.4-10.4)
Absolute Lymphs (auto) 0.7 L 10^3/uL
(1.2-3.4)
Neutrophils % 75.5 H %
(42.2-75.2)
Lymphocytes % 15.4 L %
(20.5-51.1)
PT 31.2 H Sec
(11.4-14.6)
VBG pH 7.30 L
(7.32-7.43)
VBG HCO3 18.7 L mmol/L
(22-27)
Sodium 128 L mmol/L
(135-145)
Chloride 92 L mmol/L
(98-107)
Carbon Dioxide 20 L mmol/L
(22-30)
BUN 40 H mg/dl
(9-20)
Creatinine 1.4 H mg/dL
(0.7-1.3)
Lactic Acid 3.9 H mmol/L
(0.7-2.0)
Total Bilirubin 4.6 H mg/dl
(0.2-1.3)
AST 89 H U/L
(17-59)
ALT 63 H U/L
(0-50)
Alkaline Phosphatase 147 H U/L
(38-126)
10/01/24 13:30
10/01/24 13:30
Vital Signs
Initial and Last Documented VS:
Initial Vital Signs
BP
74/64
10/01/24 13:23
Last Documented Vital Signs
Temp Pulse Resp BP Pulse Ox
97.6 F 75 11 78/64 95
10/01/24 15:44 10/01/24 15:24 10/01/24 15:24 10/01/24 15:24 10/01/24 15:24
MDM/Problems Addressed
MDM/Problems Addressed:
83-year-old male with history of CHF, A-fib on Coumadin, ventricular tachycardia with pacemaker presenting for fall with generalized weakness, chest tightness, shortness of breath. Vital signs on arrival significant for hypotension and hypoxia.
On exam, patient is tachypneic with increased work of breathing. Respiratory called for assistance. Regarding fall, patient notes that he was feeling weak prior to the fall and felt like his legs gave out. Patient with known cardiac disease,
which may indicate acute issue. EKG obtained, nonischemic without significant change from prior. Patient does have a pacemaker, will interrogate. Patient also with known history of congestive heart failure, however no crackles or focal abnormal
lung sounds on exam. Patient does have lower extremity edema. Possible volume overloaded state. Plan for chest x-ray imaging and laboratory analysis. Regarding fall, patient arrives in cervical collar, however clinically cleared with no
tenderness to the neck. Patient is on blood thinners, so will obtain CT brain imaging. Upon respiratory arrival, placed on high flow for hypoxia.
15:00- Labs show elevated bilirubin and slight elevation of liver enzymes. No focal tenderness to the upper abdomen. Patient also with chronic renal disease and hyponatremia without significant change from prior. BNP is markedly elevated,
indicating possible cardiac pathology. Lactic acid is also elevated. Plan for blood cultures and continued IV fluids, however no clear source of infection. No leukocytosis.. Patient denying any infectious symptoms. Holding antibiotics. Blood
pressure remains low, with unclear etiology of hypoxia. Plan for CT imaging of the chest and abdomen
15:50 -patient CT shows concern for new mass in the pancreas. Patient also with ascites. Do suspect likely malignancy. Unclear etiology of patient's hypoxia, stable on high flow. Patient does note that he usually runs hypotensive, will continue
fluids as tolerated. Will likely require paracentesis. Plan for admission
*EKG
Interpreted by ED Provider?: Yes
EKG Intrepretation Date: 10/01/24
EKG Intrepretation Time: 15:40
Interpretation: normal
Comparison EKG: no changes (07/18/24)
Heart Rate: 74
Rate: normal
Rhythm: ventricular paced
[place]: normal axis
QRS Pattern: normal QRS
Ischemia: no ischemia
*Critical Care Note
Total Time (30-74mins, 75-104mins- exclusive of procedures): 46
comment:
The high probability of a clinically significant, sudden or life threatening deterioration of the hemodynamic system(s), respiratory required my full and direct attention, intervention and personal management. The aggregate critical care time was 46
minutes. This time is in addition to time spent performing reported procedures but includes the following:
[x] Data Review and interpretation
[x] Patient assessment and monitoring of vital signs
[x] Documentation
[x] Medication orders and management
ED Attending Note
-
Portions of this chart may have been created with voice recognition software.� Occasional wrong word or��sound alike� substitutions may have occurred due to the inherent limitations of voice recognition software.
Discharge Plan
Departure
Patient Disposition: Admit
Date of Disposition: 10/01/24
Time of Disposition: 16:02
Presentation/result/management discussed w/ accepting MD/DO: Hospitalist
Patient with high blood pressure during this ER visit?: No
Condition: Critical
Discharge Problem:
Hypoxia, Abdominal ascites, Weakness
Prescriptions:
No Action
multivitamin with folic acid [Tab-A-Lauren] 1 TABLET tablet
1 tab PO DAILY
atorvastatin 20 MG tablet
20 mg PO QPM
warfarin [Jantoven] 5 MG tablet
5 mg PO MOWESA@1800
[id number] serr [Osteo Bi-Flex (5-Loxin)] 1 EACH tablet
1 tab PO DAILY
docosahexaenoic acid-epa 1 CAP capsule
2 cap PO DAILY
mesalamine [Delzicol] 400 mg Capsule (With Del Rel Tablets)
800 mg PO TID@0800,1600,2300
Jardiance 10 mg Tablet
10 mg PO DAILY
Verquvo 10 mg Tablet
10 mg PO DAILY
warfarin 5 mg tablet
2.5 mg PO SUTUTHFR@1800
digoxin 125 mcg (0.125 mg) tablet
125 mcg PO DAILY@2200
dofetilide 250 MCG capsule
250 mcg PO BID@1000,2200
furosemide 20 mg tablet
60 mg PO BID@0800,1800
carvedilol 3.125 mg Tablet
1.5625 mg PO BID 30 Days Qty: 60 0RF
metolazone 2.5 mg tablet
2.5 mg PO DAILY PRN (Reason: For weight gain > 2 Lb) Qty: 30 0RF
potassium chloride [Klor-Con M20] 20 mEq tablet,ER particles/crystals
40 meq PO DAILY Qty: 60 0RF
potassium chloride [Klor-Con M20] 20 mEq tablet,ER particles/crystals
20 meq PO DAILY PRN (Reason: Take extra with metolazone) Qty: 30 0RF
Rx Instructions:
TAKE ON TOP OF SCHEDULED 40MEQ TO MAKE TOTAL 60MEQ ON THE DAY YOU TAKE METOLAZONE
Referrals:
UNKNOWN - PT DOES,NOT KNOW [Family Provider] -
Interventions
Interventions:
*Risk Screen - Suicide Last Done: 10/01/24 14:13
*Neglect/Abuse Screening Last Done: 10/01/24 14:13
ED- Fall Risk Assessment Last Done: 10/01/24 13:31
*ED COVID-19 Vaccine History Last Done: 10/01/24 13:23
ED-Musculoskeletal Assessment Last Done: 10/01/24 13:41
ED- Neurological Assessment Last Done: 10/01/24 15:33
ED-Skin Assessment Last Done: 10/01/24 15:53
Discharge Date and Time
Print Language: MONGOLIAN
--- NOTE | 2024-10-01 16:52 | HPS.HSE ---
Family Physician
-
Family Physician: NOT KNOW UNKNOWN - PT DOES
Chief Complaint
-
Hypoxia, fall, hypotension
History of Present Illness
83-year-old male complains while on her way to the doctors today to get a peripheral arterial lower extremity ultrasound with ABIs due to left lower extremity ulceration/bilateral plantar great toe ulcerations. He felt his legs give out from
weakness and he fell to the ground striking his head, but did not lose consciousness. There is no visible contusion despite being on Coumadin. Medics were called she was noted to be hypotensive in the parking lot by EMS. He was noted to be
hypoxic on arrival to the ER with pulse ox 68% on room air was placed on high flow nasal cannula. He reports he has been feeling short of breath for the past several days along with generalized weakness and some chest tightness over the past 2
days. He has chronic bilateral leg edema which is better than his baseline. Monitors his weight daily states he has lost 10 pounds in the past week and 50 pounds over the past month. He reports he was at 140 pounds this a.m. He lives at [facility] with his Candis who is currently here at bedside. He denies any fever, chills, headache, palpitations, cough, abdominal pain, nausea, vomiting, diarrhea, urinary symptoms. On arrival to the ER her blood pressure has been persistent
74/64 with highest 81/65 she states her systolic blood pressure usually runs around 90. Review of her records shows 90�99 systolic over 69, she was also noted to be hyponatremic hypoxic and CT showing possible new malignancy to the pancreas with
ascites. She had her pacemaker interrogated which showed episode of nonsustained V. tach otherwise unremarkable. She has past medical history of permanent pacemaker, chronic CH mixed, severe cardiomyopathy EF 10-15%, atrial fibrillation multilevel
DDD, degenerative osteoarthritis right hip, HTN, HLD, chronic lower extremity wounds.
Medical History
Past Medical History
Past Medical History: Reports Other
Additional Past Medical History:
permanent pacemaker
chronic CHF
severe cardiomyopathy EF 10-15%
atrial fibrillation on Coumadin
HTN
HLD
multilevel DDD
degenerative osteoarthritis right hip
Ulcerative colitis
Sleep apnea uses full mask setting 10
Chronic lower extremity wounds
Past Surgical History: Reports Other
Additional Past Surgical History:
AV node ablation A-fib
Hernia repair x 2
pacemaker ICD times 12/06/2011, 2018
Social History
Tobacco: Non-smoker
Alcohol: Occasional
Drug: None
Personal:
Living: With Family ( Candis at [facility])
Employment: Retired
Family History
Family History: Not pertinent
Allergies / Home Medications
Allergies reflects when Allergies were last updated in [employer].
Home Medications with original date entered in [employer]
Allergy/Medication List:
Allergies
Allergy/AdvReac Type Severity Reaction Status Date / Time
amiodarone Allergy 'thyroid Verified 10/01/24 15:45
problems'
clindamycin Allergy Heartburn Verified 10/01/24 15:45
metoprolol [From Lopressor] Allergy Hallucinati Verified 10/01/24 15:45
ons
sulfamethoxazole Allergy Chest Verified 10/01/24 15:45
[From Bactrim] tightness
trimethoprim [From Bactrim] Allergy Chest Verified 10/01/24 15:45
tightness
Home Medications
atorvastatin 20 mg tablet 20 mg PO QPM High Cholesterol 03/30/17
glucosamine [id number] marylin 1,500 mg-400 unit-100 mg tablet (Osteo Bi-Flex (5-Loxin)) 1 tab PO DAILY Supplement 03/30/17
mesalamine 400 mg capsule (with delayed release tablets inside) (Delzicol) 800 mg PO TID@0800,1600,2300 Gastrointestinal Issue 12/22/23
empagliflozin 10 mg tablet (Jardiance) 10 mg PO DAILY Heart Disease/Condition 05/14/24
vericiguat 10 mg tablet (Verquvo) 10 mg PO DAILY Heart Failure 05/14/24
dofetilide 250 mcg capsule 250 mcg PO BID@1000,2200 Arrhythmia 07/13/24
carvedilol 3.125 mg tablet 1.5625 mg (1/2 x 3.125 mg) PO BID HTN 30 days #60 tabs 07/22/24
potassium chloride 20 mEq tablet,extended release(part/cryst) (Klor-Con M) 40 meq (2 x 20 mEq) PO DAILY #60 tabs 07/22/24
bumetanide 1 mg tablet 1 mg PO BID 10/01/24
metolazone 2.5 mg tablet 2.5 mg PO DAILY PRN For weight gain > 3 Lb 10/01/24
therapeutic multivitamin 1 tab PO DAILY 10/01/24
warfarin 1 mg tablet 1 mg PO QPM 10/01/24
Review of Systems
-
History Source: Patient and Family ( Candis)
A 12 point ROS was completed and negative except as noted: Yes
Constitutional: Reports Weight Loss (10 pounds past week, 50 pounds past year); Denies Fever or Chills
EENT: Denies Sore Throat or Runny Nose
Respiratory: Reports Trouble Breathing; Denies Cough
Cardiac: Reports Chest Pain (On and off x 2 days); Denies Diaphoresis, Palpitations or Syncope
Abdomen/GI: Denies Abdominal Pain, Nausea, Vomiting, Diarrhea, Constipated, Bloody Stools, Black Stools or Anorexia
: Denies Dysuria, Frequency, Flank Pain, Incontinence, Difficulty Voiding, Urgency or Bleeding
Musculoskeletal: Reports Edema (+2 bilateral lower extremity edema); Denies Joint Pain
Skin: Reports Other (Left lower extremity venous stasis ulcer, bilateral plantar ulcerations at MCPs of great toes); Denies Itching or Rash
Neurological: Denies Dizzy, Headache or Weakness
Endocrine: Reports No Symptoms
Hematologic/Lymphatic: Reports No Symptoms
Psych: Reports Calm
Physical Exam
Vital Signs
Vital Signs
Temp Pulse Resp BP Pulse Ox
97.6 F 75 14 81/65 98
10/01/24 15:44 10/01/24 16:00 10/01/24 16:00 10/01/24 16:00 10/01/24 16:00
Physical Exam
General: Appears in Distress and Obese; No Pain, Fever or Chills
HEENT: NormoCephalic, Anicteric, Moist mucous membranes, PERRLA, [place] Conjunctivae, No Ptosis and Oxygen (High flow nasal cannula oxygen)
Respiratory: No Wheezes, Rales or Rhonchi
Cardiac: S1/S2, Regular Rhythm and Peripheral Edema (Bilateral +2 lower extremities); No Murmur, Rub, Gallop or JVD
Breast: Deferred by me
GI: Soft, Non Tender, Non Distended, Normal Bowel Sounds and No Hepatosplenomegaly
Rectal: Deferred by Provider
Genito-urinary: Deferred by me
Musculoskeletal: No Clubbing, No Cyanosis, Edema, Left Lower Extremity (+2 pitting) and Edema, Right Lower Extremity (+2 pitting); No Edema, Left Upper Extremity or Edema, Right Upper Extremity
Skin: Warm, Dry and Ulcers (Left lower extremity venous stasis ulcer, bilateral plantar ulcerations at MCPs of great toes); No Rash
Neuro: AO x 3, No Motor Deficits, Nonfocal/grossly intact, Cranial Nerves Intact and No Sensory Deficits; No Slurred Speech, Facial Droop, Tremors or Sedated
Psych: Calm
Laboratory Results
-
10/01/24 13:30
10/01/24 13:30
Laboratory Results
PT 31.2 Sec (11.4-14.6) H 10/01/24 13:30
INR 3.03 10/01/24 13:30
Lactic Acid 3.9 mmol/L (0.7-2.0) H 10/01/24 13:53
Total Bilirubin 4.6 mg/dl (0.2-1.3) H 10/01/24 13:30
AST 89 U/L (17-59) H 10/01/24 13:30
ALT 63 U/L (0-50) H 10/01/24 13:30
Alkaline Phosphatase 147 U/L (38-126) H 10/01/24 13:30
Troponin I 0.014 ng/ml 10/01/24 13:30
Data Reviewed
-
Diagnostic Radiology: Report Reviewed by me
CT Scan: Report Reviewed by me
Lab Data: Labs Reviewed by me
Impression/Plan
-
Impression/plan:
Admit to I see you
#Acute hypoxic respiratory failure 2/2 acute on chronic CHF, severe cardiomyopathy
68% RA, 93% on current high flow oxygen
-Consult pulmonary senior electrical designer
-Consult cardiology
# Acute on chronic chronic CHF combined systolic/diastolic
#Chronic severe cardiomyopathy EF 10-15%
BNP 18,900 appears to be 11-16,000 from April to June of 2024
-I/O, daily weights-dry weight per July was 157 patient currently states he is 139 pounds. He has had weight loss of 10 pounds in the past 3 weeks and 50 pounds in the past year
-Hypotensive weight appears way less than recent admission we will hold on any diuretics as he has complex case
-Consult [facility] cardiology
2D echo 07/16/2024: EF 10-15%, left ventricle moderately dilated, severely reduced LVSF,
pacer wire seen in the right heart,
Moderate to severe MR
Mild AR, Mod/severe TR
estimated pulm arterial pressure 35 mmHg IVC dilated
#Acute hypotension unclear etiology possible infection versus fluid shift given Ascites/third spacing
#Hx HTN�benign
COVID/flu-negative
Baseline SBP 90�99 per records
BP today persistent 74/64 multiple blood pressures
-IV 2500 mL bolus was given in the ER with blood pressure still 81/65
-CXR no pulmonary edema PNA or pleural effusion
-Check blood cultures x 2
-Check UA DENTAL NURSE
-HOLD VerQuvo 10 mg daily, Bumex 1 mg twice daily metolazone 2.5 mg as needed, Jardiance 10 mg daily
CXR: Cardiac silhouette is enlarged with no evidence of pulmonary edema or pleural effusion
#Acute transaminitis with Hyperbilirubinemia
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
#Moderate ascites
weight loss of 10 pounds in the past 3 weeks and 50 pounds in the past year
AST 89, ALT 63, alk phos 147, T. bili 4.6
-Check indirect bili
-Consult IR for paracentesis with fluid cytology
-Consult GI for pancreatic tail mass
CT chest abdomen pelvis with/without contrast
1. There is a 3 cm benign versus malignant low-density mass at the tail the pancreas which, if clinically indicated, could be further evaluated with MRI
2. There is moderate ascites throughout the abdomen and pelvis
3. There is 7.5 cm right inguinal hernia which contains ascites but no bowel or
4. There are hepatic cysts.
5. Atherosclerosis.
6. Mild cardiomegaly
7. Transvenous pacemaker
8. Multilevel lumbar degenerative disc disease
9. 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
#Mechanical fall on Coumadin
-CT head negative
-PT/OT consult
#Paroxysmal A-fib
#-Status post AV node ablation
-Patient on Coumadin daily INR 3.03-will hold this evening Coumadin 1 mg
-Med rec reports patient is on 1 mg of Coumadin daily
-Will follow INR
-Continue Tikosyn 250 mcg p.o. twice daily with hold parameters
-Hold carvedilol 1.5625 mg p.o. twice daily
#Fall with nonsustained and SVT
#Permanent pacemaker pacemaker
interrogated in ER showing episode of nonsustained NSVT, otherwise unremarkable
#Acute thrombocytopenia
PLT 118, prior platelets 176 07/22/2024 no history of thrombocytopenia
Hgb stable 15.1
-Follow CBC
#Acute hyponatremia hypervolemic in setting of ascites/ mass tail of pancreas /cardiomyopathy
NA 128
-Check urine NA, urine Osmo, urinalysis with reflex, serum Osmo, TSH with T4 reflex
#ODALIS unclear etiology
Creat 1.4 was 1.5 on 09/24/2024 but baseline appears to be 1.1
-Was given 2500 mL in ER will hold further fluids given ascites
-Follow BMP
-Hold Jardiance
#Left lower extremity chronic ulceration, bilateral dorsal feet at metatarsals open ulcerations chronic
-Patient follows with Dr. Bustos
-Consult wound care
-Plan was for patient to get peripheral arterial lower extremity Dopplers with ELIDA today as outpatient cannot attempt currently inpatient due to high flow nasal cannula
#HLD
Continue atorvastatin 20 mg every afternoon
# Ulcerative colitis
Continue mesalamine 800 mg p.o. 3 times daily
#Sleep apnea
Uses full mask setting 10 no oxygen
#Obesity�multifactorial
Patient currently losing weight unintentional 10 pounds past week, 50 pounds past year concern given pancreatic tail mass
Other PMH:
multilevel DDD
degenerative osteoarthritis right hip
DVT prophylaxis
Continue FIELD CROP GROWER Coumadin
DNR per patient with Candis present, although appears to have memory impairment patient has his sister Ann-Marie Mckee who is also an emergency contact
[2024-10-01 17:29] LABS: Urine Albumin Trace (Neg - Trace); Urine Bilirubin Negative (Negative); Urine Character Clear (Clear); Urine Color Yellow; Urine Glucose Negative (Negative); Urine Ketone Negative (Negative); Urine Leukocyte Negative (Negative); Urine Nitrite Negative (Negative); Urine Occult Blood Negative (Negative); Urine Specific Gravity 1.005 (<1.030); Urine Urobilinogen Negative (Neg - 1+)
[2024-10-01 17:46] LABS: Osmolality Urine 265 mOsm/kg (300-900)
[2024-10-01 17:51] LABS: Osmolality Serum 280 mOsm/kg (275-300)
[2024-10-01 17:53] LABS: Urine Sodium < 5 mmol/L (30-90)
[2024-10-01 18:07] LABS: Direct Bilirubin 2.6 mg/dl (0.0-0.4)
[2024-10-01 18:24] LABS: Lactic Acid 2.8 mmol/L (0.7-2.0)
--- NOTE | 2024-10-01 18:27 | W.PN.UPDATE ---
Update Note
Progress Note Update
This is an addendum to the H&P written by Harmony Salazar. Patient seen and examined independently with CHAIR CAR ATTENDANT.
83-year-old male past medical history of HFrEF, permanent atrial fibrillation, hyperlipidemia, ulcerative colitis, sleep apnea, degenerative arthritis, presenting with fall and wound of the left lower extremity for which she was supposed to have
outpatient arterial ultrasound/ELIDA today.
1) hypoxemic respiratory failure likely due to underlying cardiomyopathy/CHF. He was given 2500 cc of IV fluids. Cardiology consulted. Pulmonary consulted. Pulmonary embolism unlikely given that patient on Coumadin and INR therapeutic at 3.
Hold further IV fluids.
2) hypotension secondary to third spacing/ascites secondary to pancreatic cancer/cardiomyopathy. Blood cultures pending. Patient presenting with sepsis. Patient also with transaminitis from this. Hold cardiac medications due to precipitation of
hypotension.
3) ODALIS from hypotension. Hemodynamics are unclear. Will need cardiology input.
3) Pancreatic cancer on CT scan with ascites. IR consulted for diagnostic paracentesis. GI consulted
4) left lower extremity wound. Does not appear infected. Can order arterial ultrasound/ELIDA when patient more stable. Wound care consulted.
5) Fall with head injury. CT head no acute abnormality
--- NOTE | 2024-10-01 21:40 | PTCARENOTE ---
Received pt from ED RN. Pt is AAOx3, L ear ANIAK, LE weakness. AV paced 100% w/ BBB. TIMBER RIDER Victoriano notified due to SBP in the 80s, MAPs in the 70s, will continue to monitor. On 50L 70% highflow O2 sat 100%, lungs diminished, BARBA. Pt c/o poor appetite. Pt
uses the urinal. Wound care provided (see worklist). CHG bath provided. Mouth care provided. Pt is laying in bed with call arizmendi in reach.
[2024-10-01] MEDS: ASACOL, DELZICOL DR 800 MG PO (22:42)
[2024-10-01 23:10] LABS: Lactic Acid 1.5 mmol/L (0.7-2.0)
[2024-10-01 23:15] LABS: APTT 42.8 Sec (23.4-35.0)
--- NOTE | 2024-10-01 23:58 | PTCARENOTE ---
Pt O2 sat 77%, pt placed on NRB 100% with highflow 50L and 70%. Pt O2 sat now 100%, NRB removed, pt still on highflow 50L 70%.
[2024-10-02] VITALS (37 sets, daily range): BP systolic 67–101; BP diastolic 41–72; PULSE 75; BMI 19.3
--- NOTE | 2024-10-02 03:26 | PTCARENOTE ---
AM labs drawn. Pt assisted to sit at the side of the bed to use the urinal. Systems reviewed.
[2024-10-02 03:34] LABS: % Eosinophils 0.4 % (0-6); % Immature Granulocytes 0.4 % (0-0.5); % Monocytes 7.8 % (1.7-9.3); % Neutrophils 78.4 % (42.2-75.2); Absolute Lymphocytes 0.6 10^3/uL (1.2-3.4); Absolute Monocytes 0.4 10^3/uL (0.1-0.6); Absolute Neutrophils 3.6 10^3/uL (1.4-6.5); Hematocrit 39.5 % (39.0-52.0); Hemoglobin 13.9 g/dL (13.0-18.0); Mean Corp Hgb Conc. 35.2 g/dL (33.0-37.0); Mean Corpuscular Hgb 32.3 pg (27.0-31.0); Mean Corpuscular Volume 91.9 fL (80.0-94.0); Mean Platelet Volume 12.1 fL (7.4-10.4); Nucleated Red Blood Cells % 0 % (-); Platelet Count 118 10^3/uL (130-400); Red Cell Dist. Width 18.9 % (11.5-14.5); White Blood Cell Count 4.6 10^3/uL (4.8-10.8)
[2024-10-02 03:42] LABS: INR 3.24; PT 32.9 Sec (11.4-14.6)
[2024-10-02 03:48] LABS: ALT (SGPT) 59 U/L (0-50); AST (SGOT) 74 U/L (17-59); Alkaline Phosphatase 114 U/L (38-126); Blood Urea Nitrogen 36 mg/dl (9-20); Calcium 7.8 mg/dl (8.4-10.2); Carbon Dioxide 15 mmol/L (22-30); Chloride 102 mmol/L (98-107); Estimated Creatinine Clearance 48 ml/min; Glucose 80 mg/dl (70-99); HDL Cholesterol 17 mg/dl; LDL Cholesterol, Calculated 110 mg/dl; Potassium 4.3 mmol/L (3.5-5.1); Sodium 129 mmol/L (135-145); Total Cholesterol 140 mg/dl (50-199); Total Protein 5.9 g/dl (6.3-8.2); Triglyceride 67 mg/dl (10-149); Very Low Density Lipoprotein 13 mg/dl (0-30); eGFR > 60.00
[2024-10-02 04:47] LABS: Free T4 0.98 ng/dl (0.78-2.19)
--- NOTE | 2024-10-02 07:38 | CON.CAR ---
Addendum entered and electronically signed by Jamie Vasquez DO 10/02/24 12:46:
I saw and examined the patient.
The Merchandise Coordinator's note was reviewed and I agree with the note.
Comment:
Plan:
Failure to thrive with recent fall weakness and hypotension found to have pancreatic mass. He received IV fluids. Diuretics are currently held. He has lost weight. Workup as per GI and primary service.
Chest x-ray without evidence of pulmonary edema. Watch volume status closely given significant cardiomyopathy.
Replace lytes as needed.
Continue supportive care.
Consider holding Coumadin anticoagulation if procedures are planned. Could convert to IV heparin anticoagulation as a bridge.
Monitor QTc as he has been on Tikosyn
Discussed with nursing.
Original Note:
Consultation
Consultation Request
Date/Time Consultation Requested: 10/01/2024
Date/Time Consultation Performed: 10/02/2024
Requesting Provider: Dr. Lee
Performing Provider: Ada Dia PA-C for Dr. Khan
Reason for Consultation: Hypoxic respiratory insufficiency, Cardiomyopathy, hypotension
Medical History
-
Chief Complaint: Congestive heart failure
History of Present Illness:
Mr. Cooper is an 84-year-old male with past medical history significant for heart failure with reduced ejection fraction (EF 10 to 15%), nonischemic cardiomyopathy, VT/VF status post CALL OUT OPERATOR ICD on chronic Tikosyn, permanent atrial fibrillation on
Coumadin, obstructive sleep apnea who presented to emergency department 10/01/2024 after suffering a mechanical fall resulting in him striking his head while on Coumadin. EMS was called and patient was found to be hypotensive and hypoxic. He was
provided fluids bolus of 2500 cc. Patient admitted to feeling short of breath with some generalized weakness and chest discomfort several days prior to admission. proBNP was noted to be elevated at 18,900. Chest x-ray showed no evidence of
pulmonary edema or pleural effusion. EKG showed BiV paced rhythm. Interrogation of ICD in emergency department showed brief episode of NSVT. Head CT was negative. Patient admitted to ongoing weight loss greater than 50 pounds over the last year
prompting. He was found to have abnormal LFTs with concern for ascites and underwent CT of abdomen which demonstrated new 3 cm mass at tail of pancreas as well as moderate ascites.
Of note patient has been dealing with wound of the left lower extremity and was supposed to have outpatient ultrasound/ELIDA which was delayed due to admission.
PMHx:
Chronic HFrEF
CM EF 10-15%
s/p [employer] CALL OUT OPERATOR-D
h/o VT/VF
Chronic Tikosyn therapy
Permanent Afib
s/p AV node ablation
Chronic warfarin OAC
Hypertension
h/o Amiodarone thyroiditis
Ulcerative colitis
JULIO CESAR on CPAP
Left lower extremity chronic wound
Past Medical History
Past Medical History: Other (see HPI)
Past Surgical History: Cardiac (s/p AV node ablation, s/p [employer] CALL OUT OPERATOR-D) and Other (Hernia repair x 2)
Social History
Tobacco: Non-Smoker
Alcohol: None
Drug: None
Personal:
Living: Other ([facility] w/ )
Employment: Retired
Family History
Family History: Reviewed & Not Pertinent
Allergies / Home Medications
Allergy/AdvReac Type Severity Reaction Status Date / Time
amiodarone Allergy 'thyroid Verified 10/01/24 15:45
problems'
clindamycin Allergy Heartburn Verified 10/01/24 15:45
metoprolol [From Lopressor] Allergy Hallucinati Verified 10/01/24 15:45
ons
sulfamethoxazole Allergy Chest Verified 10/01/24 15:45
[From Bactrim] tightness
trimethoprim [From Bactrim] Allergy Chest Verified 10/01/24 15:45
tightness
�Medication �Instructions �Recorded �Confirmed �Type
atorvastatin 20 mg tablet 20 mg PO QPM High Cholesterol 03/30/17 10/01/24 History
glucosamine MUx-O0-Mpqvonnut 1 tab PO DAILY Supplement 03/30/17 10/01/24 History
marylin 1,500 mg-400 unit-100 mg
tablet (Osteo Bi-Flex (5-Loxin))
mesalamine 400 mg capsule (with 800 mg PO TID@0800,1600,2300 12/22/23 10/01/24 History
delayed release tablets inside) Gastrointestinal Issue
(Delzicol)
empagliflozin 10 mg tablet 10 mg PO DAILY Heart 05/14/24 10/01/24 History
(Jardiance) Disease/Condition
vericiguat 10 mg tablet (Verquvo) 10 mg PO DAILY Heart Failure 05/14/24 10/01/24 History
dofetilide 250 mcg capsule 250 mcg PO BID@1000,2200 Arrhythmia 07/13/24 10/01/24 History
carvedilol 3.125 mg tablet 1.5625 mg (1/2 x 3.125 mg) PO BID 07/22/24 10/01/24 Rx
HTN 30 days #60 tabs
potassium chloride 20 mEq 40 meq (2 x 20 mEq) PO DAILY #60 07/22/24 10/01/24 Rx
tablet,extended tabs
release(part/cryst) (Klor-Con M)
bumetanide 1 mg tablet 1 mg PO BID 10/01/24 10/01/24 History
metolazone 2.5 mg tablet 2.5 mg PO DAILY PRN For weight 10/01/24 10/01/24 History
gain > 3 Lb
therapeutic multivitamin 1 tab PO DAILY 10/01/24 10/01/24 History
warfarin 1 mg tablet 1 mg PO QPM 10/01/24 10/01/24 History
Review of Systems
-
History Source: Patient
All other systems: Negative unless noted
Physical Exam
Vital Signs
Temp Pulse Resp BP Pulse Ox
98.1 F 75 12 84/65 100
10/02/24 03:35 10/02/24 06:15 10/02/24 06:15 10/02/24 06:00 10/02/24 06:00
GEN: No distress, awake, Ox3, sitting in chair
HEENT: supple, anicteric, mmm
LUNGS: CTA, no wheezes/rales; on high flow oxygen
CV: Reg, S1/S2, 1/6 syst murmur, no rub or gallops
ABD: soft, BS+, NT/ND
EXT: +1 lower extremity edema, no clubbing or cyanosis
NEURO: Gross non-focal
SKIN: No rash, warm, dry
Lab Results
10/02/24 03:15
10/02/24 03:15
Troponin I 0.014 ng/ml 10/01/24 13:30
Hlj-I-Mwmczekrjve Pept 60669 pg/ml 10/01/24 13:30
Impression / Plan
-
PCP: Dr. Mayers
Primary Door Fitter: Dr. Lovett
EP: Dr. Arora
Impression:
Presented 10/01/2024 with fall, weakness, hypotension
Acute hypoxic respiratory failure
Hypotension
ODALIS
Ascites
Abnormal LFTs
Pancreatic mass, new finding with ongoing weight loss
Acute HFrEF, probnp 27685
Hyponatremia
CM EF 10-15%
h/o NICM EF
Hx VT/VF
s/p [employer] CALL OUT OPERATOR-D
Chronic Tikosyn therapy
Permanent Afib
s/p AV node ablation
Chronic warfarin OAC managed by PCP
h/o Amiodarone thyroiditis
Ulcerative colitis
JULIO CESAR on CPAP
Echo 06/2016: EF 35-40%, AV sclerosis with trivial AI, mildly dilated proximal ascending thoracic aorta
Echo 12/22/2023: EF 19% by Cooper's method, 26% by volumetric assessment, global hypokinesis with anterior wall and anteroseptum moving best, reduced RV systolic function, mod MR, mild to mod TR with PAP 50 mmHg
Echo 05/14/2024: EF 10 to 15% visually, severe global hypokinesis, stage II diastolic dysfunction, moderate to severe MR, moderate TR, mild aortic regurgitation
Echo 07/16/24: LV moderately dilated with EF 10-15%, 17% by Cooper's method, global hypokinesis, mod to sev MR, mild aortic regurgitation, mod to sev TR with PAP 35 mmHg
Plan:
-Presented 10/01/2024 with fall, weakness, hypotension.
-Acute hypoxic respiratory failure still requiring high flow oxygen
-Acute heart failure with preserved ejection fraction, proBNP 20102. Although pt did get 2500 liters of IVF on admission. Consider starting gentle diuresis, although BP still low. Patient did need both IV Lasix and metolazone during prior admissions
-echo ordered
-ODALIS with creat 1.4 on admission, improved with IVF, now 1.1.
-K+ 4.3, keep 4-5 given he is on Tikosyn; Check mag level
-Pt was on low dose Coreg 1.5625 mg BID and Jardiance as outpt. No NAZIA/ARB/aldosterone antagonist due to hypotension/hyperkalemia as outpt. All BP meds on hold due to hypotension
-Patient takes Tikosyn for h/o VT. Tikosyn on hold as QTc 617 ms on admission. Would repeat ECG
-History of Permanent Afib on coumadin, managed by PCP. INR 3.24. Coumadin on hold
-ICD interrogated in ED. No report on chart. Will attempt to locate
-New pancreatic mass noted on CT 10/01 with ongoing weight loss, ascites and abnl LFTs. Concern for malignancy. GI consulted
-Ascites - IR consulted for diagnostic paracentesis once stable
-Left lower extremity wound being followed by wound care. Eventual arterial ultrasound/ELIDA when patient more stable. BC pending
HPI 10/02/2024:
Mr. Cooper is an 84-year-old male with past medical history significant for heart failure with reduced ejection fraction (EF 10 to 15%), nonischemic cardiomyopathy, VT/VF status post CALL OUT OPERATOR ICD on chronic Tikosyn, permanent atrial fibrillation on
Coumadin, obstructive sleep apnea who presented to emergency department 10/01/2024 after suffering a mechanical fall resulting in him striking his head while on Coumadin. EMS was called and patient was found to be hypotensive and hypoxic. He was
provided fluids bolus of 2500 cc. Patient admitted to feeling short of breath with some generalized weakness and chest discomfort several days prior to admission. proBNP was noted to be elevated at 18,900. Chest x-ray showed no evidence of
pulmonary edema or pleural effusion. EKG showed BiV paced rhythm. Interrogation of ICD in emergency department showed brief episode of NSVT. Head CT was negative. Patient admitted to ongoing weight loss greater than 50 pounds over the last year
prompting. He was found to have abnormal LFTs with concern for ascites and underwent CT of abdomen which demonstrated new 3 cm mass at tail of pancreas as well as moderate ascites.
Of note patient has been dealing with wound of the left lower extremity and was supposed to have outpatient ultrasound/ELIDA which was delayed due to admission.
Data Reviewed
-
EKG: Report Reviewed by me, Discussed with Physician, Discussed with Nurse and Discussed with Patient
Radiology: Report Reviewed by me, Discussed with Physician, Discussed with Nurse and Discussed with Patient
Labs: Labs Reviewed by me, Discussed with Physician, Discussed with Nurse and Discussed with Patient
Old Records: Reviewed
--- NOTE | 2024-10-02 08:31 | CON.INTV ---
Consultation
Consultation Request
Date/Time Consultation Requested: 10/01/2024 - 1836
Date/Time Consultation Performed: 10/02/2024827
Requesting Provider: ABBY Laws
Performing Provider: Chevy Jc MD
Reason for Consultation: Hypoxia
Medical History
-
Chief Complaint: 'My legs gave out on me'
History of Present Illness:
83-year-old male with a past medical history of CAD, chronic HFrEF, valvular heart disease, LBBB, persistent A-fib on Coumadin, history of syncope, history of ventricular fibrillation, hyperlipidemia, ulcerative colitis, history of severe JULIO CESAR,
hypothyroidism and history of gallstone pancreatitis who presents with lower extremity weakness with legs giving out prior to arrival. He says he was walking to his car when his legs gave out from under him and he fell to the ground with no head
trauma or loss of consciousness. EMS called he was brought here to the ER for further evaluation. Upon arrival he was complaining of chest tightness and shortness of breath. EMS applied neck collar. Patient was V-paced rhythm on the monitor and
15L/min was applied to the patient on arrival. His weakness and chest tightness has been ongoing for the last 2 days. He says he is lost about 50 pounds over the last 1 month. In the ER patient pulse was 75, breathing at 21 breaths/min, BP 74/64
and saturating 80% on nonrebreather. Saturations improved to 95% on high flow nasal cannula. Initial labs showed INR 3.03, sodium 128, chloride 92, serum bicarbonate level 20, creatinine 1.4, lactate 3.9, T. bili 4.6, proBNP 18,900, urine
osmolarity 265 and COVID-19 negative. Flu A/B swab was also negative and blood cultures were collected. CT head was obtained showing no acute intracranial abnormalities. CXR showed clear lungs. CTA chest, abdomen and pelvis showed a 3 cm
low-density mass at the pancreatic tail with moderate ascites and a 7.5 cm right inguinal hernia which contains ascites and no bowel. In the ER he was given 2 L IVF with NS 0.9%. Due to his severe hypoxia requiring high flow nasal cannula he was
admitted to the ICU for further care, and [facility] consulted for additional management/recommendations.
Patient was seen and evaluated this morning. He is sitting in chair in no acute distress and was just weaned off of high flow nasal cannula onto midflow nasal cannula at 15 L/min and is breathing comfortably; saturating 95% with heart rate 83 and
BP 82/58. He is awake, alert and answering all questions appropriately. He says he feels 'much better now.' He currently denies chest pain, EAST, abdominal pain, nausea, fevers or chills.
PMHx: CAD, chronic HFrEF, LBBB, valvular heart disease with moderate�severe MR, moderate�severe TR and mild AI, persistent A-fib on Coumadin, history of syncope, history of VF, hyperlipidemia, history of right lower extremity cellulitis, history of
diverticulitis, ulcerative colitis, history of gallstone pancreatitis, severe JULIO CESAR, hypothyroidism, detached retina
PSHx: AV node ablation, biventricular pacer
Past Medical History
Past Medical History: Other (Above as per HPI)
Past Surgical History: Other (Above as per HPI)
Social History
Tobacco: Non-smoker
Alcohol: Occasional
Drug: None
Family History
Family History: Reviewed & Not Pertinent
Allergies / Home Medications
Allergies
Allergy/AdvReac Type Severity Reaction Status Date / Time
amiodarone Allergy 'thyroid Verified 10/01/24 15:45
problems'
clindamycin Allergy Heartburn Verified 10/01/24 15:45
metoprolol [From Lopressor] Allergy Hallucinati Verified 10/01/24 15:45
ons
sulfamethoxazole Allergy Chest Verified 10/01/24 15:45
[From Bactrim] tightness
trimethoprim [From Bactrim] Allergy Chest Verified 10/01/24 15:45
tightness
Home Medications
�Medication �Instructions �Recorded �Confirmed �Last Taken �Type
atorvastatin 20 mg tablet 20 mg PO QPM High Cholesterol 06/10/01/24 09/30/24 History
glucosamine [id number]-[id number] 1 tab PO DAILY Supplement 03/30/17 10/01/24 10/01/24 History
marylin 1,500 mg-400 unit-100 mg
tablet (Osteo Bi-Flex (5-Loxin))
mesalamine 400 mg capsule (with 800 mg PO TID@0800,1600,2300 12/22/23 10/01/24 10/01/24 History
delayed release tablets inside) Gastrointestinal Issue
(Delzicol)
empagliflozin 10 mg tablet 10 mg PO DAILY Heart 05/14/24 10/01/24 10/01/24 History
(Jardiance) Disease/Condition
vericiguat 10 mg tablet (Verquvo) 10 mg PO DAILY Heart Failure 05/14/24 10/01/24 10/01/24 History
dofetilide 250 mcg capsule 250 mcg PO BID@1000,2200 Arrhythmia 07/13/24 10/01/24 10/01/24 History
carvedilol 3.125 mg tablet 1.5625 mg (1/2 x 3.125 mg) PO BID 07/22/24 10/01/24 10/01/24 Rx
HTN 30 days #60 tabs
potassium chloride 20 mEq 40 meq (2 x 20 mEq) PO DAILY #60 07/22/24 10/01/24 10/01/24 Rx
tablet,extended tabs
release(part/cryst) (Klor-Con M)
bumetanide 1 mg tablet 1 mg PO BID 10/01/24 10/01/24 10/01/24 History
metolazone 2.5 mg tablet 2.5 mg PO DAILY PRN For weight 10/01/24 10/01/24 Unknown History
gain > 3 Lb
therapeutic multivitamin 1 tab PO DAILY 10/01/24 10/01/24 10/01/24 History
warfarin 1 mg tablet 1 mg PO QPM 10/01/24 10/01/24 09/30/24 History
Review of Systems
-
History Source: Patient
All other systems: Negative unless noted
Vitals / Labs / Diagnostic Testing
Vital Signs
Temp Pulse Resp BP Pulse Ox
98.1 F 75 12 84/65 99
10/02/24 08:19 10/02/24 06:15 10/02/24 06:15 10/02/24 06:00 10/02/24 07:45
Lab Data
10/02/24 03:15
10/02/24 03:15
Laboratory Results
10/01/24 10/01/24 10/02/24
13:30 22:47 03:15
PT 31.2 H 32.9 H
INR 3.03 3.24
APTT 42.8 H
Microbiology
10/01/24 13:46 Nasal Swab Influenza Types A & B (FAROOQ) - Final
Negative for Influenza A & B, NAAT
Negative results must be combined with clinical observations
and patient history.
Nucleic Acid Amplification test (NAAT)performed on the
[employer] platform.
Diagnostic Testing:
Physical Exam
-
HEENT: Normocephalic and Anicteric
Cardiovascular: S1/S2, Rub (negative) and Peripheral Edema (+2 LE edema bilaterally)
Respiratory: Wheeze (negative), Rales (negative), Rhonchi and Non-Labored Respirations
GI: Soft, Distended, Non Tender and Normal Bowel Sounds
Neurology: Awake, Alert and Tremors (negative)
Skin: Warm and Dry
General: Respiratory Distress (negative), Comfortable, Chills (negative) and Sweats (negative)
Assessment
-
Assessment: 83-year-old male with a past medical history of CAD, chronic HFrEF, valvular heart disease, LBBB, persistent A-fib on Coumadin, history of syncope, history of ventricular fibrillation, hyperlipidemia, ulcerative colitis, history of
severe JULIO CESAR, hypothyroidism and history of gallstone pancreatitis who presents with lower extremity weakness with legs giving out prior to arrival. He says he was walking to his car when his legs gave out from under him and he fell to the ground
with no head trauma or loss of consciousness. EMS called he was brought here to the ER for further evaluation. Upon arrival he was complaining of chest tightness and shortness of breath. EMS applied neck collar. Patient was V-paced rhythm on the
monitor and 15L/min was applied to the patient on arrival. His weakness and chest tightness has been ongoing for the last 2 days. He says he is lost about 50 pounds over the last 1 month. In the ER patient pulse was 75, breathing at 21
breaths/min, BP 74/64 and saturating 80% on nonrebreather. Saturations improved to 95% on high flow nasal cannula. Initial labs showed INR 3.03, sodium 128, chloride 92, serum bicarbonate level 20, creatinine 1.4, lactate 3.9, T. bili 4.6, proBNP
18,900, urine osmolarity 265 and COVID-19 negative. Flu A/B swab was also negative and blood cultures were collected. CT head was obtained showing no acute intracranial abnormalities. CXR showed clear lungs. CTA chest, abdomen and pelvis showed
a 3 cm low-density mass at the pancreatic tail with moderate ascites and a 7.5 cm right inguinal hernia which contains ascites and no bowel. In the ER he was given 2 L IVF with NS 0.9%. Due to his severe hypoxia requiring high flow nasal cannula
he was admitted to the ICU for further care, and [facility] consulted for additional management/recommendations.
Chronic conditions [employer]: CAD, chronic HFrEF, LBBB, valvular heart disease with moderate�severe MR, moderate�severe TR and mild AI, persistent A-fib on Coumadin, history of syncope, history of VT/VF s/p GLAZING SUPERINTENDENT�D, hyperlipidemia, history of right lower
extremity cellulitis, history of diverticulitis, ulcerative colitis, history of gallstone pancreatitis, severe JULIO CESAR, hypothyroidism, detached retina, amiodarone thyroiditis, left lower extremity chronic wound, history of AV tavon ablation
Impression:
#Bilateral lower extremity weakness with ambulatory dysfunction
#Hypotension - multifactorial from hypovolemia in setting of severe NICM with valvular heart disease
#Pancreatic tail mass with recent weight loss of 50 pounds over a month concerning for malignancy
#Leukopenia
#Thrombocytopenia
#Chronic anticoagulation with Coumadin with therapeutic INR
#Metabolic acidosis with increased anion gap due to lactic acidosis
#Lactic acidosis
#Transaminitis with hyperbilirubinemia
#Elevated proBNP with concern for acute on chronic HFrEF
#Subclinical hypothyroidism with TSH 6, free T4: 0.98
#Hypochloremic, hyponatremia due to reduced PO intake of solutes
#Hx of VF s/p BiV-ICD ([employer])
#Permanent A-fib on chronic Tikosyn therapy + Coumadin with history of AV node ablation
#History of amiodarone thyroiditis
#JULIO CESAR on nocturnal CPAP
Plan:
- Patient is hypotensive however he is awake, alert and following all commands
- Currently on IVF with diuretics on hold (takes metolazone prn + Bumex at home)
- Cardiology following and recs appreciated --> apparently the patient's ICD was interrogated in the ER, will try to locate this report
- Maintain MAP>65
- Continue with GDMT as BP tolerates
- Start midodrine
- Hold tikosyn and trend QTc
- Continue to trend lactate until <2mmol/L
- Trend sHCO3 level with goal 22-26
- Continue with supplemental O2 (currently on midflow nasal cannula) to maintain SpO2 >90-94%
- prn nebulized bronchodilators - not currently bronchospastic
- Incentive spirometer encouraged 10x per hour for at least 4 hrs a day
- Continue CPAP with sleep while hospitalized
- Given the patient's recent weight loss and pancreatic tail mass, this is concerning for malignancy; GI consulted today and they had a discussion with the patient; patient declined further noninvasive or invasive testing; GI has signed off
- Given that the patient has moderate ascites in his abdomen, would recommend IR paracentesis and send fluid off for cytopathology to evaluate further for malignancy
- Hold coumadin until after paracentesis is completed --> if pt does not want paracentesis, then would consult hospice instead
- Replete electrolytes with K>4, Mg>2
- Maintain euglycemia with goal BG 140-180
- Trend H/H and transfuse if needed to keep Hb>7g/dL; keep plt>20k, unless there is concern for bleeding then keep plt>50k
- PT/OT
- DVT ppx: hold coumadin while pt is possibly awaiting paracentesis; if he does not want further workup of his ascites with pancreatic tail mass, then would resume coumadin and consult hospice
Continue ICU level of care however if patient's hypoxia and hypotension remain stable then could downgrade to IMU later this evening. Pulmonary service will continue to briefly follow along. If patient decides to pursue hospice then we will sign
off at that time.
Total time spent today was 78 minutes for this encounter. Time includes reviewing laboratory test/imaging results, reviewing pertinent medical records, obtaining and reviewing medical history, performing an appropriate exam, ordering medications,
tests and procedures. Time also includes documentation of this encounter, coordinating patient care and communicating with other healthcare professionals. Total time does not include separately billed tests performed on this date of service.
Data:
CTA chest/abdomen/pelvis with/without contrast 10/01/2024:
1). There is a 3 cm benign versus malignant low-density mass at the tail the pancreas which, if clinically indicated, could be further evaluated with MRI
2). There is moderate ascites throughout the abdomen and pelvis
3). There is 7.5 cm right inguinal hernia which contains ascites but no bowel
4). There are hepatic cysts.
5). Atherosclerosis.
6). Mild cardiomegaly
7). Transvenous pacemaker
8). Multilevel lumbar degenerative disc disease
9). 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
[2024-10-02] MEDS: ASACOL, DELZICOL DR 800 MG PO ×3 (09:02→22:06)
[2024-10-02] MEDS: THERAGRAN 1 TABLET PO (09:03)
[2024-10-02 09:21] LABS: Magnesium 2.6 mg/dl (1.6-2.3)
--- NOTE | 2024-10-02 12:41 | CM ---
Addendum entered by Augusto Devlin 10/02/24 15:33:
Pt referred to hospice.
Addendum entered by Augusto Devlin 10/02/24 13:19:
CM consult regarding well being of pt's spouse noted.
CM spoke to [facility] liaison Karen regarding pt's well being concerns and she will arrange medical social consultant and security to have a wellness check. CM left a message to pt's friend Renay who is a primary to contact.
Original Note:
CM following re: discharge planning.
Reviewed pt's chart, met with pt.
Pt is an 83 year old male, admitted with primary dx of Acute hypoxic respiratory failure 2/2 acute on chronic CHF, severe cardiomyopathy. Pt currently requires 40L HFNC with FIO2 50%, continue supportive care.
Pt reports he has been living with his in an independent apartment At [facility] for the past 2 years, has 3 supportive children. Pt described himself as independent in all areas [employer], no DME, no SNF history. pt is active with [facility].
PCP: Benjy Reagan
Pharmacy: [facility]
D/C plan: home with resumptions of [facility] and family support.
CM will follow with discharge plan updates as hospitalization progresses
[2024-10-02] MEDS: ProAmatine 10 MG PO ×2 (12:43→17:59)
--- NOTE | 2024-10-02 12:48 | PTCARENOTE ---
pt returned to bed for eventual wound care/echo. had a late breakfast, refusing lunch but did drink ensure shake. pt visiting with family
--- NOTE | 2024-10-02 13:27 | PTCARENOTE ---
pt having echo at bedside
--- NOTE | 2024-10-02 13:45 | WOUNDNOTE ---
L MEDIAL LOWER LEG
--- NOTE | 2024-10-02 13:46 | WOUNDNOTE ---
LENY RN note: Patient admitted with hypoxia and sepsis.
See H&P for complete history. Lives at [place] with .
PMH: Chronic leg/feet ulcers, A fib, CAD, pancreatic cancer, PM/ICD, HTN, skin cancer and Colitis.
Wound Location and type/assessment: Patient admitted with: L medial lower leg venous ulcer, legs with hemosiderin staining and trace edema. b/l plantar 1st met head full thickness ulcers, previously were a callus. Patient was on his way to OP
arterial study when his legs gave out and he fell- per ER report. Patient being followed weekly with Dr. Bustos at [facility] and has VN 2 x per week. Reviewed last note of Dr. Bustos on 09/24/24. Collagen(Puracol) and dry dressing remains in use
with Tubigrip for compression. Confirmed with patient dressing changes are only 3 times per week. Patient provided own collagen during dressing change. Patient able to turn to sides, heels blanchable red and buttocks stage 1 PI, sacral silicone foam
in use.
Appetite: Fair. Dietary on consult.
Pressure redistribution devices in place: On Air mattress. Pillows under calves
Plan: Will continue collagen dressing and Tubigrip. Called [facility] for supples, asked nurse Makenna to apply Tubigrip when arrives. Will confirm orders with hospitalist and updated nurse. Updated care plan and will follow as needed.
Note to case management of equipment requested for discharge: resume VN
Recommend follow up at wound care center upon discharge.
--- NOTE | 2024-10-02 14:53 | W.PN.HOSP.TC ---
Today's Communication/Plan
-
started midodrine
f/u cultures
does not want aggressive management or work up
hospice consulted
[facility] INR
Assessment / Plan
Assessment / Plan
Physical Exam
General: Appears in Distress and Obese; No Pain, Fever or Chills
HEENT: NormoCephalic, Anicteric, Moist mucous membranes, PERRLA, [place] Conjunctivae, No Ptosis and Oxygen (High flow nasal cannula oxygen)
Respiratory: No Wheezes, Rales or Rhonchi
Cardiac: S1/S2, Regular Rhythm and Peripheral Edema (Bilateral +2 lower extremities); No Murmur, Rub, Gallop or JVD
Breast: Deferred by me
GI: Soft, Non Tender, Non Distended, Normal Bowel Sounds and No Hepatosplenomegaly
Rectal: Deferred by Provider
Genito-urinary: Deferred by me
Musculoskeletal: No Clubbing, No Cyanosis, Edema, Left Lower Extremity (+2 pitting) and Edema, Right Lower Extremity (+2 pitting); No Edema, Left Upper Extremity or Edema, Right Upper Extremity
Skin: Warm, Dry and Ulcers (Left lower extremity venous stasis ulcer, bilateral plantar ulcerations at MCPs of great toes); No Rash
Neuro: AO x 3, No Motor Deficits, Nonfocal/grossly intact, Cranial Nerves Intact and No Sensory Deficits; No Slurred Speech, Facial Droop, Tremors or Sedated
Psych: Calm
#Acute hypoxic respiratory failure 2/2 acute on chronic CHF, severe cardiomyopathy
68% RA, 93% on current high flow oxygen
-Consult pulmonary transplant rn
-Consult cardiology
-No evidence of PE on imaging
-possible related to ascitic fluid/restrictive pathology
-wean o2 as tolerated
# Acute on chronic chronic CHF combined systolic/diastolic
#Chronic severe cardiomyopathy EF 10-15%
BNP 18,900 appears to be 11-16,000 from April to June of 2024
-I/O, daily weights-dry weight per July was 157 patient currently states he is 139 pounds. He has had weight loss of 10 pounds in the past 3 weeks and 50 pounds in the past year
-Hypotensive weight appears way less than recent admission we will hold on any diuretics as he has complex case
-Consult [facility] cardiology
2D echo 07/16/2024: EF 10-15%, left ventricle moderately dilated, severely reduced LVSF,
pacer wire seen in the right heart,
Moderate to severe MR
Mild AR, Mod/severe TR
estimated pulm arterial pressure 35 mmHg IVC dilated
-diuresis on hold, has lost weight
-imaging with no evidence of pulmonary edema
#Acute hypotension unclear etiology possible infection versus fluid shift given Ascites/third spacing
#Hx HTN�benign
-infectious work up although doubt
-More than likely related to poor HF and possible malignancy
-Check blood cultures x 2
-Check UA ZINC MINER BLASTING
-HOLD VerQuvo 10 mg daily, Bumex 1 mg twice daily metolazone 2.5 mg as needed, Jardiance 10 mg daily
pulmonary edema or pleural effusion
-midodrine added
#Acute transaminitis with Hyperbilirubinemia
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
-spoke to IR - not able to tap for paracentesis
weight loss of 10 pounds in the past 3 weeks and 50 pounds in the past year
AST 89, ALT 63, alk phos 147, T. bili 4.6
-Consult GI for pancreatic tail mass
-Does not want further imaging/treatment
#Mechanical fall on Coumadin
-CT head negative
-PT/OT consult
#Paroxysmal A-fib
#-Status post AV node ablation
-Patient on Coumadin daily INR 3.24-will hold this evening Coumadin 1 mg
-Med rec reports patient is on 1 mg of Coumadin daily
-Will follow INR
-Continue Tikosyn 250 mcg p.o. twice daily with hold parameters
-Hold carvedilol 1.5625 mg p.o. twice daily
#Fall with nonsustained and SVT
#Permanent pacemaker pacemaker
interrogated in ER showing episode of nonsustained NSVT, otherwise unremarkable
#Acute thrombocytopenia
PLT 118, prior platelets 176 07/22/2024 no history of thrombocytopenia
Hgb stable 15.1
-Follow CBC
#Acute hyponatremia hypervolemic in setting of ascites/ mass tail of pancreas /cardiomyopathy
NA 128
-ctm
#ODALIS unclear etiology
Creat 1.4 was 1.5 on 09/24/2024 but baseline appears to be 1.1
-Was given 2500 mL in ER will hold further fluids given ascites
-Follow BMP
-Hold Jardiance
-monitor
#Left lower extremity chronic ulceration, bilateral dorsal feet at metatarsals open ulcerations chronic
-Patient follows with Dr. Bustos
-Consult wound care
-Plan was for patient to get peripheral arterial lower extremity Dopplers with ELIDA today as outpatient cannot attempt currently inpatient due to high flow nasal cannula
#HLD
Continue atorvastatin 20 mg every afternoon
# Ulcerative colitis
Continue mesalamine 800 mg p.o. 3 times daily
#Sleep apnea
Uses full mask setting 10 no oxygen
#Obesity�multifactorial
Patient currently losing weight unintentional 10 pounds past week, 50 pounds past year concern given pancreatic tail mass
Other PMH:
multilevel DDD
degenerative osteoarthritis right hip
DVT prophylaxis
Continue FASHION EDITOR Coumadin
DNR per patient with Candis present, although appears to have memory impairment patient has his sister Ann-Marie Mckee who is also an emergency contact
Total time spent on today's encounter was 50 minutes which included time spent in counseling the patient/family regarding diagnosis and treatment plan as listed above, goals of care, and symptom management. Case was discussed with nursing staff,
specialists, and care coordinators/case management. All labs and imaging personally reviewed by me. Remainder the time spent in detailed review of previous records, lab data, imaging, and other medical provider documentation.
Anticipated Discharge: Within 24 hours
Subjective/Interval History
-
Date of Service: October 02, 2024
Still on high flow
Objective Data
-
Labs:
Laboratory Results
10/02/24
03:15
WBC 4.6 L
Hgb 13.9
Hct 39.5
Plt Count 118 L
PT 32.9 H
INR 3.24
Sodium 129 L
Potassium 4.3
Chloride 102
Carbon Dioxide 15 L
BUN 36 H
Creatinine 1.1
Glucose 80
Calcium 7.8 L
Total Bilirubin 4.0 H
AST 74 H
ALT 59 H
Alkaline Phosphatase 114
Vital Signs:
Vital Signs
Temp Pulse Resp BP Pulse Ox
97.6 F 75 13 88/66 96
10/02/24 12:48 10/02/24 14:15 10/02/24 14:15 10/02/24 14:15 10/02/24 13:54
I&O
10/01/24 10/02/24 10/03/24
06:59 06:59 06:59
Intake Total 410 / 410
Output Total 1165 / 1165 300 / 300
Balance -755 / -755 -300 / -300
Review of Systems
-
History Source: Patient
All other systems: Not reviewed unless documented
Data Reviewed
-
Total Time Spent with Patient (in minutes): 54
CT Scan: Report Reviewed by me
Labs: Labs Reviewed by me
--- NOTE | 2024-10-02 15:24 | CON.GI ---
Addendum entered and electronically signed by Luis M Mcghee DO 10/02/24 16:21:
I saw and examined the patient.
The UNIFORM ATTENDANT's note was reviewed and I agree with the note.
Comment: Mr Cooper is an 83 y.o male with past medical history as detailed below along with a history of cardiomyopathy with an EF 10-15% and found to recent imaging concerning for a new pancreatic mass and new ascites concerning for possible
malignancy. Per patient, he has undergone an extensive w/u previous several years ago at [facility] (no records of this) but patient notes this was initially found in 2008 and re-demonstrated again in 2011. He is unable to undergo further MRI/MRCPs given
that his PPM is not MRI-compatible. 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 Both myself and Nia UNIFORM ATTENDANT had a very lengthy discussion with
patient this afternoon at bedside. He very clearly expressed that he would not want any further work-up in regards to this and further expressed that he fully understands that this may represent a potential malignancy however declines any further
testing as he would not want any further treatment (ie chemo, XRT, etc) or other potential therapies. Could consider a dedicated CT scan with pancreatic protocol as he would not be able to tolerate an EUS given his clinical condition but patient
declines any further non-invasive or other invasive testing in regards to this. Further, he understands that he is not a surgical candidate either even if this were truly a malignancy given his decompensated HF and non-ischemic cardiomyopathy. Given
this, would defer any further non-invasive imaging and/or lab testing (ie tumor markers- CA 19-9, CEA, etc) at this time. Rest of care as outlined below and per primary team.
Discussed with primary internal medicine team. GI team will sign-off, please call back with any questions or concerns regarding this patient.
Original Note:
Consultation
-
Date/Time Consultation Requested: 10/01/24 9606
Date/Time Consultation Performed: 10/02/24 1500
Requesting Provider: ABBY Laws
Performing Provider: Dr. Mcghee/ABBY Felder
Reason for Consultation: pancreatic mass
Medical History
Chief Complaint / HPI
Chief Complaint: Fall
History of Present Illness:
83-year-old male with past medical history of permanent A-fib status post AV node ablation,On chronic warfarin, history of amiodarone thyroiditis, ulcerative colitis followed by Dr. Trisha silver on Delzicol, cardiomyopathy with EF 10 to 15%,
history of nonischemic cardiomyopathy status post AICD, history of V. tach/V-fib, chronic hyponatremia, obstructive sleep apnea on CPAP, history of pancreatic tail mass since 2008, lower extremity ulcerations who presents to the emergency room
yesterday after having weakness with his legs giving out on him. He had a fall striking his head but did not lose consciousness. The patient was found to be hypotensive. He also was hypoxic and was placed on high flow cannula. He was having
shortness of breath and generalized weakness with some chest tightness. Pacemaker interrogation showed episodes of nonsustained V. tach otherwise unremarkable. The patient had a CT of the head that was unremarkable. The patient had scanning as he
had a fall on Coumadin. CT of the abdomen and pelvis showed ascites as well as 3 cm mass tail of pancreas. We are asked to evaluate for the same. The patient does have a history of pancreatic tail mass that was found initially in 2008. The
patient was followed at [facility] and had endoscopic evaluation with biopsy with Dr. Bill Campa. He was told that this was benign. In 2012 he was hospitalized here where he had elevated LFTs with imaging showing again pancreatic
abnormalities. He had an MRI performed at that time that showed a 3 cm cystic tumor in the tail the pancreas. 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 Negative for metastasis. No other significant pathology in
the abdomen. Many benign liver cyst. At that time the patient was recommended to follow-up at [facility] as he did in the past. The patient's rn testing that he followed up with was Dr. Hardin's group. In 2012 the patient
states that he was unable to undergo any type of procedure that required sedation. At that point any type of procedure including endoscopic evaluations were done virtually. He stayed on Asacol and then was changed over to Delzicol as his
ulcerative colitis was quiescent. He states that his bowel movements are normal. On occasion since having to go on a fluid restriction they have been harder. Sometimes he needs to use a stool softener. He denies any history of rectal bleeding.
He states he has had a decreased appetite with weight loss over the past year. He denies any family history of gastrointestinal malignancy, IBD or pancreatic cancer. We did have a discussion that this area on the pancreas could have potential for
malignancy or could be malignant. The patient wishes not to have any workup and understands this could be malignant. We he understands that ascites could also be malignant or from cardiac. Again would like no further workup regarding any GI
process. Including imaging or laboratory. Patient is unable to have MRI secondary to pacemaker. Patient with elevated LFTs. Has had approximately 50 pound weight loss in the past year. Will respect his wishes with no further workup. Discussed
with internal medicine.
Past Medical History
Past Medical History: Other (permanent A-fib status post AV node ablation,On chronic warfarin, history of amiodarone thyroiditis, ulcerative colitis cardiomyopathy with EF 10 to 15%, history of nonischemic cardiomyopathy status post AICD, history
of V. tach/V-fib, chronic hyponatremia,)
Past Surgical History: Other (AV node ablation, hernia repair x 2, AICD/pacemaker x 2)
Social History
Tobacco: Non-Smoker
Alcohol: Occasional
Drug: None
Personal:
Living: Assisted Living
Employment: Retired
Family History
Family History: Other (No family history of gastrointestinal malignancy or IBD)
Allergies / Home Medications
Allergy/AdvReac Type Severity Reaction Status Date / Time
amiodarone Allergy 'thyroid Verified 10/01/24 15:45
problems'
clindamycin Allergy Heartburn Verified 10/01/24 15:45
metoprolol [From Lopressor] Allergy Hallucinati Verified 10/01/24 15:45
ons
sulfamethoxazole Allergy Chest Verified 10/01/24 15:45
[From Bactrim] tightness
trimethoprim [From Bactrim] Allergy Chest Verified 10/01/24 15:45
tightness
�Medication �Instructions �Recorded
atorvastatin 20 mg tablet 20 mg PO QPM High Cholesterol 03/30/17
glucosamine [id number] 1 tab PO DAILY Supplement 03/30/17
marylin 1,500 mg-400 unit-100 mg
tablet (Osteo Bi-Flex (5-Loxin))
mesalamine 400 mg capsule (with 800 mg PO TID@0800,1600,2300 12/22/23
delayed release tablets inside) Gastrointestinal Issue
(Delzicol)
empagliflozin 10 mg tablet 10 mg PO DAILY Heart 05/14/24
(Jardiance) Disease/Condition
vericiguat 10 mg tablet (Verquvo) 10 mg PO DAILY Heart Failure 05/14/24
dofetilide 250 mcg capsule 250 mcg PO BID@1000,2200 Arrhythmia 07/13/24
carvedilol 3.125 mg tablet 1.5625 mg (1/2 x 3.125 mg) PO BID 07/22/24
HTN 30 days #60 tabs
bumetanide 1 mg tablet 1 mg PO BID Fluid 10/01/24
Retention/Swelling
metolazone 2.5 mg tablet 2.5 mg PO DAILY PRN For weight 10/01/24
gain > 3 Lb
therapeutic multivitamin 1 tab PO DAILY Supplement 10/01/24
warfarin 1 mg tablet 1 mg PO QPM Blood Clot 10/01/24
Prevention/Tx
potassium chloride 20 mEq 40 meq PO DAILY Electrolyte 10/02/24
tablet,extended Repletion
release(part/cryst) (Klor-Con M)
Review of Systems
-
All other systems: A 12 pt ROS was Negative except as stated above in HPI
Vital Signs
Temp Pulse Resp BP Pulse Ox
97.6 F 75 13 88/66 96
10/02/24 12:48 10/02/24 14:15 10/02/24 14:15 10/02/24 14:15 10/02/24 13:54
Physical Exam
Exam
Respiratory: Clear (anterior) and Other (on high flow O2)
Cardiac: Regular Rhythm
GI: Soft, Non Tender, Non Distended and Normal Bowel Sounds
Musculoskeletal: Edema (trace)
Skin: Warm and Dry
Neuro: AO x 3
Psych: Calm
Results
WBC 4.6 10^3/uL (4.8-10.8) L 10/02/24 03:15
Hgb 13.9 g/dL (13.0-18.0) 10/02/24 03:15
Hct 39.5 % (39.0-52.0) 10/02/24 03:15
MCV 91.9 fL (80.0-94.0) 10/02/24 03:15
Plt Count 118 10^3/uL (130-400) L 10/02/24 03:15
Absolute Neuts (auto) 3.6 10^3/uL (1.4-6.5) 10/02/24 03:15
PT 32.9 Sec (11.4-14.6) H 10/02/24 03:15
INR 3.24 10/02/24 03:15
APTT 42.8 Sec (23.4-35.0) H 10/01/24 22:47
Sodium 129 mmol/L (135-145) L 10/02/24 03:15
Potassium 4.3 mmol/L (3.5-5.1) 10/02/24 03:15
Chloride 102 mmol/L (98-107) 10/02/24 03:15
Carbon Dioxide 15 mmol/L (22-30) L 10/02/24 03:15
BUN 36 mg/dl (9-20) H 10/02/24 03:15
Creatinine 1.1 mg/dL (0.7-1.3) 10/02/24 03:15
Calcium 7.8 mg/dl (8.4-10.2) L 10/02/24 03:15
Total Bilirubin 4.0 mg/dl (0.2-1.3) H 10/02/24 03:15
AST 74 U/L (17-59) H 10/02/24 03:15
ALT 59 U/L (0-50) H 10/02/24 03:15
Alkaline Phosphatase 114 U/L (38-126) 10/02/24 03:15
Diagnostic Image Results:
CTA Chest Abd/Pelvis:
IMPRESSION:
1). There is a 3 cm benign versus malignant low-density mass at the tail the pancreas which, if clinically indicated, could be further evaluated with MRI
2). There is moderate ascites throughout the abdomen and pelvis
3). There is 7.5 cm right inguinal hernia which contains ascites but no bowel or
4). There are hepatic cysts.
5). Atherosclerosis.
6). Mild cardiomegaly
7). Transvenous pacemaker
8). Multilevel lumbar degenerative disc disease
9). 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
CXR:
IMPRESSION:
The lungs appear clear.
Cardiac silhouette size is enlarged with no evidence for pulmonary edema or pleural effusion.
Prior GI Procedures:
EGD: 2007 Dr. Hardin
Colonoscopy: 2010 Dr. Hardin 'normal'.
2009 procedure at [facility] for pancreatic tail lesion
Assessment / Plan
-
83-year-old male with past medical history of permanent A-fib status post AV node ablation,On chronic warfarin, history of amiodarone thyroiditis, ulcerative colitis followed by Dr. Rico group on Delzicol, cardiomyopathy with EF 10 to 15%,
history of nonischemic cardiomyopathy status post AICD, history of V. tach/V-fib, chronic hyponatremia, obstructive sleep apnea on CPAP, history of pancreatic tail mass since 2008, lower extremity ulcerations who presents to the emergency room
yesterday after having weakness with his legs giving out on him. He had a fall striking his head but did not lose consciousness. The patient was found to be hypotensive. He also was hypoxic and was placed on high flow cannula. He was having
shortness of breath and generalized weakness with some chest tightness. Pacemaker interrogation showed episodes of nonsustained V. tach otherwise unremarkable. The patient had a CT of the head that was unremarkable. The patient had scanning as he
had a fall on Coumadin. CT of the abdomen and pelvis showed ascites as well as 3 cm mass tail of pancreas. We are asked to evaluate for the same. The patient does have a history of pancreatic tail mass that was found initially in 2008. This was
redemonstrated on imaging in 2011. MRI obtained. Patient was to follow-up with primary rn testing as well as [facility] for possible repeat evaluation. At that time he states he was unable to have any type of endoscopic
evaluation however it had been benign in the past. Discussed with patient that given weight loss that area seen could be pancreatic malignancy. Patient does have pacemaker/AICD that is not MRI compatible. Patient does not wish to pursue any type
of workup for this area. Including labs. There is not enough ascites to tap. Cytology cannot be obtained. The patient is appreciative however does not wish to pursue any kind of workup for possible pancreatic malignancy. He is aware that this
is a possibility. I did express this to internal medicine attending. From a GI standpoint nothing further to add.
Impression:
Pancreatic tail mass, present since 2008-> benign at that time. Possible conversion to malignancy given weight loss and elevated LFTs
--Patient cannot have MRI
--Patient aware of malignant potential
--Patient declines tumor marker labs
--Not enough ascites to tap for cytology
--Will abide by patient wishes not to pursue further workup for pancreatic mass
Ulcerative Colitis
--Continue mesalamine
Further medical issues per IM and Cardiology.
-
-
Thank you for consultation and allowing me to participate in the patient's care. Please call the audit control clerk GI physician during the after hours with any questions or concerns.
--- NOTE | 2024-10-02 16:27 | PTCARENOTE ---
Pt has been weaned to 4lnc midflow, denies sob but difficulty obtaining consisting pulse ox. No distress, able to carry conversation. Pt hypotensive t/o shift, not symptomatic. Just fatigues easily. Continues with poor appetite. Otherwise no
changes.
[2024-10-02] MEDS: LIPITOR 20 MG PO (17:59)
--- NOTE | 2024-10-02 20:48 | PTCARENOTE ---
Received pt from previous RN. Pt is AAOx3, left ear WAMPANOAG. AV paced w/ BBB and PVCs on the monitor. Pt on 4L midflow O2 sat 93%, lungs diminished. Pt with poor appetite. Tubi tube teller in place, will remove HS. Mouth care provided. Pt is laying in bed with
call arizmendi in reach.
--- NOTE | 2024-10-02 23:28 | PTCARENOTE ---
Pt assisted to the BSCx1 for a bowel movement. CHG bath provided. O2 weaned to 2L midflow O2 sat 96%. Systems reviewed, no new changes in assessment.
[2024-10-03] VITALS (20 sets, daily range): BP systolic 77–96; BP diastolic 56–81; PULSE 76; BMI 19.4
[2024-10-03 03:36] LABS: Venous Blood Gas B.E. -9.5 mmol/L (-4 to +4); Venous Blood Gas HCO3 14.6 mmol/L (22-27); Venous Blood Gas pCO2 27 mmHg (35-48); Venous Blood Gas pH 7.34 (7.32-7.43); Venous Blood Gas pO2 77 mmHg (30-50)
[2024-10-03 03:38] LABS: % Eosinophils 0.2 % (0-6); % Immature Granulocytes 0.4 % (0-0.5); % Lymphocytes 12.6 % (20.5-51.1); % Monocytes 7.5 % (1.7-9.3); % Neutrophils 79.3 % (42.2-75.2); Absolute Lymphocytes 0.6 10^3/uL (1.2-3.4); Absolute Monocytes 0.4 10^3/uL (0.1-0.6); Hematocrit 42.3 % (39.0-52.0); Hemoglobin 14.8 g/dL (13.0-18.0); Mean Corpuscular Volume 91.4 fL (80.0-94.0); Mean Platelet Volume 12.9 fL (7.4-10.4); Nucleated Red Blood Cells % 0 % (-); Platelet Count 129 10^3/uL (130-400); Red Blood Cell Count 4.63 10^6/uL (4.70-6.10); Red Cell Dist. Width 18.9 % (11.5-14.5); Venous Blood Gas O2 Therapy 4L/min; White Blood Cell Count 5.1 10^3/uL (4.8-10.8)
[2024-10-03 03:48] LABS: INR 3.59; PT 35.5 Sec (11.4-14.6)
[2024-10-03 03:49] LABS: APTT 42.6 Sec (23.4-35.0)
--- NOTE | 2024-10-03 03:54 | PTCARENOTE ---
Systems reviewed, no new changes in assessment. Safe environment maintained.
[2024-10-03 05:57] LABS: ALT (SGPT) 87 U/L (0-50); AST (SGOT) 121 U/L (17-59); Albumin 3.2 g/dl (3.5-5.0); Alkaline Phosphatase 142 U/L (38-126); Blood Urea Nitrogen 40 mg/dl (9-20); Calcium 8.2 mg/dl (8.4-10.2); Carbon Dioxide 15 mmol/L (22-30); Chloride 100 mmol/L (98-107); Estimated Creatinine Clearance 44 ml/min; Glucose 112 mg/dl (70-99); Magnesium 2.8 mg/dl (1.6-2.3); Phosphorus 3.4 mg/dl (2.5-4.5); Potassium 4.8 mmol/L (3.5-5.1); Sodium 126 mmol/L (135-145); Total Bilirubin 3.9 mg/dl (0.2-1.3); Total Protein 6.1 g/dl (6.3-8.2); eGFR > 60.00
[2024-10-03] MEDS: ASACOL, DELZICOL DR 800 MG PO ×3 (08:03→22:34)
[2024-10-03] MEDS: ProAmatine 10 MG PO ×3 (08:04→17:18)
[2024-10-03] MEDS: THERAGRAN 1 TABLET PO (08:04)
--- NOTE | 2024-10-03 08:30 | W.PN.PUL3 ---
Today's Communication / Plan
-
Check AM cortisol
Continue with midodrine and hopefully can be weaned off prior to discharge
If resting SaO2 continues to be <96% on room air then check ambulatory pulse oximetry prior to discharge
PT/OT � recommending skilled rehab upon discharge
IR consulted for diagnostic paracentesis -unclear if enough fluid available for safe tap, hence abdominal ultrasound will be performed to assess further
Follow-up CT A/P with pancreatic protocol
Follow-up tumor markers
Maintain MAP >65
No additional Pulmonary recommendations at this time - Pulmonary service will now sign off. Please reconsult if there are any additional questions/concerns, or if patient's respiratory status deteriorates.
Assessment
-
Assessment: 83-year-old male with a past medical history of CAD, chronic HFrEF, valvular heart disease, LBBB, persistent A-fib on Coumadin, history of syncope, history of ventricular fibrillation, hyperlipidemia, ulcerative colitis, history of
severe JULIO CESAR, hypothyroidism and history of gallstone pancreatitis who presents with lower extremity weakness with legs giving out prior to arrival. He says he was walking to his car when his legs gave out from under him and he fell to the ground
with no head trauma or loss of consciousness. EMS called he was brought here to the ER for further evaluation. Upon arrival he was complaining of chest tightness and shortness of breath. EMS applied neck collar. Patient was V-paced rhythm on the
monitor and 15L/min was applied to the patient on arrival. His weakness and chest tightness has been ongoing for the last 2 days. He says he is lost about 50 pounds over the last 1 month. In the ER patient pulse was 75, breathing at 21
breaths/min, BP 74/64 and saturating 80% on nonrebreather. Saturations improved to 95% on high flow nasal cannula. Initial labs showed INR 3.03, sodium 128, chloride 92, serum bicarbonate level 20, creatinine 1.4, lactate 3.9, T. bili 4.6, proBNP
18,900, urine osmolarity 265 and COVID-19 negative. Flu A/B swab was also negative and blood cultures were collected. CT head was obtained showing no acute intracranial abnormalities. CXR showed clear lungs. CTA chest, abdomen and pelvis showed
a 3 cm low-density mass at the pancreatic tail with moderate ascites and a 7.5 cm right inguinal hernia which contains ascites and no bowel. In the ER he was given 2 L IVF with NS 0.9%. Due to his severe hypoxia requiring high flow nasal cannula
he was admitted to the ICU for further care, and Sports Trainer services consulted for additional management/recommendations.
Chronic conditions SMOKING PIPES CLEANER: CAD, chronic HFrEF, LBBB, valvular heart disease with moderate�severe MR, moderate�severe TR and mild AI, persistent A-fib on Coumadin, history of syncope, history of VT/VF s/p MANAGER CREDIT�D, hyperlipidemia, history of right lower
extremity cellulitis, history of diverticulitis, ulcerative colitis, history of gallstone pancreatitis, severe JULIO CESAR, hypothyroidism, detached retina, amiodarone thyroiditis, left lower extremity chronic wound, history of AV tavon ablation
Impression:
#Bilateral lower extremity weakness with ambulatory dysfunction
#Hypotension - multifactorial from hypovolemia in setting of severe NICM with valvular heart disease
#Pancreatic tail mass with recent weight loss of 50 pounds over a month concerning for malignancy
#Leukopenia - resolved
#Thrombocytopenia
#Chronic anticoagulation with Coumadin with therapeutic INR
#Metabolic acidosis with increased anion gap due to lactic acidosis - AG now closed
#Lactic acidosis
#Transaminitis with hyperbilirubinemia
#Elevated proBNP with concern for acute on chronic HFrEF
#Subclinical hypothyroidism with TSH 6, free T4: 0.98
#Hypochloremic, hyponatremia due to reduced PO intake of solutes
#Hx of VF s/p BiV-ICD ([employer])
#Permanent A-fib on chronic Tikosyn therapy + Coumadin with history of AV node ablation
#History of amiodarone thyroiditis
#JULIO CESAR on nocturnal CPAP
Plan:
- Patient is hypotensive however he is awake, alert and following all commands
- s/p IVF; ok to resume home diuretics today (takes metolazone prn + Bumex at home)
- Cardiology following and recs appreciated --> apparently the patient's ICD was interrogated in the ER, will try to locate this report
- Maintain MAP>65
- Defer GDMT to cardiology - may be limited by his low BP
- Continue midodrine, and hopefully this can be titrated down and weaned off
- Hold tikosyn and trend QTc
- Check AM random cortisol and if <10 then would start stress dose steroids; if 10-19 then would do co-syntropin stimulation test
- Follow up CA 19-9, CEA and AFP
- Follow-up CT abdomen/pelvis with IV contrast (pancreatic protocol)
- No longer need to continue trending lactate given it has normalized on 10/01/2024
- Trend sHCO3 level with goal 22-26
- ABG checked this morning shows pH 7.34 with pCO2 27 consistent with a metabolic acidosis with respiratory alkalosis; no longer need to continue trending blood gas at this time
- No current indication for bicarb supplementation; if serum HCO3 level continues to decrease then would re-check blood gas at that time, and if sHCO3 is <14 with pH<7.25 then would start bicarb then
- Repeat TFTs in 4-6 weeks to assure TSH normalizes
- Maintain SpO2 >90-94% --> if resting SaO2 continues to be <96% on room air then check ambulatory pulse oximetry prior to discharge
- prn nebulized bronchodilators - not currently bronchospastic
- Incentive spirometer encouraged 10x per hour for at least 4 hrs a day
- Continue CPAP with sleep while hospitalized
- Follow-up blood cultures x 2 collected on 10/01/2024 (NGTD)
- Given the patient's recent weight loss and pancreatic tail mass, this is concerning for malignancy; GI consulted yesterday and they had a discussion with the patient; patient declined further noninvasive or invasive testing; GI has signed off
- Given that the patient has moderate ascites in his abdomen, would recommend IR paracentesis and send fluid off for cytopathology to evaluate further for malignancy
- Hold coumadin until after paracentesis is completed -->I discussed obtaining a paracentesis with IR, and there may not be enough fluid to safely perform a paracentesis; abdominal ultrasound will be checked to further assess for this and if there
is a safe pocket to tap then would recommend at least a diagnostic paracentesis
- Replete electrolytes with K>4, Mg>2
- Maintain euglycemia with goal BG 140-180
- Trend H/H and transfuse if needed to keep Hb>7g/dL; keep plt>20k, unless there is concern for bleeding then keep plt>50k
- PT/OT - rec'd skilled rehab
- DVT ppx: SCDs for now, juan ramon given his INR is 3.59; continue to hold coumadin while pt is awaiting paracentesis; if he does not want further workup of his ascites with pancreatic tail mass, then would resume coumadin; continue to trend INR
- Guarded prognosis - hospice consulted -he is not currently agreeable to comfort care or hospice and instead would like to get additional information, as he apparently has had known about this pancreatic tail lesion for some time. He mainly wants
to know if he has cancer or not before he makes any additional decisions regarding his goals of care. This further shows the importance of obtaining a paracentesis as it is a noninvasive way to hopefully diagnose him with malignancy, given that he
has refused an EUS.
No additional pulmonary recommendations at this time. Pulmonary service will now sign off. Thank you for allowing us to be involved in the care of this patient. Please reconsult if there are any additional questions/concerns, or if patient's
respiratory status deteriorates.
Total time spent today was 36 minutes for this encounter. Time includes reviewing laboratory test/imaging results, reviewing pertinent medical records, obtaining and reviewing medical history, performing an appropriate exam, ordering medications,
tests and procedures. Time also includes documentation of this encounter, coordinating patient care and communicating with other healthcare professionals. Total time does not include separately billed tests performed on this date of service.
Subjective Data
-
Date of Service:
Date of Service: October 03, 2024
Chief Complaint: Pulmonary Follow Up
Subjective:
Patient was seen and evaluated today at bedside. Endorses mild abdominal distention and had bodyaches with nausea overnight. Wore CPAP overnight at 10 cmH2O bled with 2 L/min. Denies vomiting, cough or shortness of breath. Currently on room air
saturating 91%, heart rate 76 and BP 87/70. He is up out of bed sitting in a chair in no acute distress.
Review of Systems
General: Other (Negative unless mentioned above)
Objective Data
Data Reviewed
Vital Signs / I&O / Oxygen:
Vital Signs
Temp Pulse Resp BP Pulse Ox
97.7 F 75 18 86/81 92
10/03/24 08:12 10/03/24 08:12 10/03/24 08:12 10/03/24 08:12 10/03/24 08:28
Intake and Output
10/02/24 10/03/24 10/04/24
06:59 06:59 06:59
Intake Total 410 / 410 450 / 450 120 / 120
Output Total 1165 / 1165 600 / 600
Balance -755 / -755 -150 / -150 120 / 120
SaO2 92
Nasal Cannula flow liters per 2
minute
Physical Exam
General: Respiratory Distress (negative), Comfortable, Chills (negative) and Sweats (negative)
HEENT: Normocephalic, Anicteric and Moist Mucous Membranes
Cardiovascular: Rub (negative), Peripheral Edema (+2 LE pitting edema bilaterally) and Other (normal rate)
Respiratory: Wheeze (negative), Crackles (negative), Rhonchi (negative), Accessory Resp Muscle Use (negative) and Stridor (negative)
GI: Soft, Distended (mild), Non Tender and Normal Bowel Sounds
Neurology: AO x 3 and Tremors (negative)
Skin: Warm, Dry, Cyanosis (negative) and Jaundice (negative)
Labs/Micro/Reports
Lab Data
10/03/24 03:24
10/03/24 04:49
Laboratory Results
10/03/24
03:24
PT 35.5 H
INR 3.59
APTT 42.6 H
Microbiology
10/01/24 22:47 Nose MRSA Screen - Final
No Methicillin Resistant Staphylococcus aureus isolated.
10/01/24 13:58 Blood/Venous Blood Culture - Preliminary
No Growth in 24 hours- Final report to follow
10/01/24 13:53 Blood/Venous Blood Culture - Preliminary
No Growth in 24 hours- Final report to follow
10/01/24 13:46 Nasal Swab Influenza Types A & B (FAROOQ) - Final
Negative for Influenza A & B, NAAT
Negative results must be combined with clinical observations
and patient history.
Nucleic Acid Amplification test (NAAT)performed on the
[employer] platform.
--- NOTE | 2024-10-03 08:33 | PTCARENOTE ---
Updated assessment, vital signs ongoing and as documented. Follow up patient care needs, support needs and teaching. Supportive cares ongoing. Patient return to Cpap wants to sleep awhile longer this am. Will follow up diet, breakfast and
supplementation. Await hospitalist to update level of cares and goals.
[2024-10-03] MEDS: TYLENOL 650 MG PO (10:06)
--- NOTE | 2024-10-03 11:44 | HOSPNOTE ---
Addendum entered by Suzan Santiago RN 10/03/24 15:20:
I was asked to see patient again he had some more questions about hospice. The patient is still undecided about hospice and needs to make sure his spouse is cared for. The patient would like to determine if home vs SNF (financially) what is the best
option. 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 Will continue to follow.
Original Note:
Spoke with patient and at this time is undecided about hospice care. I feel the patient if he chooses hospice may need to go to a SNF spouse has dementia. Patient resides at [facility], however if the patient wants to go home with hospice they will
need some type of caregivers in place. The patient would like to speak with attending and oncology before making a final decision. He would like to know if any treatment is an option. I will continue to follow and support.
--- NOTE | 2024-10-03 11:53 | PTCARENOTE ---
PT/OT working with patient this morning. Hospice follow up as per patient request follow up at bedside. Hospitalist team at bedside. Sitting with patient helping patient make decisions related to cares and plan of cares. Continue with nursing,
dietary reinforcement and need. Continue supportive cares and emotional support ongoing.
--- NOTE | 2024-10-03 13:09 | CM ---
CM following re: discharge planning.
Reviewed pt's chart, met with pt.
Per patient relations liaison, pt declined hospice care and preferred treatment instead.
PT and OT evaluations noted - SNF level of care recommended. Pt is aware, expressed his agreement and pt preferred [facility]. A referral to [facility] made.
D/C plan: [facility] when medically stable.
CM will follow with discharge plan updates as hospitalization progresses
--- NOTE | 2024-10-03 16:34 | W.PN.HOSP.TC ---
Addendum entered and electronically signed by Kee Flores MD 10/03/24 16:41:
Tikosyn on hold due to elevated QTc, repeat EKG tomorrow morning
Original Note:
Today's Communication/Plan
-
Resume diuretics, metolazone�in setting of worsening hyponatremia
Continue midodrine
CT abdomen/pelvis with pancreatic protocol
CEA, AFP, CA 19�19 follow-up
Reengage GI after CT abdomen pelvis results
Assessment / Plan
Assessment / Plan
Physical Exam
General: Appears in Distress and Obese; No Pain, Fever or Chills
HEENT: NormoCephalic, Anicteric, Moist mucous membranes, PERRLA, [place] Conjunctivae, No Ptosis and Oxygen (High flow nasal cannula oxygen)
Respiratory: No Wheezes, Rales or Rhonchi
Cardiac: S1/S2, Regular Rhythm and Peripheral Edema (Bilateral +2 lower extremities); No Murmur, Rub, Gallop or JVD
Breast: Deferred by me
GI: Soft, Non Tender, Non Distended, Normal Bowel Sounds and No Hepatosplenomegaly
Rectal: Deferred by Provider
Genito-urinary: Deferred by me
Musculoskeletal: No Clubbing, No Cyanosis, Edema, Left Lower Extremity (+2 pitting) and Edema, Right Lower Extremity (+2 pitting); No Edema, Left Upper Extremity or Edema, Right Upper Extremity
Skin: Warm, Dry and Ulcers (Left lower extremity venous stasis ulcer, bilateral plantar ulcerations at MCPs of great toes); No Rash
Neuro: AO x 3, No Motor Deficits, Nonfocal/grossly intact, Cranial Nerves Intact and No Sensory Deficits; No Slurred Speech, Facial Droop, Tremors or Sedated
Psych: Calm
#Acute hypoxic respiratory failure 2/2 acute on chronic CHF, severe cardiomyopathy
68% RA, 93% on current high flow oxygen
� Resolved on its own
� Now 89 to 92% on room air
-Consult pulmonary manufacturing engineer chief
-Consult cardiology
-No evidence of PE on imaging
-possible related to ascitic fluid/restrictive pathology
-wean o2 as tolerated
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
#Chronic severe cardiomyopathy EF 10-15%
BNP 18,900 appears to be 11-16,000 from April to June of 2024
-I/O, daily weights-dry weight per July was 157 patient currently states he is 139 pounds. He has had weight loss of 10 pounds in the past 3 weeks and 50 pounds in the past year
-Hypotensive weight appears way less than recent admission we will hold on any diuretics as he has complex case
-Consult [facility] cardiology
-EF10-15%, left ventricle moderately dilated, severely reduced LVSF,
-Resume diuretics, sodium downtrending�monitor blood pressures
-imaging with no evidence of pulmonary edema
#Acute hypotension unclear etiology possible infection versus fluid shift given Ascites/third spacing
#Hx HTN�benign
-infectious work up although doubt
-More than likely related to poor HF and possible malignancy
-Check blood cultures x 2
-Check UA LINUX UNIX ENGINEER
-HOLD VerQuvo 10 mg daily, Jardiance 10 mg daily
-Bumex 1 mg twice daily metolazone 2.5 mg as needed,
-midodrine added
#Acute transaminitis with Hyperbilirubinemia
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
-spoke to IR - not able to tap for paracentesis
weight loss of 10 pounds in the past 3 weeks and 50 pounds in the past year
AST 89, ALT 63, alk phos 147, T. bili 4.6
-Consult GI for pancreatic tail mass
-After discussion, will obtain CT abdomen pelvis with pancreatic protocol
� Follow-up CEA, AFP, CA 19�1
#Mechanical fall on Coumadin
-CT head negative
-PT/OT consult
#Paroxysmal A-fib
#Supratherapeutic INR
#-Status post AV node ablation
-Patient on Coumadin daily -will hold this evening Coumadin 1 mg
-Med rec reports patient is on 1 mg of Coumadin daily
-Will follow INR
-Continue Tikosyn 250 mcg p.o. twice daily with hold parameters
-Hold carvedilol 1.5625 mg p.o. twice daily
#Fall with nonsustained and SVT
#Permanent pacemaker pacemaker
interrogated in ER showing episode of nonsustained NSVT, otherwise unremarkable
#Acute thrombocytopenia
PLT 118, prior platelets 176 07/22/2024 no history of thrombocytopenia
Hgb stable 15.1
-Follow CBC
#Acute hyponatremia hypervolemic in setting of ascites/ mass tail of pancreas /cardiomyopathy
-Resume diuretics and monitor
#Left lower extremity chronic ulceration, bilateral dorsal feet at metatarsals open ulcerations chronic
-Patient follows with Dr. Bustos
-Consult wound care
-Plan was for patient to get peripheral arterial lower extremity Dopplers with ELIDA today as outpatient cannot attempt currently inpatient due to high flow nasal cannula
#HLD
Continue atorvastatin 20 mg every afternoon
# Ulcerative colitis
Continue mesalamine 800 mg p.o. 3 times daily
#Sleep apnea
Uses full mask setting 10 no oxygen
#Obesity�multifactorial
Patient currently losing weight unintentional 10 pounds past week, 50 pounds past year concern given pancreatic tail mass
Other PMH:
multilevel DDD
degenerative osteoarthritis right hip
DVT prophylaxis
Continue EXPANSION ENVELOPE MAKER HAND Coumadin
DNR per patient with Candis present, although appears to have memory impairment patient has his sister Ann-Marie Mckee who is also an emergency contact
Total time spent on today's encounter was 57 minutes which included time spent in counseling the patient/family regarding diagnosis and treatment plan as listed above, goals of care, and symptom management. Case was discussed with nursing staff,
specialists, and care coordinators/case management. All labs and imaging personally reviewed by me. Remainder the time spent in detailed review of previous records, lab data, imaging, and other medical provider documentation.
Anticipated Discharge: > 48 hours
Subjective/Interval History
-
Date of Service: October 03, 2024
After discussion, patient not opposed to diagnostic modalities to assess underlying issues and possible treatment options
Objective Data
-
Labs:
Laboratory Results
10/03/24 10/03/24
03:24 04:49
Sodium Cancelled 126 L
Potassium Cancelled 4.8
Chloride Cancelled 100
Carbon Dioxide Cancelled 15 L
BUN Cancelled 40 H
Creatinine Cancelled 1.2
Glucose Cancelled 112 H
Calcium Cancelled 8.2 L
Total Bilirubin Cancelled 3.9 H
AST Cancelled 121 H
ALT Cancelled 87 H
Alkaline Phosphatase Cancelled 142 H
Vital Signs:
Vital Signs
Temp Pulse Resp BP Pulse Ox
97.4 F 75 17 87/70 90
10/03/24 11:23 10/03/24 15:12 10/03/24 11:17 10/03/24 15:12 10/03/24 11:52
I&O
10/02/24 10/03/24 10/04/24
06:59 06:59 06:59
Intake Total 410 / 410 450 / 450 120 / 120
Output Total 1165 / 1165 600 / 600
Balance -755 / -755 -150 / -150 120 / 120
Review of Systems
-
History Source: Patient
All other systems: Not reviewed unless documented
Physical Exam
-
General: Comfortable, Conversant and Cachectic
HEENT: Normocephalic and Atraumatic
Respiratory: Clear to Auscultation
Cardiac: Regular Rhythm and S1/S2
GI: Soft, Nontender, Nondistended and Normal Bowel Sounds
Genito-urinary: No Costovertebral Tender
Musculoskeletal: Other (bilateral stasis dermatitis with well healing venous ulcers)
Skin: Warm and Other
Neuro: Awake, Alert, Oriented and No Motor Deficits
Hematologic / Lymphatic: No Lymphadenopathy
Psych: Calm
Data Reviewed
-
Total Time Spent with Patient (in minutes): 54
CT Scan: Report Reviewed by me
Labs: Labs Reviewed by me
[2024-10-03] MEDS: LIPITOR 20 MG PO (17:19)
--- NOTE | 2024-10-03 17:50 | PTCARENOTE ---
Patient continues in and out of bed to chair. Some ambulation in room, to bathroom with staff, to window with staff and return to bed just recently. Worked well with pt and ot today. Poor overall dietary intake, much encouragement, protein shake
provided and continue to reinforce quality input. Will follow up void post bumex. Reviewed vs trends with hospitalist, discuss medications and concerns, follow up output post bumex/vital sign trends post. Continue close monitoring. Await scan time.
Following telemetry. Sat with patient discussing dnr, concerns with suffering and breathing concerns, overall expresses grave concerns for . Supportive cares, emotional support and ongoing listening in process. Critical care nursing at bedside
with patient for pm cares.
[2024-10-03] MEDS: BUMEX 1 MG PO (18:00)
[2024-10-03 18:09] LABS: CEA 4.45 ng/ml
--- NOTE | 2024-10-03 19:26 | PTCARENOTE ---
Pt received from ICU to [facility]-. Pt oriented to room and call arizmendi.
[2024-10-04] VITALS (21 sets, daily range): BP systolic 77–94; BP diastolic 55–71; PULSE 75; BMI 19.4
[2024-10-04 07:42] LABS: INR 3.49; PT 35.3 Sec (11.4-14.6)
[2024-10-04 07:58] LABS: ALT (SGPT) 102 U/L (0-50); AST (SGOT) 129 U/L (17-59); Albumin 3.6 g/dl (3.5-5.0); Alkaline Phosphatase 173 U/L (38-126); Blood Urea Nitrogen 47 mg/dl (9-20); Calcium 8.7 mg/dl (8.4-10.2); Carbon Dioxide 15 mmol/L (22-30); Chloride 96 mmol/L (98-107); Estimated Creatinine Clearance 35 ml/min; Glucose 111 mg/dl (70-99); Magnesium 2.9 mg/dl (1.6-2.3); Phosphorus 3.8 mg/dl (2.5-4.5); Potassium 4.8 mmol/L (3.5-5.1); Sodium 126 mmol/L (135-145); Total Bilirubin 3.8 mg/dl (0.2-1.3); Total Protein 6.5 g/dl (6.3-8.2); eGFR 45.91
[2024-10-04 08:00] LABS: NT-proBNP > 27000 pg/ml
[2024-10-04 08:07] LABS: % Immature Granulocytes 0.4 % (0-0.5); % Lymphocytes 15.8 % (20.5-51.1); % Monocytes 7.6 % (1.7-9.3); % Neutrophils 76.2 % (42.2-75.2); Absolute Lymphocytes 0.7 10^3/uL (1.2-3.4); Absolute Monocytes 0.3 10^3/uL (0.1-0.6); Absolute Neutrophils 3.4 10^3/uL (1.4-6.5); Hematocrit 43.1 % (39.0-52.0); Hemoglobin 15.3 g/dL (13.0-18.0); Mean Corp Hgb Conc. 35.5 g/dL (33.0-37.0); Mean Corpuscular Volume 90.2 fL (80.0-94.0); Mean Platelet Volume 12.3 fL (7.4-10.4); Nucleated Red Blood Cells % 0 % (-); Platelet Count 115 10^3/uL (130-400); Red Blood Cell Count 4.78 10^6/uL (4.70-6.10); Red Cell Dist. Width 19.2 % (11.5-14.5); White Blood Cell Count 4.5 10^3/uL (4.8-10.8)
[2024-10-04] MEDS: OMNIPAQUE 50 ML PO (08:13)
[2024-10-04] MEDS: ProAmatine 10 MG PO ×3 (08:22→17:15)
[2024-10-04] MEDS: BUMEX 1 MG PO ×2 (08:22→15:38)
[2024-10-04] MEDS: THERAGRAN 1 TABLET PO (08:23)
[2024-10-04] MEDS: ASACOL, DELZICOL DR 800 MG PO ×3 (08:23→22:10)
[2024-10-04 08:24] LABS: Cortisol, Random 47.2 ug/dl
--- NOTE | 2024-10-04 11:40 | PN.CDI ---
CDI
- -
CDI:
Physician Documentation Request
Admit Date: 10/01/24 18:52
Dear Doctor Sandra,
Hospitalist progress notes contains a diagnosis of obesity.
RD notes and assessment from 10/02 state 'Moderate protein calorie malnutrition. Chronic illness. Assessment subcutaneous loss over triceps- mild, Orbital mild. Assessment of muscle loss over shoulders Mild, clavicles mild. Per previous visit pts
wt was 171 lbs 9 oz on 07/15/24 reflects 15% wt loss in 3 months (severe). As per ASPEN/AND pt meets criteria for moderate protein calorie malnutrition with 15% wt loss in 3 months. NFPE finding, and intakes of < 50% for greater than or equal to 5
days'
Based on the above information and your assessment, which of the following most accurately represents the patient's nutritional status?
Moderate Malnutrition
Other (please specify)
[place] Criteria ([facility] Hospitalist 2017)
2 or more criteria must be present for either
non severe or severe malnutrition
Note that the criteria differs related to the
presence of an acute or chronic illness
Acute Illness Chronic Illness
Energy Intake Non Severe: <75% for >7 days Non Severe: <75% for >1 month
Severe: <50% for >5 days Severe: <75% for >1 month
Weight Loss Non Severe: 1-2% over 1 week Non Severe: 5% over 1 month
5% over 1 month 7.5% over 3 months
7.5% over 3 months 10% over 6 months
1 year N/A 20% over 1 year
Severe: >2% over 1 week Severe: >5% over 1 month
>5% over 1 month >7.5% over 3 months
>7.5% over 3 months >10% over 6 months
1 year N/A >20% over 1 year
Body Fat Non Severe: Mild Decrease Non Severe: Mild Loss
Severe: Moderate Decrease Severe: Severe Loss
Muscle Mass Non Severe: Mild Decrease Non Severe: Mild Loss
Severe: Moderate Decrease Severe: Severe Loss
Fluid Accumulation Non Severe: Mild Accumulation Non Severe: Mild Accumulation
Severe: Moderate to severe Severe: Moderate to severe
accumulation accumulation
Reduced Associate Automation Engineer Strength Non Severe: N/A Non Severe: N/A
Severe: Measurably reduced Severe: Measurably reduced
Use of terms such as suspected, likely, concern for, or probable (associated with a specific diagnosis that is being evaluated, monitored, or treated as if it exists) are acceptable and can be coded in the inpatient setting, when documented at the
time of discharge.
Thank you,
Kelsie Ulloa RN, BSN
CDI Specialist
tiger text
Please use your independent medical judgment in providing your response.
--- NOTE | 2024-10-04 13:54 | W.PN.HOSP.TC ---
Today's Communication/Plan
-
resume lasix, monitor scr
pt/ot
pall care
paracentesis for SAAG, cyto
Assessment / Plan
Assessment / Plan
Physical Exam
General: Appears in Distress and Obese; No Pain, Fever or Chills
HEENT: NormoCephalic, Anicteric, Moist mucous membranes, PERRLA, [place] Conjunctivae, No Ptosis and Oxygen (High flow nasal cannula oxygen)
Respiratory: No Wheezes, Rales or Rhonchi
Cardiac: S1/S2, Regular Rhythm and Peripheral Edema (Bilateral +2 lower extremities); No Murmur, Rub, Gallop or JVD
Breast: Deferred by me
GI: Soft, Non Tender, Non Distended, Normal Bowel Sounds and No Hepatosplenomegaly
Rectal: Deferred by Provider
Genito-urinary: Deferred by me
Musculoskeletal: No Clubbing, No Cyanosis, Edema, Left Lower Extremity (+2 pitting) and Edema, Right Lower Extremity (+2 pitting); No Edema, Left Upper Extremity or Edema, Right Upper Extremity
Skin: Warm, Dry and Ulcers (Left lower extremity venous stasis ulcer, bilateral plantar ulcerations at MCPs of great toes); No Rash
Neuro: AO x 3, No Motor Deficits, Nonfocal/grossly intact, Cranial Nerves Intact and No Sensory Deficits; No Slurred Speech, Facial Droop, Tremors or Sedated
Psych: Calm
#Acute hypoxic respiratory failure 2/2 acute on chronic CHF, severe cardiomyopathy
68% RA, 93% on current high flow oxygen
� Resolved on its own
� Now 89 to 92% on room air
-No additional recommendations at this time from pulmonary
-Consult cardiology
-No evidence of PE on imaging
-possible related to ascitic fluid/restrictive pathology
-wean o2 as tolerated
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
#Chronic severe cardiomyopathy EF 10-15%
BNP 18,900 appears to be 11-16,000 from April to June of 2024
-I/O, daily weights-dry weight per July was 157 patient currently states he is 139 pounds. He has had weight loss of 10 pounds in the past 3 weeks and 50 pounds in the past year
-Hypotensive weight appears way less than recent admission we will hold on any diuretics as he has complex case
-Consult [facility] cardiology
-EF10-15%, left ventricle moderately dilated, severely reduced LVSF,
-Resume diuretics, sodium downtrending�monitor blood pressures
-imaging with no evidence of pulmonary edema
#Acute hypotension unclear etiology possible infection versus fluid shift given Ascites/third spacing
#Hx HTN�benign
-infectious work up although doubt
-More than likely related to poor HF and possible malignancy
-Check blood cultures x 2
-Check UA PINION POLISHER
-HOLD VerQuvo 10 mg daily, Jardiance 10 mg daily
-Started back Bumex 1 mg twice daily metolazone 2.5 mg as needed,
-midodrine added
#Acute transaminitis with Hyperbilirubinemia
#Ascites
#Low-density mass tail of the pancreas
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
-Reengage IR for possible paracentesis
� CT pancreatic protocol featuring characteristics of benign mass
�Weight loss of 10 pounds in the past 3 weeks and 50 pounds in the past year
�GI on board
� Follow-up CEA: 4.45
-F/u AFP, CA 19�19
-Para today
#Mechanical fall on Coumadin
-CT head negative
-PT/OT consult
#Paroxysmal A-fib
#Supratherapeutic INR
#-Status post AV node ablation
-most likely synthetic dysfunction causing elevated INR in setting of more than likely cirrhosis
-Patient on Coumadin daily -will hold this evening Coumadin 1 mg
-Med rec reports patient is on 1 mg of Coumadin daily
-Will follow INR
-Continue Tikosyn 250 mcg p.o. twice daily with hold parameters
-Hold carvedilol 1.5625 mg p.o. twice daily
#Fall with nonsustained and SVT
#Permanent pacemaker pacemaker
interrogated in ER showing episode of nonsustained NSVT, otherwise unremarkable
#Acute thrombocytopenia
PLT 118, prior platelets 176 07/22/2024 no history of thrombocytopenia
Hgb stable 15.1
-Follow CBC
#Acute hyponatremia hypervolemic in setting of ascites/ mass tail of pancreas /cardiomyopathy
-Resume diuretics and monitor
#Left lower extremity chronic ulceration, bilateral dorsal feet at metatarsals open ulcerations chronic
-Patient follows with Dr. Bustos
-Consult wound care
-Plan was for patient to get peripheral arterial lower extremity Dopplers with ELIDA as outpatient
#HLD
Continue atorvastatin 20 mg every afternoon
# Ulcerative colitis
Continue mesalamine 800 mg p.o. 3 times daily
#Sleep apnea
Uses full mask setting 10 no oxygen
Other PMH:
multilevel DDD
degenerative osteoarthritis right hip
DVT prophylaxis
Continue SILO FILLER Coumadin
DNR per patient with Candis present, although appears to have memory impairment patient has his sister Ann-Marie Mckee who is also an emergency contact
Total time spent on today's encounter was 55minutes which included time spent in counseling the patient/family regarding diagnosis and treatment plan as listed above, goals of care, and symptom management. Case was discussed with nursing staff,
specialists, and care coordinators/case management. All labs and imaging personally reviewed by me. Remainder the time spent in detailed review of previous records, lab data, imaging, and other medical provider documentation.
Dispo: Patient has poor prognosis; Hospice candidate; Engaged Hospice and Palliative; patient undecided regarding care and just wants to take care of
Anticipated Discharge: 24 - 48 hours
Subjective/Interval History
-
Date of Service: October 04, 2024
No acute is overnight
Objective Data
-
Labs:
Laboratory Results
12/19/24 12/19/24
07:11 07:12
WBC 4.5 L
Hgb 15.3
Hct 43.1
Plt Count 115 L
PT 35.3 H
INR 3.49
Sodium 126 L
Potassium 4.8
Chloride 96 L
Carbon Dioxide 15 L
BUN 47 H
Creatinine 1.5 H
Glucose 111 H
Calcium 8.7
Total Bilirubin 3.8 H
AST 129 H
ALT 102 H
Alkaline Phosphatase 173 H
Vital Signs:
Vital Signs
Temp Pulse Resp BP Pulse Ox
95.7 F L 74 18 87/59 96
10/04/24 11:00 10/04/24 11:00 10/04/24 11:00 10/04/24 11:00 10/04/24 11:00
I&O
10/03/24 10/04/24 10/05/24
06:59 06:59 06:59
Intake Total 450 / 450 680 / 680
Output Total 600 / 600 425 / 425
Balance -150 / -150 255 / 255
Review of Systems
-
History Source: Patient
All other systems: Not reviewed unless documented
Data Reviewed
-
Total Time Spent with Patient (in minutes): 54
CT Scan: Report Reviewed by me
Labs: Labs Reviewed by me
--- NOTE | 2024-10-04 14:25 | HOSPNOTE ---
Hospice remains available. Patient has ultimately been undecided about hospice services and his focus has been on caring for his who has dementia. Attempted to see patient bedside but he was not in the room. Will ask social service liaison to follow
up again tomorrow with patient and assist him further on his decision on if he wishes to proceed with hospice as that is what is recommended.
--- NOTE | 2024-10-04 14:25 | W.PN.GI.CBS2 ---
Addendum entered and electronically signed by Luis M Mcghee DO 10/04/24 19:29:
I saw and examined the patient.
The DIALYSIS SOCIAL WORKER's note was reviewed and I agree with the note.
Comment: Re-contacted this afternoon given patient's recent CT scan with pancreatic protocol which revealed a likely a serous adenoma/microcystic adenoma. Additionally, repeat CT imaging with development of ascites and concern for hepatic congestion
and possible cirrhosis as well. In regards to the pancreatic lesion, appears most consistent with a benign serous microcystic adenoma which is a benign lesion without malignant potential. He has had this previously worked-up several years ago at [place] ([facility]). Given his current condition and cardiogenic shock with reduced EF, would defer any further testing regarding this. If patient is to recover from this, would then have him follow-up back at [facility] as he is previously known
to them as he underwent a prior EUS with FNA. 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 Ultimately, would recommend IR
consult for diagnostic paracentesis to calculate SAAG along with checking total protein. Would also send this for cytology as well in an abundance of caution along with checking both albumin and total protein. If high SAAG and high/elevated total
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 Rest of care as outlined below.
GI team will continue to follow. Please call with any questions or concerns.
Original Note:
Today's Communication / Plan
-
again discussed update CT and pancreatic mass with minimal growth -likely benign process-- pt agrees to hold on any further testing as not candidate with cardiac function
bigger concern is reduced EF with cardiogenic shock
for IR eval to see if ascites can be tap-- if completed calculate SAAG to see if liver vs cardiac congestion related
cardiology to follow up to discuss plan palliative care vs more aggressive medical management
reviewed with cardiology team
Assessment / Plan
-
83-year-old male with past medical history of permanent A-fib status post AV node ablation,On chronic warfarin, history of amiodarone thyroiditis, ulcerative colitis followed by Dr. Rico group on Delzicol, cardiomyopathy with EF 10 to 15%,
history of nonischemic cardiomyopathy status post AICD, history of V. tach/V-fib, chronic hyponatremia, obstructive sleep apnea on CPAP, history of pancreatic tail mass since 2008, lower extremity ulcerations who presents to the emergency room with
weakness with his legs giving out on him. He had a fall striking his head but did not lose consciousness. On admission noted with hypotension, hypoxemia, and shortness of breath. Pacemaker interrogation showed episodes of nonsustained V. tach
otherwise unremarkable. CT of the abdomen and pelvis showed ascites as well as 3 cm mass tail of pancreas. GI initial consult pt unable to have MRI with pacer and did now wish for further work up. He now had CT repeated with IV contrast with
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 He has also developed ascites with finding of cirrhosis with concern for hepatic congestion, minimal effusion. and also concern for worsening renal function/ATN.
10/04 CT a/p with IV contrast
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 This is present on examinations in 2011 with minimal interval growth since that time. The lack of interval change is reassuring that this is a
benign pancreatic mass.
3 mm calcification of the right posterolateral bladder, which appears to be a right ureterovesical junction calculus, although without significant right ureteral or pelvicalyceal dilation, unchanged from examination of October 01, 2024, not present
in 2011.
Trabeculated bladder wall with small diverticula.
Small right pleural effusion and minimal left pleural effusion. Changes of emphysema in the visualized lower lungs.
Significant enlargement of the heart with reflux of contrast into dilated IVC and hepatic veins. Heterogeneous enhancement of the liver which is likely hepatic congestion. Findings of cirrhosis with recanalization of the paraumbilical vein.
Moderate amount of ascites within the abdomen and pelvis. Extension of ascitic fluid into a right inguinal hernia.
On noncontrast images, residual contrast within the kidneys and the pelvicalyceal systems, suggesting .
Impression:
Pancreatic tail mass, present since 2008-> benign at that time. 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 This is present on examinations in 2012 with minimal interval growth since that time
--Patient cannot have MRI
--Patient again about malignant potential but current CT with minimal growth since 2012
-- with severe heart dysfunction high risk for GI procedures
--pt agrees to hold on any testing
ascites
-- for another attempt for IR for para
-- if fluid obtain can calculate SAAG
increased LFT's
--may be hepatic congestion vs hypotension related vs other
-- with EF 10-15% concern for cardiac ascites-- I review with cardiology who will see patient today and review plan
Ulcerative Colitis
--Continue mesalamine
hypotension
CM EF 10-15%
-- for cardiology follow up to discuss plan for treatment vs palliative options
hyponatremia
ODALIS
hx VT/VB with ICD in place
afib on coumadin
h/o Amiodarone thyroiditis
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
Subjective
Subjective
Date of Service: October 04, 2024
10/01 brown stool on regular diet asked to reassess after Ct completed c/o fatigue
Objective
Data Reviewed
Laboratory Data:
Laboratory Results
10/04/24 07:12
10/04/24 07:11
Laboratory Results
PT 35.3 Sec (11.4-14.6) H 10/04/24 07:11
INR 3.49 10/04/24 07:11
APTT 42.6 Sec (23.4-35.0) H 10/03/24 03:24
Phosphorus 3.8 mg/dl (2.5-4.5) 10/04/24 07:11
Magnesium 2.9 mg/dl (1.6-2.3) H 10/04/24 07:11
Total Bilirubin 3.8 mg/dl (0.2-1.3) H 10/04/24 07:11
AST 129 U/L (17-59) H 10/04/24 07:11
ALT 102 U/L (0-50) H 10/04/24 07:11
Alkaline Phosphatase 173 U/L (38-126) H 10/04/24 07:11
Vital Signs and I&O:
Vital Signs
Temp Pulse Resp BP Pulse Ox
97.3 F 74 18 87/59 96
10/04/24 13:57 10/04/24 11:00 10/04/24 11:00 10/04/24 11:00 10/04/24 11:00
I&O
10/03/24 10/04/24 10/05/24
06:59 06:59 06:59
Intake Total 450 / 450 680 / 680
Output Total 600 / 600 425 / 425
Balance -150 / -150 255 / 255
Physical Exam
Physical Exam
HEENT: Anicteric and Moist mucous membranes
Cardiology: Normal Sinus Rhythm
Pulmonary: Clear
GI: Soft, Distended and Non Tender
Neuro: Non Focal
--- NOTE | 2024-10-04 15:30 | CM ---
CM reviewed chart, patient seen bedside. Patient reports he would like to go to [facility] upon discharge. CM provided update to Karen in Admissions at [facility], will follow for when patient medically stable. Palliative care consult placed,
Hospice following, patient remains undecided on hospice at this time. CM will continue to follow for all discharge planning needs.
Plan; [facility] vs Hospice, vs Palliative Care
--- NOTE | 2024-10-04 15:47 | W.PN.CARDCBS ---
Addendum entered and electronically signed by Chris Khan MD 10/04/24 19:07:
I saw and examined the patient.
The Account Management Assistant's note was reviewed and I agree with the note.
Comment:
GEN: No distress, awake, Ox3
HEENT: supple, anicteric, mmm
LUNGS: CTA, no wheezes/rales
CV: Reg, S1/S2, 1/6 syst LSB, S3+
ABD: soft, BS+, + distended
EXT: No edema
NEURO: Gross non-focal
SKIN: No rash
Plan:
I had a lengthy discussion with him and he is not ready for hospice as of yet. He is currently volume overloaded and likely in cardiogenic shock.
We will start dobutamine 5 mcg/kg/min and increase his Lasix to 2 mg IV twice daily of Bumex.
Long-term prognosis is very poor. His blood pressure remains marginal and we will continue the midodrine.
His QTc is somewhat prolonged and his creatinine is at 1.8. Will hold Tikosyn for now but consider restarting at lower dose in a.m. if EKG and QT interval stable.
I suspect his abnormal LFTs are from passive congestion.
Original Note:
Today's Communication / Plan
-
transfer to IMU
dobutamine @5
IV bumex 2mg BID
paracentesis in AM
holding coumadin and tikosyn
prognosis poor
Impression / Plan
-
PCP: Dr. Mayers
Primary Contract Technician: Dr. Lovett
EP: Dr. Arora
Impression:
Presented 10/01/2024 with fall, weakness, hypotension
Acute hypoxic respiratory failure
Acute HFrEF
Cardiogenic shock
Hypotension
ODALIS
Ascites
Abnormal LFTs
Pancreatic mass, known
Hyponatremia
CM EF 10-15%
h/o NICM EF
Hx VT/VF
s/p [employer] SQUILGEER-D
Chronic Tikosyn therapy
Permanent Afib
s/p AV node ablation
Chronic warfarin OAC managed by PCP
h/o Amiodarone thyroiditis
Ulcerative colitis
JULIO CESAR on CPAP
Echo 06/2016: EF 35-40%, AV sclerosis with trivial AI, mildly dilated proximal ascending thoracic aorta
Echo 12/22/2023: EF 19% by Cooper's method, 26% by volumetric assessment, global hypokinesis with anterior wall and anteroseptum moving best, reduced RV systolic function, mod MR, mild to mod TR with PAP 50 mmHg
Echo 05/14/2024: EF 10 to 15% visually, severe global hypokinesis, stage II diastolic dysfunction, moderate to severe MR, moderate TR, mild aortic regurgitation
Echo 07/16/24: LV moderately dilated with EF 10-15%, 17% by Cooper's method, global hypokinesis, mod to sev MR, mild aortic regurgitation, mod to sev TR with PAP 35 mmHg
ECHO 10/02/24: EF 10 to 15%, severe global hypokinesis, mildly enlarged RV size and mildly reduced RV function, severe MR, mild AR, severe TR, PAP 35 to 40 mmHg, no significant change compared to prior
Plan:
-He appears to have evidence of cardiogenic shock with ODALIS, elevated LFTs, ascites, hypotension in setting of EF 10-15% and severe MR. Discussed options regarding treatment including inotropic therapy versus more conservative management with comfort
care/hospice. At this time patient would like to try inotrope.
-Will place on dobutamine at 5 and moved patient to IMU
-Will place on IV Bumex 2 mg twice daily
-For paracentesis in a.m. with fluid analysis
-Takes tikosyn for history of VT. on hold due to ODALIS and prolonged QTc. Patient does have ICD
-Holding outpatient Coreg and Jardiance due to hypotension
-OP coumadin remains on hold with INR 3.49.
-Pancreatic mass felt to be benign per GI notes
-Discussed overall prognosis poor. hospice would be appropriate. he states he is primary caregiver for his who has dementia
-Discussed with GI OIL REFINERY PROCESS TECHNICIAN, hospitalist, nursing
HPI 10/02/2024:
Mr. Cooper is an 84-year-old male with past medical history significant for heart failure with reduced ejection fraction (EF 10 to 15%), nonischemic cardiomyopathy, VT/VF status post SQUILGEER ICD on chronic Tikosyn, permanent atrial fibrillation on
Coumadin, obstructive sleep apnea who presented to emergency department 10/01/2024 after suffering a mechanical fall resulting in him striking his head while on Coumadin. EMS was called and patient was found to be hypotensive and hypoxic. He was
provided fluids bolus of 2500 cc. Patient admitted to feeling short of breath with some generalized weakness and chest discomfort several days prior to admission. proBNP was noted to be elevated at 18,900. Chest x-ray showed no evidence of
pulmonary edema or pleural effusion. EKG showed BiV paced rhythm. Interrogation of ICD in emergency department showed brief episode of NSVT. Head CT was negative. Patient admitted to ongoing weight loss greater than 50 pounds over the last year
prompting. He was found to have abnormal LFTs with concern for ascites and underwent CT of abdomen which demonstrated new 3 cm mass at tail of pancreas as well as moderate ascites.
Of note patient has been dealing with wound of the left lower extremity and was supposed to have outpatient ultrasound/ELIDA which was delayed due to admission.
Progress Note - Contract Technician
Subjective
Date of Service: October 04, 2024
Would like to try inotrope
Objective
Labs:
10/04/24 07:12
10/04/24 07:11
Labs
Hgb 15.3 g/dL (13.0-18.0) 10/04/24 07:12
Hct 43.1 % (39.0-52.0) 10/04/24 07:12
Plt Count 115 10^3/uL (130-400) L 10/04/24 07:12
PT 35.3 Sec (11.4-14.6) H 10/04/24 07:11
INR 3.49 10/04/24 07:11
APTT 42.6 Sec (23.4-35.0) H 10/03/24 03:24
Sodium 126 mmol/L (135-145) L 10/04/24 07:11
Potassium 4.8 mmol/L (3.5-5.1) 10/04/24 07:11
BUN 47 mg/dl (9-20) H 10/04/24 07:11
Creatinine 1.5 mg/dL (0.7-1.3) H 10/04/24 07:11
Glucose 111 mg/dl (70-99) H 10/04/24 07:11
Vital Signs and I&O:
Vital Signs
Temp Pulse Resp BP Pulse Ox
97.7 F 76 16 88/55 100
10/04/24 15:00 10/04/24 15:00 10/04/24 15:00 10/04/24 15:00 10/04/24 15:00
Vital Signs
Temp Pulse Resp BP Pulse Ox
97.7 F 76 16 88/55 100
10/04/24 15:00 10/04/24 15:00 10/04/24 15:00 10/04/24 15:00 10/04/24 15:00
Intake & Output
10/02/24 10/03/24 10/04/24 10/05/24
07:59 07:59 07:59 07:59
Intake Total 410 / 410 450 / 450 680 / 680
Output Total 1165 / 1165 600 / 600 425 / 425
Balance -755 / -755 -150 / -150 255 / 255
Physical Exam
Physical Exam
GEN: No distress, awake, alert, oriented x3. chronically ill appearing male. on supp O2
HEENT: supple, mmm, eomi
LUNGS: Few crackles at bases, no wheezes
CV: Irreg, S1/S2, 2/6 murmur
ABD: soft, BS+, firm
EXT: No cyanosis, clubbing. 1+ edema of B/L LE
NEURO: Gross non-focal
SKIN: Warm, pink, dry. No rash. jaundiced
[2024-10-04 16:55] LABS: AFP Male/Tumor Marker 2.74 ng/ml
--- NOTE | 2024-10-04 17:09 | PTCARENOTE ---
Report given prior to transfer to IMU. Pt awake and alert, in no distress.
[2024-10-04] MEDS: LIPITOR 20 MG PO (17:15)
[2024-10-04] MEDS: DOBUTREX 500 MG 250 IV (17:20)
--- NOTE | 2024-10-04 17:58 | PTCARENOTE ---
Received patient from [facility] hypotensive, pulse ox in the 60s, temp 36.2 axillary. Rapid response called. Patient is currently on Dobutamine drip @5mcg, 100% NRB, patient denying pain when asked. Hospitalist is coming to the bedside. Patient is
asymptomatic, denying pain when asked..
--- NOTE | 2024-10-04 18:13 | W.PN.UPDATE ---
Addendum entered and electronically signed by Maxx Jean MD 10/04/24 18:43:
Patient MAP are around 71. If persistent hypotension and MAP less than 60 then start patient on phenylephrine. Or consider additional dose of midodrine.
Prognosis guarded.
DNR code status noted.
Original Note:
Update Note
Progress Note Update
Pt was transferred from 4th floor to IMU. Started on dobutamine at 5. Pt was found to be hypoxic and DRUG AND ALCOHOL COUNSELOR was called. Pt received midodrine 10mg earlier. Pt is talking and coherent. Denies shortness of breath or lightheadedness. Able to speak in
complete sentences. Patient here with cardiogenic shock and ODALIS. Ejection fraction of 10 to 15%.
Gen: nad. speaking in complete sentences, non tachypneic
cards s1 s2
pulm mild rhonchi anteriorly, on NC and NRB
Abd +bs, non distended
neuro awake, following commands.
Acute hypoxic respiratory failure worsening. O2 saturation might not be accurate with poor perfusion as with severe advanced cardiomyopathy. Will check VBG (would like to AVOID ABG with coagluapathy, INR 3 on coumadin). Not tachypneic. Not using
accessory muscle. Check CXR. HFNC for now.
d/w with DRUG AND ALCOHOL COUNSELOR and RN.
Total Critical Care Time 45 minutes. I was immediately available to the patient and staff. I personally examined, reviewed labs, diagnostic images/reports, interpretations, treatment plans, discussed patient care with other providers and family
or caregivers (if patient is unable to make decisions), entered orders as appropriate and documented the medical record.
[2024-10-04 18:23] LABS: Venous Blood Gas B.E. -7.3 mmol/L (-4 to +4); Venous Blood Gas HCO3 18.8 mmol/L (22-27); Venous Blood Gas O2 Sat % 72.1 %; Venous Blood Gas pCO2 39 mmHg (35-48); Venous Blood Gas pH 7.29 (7.32-7.43); Venous Blood Gas pO2 45 mmHg (30-50)
--- NOTE | 2024-10-04 18:39 | PTCARENOTE ---
Venous blood gas results called to . High flow ordered. Respiratory aware.
[2024-10-04 20:22] LABS: Osmolality Urine 327 mOsm/kg (300-900)
[2024-10-04 20:27] LABS: Urine Sodium < 5 mmol/L (30-90)
[2024-10-05] VITALS (19 sets, daily range): BP systolic 77–106; BP diastolic 55–75; BMI 19.9
--- NOTE | 2024-10-05 02:08 | PTCARENOTE ---
Addendum entered by Sintia Stone RN 10/05/24 06:25:
Pt morning labs resulting with NA now at 124. Pt mentation unchanged still at baseline. Night PENCIL SORTER made aware.
Addendum entered by Sintia Stone RN 10/05/24 05:34:
Pt currently on HighFlow (NRB removed) SPO2 97-98%.
Original Note:
Assumed care of Pt from Day RN. Pt currently on HighFlow /NRB, SPO2 mid 70's-80's. Respiration even and unlabored rr 20-24. DOBUTmine gtt infusing. Pt presenting no distress at that time. Throughout night Pt SPO2 rising to mid 90's. NRB able to be
turned down to 13L at this time SPO2 96%, High flow continued.
[2024-10-05 04:21] LABS: % Eosinophils 0.2 % (0-6); % Immature Granulocytes 0.4 % (0-0.5); % Lymphocytes 11.8 % (20.5-51.1); % Monocytes 7.5 % (1.7-9.3); % Neutrophils 80.1 % (42.2-75.2); Absolute Lymphocytes 0.6 10^3/uL (1.2-3.4); Absolute Monocytes 0.4 10^3/uL (0.1-0.6); Absolute Neutrophils 3.9 10^3/uL (1.4-6.5); Hematocrit 40.1 % (39.0-52.0); Hemoglobin 14.3 g/dL (13.0-18.0); Mean Corp Hgb Conc. 35.7 g/dL (33.0-37.0); Mean Corpuscular Hgb 31.8 pg (27.0-31.0); Mean Corpuscular Volume 89.3 fL (80.0-94.0); Mean Platelet Volume 11.1 fL (7.4-10.4); Nucleated Red Blood Cells % 0 % (-); Platelet Count 88 10^3/uL (130-400); Red Blood Cell Count 4.49 10^6/uL (4.70-6.10); Red Cell Dist. Width 18.2 % (11.5-14.5); White Blood Cell Count 4.8 10^3/uL (4.8-10.8)
[2024-10-05 04:26] LABS: INR 3.18; PT 32.9 Sec (11.4-14.6)
[2024-10-05 04:46] LABS: ALT (SGPT) 93 U/L (0-50); AST (SGOT) 93 U/L (17-59); Alkaline Phosphatase 172 U/L (38-126); Blood Urea Nitrogen 48 mg/dl (9-20); Calcium 8.4 mg/dl (8.4-10.2); Carbon Dioxide 15 mmol/L (22-30); Chloride 96 mmol/L (98-107); Estimated Creatinine Clearance 36 ml/min; Glucose 117 mg/dl (70-99); Potassium 4.6 mmol/L (3.5-5.1); Sodium 124 mmol/L (135-145); Total Bilirubin 3.2 mg/dl (0.2-1.3); Total Protein 5.8 g/dl (6.3-8.2); eGFR 45.91
[2024-10-05] MEDS: BUMEX 2 MG IV ×2 (07:47→16:05)
[2024-10-05] MEDS: ProAmatine 10 MG PO ×3 (07:48→18:09)
[2024-10-05] MEDS: ASACOL, DELZICOL DR 800 MG PO ×3 (07:48→23:04)
[2024-10-05] MEDS: THERAGRAN 1 TABLET PO (07:48)
--- NOTE | 2024-10-05 08:55 | PTCARENOTE ---
Patient received from electrical prospecting observer. Patient resting comfortably in bed. AAO, VSS. No events noted overnight. No complaints of pain at this time. Currently on Highflow N/C 55L 100%, NRB is standby. Will have weaned as tolerated. Currently
remains on Dobutamine gtt @ 5mg/hr. Patient has paracentesis ordered for today but might not be able to due to current respiratory status and O2 needs. They will follow up with GI. Call [email or web address] in reach.
--- NOTE | 2024-10-05 10:29 | W.PN.CARDCBS ---
Today's Communication / Plan
-
Continue dobutamine
Continue IV Bumex
Ongoing goals of care discussion
Impression / Plan
-
PCP: Dr. Mayers
Primary Imaging Technician: Dr. Lovett
EP: Dr. Arora
Impression:
Presented 10/01/2024 with fall, weakness, hypotension
Acute hypoxic respiratory failure
Acute HFrEF
Cardiogenic shock
Hypotension
ODALIS
Ascites
Abnormal LFTs
Pancreatic mass, known
Hyponatremia
CM EF 10-15%
h/o NICM EF
Hx VT/VF
s/p [employer] GRIP BOSS-D
Chronic Tikosyn therapy
Permanent Afib
s/p AV node ablation
Chronic warfarin OAC managed by PCP
h/o Amiodarone thyroiditis
Ulcerative colitis
JULIO CESAR on CPAP
Echo 06/2016: EF 35-40%, AV sclerosis with trivial AI, mildly dilated proximal ascending thoracic aorta
Echo 12/22/2023: EF 19% by Cooper's method, 26% by volumetric assessment, global hypokinesis with anterior wall and anteroseptum moving best, reduced RV systolic function, mod MR, mild to mod TR with PAP 50 mmHg
Echo 05/14/2024: EF 10 to 15% visually, severe global hypokinesis, stage II diastolic dysfunction, moderate to severe MR, moderate TR, mild aortic regurgitation
Echo 07/16/24: LV moderately dilated with EF 10-15%, 17% by Cooper's method, global hypokinesis, mod to sev MR, mild aortic regurgitation, mod to sev TR with PAP 35 mmHg
ECHO 10/02/24: EF 10 to 15%, severe global hypokinesis, mildly enlarged RV size and mildly reduced RV function, severe MR, mild AR, severe TR, PAP 35 to 40 mmHg, no significant change compared to prior
Plan:
-Presenting in cardiogenic shock with ODALIS, elevated LFTs, ascites, hypotension in setting of EF 10-15% and severe MR
-Initiated on dobutamine 5
-BP is marginal and therefore unlikely to tolerate afterload reduction at this time
-Home BB on hold in s/o cardiogenic shock
-Hold SGTL2
-Cont diuresis with IV Bumex 2 mg twice daily
-Possible paracentesis with fluid analysis
-Takes tikosyn for history of VT. on hold due to ODALIS and prolonged QTc. Patient does have ICD
-OP coumadin remains on hold with INR 3.2
-Pancreatic mass felt to be benign per GI notes
-Ongoing GOC discussions, would consider reprogramming ICD tachy therapies
HPI 10/02/2024:
Mr. Cooper is an 84-year-old male with past medical history significant for heart failure with reduced ejection fraction (EF 10 to 15%), nonischemic cardiomyopathy, VT/VF status post GRIP BOSS ICD on chronic Tikosyn, permanent atrial fibrillation on
Coumadin, obstructive sleep apnea who presented to emergency department 10/01/2024 after suffering a mechanical fall resulting in him striking his head while on Coumadin. EMS was called and patient was found to be hypotensive and hypoxic. He was
provided fluids bolus of 2500 cc. Patient admitted to feeling short of breath with some generalized weakness and chest discomfort several days prior to admission. proBNP was noted to be elevated at 18,900. Chest x-ray showed no evidence of
pulmonary edema or pleural effusion. EKG showed BiV paced rhythm. Interrogation of ICD in emergency department showed brief episode of NSVT. Head CT was negative. Patient admitted to ongoing weight loss greater than 50 pounds over the last year
prompting. He was found to have abnormal LFTs with concern for ascites and underwent CT of abdomen which demonstrated new 3 cm mass at tail of pancreas as well as moderate ascites.
Of note patient has been dealing with wound of the left lower extremity and was supposed to have outpatient ultrasound/ELIDA which was delayed due to admission.
Progress Note - Imaging Technician
Subjective
Date of Service: October 05, 2024
Remains in the IMU on dobutamine drip and high flow oxygen. Not reporting chest discomfort. Tells me his breathing is comfortable.
Objective
Labs:
10/05/24 04:04
10/05/24 04:04
Labs
Hgb 14.3 g/dL (13.0-18.0) 10/05/24 04:04
Hct 40.1 % (39.0-52.0) 10/05/24 04:04
Plt Count 88 10^3/uL (130-400) L D 10/05/24 04:04
PT 32.9 Sec (11.4-14.6) H 10/05/24 04:04
INR 3.18 10/05/24 04:04
APTT 42.6 Sec (23.4-35.0) H 10/03/24 03:24
Sodium 124 mmol/L (135-145) L 10/05/24 04:04
Potassium 4.6 mmol/L (3.5-5.1) 10/05/24 04:04
BUN 48 mg/dl (9-20) H 10/05/24 04:04
Creatinine 1.5 mg/dL (0.7-1.3) H 10/05/24 04:04
Glucose 117 mg/dl (70-99) H 10/05/24 04:04
Vital Signs and I&O:
Vital Signs
Temp Pulse Resp BP Pulse Ox
97.8 F 80 12 95/71 93
10/05/24 07:23 10/05/24 09:00 10/05/24 09:00 10/05/24 08:00 10/05/24 10:00
Vital Signs
Temp Pulse Resp BP Pulse Ox
97.8 F 80 12 95/71 93
10/05/24 07:23 10/05/24 09:00 10/05/24 09:00 10/05/24 08:00 10/05/24 10:00
Intake & Output
10/03/24 10/04/24 10/05/24 10/06/24
06:59 06:59 06:59 06:59
Intake Total 450 / 450 680 / 680 220 / 220
Output Total 600 / 600 425 / 425 800 / 800 575 / 575
Balance -150 / -150 255 / 255 -580 / -580 -575 / -575
Physical Exam
Physical Exam
Gen: NAD, AA
HEENT: NC/AT, sclera anicteric
Neck: Elevated JVP
CV: RRR, NL s1/s2, 3/6 HSM
Lungs: CTAB on high flow NC
Abd: soft
Ext: 1+ pitting LE edema
Skin: Warm, dry
Neuro: Non-focal
--- NOTE | 2024-10-05 12:12 | HOSPNOTE ---
The original plan was for patient to go to the [facility] and then transition to hospice services. The patient is very concerned about his spouse who does have dementia and resides at [facility], spouse is still able to perform ADL's but spouse
was primary caregiver. Not sure the plan of going to [facility] is realistic since the patient is now on high flow. We will continue to follow and support.
--- NOTE | 2024-10-05 12:29 | PN.CDI ---
CDI
- -
CDI:
Physician Documentation Request
Admit Date: 10/01/24 18:52
Dear Doctor Sandra,
10/04 CT abd and pelvis impression states 'On noncontrast images, residual contrast within the kidneys and the pelvicalyceal systems, suggesting worsening renal function/ATN.'
Patients blood pressure has been low since admission and now is on Dobutamine.
Please indicate in your progress notes if you are in agreement that the above diagnosis is valid for this patient:
____ - ATN is a valid diagnosis (Please include it in your progress notes)
____ - ATN is not a valid diagnosis for this patient
____ - Other
Use of terms such as suspected, likely, concern for, or probable are acceptable for a diagnosis that is being evaluated, monitored or treated as if it exists and can be coded in the inpatient setting, when documented at the time of discharge.
Thank you,
Kelsie Ulloa RN, BSN
CDI Specialist
tiger text
Please use your independent medical judgment in providing your response.
--- NOTE | 2024-10-05 13:24 | CM ---
Addendum entered by Joyce Delgado RN 10/05/24 14:00:
Karen called back and had her speak with patient on speaker phone; [facility] is arranging a caregiver for his , they will coordinate getting her meds from their pharmacy and making sure she is getting her meals at their dining [facility]ala. Patient
made aware his sister was added as a contact and he agrees with this.
Addendum entered by Joyce Delgado RN 10/05/24 13:48:
Spoke with Zohaib [facility]; provided clinical update. Karen provided family contact who is listed as his primary contact:
Ann-Marie Mckee, sister, Brian Temple ph [phone]. S/w Zohaib White who will update patient's contact.
Original Note:
Patient from [facility] with Hx Heart Failure, cardiomyopathy, ICD implant, LLE wound, mechanical fall at home. O2 15L midflow. Receiving Dobutamine gtt, IV Bumex. Plan paracentesis today. PT on hold. Seen by wound care
nurse.
Spoke with [facility]; patient seen by hospice nurse but not ready to decide on hospice. Hospice aware at home at [facility] who has dementia but can function on her own.
Met with patient; he is hoping to talk with doctors again today about his test results. He says his is being looked after by some friends.
offered avionics engineer services and patient states he would like to see a tower excavator operator. His parishes are [facility] in [place] and [facility] in [facility].---> spoke with Caitlin, Flight Attendant/Inflight Manager office who relayed that someone from [facility] will see him
today.
Plan TBD.
[2024-10-05 13:37] LABS: Body Fluid Albumin 1.2 g/dl; Body Fluid Amylase 32 U/L; Body Fluid LDH 136 U/L; Body Fluid Protein 2.8 g/dl
[2024-10-05 13:42] LABS: Body Fluid Mononuclear 89.5 %; Body Fluid Polymorphonuclear 10.5 %; Body Fluid WBC 38 /CUMM
[2024-10-05 14:10] LABS: Body Fluid Second Tech AP
--- NOTE | 2024-10-05 14:29 | CHAP ---
Addendum entered by Claudette Tony 10/05/24 16:29:
Fr. Steven did come and gave Delfino Sacrament of the Sick/Last Rites as requested.
Original Note:
Commercial Credit Analyst request relayed for Sacrament of the Sick/Last Rites. Fr. Steven from [facility] in [place] anticipates arriving around 4pm.
--- NOTE | 2024-10-05 14:39 | W.PN.HOSP.TC ---
Today's Communication/Plan
-
Paracentesis today
Continue dobutamine, Bumex
Can titrate midodrine as needed
Wean O2 as tolerated
Assessment / Plan
Assessment / Plan
Physical Exam
General: Appears in Distress and Obese; No Pain, Fever or Chills
HEENT: NormoCephalic, Anicteric, Moist mucous membranes, PERRLA, Ovilla Conjunctivae, No Ptosis and Oxygen (High flow nasal cannula oxygen)
Respiratory: No Wheezes, Rales or Rhonchi
Cardiac: S1/S2, Regular Rhythm and Peripheral Edema (Bilateral +2 lower extremities); No Murmur, Rub, Gallop or JVD
Breast: Deferred by me
GI: Soft, Non Tender, Non Distended, Normal Bowel Sounds and No Hepatosplenomegaly
Rectal: Deferred by Provider
Genito-urinary: Deferred by me
Musculoskeletal: No Clubbing, No Cyanosis, Edema, Left Lower Extremity (+2 pitting) and Edema, Right Lower Extremity (+2 pitting); No Edema, Left Upper Extremity or Edema, Right Upper Extremity
Skin: Warm, Dry and Ulcers (Left lower extremity venous stasis ulcer, bilateral plantar ulcerations at MCPs of great toes); No Rash
Neuro: AO x 3, No Motor Deficits, Nonfocal/grossly intact, Cranial Nerves Intact and No Sensory Deficits; No Slurred Speech, Facial Droop, Tremors or Sedated
Psych: Calm
#Acute hypoxic respiratory failure 2/2 acute on chronic CHF, severe cardiomyopathy
Rapid again for hypoxia 10/04, although I do think this is because of poor Plath, hypoperfusion
� Wean off high flow nasal cannula
� Resolved on its own prior
-Continue diuresis
-No evidence of PE on imaging
-wean o2 as tolerated
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
#Chronic severe cardiomyopathy EF 10-15%
#Cardiogenic shock
BNP 18,900 appears to be 11-16,000 from April to June of 2024
-I/O, daily weights-dry weight per July was 157 patient currently states he is 139 pounds. He has had weight loss of 10 pounds in the past 3 weeks and 50 pounds in the past year
-Hypotensive weight appears way less than recent admission we will hold on any diuretics as he has complex case
-Consult [facility] cardiology
-EF10-15%, left ventricle moderately dilated, severely reduced LVSF,
-Resume diuretics, sodium downtrending�monitor blood pressures
� Start dobutamine
-imaging with no evidence of pulmonary edema
#Acute hypotension unclear etiology possible infection versus fluid shift given Ascites/third spacing
#Hx HTN�benign
-infectious work up although doubt
-More than likely related to poor HF and possible malignancy
-Check blood cultures x 2
-Check [employer]
-HOLD VerQuvo 10 mg daily, Jardiance 10 mg daily
-Started back Bumex
-midodrine added
-dobutamine added
#Acute transaminitis with Hyperbilirubinemia
#Ascites
#Low-density mass tail of the pancreas
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
-Reengage IR for possible paracentesis
� CT pancreatic protocol featuring characteristics of benign mass
�Weight loss of 10 pounds in the past 3 weeks and 50 pounds in the past year
�GI on board
� CEA: 4.45
-AFP 2.74;
-Follow-up, CA
-Para today - f/u [facility]
#Thrombocytopenia
� Continue monitoring
# Possible secondary to cirrhosis
#Mechanical fall on Coumadin
-CT head negative
-PT/OT consult
#Paroxysmal A-fib
#Supratherapeutic INR
#-Status post AV node ablation
-most likely synthetic dysfunction causing elevated INR in setting of more than likely cirrhosis
-Patient on Coumadin daily -will hold this evening Coumadin 1 mg
-Med rec reports patient is on 1 mg of Coumadin daily
-Will follow INR
-Takes tikosyn for history of VT. on hold due to ODALIS and prolonged QTc. Patient does have ICD
-Hold carvedilol 1.5625 mg p.o. twice daily
#ODALIS on CKD stage III
� Most likely secondary to cardiorenal syndrome
� Monitor with dobutamine, increased perfusion diuresis
#Fall with nonsustained and SVT
#Permanent pacemaker pacemaker
interrogated in ER showing episode of nonsustained NSVT, otherwise unremarkable
#Acute hyponatremia
-hypervolemic 2/2 to CHF, ascites
-diuretics and monitor
#Left lower extremity chronic ulceration, bilateral dorsal feet at metatarsals open ulcerations chronic
-Patient follows with Dr. Bustos
-Consult wound care
-Plan was for patient to get peripheral arterial lower extremity Dopplers with ELIDA as outpatient
#HLD
Continue atorvastatin 20 mg every afternoon
# Ulcerative colitis
Continue mesalamine 800 mg p.o. 3 times daily
#Sleep apnea
Uses full mask setting 10 no oxygen
Other PMH:
multilevel DDD
degenerative osteoarthritis right hip
DVT prophylaxis
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
DNR per patient with Candis present, although appears to have memory impairment patient has his sister Ann-Marie Mckee who is also an emergency contact
Total time spent on today's encounter was 60 minutes which included time spent in counseling the patient/family regarding diagnosis and treatment plan as listed above, goals of care, and symptom management. Case was discussed with nursing staff,
specialists, and care coordinators/case management. All labs and imaging personally reviewed by me. Remainder the time spent in detailed review of previous records, lab data, imaging, and other medical provider documentation.
Dispo: Patient has poor prognosis; Hospice candidate; [facility]; patient undecided regarding care and just wants to take care of and setting things in order; desires to see ohw he does over the weekend;
Anticipated Discharge: > 48 hours
Subjective/Interval History
-
Date of Service: October 05, 2024
Rapid yesterday for hypoxia
Started on dobutamine for cardiogenic shock yesterday
Objective Data
-
Labs:
Laboratory Results
10/05/24
04:04
WBC 4.8
Hgb 14.3
Hct 40.1
Plt Count 88 L D
PT 32.9 H
INR 3.18
Sodium 124 L
Potassium 4.6
Chloride 96 L
Carbon Dioxide 15 L
BUN 48 H
Creatinine 1.5 H
Glucose 117 H
Calcium 8.4
Total Bilirubin 3.2 H
AST 93 H
ALT 93 H
Alkaline Phosphatase 172 H
Vital Signs:
Vital Signs
Temp Pulse Resp BP Pulse Ox
97.8 F 96 16 78/59 100
10/05/24 07:23 10/05/24 14:23 10/05/24 11:07 10/05/24 14:23 10/05/24 13:46
I&O
10/04/24 10/05/24 10/06/24
06:59 06:59 06:59
Intake Total 680 / 680 220 / 220
Output Total 425 / 425 800 / 800 575 / 575
Balance 255 / 255 -580 / -580 -575 / -575
Review of Systems
-
History Source: Patient
All other systems: Not reviewed unless documented
Data Reviewed
-
Total Time Spent with Patient (in minutes): 54
CT Scan: Report Reviewed by me
Labs: Labs Reviewed by me
--- NOTE | 2024-10-05 15:29 | W.CON.PAL ---
Consultation
-
Date/Time Consultation Requested: 10/04/24
Date/Time Consultation Performed: 10/05/24
Requesting Provider: Dr. Flores
Performing Provider: Dr. Lepe
Reason for Consult: Goals of Care Discussion
Primary Diagnosis: CHF
Consult Requested By: Patient's Physician
Reason for Admission
Illness Course/HPI
Cristofer is a 83 y/o male with cardiomyopathy [facility] and [facility]kaness, and significant hypoxia. He also has notable hx of 10lb weight loss in past week, cardiogenic shock/cirrhosis, worsening edema, hx of PAD, AFib,
DDD, LLE wound. Workup in the hospital showed a pancreatic mass that was felt to mostly be benign based on imaging features. Peritoneal fluid was sent earlier today to r/o [facility]. He was referred to palliative care for goals of care conversation.
Patient had refused hospice referral. He had change in condition overnight, now in IMu on dobutamine and required highflow oxygen.
At the time of my visit he is comfortable and able to converse. blood pressure low - systolic 80s.
Total time 60 mins
Functional Status
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 they live at [facility].
Cristofer has 3 sons from a previous marriage who are not close with him. Cristofer reports his sister Yesika would be his medical poa.
Goals of Care Discussion
Patient Goals
Patient's main focus is to get better so that he can prepare for his 's care needs. He is worried that there are too many loose ends with respect to their belongings/apartment and that she will be in a tough situation.
He has been talking to his sister Yesika (Cristofer's POA) and his 's close friend Leona(who would be Candis's 2nd POA if cristofer unable/passes) and he has been in communication with them to plan for her needs if something were to happen to him
during the hospital stay. he states that additional plans need to be made. [facility] will be sending aides for his spouse.
We discussed his prognosis and events in the hospital. He understands that he is critically ill and might not survive the hospitalization. If he does, he would need rehab and high likliehood of returning to the hospital in the near future due to the
severity of his heart disease, the new cardiogenic cirrhosis and this question of underlyning malignancy that is not yet fully answered (results pending).
He states that he is hopeful that the new medication will help, and wants to give it a few days. if he is not improving or getting worse during this hospital stay, then would want to transition to hospice care at [facility] so he could be near
her. He affirms DNR code status.
Pain & Symptom Assessment
-
denies significant symptoms at the time of my visit.
Objective Data
-
Objective Data:
Vital Signs
Temp Pulse Resp BP Pulse Ox
97.8 F 96 16 78/59 100
10/05/24 07:23 10/05/24 14:23 10/05/24 11:07 10/05/24 14:23 10/05/24 13:46
Laboratory Results
10/05/24 04:04
10/05/24 04:04
PT 32.9 Sec (11.4-14.6) H 10/05/24 04:04
INR 3.18 10/05/24 04:04
APTT 42.6 Sec (23.4-35.0) H 10/03/24 03:24
Total Protein 5.8 g/dl (6.3-8.2) L 10/05/24 04:04
Albumin 3.0 g/dl (3.5-5.0) L 10/05/24 04:04
Free T4 0.98 ng/dl (0.78-2.19) 10/02/24 03:15
Urine Color Yellow 10/01/24 17:00
Urine Clarity Clear (Clear) 10/01/24 17:00
Urine pH 7.0 (5.0-9.0) 10/01/24 17:00
Ur Specific [place] 1.005 (<1.030) 10/01/24 17:00
Urine Ketones Negative (Negative) 10/01/24 17:00
Urine Bilirubin Negative (Negative) 10/01/24 17:00
Palliative Performance Scale
Palliative Performance Scale:
PPS Level Ambulation Activity & Evidence of Disease Self Care Intake Conscious Level
100% Full Normal Activity & Work; Full Intake Full
No Evidence of Disease
90% Full Normal Activity & Work; Full Normal Full
Some Evidence of Disease
80% Full Normal Activity with Effort Full Normal or Full
Some Evidence of Disease Reduced
70% Reduced Unable Normal Job/Work Full Normal or Full
Significant Disease Reduced
60% Reduced Unable Hobby/Housework Occasional Normal or Full or Confusion
Significant Disease Assistance Reduced
50% Mainly Sit/Lie Unable to do Any Work Considerable Normal or Full or Confusion
Extensive Disease Assistance Req'd Reduced
40% Mainly in Bed Unable to do Most Activity Mainly Assistance Normal or Full or Drowsy;
Extensive Disease Reduced +/- Confusion
30% Totally Bed Unable to do Any Activity Total Care Normal or Full or Drowsy;
Bound Extensive Disease Reduced +/- Confusion
20% Totally Bed Bound Unable to do Any Activity Total Care Minimal to Full or Drowsy;
Extensive Disease Sips +/- Confusion
10% Totally Bed Bound Unable to do Any Activity Total Care Mouth Care Drowsy or Coma;
Extensive Disease Only +/- Confusion
0%
PPS Score Level:
Palliative Performance Score Response
Palliative Performance Score Response: 40%
Physical Exam
-
General: No Apparent Distress and Comfortable
Neuro: Awake and Alert
Psych: Calm and Intact Judgement/Insight
Assessment / Plan
-
Assessment/Plan:
Patient understands gravity of situation, trying to make preparations for his in case something happens.
Would consider hospice at [facility] if worsening/not improving over next 72 hours.
DNR code status
--- NOTE | 2024-10-05 15:46 | W.PN.GI.CBS2 ---
Today's Communication / Plan
-
Ascites labs c/w hepatic congestion from cardiac disease (high protein, high SAAG)
Will defer management to cardiology
Pancreatic lesion on CT was evaluated and worked up at [facility] over 10 years ago. He does not wish work up at this time, nor is it indicated.
Will sign off. Please call back if needed
Assessment / Plan
-
83-year-old male with past medical history of permanent A-fib status post AV node ablation,On chronic warfarin, history of amiodarone thyroiditis, ulcerative colitis followed by Dr. Rico group on Delzicol, cardiomyopathy with EF 10 to 15%,
history of nonischemic cardiomyopathy status post AICD, history of V. tach/V-fib, chronic hyponatremia, obstructive sleep apnea on CPAP, history of pancreatic tail mass since 2008, lower extremity ulcerations who presents to the emergency room with
weakness with his legs giving out on him. He had a fall striking his head but did not lose consciousness. On admission noted with hypotension, hypoxemia, and shortness of breath. Pacemaker interrogation showed episodes of nonsustained V. tach
otherwise unremarkable. CT of the abdomen and pelvis showed ascites as well as 3 cm mass tail of pancreas. GI initial consult pt unable to have MRI with pacer and did now wish for further work up. He now had CT repeated with IV contrast with
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 He has also developed ascites with finding of cirrhosis with concern for hepatic congestion, minimal effusion. and also concern for worsening renal function/ATN.
10/04 CT a/p with IV contrast
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 This is present on examinations in 2011 with minimal interval growth since that time. The lack of interval change is reassuring that this is a
benign pancreatic mass.
3 mm calcification of the right posterolateral bladder, which appears to be a right ureterovesical junction calculus, although without significant right ureteral or pelvicalyceal dilation, unchanged from examination of October 01, 2024, not present
in 2012.
Trabeculated bladder wall with small diverticula.
Small right pleural effusion and minimal left pleural effusion. Changes of emphysema in the visualized lower lungs.
Significant enlargement of the heart with reflux of contrast into dilated IVC and hepatic veins. Heterogeneous enhancement of the liver which is likely hepatic congestion. Findings of cirrhosis with recanalization of the paraumbilical vein.
Moderate amount of ascites within the abdomen and pelvis. Extension of ascitic fluid into a right inguinal hernia.
On noncontrast images, residual contrast within the kidneys and the pelvicalyceal systems, suggesting .
Impression:
Pancreatic tail mass, present since 2008-> benign at that time. 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 This is present on examinations in 2011 with minimal interval growth since that time
--Patient cannot have MRI
--Patient again about malignant potential but current CT with minimal growth since 2011
-- with severe heart dysfunction high risk for GI procedures
--pt agrees to hold on any testing
ascites- SAAG 1.8. Total protein 2.8 c/w cardiac ascites from hepatic congestion
increased LFT's
--may be hepatic congestion vs hypotension related vs other
-- with EF 10-15% concern for cardiac ascites-- I review with cardiology who will see patient today and review plan
Ulcerative Colitis
--Continue mesalamine
hypotension
CM EF 10-15%
-- for cardiology follow up to discuss plan for treatment vs palliative options
hyponatremia
ODALIS
hx VT/VB with ICD in place
afib on coumadin
h/o Amiodarone thyroiditis
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
Subjective
Subjective
Date of Service: October 05, 2024
No complaints. Had paracentesis today.
Objective
Data Reviewed
Laboratory Data:
Laboratory Results
10/05/24 04:04
10/05/24 04:04
Laboratory Results
PT 32.9 Sec (11.4-14.6) H 10/05/24 04:04
INR 3.18 10/05/24 04:04
APTT 42.6 Sec (23.4-35.0) H 10/03/24 03:24
Phosphorus 3.8 mg/dl (2.5-4.5) 10/04/24 07:11
Magnesium 2.9 mg/dl (1.6-2.3) H 10/04/24 07:11
Total Bilirubin 3.2 mg/dl (0.2-1.3) H 10/05/24 04:04
AST 93 U/L (17-59) H 10/05/24 04:04
ALT 93 U/L (0-50) H 10/05/24 04:04
Alkaline Phosphatase 172 U/L (38-126) H 10/05/24 04:04
Vital Signs and I&O:
Vital Signs
Temp Pulse Resp BP Pulse Ox
97.8 F 96 16 78/59 100
10/05/24 07:23 10/05/24 14:23 10/05/24 11:07 10/05/24 14:23 10/05/24 13:46
I&O
10/04/24 10/05/24 10/06/24
06:59 06:59 06:59
Intake Total 680 / 680 220 / 220
Output Total 425 / 425 800 / 800 575 / 575
Balance 255 / 255 -580 / -580 -575 / -575
Physical Exam
Physical Exam
GI: Soft, Distended and Non Tender
[2024-10-05 16:16] LABS: Adrenocorticotropic Hormone 25.5 pg/mL (7.2-63.3)
[2024-10-05] MEDS: LIPITOR 20 MG PO (18:09)
[2024-10-05] MEDS: DOBUTREX 500 MG 250 IV (18:09)
[2024-10-06] VITALS (15 sets, daily range): BP systolic 80–110; BP diastolic 57–98; PULSE 75–77; BMI 19.5
--- NOTE | 2024-10-06 | PTCARENOTE ---
Assumed care of patient at 1900, nursing assessment completed and as documented. Patient had episode of incontinent large BM on floor, insisted it was 'chocolate' on the floor. Hygiene care provided, linens changed, and assisted back to bed. Patient
requires x1 assist 2/2 weakness and furniture grabbing. Remains on dobutamine gtt at 5mcg, do not titrate order, see worklist for hand off. BP labile, SBP 80's but remains asymptomatic. AV paced on monitor, rates 70's. Spot checking pulse ox 2/2
poor perfusion, 95-98% on 8L MF. CPAP applied per RT at HS. Call arizmendi within reach, VSS, bed alarmed, care ongoing.
[2024-10-06 03:04] LABS: CA 19-9 46 U/mL (<=35)
[2024-10-06 05:16] LABS: % Basophils 0.2 % (0-2); % Immature Granulocytes 0.4 % (0-0.5); % Lymphocytes 6.2 % (20.5-51.1); % Monocytes 5.6 % (1.7-9.3); % Neutrophils 87.6 % (42.2-75.2); Absolute Lymphocytes 0.3 10^3/uL (1.2-3.4); Absolute Monocytes 0.3 10^3/uL (0.1-0.6); Absolute Neutrophils 4.8 10^3/uL (1.4-6.5); Hematocrit 43.8 % (39.0-52.0); Hemoglobin 15.4 g/dL (13.0-18.0); Mean Corp Hgb Conc. 35.2 g/dL (33.0-37.0); Mean Corpuscular Hgb 32.4 pg (27.0-31.0); Mean Corpuscular Volume 92.2 fL (80.0-94.0); Mean Platelet Volume 11.8 fL (7.4-10.4); Nucleated Red Blood Cells % 0 % (-); Platelet Count 88 10^3/uL (130-400); Red Blood Cell Count 4.75 10^6/uL (4.70-6.10); Red Cell Dist. Width 19.1 % (11.5-14.5); White Blood Cell Count 5.5 10^3/uL (4.8-10.8)
[2024-10-06 05:17] LABS: INR 2.56; PT 27.5 Sec (11.4-14.6)
[2024-10-06 05:37] LABS: ALT (SGPT) 88 U/L (0-50); AST (SGOT) 87 U/L (17-59); Albumin 3.5 g/dl (3.5-5.0); Alkaline Phosphatase 169 U/L (38-126); Blood Urea Nitrogen 47 mg/dl (9-20); Calcium 8.4 mg/dl (8.4-10.2); Carbon Dioxide 17 mmol/L (22-30); Chloride 95 mmol/L (98-107); Estimated Creatinine Clearance 38 ml/min; Glucose 118 mg/dl (70-99); Potassium 4.4 mmol/L (3.5-5.1); Sodium 126 mmol/L (135-145); Total Bilirubin 3.8 mg/dl (0.2-1.3); Total Protein 6.4 g/dl (6.3-8.2); eGFR 49.87
--- NOTE | 2024-10-06 08:35 | W.PN.CARDCBS ---
Addendum entered and electronically signed by Kee Flores MD 10/06/24 16:35:
Permanent atrial fibrillation
Acute HFrEF
Moderate malnutrition
Original Note:
Today's Communication / Plan
-
Volume status is slightly improved on dobutamine. Would continue dobutamine drip
Continue IV Bumex.
Did have some nonsustained ventricular tachycardia. Continue to follow on telemetry. Potassium is 4.4
Creatinine slightly improved
Long-term prognosis is obviously very poor.
LFTs are slowly improving
Impression / Plan
-
PCP: Dr. Mayers
Primary Juvenile Court Liaison: Dr. Lovett
EP: Dr. Arora
Impression:
Presented 10/01/2024 with fall, weakness, hypotension
Acute hypoxic respiratory failure
Acute HFrEF
Cardiogenic shock
Hypotension
ODALIS
Ascites
Abnormal LFTs
Pancreatic mass, known
Hyponatremia
CM EF 10-15%
h/o NICM EF
Hx VT/VF
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
Chronic Tikosyn therapy
Permanent Afib
s/p AV node ablation
Chronic warfarin OAC managed by PCP
h/o Amiodarone thyroiditis
Ulcerative colitis
JULIO CESAR on CPAP
Echo 06/2016: EF 35-40%, AV sclerosis with trivial AI, mildly dilated proximal ascending thoracic aorta
Echo 12/22/2023: EF 19% by Cooper's method, 26% by volumetric assessment, global hypokinesis with anterior wall and anteroseptum moving best, reduced RV systolic function, mod MR, mild to mod TR with PAP 50 mmHg
Echo 05/14/2024: EF 10 to 15% visually, severe global hypokinesis, stage II diastolic dysfunction, moderate to severe MR, moderate TR, mild aortic regurgitation
Echo 07/16/24: LV moderately dilated with EF 10-15%, 17% by Cooper's method, global hypokinesis, mod to sev MR, mild aortic regurgitation, mod to sev TR with PAP 35 mmHg
ECHO 10/02/24: EF 10 to 15%, severe global hypokinesis, mildly enlarged RV size and mildly reduced RV function, severe MR, mild AR, severe TR, PAP 35 to 40 mmHg, no significant change compared to prior
Plan:
-Presenting in cardiogenic shock with ODALIS, elevated LFTs, ascites, hypotension in setting of EF 10-15% and severe MR
-Cont dobutamine 5
-BP is marginal and therefore unlikely to tolerate afterload reduction at this time
-Home BB on hold in s/o cardiogenic shock
-Hold SGTL2
-Cont diuresis with IV Bumex 2 mg twice daily. Creat down to 1.4
LFTs slightly improved
-Takes tikosyn for history of VT. on hold due to ODALIS and prolonged QTc. Patient does have ICD. Repeat ECG today
Restart coumadin. INR 2.6
-Pancreatic mass felt to be benign per GI notes
-Ongoing GOC discussions, would consider reprogramming ICD tachy therapies
HPI 10/02/2024:
Mr. 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
Coumadin, obstructive sleep apnea who presented to emergency department 10/01/2024 after suffering a mechanical fall resulting in him striking his head while on Coumadin. EMS was called and patient was found to be hypotensive and hypoxic. He was
provided fluids bolus of 2500 cc. Patient admitted to feeling short of breath with some generalized weakness and chest discomfort several days prior to admission. proBNP was noted to be elevated at 18,900. Chest x-ray showed no evidence of
pulmonary edema or pleural effusion. EKG showed BiV paced rhythm. Interrogation of ICD in emergency department showed brief episode of NSVT. Head CT was negative. Patient admitted to ongoing weight loss greater than 50 pounds over the last year
prompting. He was found to have abnormal LFTs with concern for ascites and underwent CT of abdomen which demonstrated new 3 cm mass at tail of pancreas as well as moderate ascites.
Of note patient has been dealing with wound of the left lower extremity and was supposed to have outpatient ultrasound/ELIDA which was delayed due to admission.
Progress Note - Juvenile Court Liaison
Subjective
Date of Service: October 06, 2024
Breathing is slowly improving. His weight is down some. He did have some NSVT overnight.
Objective
Labs:
10/06/24 04:54
10/06/24 04:54
Labs
Hgb 15.4 g/dL (13.0-18.0) 10/06/24 04:54
Hct 43.8 % (39.0-52.0) 10/06/24 04:54
Plt Count 88 10^3/uL (130-400) L 10/06/24 04:54
PT 27.5 Sec (11.4-14.6) H 10/06/24 04:54
INR 2.56 10/06/24 04:54
APTT 42.6 Sec (23.4-35.0) H 10/03/24 03:24
Sodium 126 mmol/L (135-145) L 10/06/24 04:54
Potassium 4.4 mmol/L (3.5-5.1) 10/06/24 04:54
BUN 47 mg/dl (9-20) H 10/06/24 04:54
Creatinine 1.4 mg/dL (0.7-1.3) H 10/06/24 04:54
Glucose 118 mg/dl (70-99) H 10/06/24 04:54
Vital Signs and I&O:
Vital Signs
Temp Pulse Resp BP Pulse Ox
97.7 F 77 15 83/74 92
10/06/24 07:49 10/06/24 06:21 10/06/24 06:21 10/06/24 06:21 10/06/24 08:29
Vital Signs
Temp Pulse Resp BP Pulse Ox
97.7 F 77 15 83/74 92
10/06/24 07:49 10/06/24 06:21 10/06/24 06:21 10/06/24 06:21 10/06/24 08:29
Intake & Output
10/04/24 10/05/24 10/06/24 10/07/24
06:59 06:59 06:59 06:59
Intake Total 680 / 680 220 / 220
Output Total 425 / 425 800 / 800 1125 / 1125
Balance 255 / 255 -580 / -580 -1125 / -1125
Physical Exam
Physical Exam
GEN: No distress, awake, Ox3
HEENT: supple, anicteric, mmm
LUNGS: CTA, no wheezes/rales
CV: Reg with ectopy, S1/S2, 1/6 syst LSB, no gallop
ABD: soft, BS+, NT/ND
EXT: No edema
NEURO: Gross non-focal
SKIN: No rash
[2024-10-06] MEDS: BUMEX 2 MG IV ×2 (09:09→16:34)
[2024-10-06] MEDS: ProAmatine 10 MG PO ×3 (09:09→16:34)
[2024-10-06] MEDS: ASACOL, DELZICOL DR 800 MG PO ×3 (09:10→22:51)
[2024-10-06] MEDS: THERAGRAN 1 TABLET PO (09:10)
--- NOTE | 2024-10-06 11:30 | HOSPNOTE ---
Hospice continues to follow for support. I was notified by [facility] that patient wanted to pursue hospice services. I notified primary Rn and attending. I called patient myself to discuss this and what this would entail. After speaking with the
patient, he feels the doctors are still trying to care for him and make him better and he does not wish to stop treatment and pursue hospice at this time. I reviewed that I respect his decision and that hospice will be available when he is ready. I
updated primary RN and Attending with this change in information. Hospice will continue to follow and be available when patient determines it is time for him to proceed.
--- NOTE | 2024-10-06 11:36 | CHAP ---
Visited Delfino at 10:25am. At that time he said he was planning to go home on Hospice, and had peace with his decision. We prayed together. He wanted help finding a phone number so he could arrange transportation for his to visit him at .
I provided the number, and he wanted to make the call. Assured him that [facility] is here for him. I contacted Priya Olea RN of Hospice, who then spoke with Delfino by phone. She determined, after talking with him, that Delfino is not
ready for Hospice. [facility] remains available.
--- NOTE | 2024-10-06 15:59 | W.PN.HOSP.TC ---
Addendum entered and electronically signed by Kee Flores MD 10/06/24 16:38:
Unable to determine if ATN is a valid diagnosis at this point
Original Note:
Today's Communication/Plan
-
Continue diuresis, dobutamine
Monitor creatinine function, sodium levels, INR, platelets
Assessment / Plan
Assessment / Plan
Physical Exam
General: Appears in Distress and Obese; No Pain, Fever or Chills
HEENT: NormoCephalic, Anicteric, Moist mucous membranes, PERRLA, [place] Conjunctivae, No Ptosis and Oxygen (High flow nasal cannula oxygen)
Respiratory: No Wheezes, Rales or Rhonchi
Cardiac: S1/S2, Regular Rhythm and Peripheral Edema (Bilateral +2 lower extremities); No Murmur, Rub, Gallop or JVD
Breast: Deferred by me
GI: Soft, Non Tender, Non Distended, Normal Bowel Sounds and No Hepatosplenomegaly
Rectal: Deferred by Provider
Genito-urinary: Deferred by me
Musculoskeletal: No Clubbing, No Cyanosis, Edema, Left Lower Extremity (+2 pitting) and Edema, Right Lower Extremity (+2 pitting); No Edema, Left Upper Extremity or Edema, Right Upper Extremity
Skin: Warm, Dry and Ulcers (Left lower extremity venous stasis ulcer, bilateral plantar ulcerations at MCPs of great toes); No Rash
Neuro: AO x 3, No Motor Deficits, Nonfocal/grossly intact, Cranial Nerves Intact and No Sensory Deficits; No Slurred Speech, Facial Droop, Tremors or Sedated
Psych: Calm
#Acute hypoxic respiratory failure 2/2 acute on chronic CHF, severe cardiomyopathy
Acute episode of hypoxia 10/04, although I do think this is because of poor [place]ath, hypoperfusion
� Wean off high flow nasal cannula
� Resolved on its own prior
-Continue diuresis
-No evidence of PE on imaging
-wean o2 as tolerated
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
#Chronic severe cardiomyopathy EF 10-15%
#Cardiogenic shock
BNP 18,900 appears to be 11-16,000 from April to June of 2024
-I/O, daily weights-dry weight per July was 157 patient currently states he is 139 pounds. He has had weight loss of 10 pounds in the past 3 weeks and 50 pounds in the past year
-Hypotensive weight appears way less than recent admission we will hold on any diuretics as he has complex case
-Consult [facility] cardiology
-EF10-15%, left ventricle moderately dilated, severely reduced LVSF,
-Resume diuretics, sodium downtrending�monitor blood pressures
� Continue dobutamine
-imaging with no evidence of pulmonary edema
#Acute hypotension unclear etiology possible infection versus fluid shift given Ascites/third spacing
#Hx HTN�benign
-infectious work up although doubt
-More than likely related to poor HF and possible malignancy
-Check blood cultures x 2
-Check UA BURN CENTER NURSE
-HOLD VerQuvo 10 mg daily, Jardiance 10 mg daily
-Started back Bumex
-midodrine added
-dobutamine added
#Acute transaminitis with Hyperbilirubinemia
#Ascites
#Low-density mass tail of the pancreas
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
-Reengage IR for possible paracentesis
� CT pancreatic protocol featuring characteristics of benign mass
�Weight loss of 10 pounds in the past 3 weeks and 50 pounds in the past year
�GI on board
� CEA: 4.45
-AFP 2.74;
-Follow-up, CA 19�1
-Para 10/05- f/u SAAG�consistent with hepatic congestion from prior disease
#Thrombocytopenia
� Continue monitoring
# Possible secondary to cirrhosis, shock
� Continue to monitor closely
#Mechanical fall on Coumadin
-CT head negative
-PT/OT consult
#Paroxysmal A-fib
#Supratherapeutic INR
#-Status post AV node ablation
-most likely synthetic dysfunction causing elevated INR in setting of more than likely cirrhosis
-Patient on Coumadin daily -will hold Coumadin
-Med rec reports patient is on 1 mg of Coumadin daily
-Will follow INR
-Takes tikosyn for history of VT. on hold due to ODALIS and prolonged QTc. Patient does have ICD
-Hold carvedilol 1.5625 mg p.o. twice daily
#ODALIS on CKD stage III
� Most likely secondary to cardiorenal syndrome
� Monitor with dobutamine, increased perfusion diuresis
#Fall with nonsustained and SVT
#Permanent pacemaker pacemaker
interrogated in ER showing episode of nonsustained NSVT, otherwise unremarkable
#Acute hyponatremia
-hypervolemic 2/2 to CHF, ascites
-diuretics and monitor
#Left lower extremity chronic ulceration, bilateral dorsal feet at metatarsals open ulcerations chronic
-Patient follows with Dr. Bustos
-Consult wound care
-Plan was for patient to get peripheral arterial lower extremity Dopplers with ELIDA as outpatient
#HLD
Continue atorvastatin 20 mg every afternoon
# Ulcerative colitis
Continue mesalamine 800 mg p.o. 3 times daily
#Sleep apnea
Uses full mask setting 10 no oxygen
Other PMH:
multilevel DDD
degenerative osteoarthritis right hip
DVT prophylaxis
Continue FLOW COORDINATOR Coumadin
DNR per patient with Candis present, although appears to have memory impairment patient has his sister Ann-Marie Mckee who is also an emergency contact
Total time spent on today's encounter was 54 minutes which included time spent in counseling the patient/family regarding diagnosis and treatment plan as listed above, goals of care, and symptom management. Case was discussed with nursing staff,
specialists, and care coordinators/case management. All labs and imaging personally reviewed by me. Remainder the time spent in detailed review of previous records, lab data, imaging, and other medical provider documentation.
Dispo: Patient has poor prognosis; Hospice candidate; Engaged Hospice and Palliative; patient undecided regarding care and just wants to take care of and setting things in order; desires to see how he does over the weekend;
Anticipated Discharge: > 48 hours
Subjective/Interval History
-
Date of Service: October 06, 2024
Status of improved
Objective Data
-
Labs:
Laboratory Results
10/06/24
04:54
WBC 5.5
Hgb 15.4
Hct 43.8
Plt Count 88 L
PT 27.5 H
INR 2.56
Sodium 126 L
Potassium 4.4
Chloride 95 L
Carbon Dioxide 17 L
BUN 47 H
Creatinine 1.4 H
Glucose 118 H
Calcium 8.4
Total Bilirubin 3.8 H
AST 87 H
ALT 88 H
Alkaline Phosphatase 169 H
Vital Signs:
Vital Signs
Temp Pulse Resp BP Pulse Ox
98.0 F 78 17 88/63 92
10/06/24 11:35 10/06/24 14:10 10/06/24 12:06 10/06/24 14:10 10/06/24 10:23
I&O
10/05/24 10/06/24 10/07/24
06:59 06:59 06:59
Intake Total 220 / 220
Output Total 800 / 800 1125 / 1125 300 / 300
Balance -580 / -580 -1125 / -1125 -300 / -300
Review of Systems
-
History Source: Patient
All other systems: Not reviewed unless documented
Data Reviewed
-
Total Time Spent with Patient (in minutes): 54
CT Scan: Report Reviewed by me
Labs: Labs Reviewed by me
[2024-10-06] MEDS: LIPITOR 20 MG PO (16:35)
--- NOTE | 2024-10-06 16:52 | PTCARENOTE ---
Rec'd pt this AM. remains on dobutamine drip. IV bumex given. Pt is very weak but OOB x1 assist. Remains on 8L MF, O2 sat 98%. Pt with extremely poor extremity perfusion. able to obtain Pulse ox using portable machine only. Pt currently resting
comfotably in bed.
[2024-10-06] MEDS: DOBUTREX 500 MG 250 IV (22:53)
[2024-10-07] VITALS (17 sets, daily range): BP systolic 72–98; BP diastolic 52–74; BMI 19.3
[2024-10-07 05:32] LABS: PT 26.2 Sec (11.4-14.6)
[2024-10-07 05:35] LABS: % Basophils 0.2 % (0-2); % Immature Granulocytes 1.1 % (0-0.5); % Lymphocytes 1.2 % (20.5-51.1); % Monocytes 4.7 % (1.7-9.3); % Neutrophils 92.8 % (42.2-75.2); Absolute Immature Granulocytes 0.1 10^3/uL (0-0.05); Absolute Lymphocytes 0.2 10^3/uL (1.2-3.4); Absolute Monocytes 0.6 10^3/uL (0.1-0.6); Hematocrit 39.3 % (39.0-52.0); Mean Corp Hgb Conc. 35.6 g/dL (33.0-37.0); Mean Corpuscular Hgb 31.7 pg (27.0-31.0); Mean Corpuscular Volume 88.9 fL (80.0-94.0); Mean Platelet Volume 11.2 fL (7.4-10.4); Nucleated Red Blood Cells % 0 % (-); Platelet Count 84 10^3/uL (130-400); Red Blood Cell Count 4.42 10^6/uL (4.70-6.10); Red Cell Dist. Width 18.6 % (11.5-14.5); White Blood Cell Count 12.9 10^3/uL (4.8-10.8)
[2024-10-07 05:56] LABS: ALT (SGPT) 76 U/L (0-50); AST (SGOT) 74 U/L (17-59); Albumin 3.2 g/dl (3.5-5.0); Alkaline Phosphatase 159 U/L (38-126); Blood Urea Nitrogen 44 mg/dl (9-20); Calcium 8.2 mg/dl (8.4-10.2); Carbon Dioxide 16 mmol/L (22-30); Chloride 98 mmol/L (98-107); Estimated Creatinine Clearance 37 ml/min; Glucose 108 mg/dl (70-99); Magnesium 2.5 mg/dl (1.6-2.3); Potassium 4.3 mmol/L (3.5-5.1); Sodium 126 mmol/L (135-145); Total Bilirubin 4.5 mg/dl (0.2-1.3); eGFR 49.87
[2024-10-07] MEDS: ASACOL, DELZICOL DR 800 MG PO ×3 (08:04→22:43)
[2024-10-07] MEDS: THERAGRAN 1 TABLET PO (08:04)
[2024-10-07] MEDS: BUMEX 2 MG IV (08:04)
[2024-10-07] MEDS: ProAmatine 10 MG PO ×3 (08:04→16:44)
--- NOTE | 2024-10-07 09:01 | W.PN.CARDCBS ---
Today's Communication / Plan
-
Will continue dobutamine for another 24 hours then will start weaning.
He is diuresing some with the IV Bumex.
Creatinine is overall stable.
Blood pressure remains marginal.
With nonsustained VT we will continue to hold off on dofetilide for now.
Will consider restarting once off dobutamine.
LFTs are improving.
Impression / Plan
-
PCP: Dr. Mayers
Primary Business Taxes Specialist: Dr. Lovett
EP: Dr. Arora
Impression:
Presented 10/01/2024 with fall, weakness, hypotension
Acute hypoxic respiratory failure
Acute HFrEF
Cardiogenic shock
Hypotension
ODALIS
Ascites
Abnormal LFTs
Pancreatic mass, known
Hyponatremia
CM EF 10-15%
h/o NICM EF
Hx VT/VF
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
Chronic Tikosyn therapy
Permanent Afib
s/p AV node ablation
Chronic warfarin OAC managed by PCP
h/o Amiodarone thyroiditis
Ulcerative colitis
JULIO CESAR on CPAP
Echo 06/2016: EF 35-40%, AV sclerosis with trivial AI, mildly dilated proximal ascending thoracic aorta
Echo 12/22/2023: EF 19% by Cooper's method, 26% by volumetric assessment, global hypokinesis with anterior wall and anteroseptum moving best, reduced RV systolic function, mod MR, mild to mod TR with PAP 50 mmHg
Echo 05/14/2024: EF 10 to 15% visually, severe global hypokinesis, stage II diastolic dysfunction, moderate to severe MR, moderate TR, mild aortic regurgitation
Echo 07/16/24: LV moderately dilated with EF 10-15%, 17% by Cooper's method, global hypokinesis, mod to sev MR, mild aortic regurgitation, mod to sev TR with PAP 35 mmHg
ECHO 12/17/24: EF 10 to 15%, severe global hypokinesis, mildly enlarged RV size and mildly reduced RV function, severe MR, mild AR, severe TR, PAP 35 to 40 mmHg, no significant change compared to prior
Plan:
-Presenting in cardiogenic shock with ODALIS, elevated LFTs, ascites, hypotension in setting of EF 10-15% and severe MR
-Cont dobutamine 5. He does have some brief nonsustained VT.
-BP is marginal and therefore unlikely to tolerate afterload reduction at this time
-Home BB on hold in s/o cardiogenic shock
-Hold SGTL2
-Cont diuresis with IV Bumex 2 mg twice daily. Creat down to 1.4. His weight is down and he is diuresing some.
LFTs slightly improved
-Takes tikosyn for history of VT. on hold due to ODALIS and prolonged QTc. Patient does have ICD. QTc 549 with paced rhythm.
Continue Coumadin.
-Pancreatic mass felt to be benign per GI notes
-Ongoing GOC discussions, would consider reprogramming ICD tachy therapies
HPI 10/02/2024:
Mr. Cooper is an 84-year-old male with past medical history significant for heart failure with reduced ejection fraction (EF 10 to 15%), nonischemic cardiomyopathy, VT/VF status post BUSINESS CONTINUITY PLANNER ICD on chronic Tikosyn, permanent atrial fibrillation on
Coumadin, obstructive sleep apnea who presented to emergency department 10/01/2024 after suffering a mechanical fall resulting in him striking his head while on Coumadin. EMS was called and patient was found to be hypotensive and hypoxic. He was
provided fluids bolus of 2500 cc. Patient admitted to feeling short of breath with some generalized weakness and chest discomfort several days prior to admission. proBNP was noted to be elevated at 18,900. Chest x-ray showed no evidence of
pulmonary edema or pleural effusion. EKG showed BiV paced rhythm. Interrogation of ICD in emergency department showed brief episode of NSVT. Head CT was negative. Patient admitted to ongoing weight loss greater than 50 pounds over the last year
prompting. He was found to have abnormal LFTs with concern for ascites and underwent CT of abdomen which demonstrated new 3 cm mass at tail of pancreas as well as moderate ascites.
Of note patient has been dealing with wound of the left lower extremity and was supposed to have outpatient ultrasound/[facility] which was delayed due to admission.
Progress Note - Business Taxes Specialist
Subjective
Date of Service: October 07, 2024
His weight is down and he is diuresing. Did not feel the ventricular tachycardia.
Objective
Labs:
10/07/24 05:08
10/07/24 05:08
Labs
Hgb 14.0 g/dL (13.0-18.0) 10/07/24 05:08
Hct 39.3 % (39.0-52.0) 10/07/24 05:08
Plt Count 84 10^3/uL (130-400) L 10/07/24 05:08
PT 26.2 Sec (11.4-14.6) H 10/07/24 05:08
INR 2.40 10/07/24 05:08
APTT 42.6 Sec (23.4-35.0) H 10/03/24 03:24
Sodium 126 mmol/L (135-145) L 10/07/24 05:08
Potassium 4.3 mmol/L (3.5-5.1) 10/07/24 05:08
BUN 44 mg/dl (9-20) H 10/07/24 05:08
Creatinine 1.4 mg/dL (0.7-1.3) H 10/07/24 05:08
Glucose 108 mg/dl (70-99) H 10/07/24 05:08
Vital Signs and I&O:
Vital Signs
Temp Pulse Resp BP Pulse Ox
97.9 F 77 99
10/07/24 07:58 10/07/24 08:04 10/07/24 08:00 10/07/24 08:04 10/07/24 04:00
Vital Signs
Temp Pulse Resp BP Pulse Ox
97.9 F 77 11 99
10/07/24 07:58 10/07/24 08:04 10/07/24 08:00 10/07/24 08:04 10/07/24 04:00
Intake & Output
10/05/24 10/06/24 10/07/24 10/08/24
06:59 06:59 06:59 06:59
Intake Total 220 / 220
Output Total 800 / 800 1125 / 1125 1075 / 1075
Balance -580 / -580 -1125 / -1125 -1075 / -1075
Physical Exam
Physical Exam
GEN: No distress, awake, Ox3
HEENT: supple, anicteric, mmm
LUNGS: CTA, no wheezes/rales
CV: Reg, S1/S2, 1/6 syst LSB, S4+
ABD: soft, BS+, + distended
EXT: No edema
NEURO: Gross non-focal
SKIN: No rash
--- NOTE | 2024-10-07 14:05 | W.PN.HOSP.TC ---
Addendum entered and electronically signed by Kee Flores MD 10/07/24 14:14:
Ca 19-9: elevated - Would still plan eventual biopsy if and when able
Original Note:
Today's Communication/Plan
-
reduce dobutamine dosing, monitor for arrhythmia
Continue diuretics
Assessment / Plan
Assessment / Plan
Physical Exam
General: Appears in Distress and Obese; No Pain, Fever or Chills
HEENT: NormoCephalic, Anicteric, Moist mucous membranes, PERRLA, [place] Conjunctivae, No Ptosis and Oxygen (High flow nasal cannula oxygen)
Respiratory: No Wheezes, Rales or Rhonchi
Cardiac: S1/S2, Regular Rhythm and Peripheral Edema (Bilateral +2 lower extremities); No Murmur, Rub, Gallop or JVD
Breast: Deferred by me
GI: Soft, Non Tender, Non Distended, Normal Bowel Sounds and No Hepatosplenomegaly
Rectal: Deferred by Provider
Genito-urinary: Deferred by me
Musculoskeletal: No Clubbing, No Cyanosis, Edema, Left Lower Extremity (+2 pitting) and Edema, Right Lower Extremity (+2 pitting); No Edema, Left Upper Extremity or Edema, Right Upper Extremity
Skin: Warm, Dry and Ulcers (Left lower extremity venous stasis ulcer, bilateral plantar ulcerations at MCPs of great toes); No Rash
Neuro: AO x 3, No Motor Deficits, Nonfocal/grossly intact, Cranial Nerves Intact and No Sensory Deficits; No Slurred Speech, Facial Droop, Tremors or Sedated
Psych: Calm
#Acute hypoxic respiratory failure 2/2 acute on chronic CHF, severe cardiomyopathy
Acute episode of hypoxia 10/04, although I do think this is because of poor [place], hypoperfusion
� Wean off high flow nasal cannula
� Resolved on its own prior
-Continue diuresis
-No evidence of PE on imaging
-wean o2 as tolerated
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
#Chronic severe cardiomyopathy EF 10-15%
#Cardiogenic shock
BNP 18,900 appears to be 11-16,000 from April to June of 2024
-I/O, daily weights-dry weight per July was 157 patient currently states he is 139 pounds. He has had weight loss of 10 pounds in the past 3 weeks and 50 pounds in the past year
-Hypotensive weight appears way less than recent admission we will hold on any diuretics as he has complex case
-Consult [facility] cardiology
-EF10-15%, left ventricle moderately dilated, severely reduced LVSF,
-Resume diuretics, sodium downtrending�monitor blood pressures
� Continue dobutamine - with 28 beats vtach - reduce to half dose dobutamine
-imaging with no evidence of pulmonary edema
#Acute hypotension unclear etiology possible infection versus fluid shift given Ascites/third spacing
#Hx HTN�benign
-infectious work up although doubt
-More than likely related to poor HF and possible malignancy
-Check blood cultures x 2
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
-HOLD VerQuvo 10 mg daily, Jardiance 10 mg daily
-Started back Bumex
-midodrine added
-dobutamine added
#Acute transaminitis with Hyperbilirubinemia
#Ascites
#Low-density mass tail of the pancreas
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
-Reengage IR for possible paracentesis
� CT pancreatic protocol featuring characteristics of benign mass
�Weight loss of 10 pounds in the past 3 weeks and 50 pounds in the past year
�GI on board
� CEA: 4.45
-AFP 2.74;
-CA 19�9 - 46
-Para 10/05- f/u SAAG�consistent with hepatic congestion from prior disease
#Thrombocytopenia
� Continue monitoring
# Possible secondary to cirrhosis, shock
� Continue to monitor closely
#Mechanical fall on Coumadin
-CT head negative
-PT/OT consult
#Paroxysmal A-fib
#Supratherapeutic INR
#-Status post AV node ablation
-most likely synthetic dysfunction causing elevated INR in setting of more than likely cirrhosis
-Patient on Coumadin daily -will hold Coumadin
-Med rec reports patient is on 1 mg of Coumadin daily
-Will follow INR
-Takes tikosyn for history of VT. on hold due to ODALIS and prolonged QTc. Patient does have ICD
-Hold carvedilol 1.5625 mg p.o. twice daily
#ODALIS on CKD stage III
� Most likely secondary to cardiorenal syndrome
� Monitor with dobutamine, increased perfusion diuresis
#Fall with nonsustained and SVT
#Permanent pacemaker pacemaker
interrogated in ER showing episode of nonsustained NSVT, otherwise unremarkable
#Acute hyponatremia
-hypervolemic 2/2 to CHF, ascites
-diuretics and monitor
#Left lower extremity chronic ulceration, bilateral dorsal feet at metatarsals open ulcerations chronic
-Patient follows with Dr. Bustos
-Consult wound care
-Plan was for patient to get peripheral arterial lower extremity Dopplers with EL[facility] as outpatient
#HLD
Continue atorvastatin 20 mg every afternoon
# Ulcerative colitis
Continue mesalamine 800 mg p.o. 3 times daily
#Sleep apnea
Uses full mask setting 10 no oxygen
Other PMH:
multilevel DDD
degenerative osteoarthritis right hip
DVT prophylaxis
Continue RUG CLEANER HELPER Coumadin
DNR per patient with Candis present, although appears to have memory impairment patient has his sister Ann-Marie Mckee who is also an emergency contact
Total time spent on today's encounter was 51 minutes which included time spent in counseling the patient/family regarding diagnosis and treatment plan as listed above, goals of care, and symptom management. Case was discussed with nursing staff,
specialists, and care coordinators/case management. All labs and imaging personally reviewed by me. Remainder the time spent in detailed review of previous records, lab data, imaging, and other medical provider documentation.
Dispo: Patient has poor prognosis; Hospice candidate; [facility]; patient undecided regarding care and just wants to take care of and setting things in order; desires to see how he does over the weekend;
Anticipated Discharge: > 48 hours
Subjective/Interval History
-
Date of Service: October 07, 2024
28 beats vtach this afternoon
Objective Data
-
Labs:
Laboratory Results
10/07/24
05:08
WBC 12.9 H
Hgb 14.0
Hct 39.3
Plt Count 84 L
PT 26.2 H
INR 2.40
Sodium 126 L
Potassium 4.3
Chloride 98
Carbon Dioxide 16 L
BUN 44 H
Creatinine 1.4 H
Glucose 108 H
Calcium 8.2 L
Total Bilirubin 4.5 H
AST 74 H
ALT 76 H
Alkaline Phosphatase 159 H
Vital Signs:
Vital Signs
Temp Pulse Resp BP Pulse Ox
99.0 F 76 11 77/59 98
10/07/24 11:15 10/07/24 12:17 10/07/24 08:00 10/07/24 12:17 10/07/24 09:24
I&O
10/06/24 10/07/24 10/08/24
06:59 06:59 06:59
Output Total 1125 / 1125 1075 / 1075
Balance -1125 / -1125 -1075 / -1075
Review of Systems
-
History Source: Patient
All other systems: Not reviewed unless documented
Data Reviewed
-
Total Time Spent with Patient (in minutes): 54
CT Scan: Report Reviewed by me
Labs: Labs Reviewed by me
--- NOTE | 2024-10-07 14:16 | PTCARENOTE ---
Rec'd pt this AM. weak and BARBA. Pt's BP low this afternoon with sytolic in the 70s. Dr. Flores notiifed. Pt then had 26 beat run of V tach. asymptomatic for both hypotension and v tach. Pt assisted back to bed from bedside chair. Notified
Sandra and Dr. Armando. Decrease in dobutamine ordered. Will continue to monitor pt. and notifiy MD team of any further arrhythmias.
--- NOTE | 2024-10-07 15:21 | HOSPNOTE ---
HOSPICE REMAINS AVAILABLE AND CONTINUES TO FOLLOW AND OFFER SUPPORT.
[2024-10-07] MEDS: LIPITOR 20 MG PO (16:37)
--- NOTE | 2024-10-07 16:56 | PTCARENOTE ---
Notified Dr. Russell and Dr. Hays pt's BP 75/52. Dr. Russell ordered Bumex dose to be held.
[2024-10-07] MEDS: BUMEX IV (16:57)
[2024-10-07] MEDS: TYLENOL 650 MG PO (22:55)
[2024-10-08] VITALS (20 sets, daily range): BP systolic 75–137; BP diastolic 57–86; PULSE 77–78; BMI 19.5
[2024-10-08 04:28] LABS: % Basophils 0.1 % (0-2); % Eosinophils 0.4 % (0-6); % Immature Granulocytes 0.8 % (0-0.5); % Lymphocytes 2.1 % (20.5-51.1); % Monocytes 4.3 % (1.7-9.3); % Neutrophils 92.3 % (42.2-75.2); Absolute Immature Granulocytes 0.1 10^3/uL (0-0.05); Absolute Lymphocytes 0.2 10^3/uL (1.2-3.4); Absolute Monocytes 0.5 10^3/uL (0.1-0.6); Absolute Neutrophils 9.8 10^3/uL (1.4-6.5); Hematocrit 38.8 % (39.0-52.0); Hemoglobin 14.1 g/dL (13.0-18.0); Mean Corp Hgb Conc. 36.3 g/dL (33.0-37.0); Mean Corpuscular Hgb 32.1 pg (27.0-31.0); Mean Corpuscular Volume 88.4 fL (80.0-94.0); Mean Platelet Volume 11.8 fL (7.4-10.4); Nucleated Red Blood Cells % 0.3 % (-); Platelet Count 84 10^3/uL (130-400); Red Blood Cell Count 4.39 10^6/uL (4.70-6.10); Red Cell Dist. Width 18.7 % (11.5-14.5); White Blood Cell Count 10.6 10^3/uL (4.8-10.8)
[2024-10-08 04:42] LABS: INR 2.46; PT 26.7 Sec (11.4-14.6)
[2024-10-08 04:43] LABS: ALT (SGPT) 77 U/L (0-50); AST (SGOT) 73 U/L (17-59); Albumin 3.1 g/dl (3.5-5.0); Alkaline Phosphatase 140 U/L (38-126); Blood Urea Nitrogen 51 mg/dl (9-20); Calcium 8.4 mg/dl (8.4-10.2); Carbon Dioxide 16 mmol/L (22-30); Chloride 98 mmol/L (98-107); Estimated Creatinine Clearance 35 ml/min; Glucose 118 mg/dl (70-99); Magnesium 2.7 mg/dl (1.6-2.3); Phosphorus 3.9 mg/dl (2.5-4.5); Potassium 4.7 mmol/L (3.5-5.1); Sodium 125 mmol/L (135-145); Total Bilirubin 4.3 mg/dl (0.2-1.3); eGFR 45.91
[2024-10-08] MEDS: DOBUTREX 500 MG 250 IV (06:04)
--- NOTE | 2024-10-08 06:56 | W.PN.HOSP.TC ---
Addendum entered and electronically signed by Susan Villaseñor MD 10/08/24 11:17:
Addendum
#
Moderate protein calorie Malnutrition
Paroxysmal A fib
Combined systolic and diastolic HF
End
Original Note:
Today's Communication/Plan
-
Dobutamine gtt
Bumex 2mg BID
Assessment / Plan
Assessment / Plan
Physical Exam
General: not in Distress and Obese; No Pain, Fever or Chills
HEENT: NormoCephalic, Anicteric, Moist mucous membranes, PERRLA, [place] Conjunctivae, No Ptosis and Oxygen (High flow nasal cannula oxygen)
Respiratory: No Wheezes, Rales or Rhonchi
Cardiac: S1/S2, Regular Rhythm and Peripheral Edema (Bilateral +2 lower extremities); No Murmur, Rub, Gallop or JVD
GI: Soft, Non Tender, Non Distended, Normal Bowel Sounds and No Hepatosplenomegaly
Rectal: no bleeding
Genito-urinary: Nohematuria
Musculoskeletal: No Clubbing, No Cyanosis, Edema, Left Lower Extremity (+2 pitting) and Edema, Right Lower Extremity (+2 pitting); No Edema, Left Upper Extremity or Edema, Right Upper Extremity
Skin: Warm, Dry and Ulcers (Left lower extremity venous stasis ulcer, bilateral plantar ulcerations at MCPs of great toes); No Rash
Neuro: AO x 3, No Motor Deficits, Nonfocal/grossly intact, Cranial Nerves Intact and No Sensory Deficits; No Slurred Speech, Facial Droop, Tremors or Sedated
Psych: Calm
#Acute hypoxic respiratory failure 2/2 acute on chronic CHF, severe cardiomyopathy
Acute episode of hypoxia 10/04,
� Weaned off high flow nasal cannula
� Resolved on its own prior
-Continue diuresis
-No evidence of PE on imaging
-wean o2 as tolerated
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
#Chronic severe cardiomyopathy EF 10-15%
#Cardiogenic shock
BNP 18,900 appears to be 11-16,000 from April to June of 2024
-I/O, daily weights-dry weight per July was 157 patient currently states he is 139 pounds. He has had weight loss of 10 pounds in the past 3 weeks and 50 pounds in the past year
-Hypotensive weight appears way less than recent admission we will hold on any diuretics as he has complex case
-Consulted [facility] cardiology
-EF10-15%, left ventricle moderately dilated, severely reduced LVSF,
-Resumed diuretics, sodium downtrending�monitor blood pressures
� Continue dobutamine - with 28 beats vtach - reduce to half dose dobutamine
-imaging with no evidence of pulmonary edema
#Acute hypotension c/w cardiogenic shock
#Hx HTN�benign
-negative blood culture
-Held VerQuvo 10 mg daily, Jardiance 10 mg daily
-Started back Bumex
-midodrine added
-dobutamine added
#Acute transaminitis with Hyperbilirubinemia c/w acute ischemic hepatitis
#Ascites
#Low-density mass tail of the pancreas
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
-Reengage IR for possible paracentesis
� CT pancreatic protocol featuring characteristics of benign mass
�Weight loss of 10 pounds in the past 3 weeks and 50 pounds in the past year
�GI on board
� CEA: 4.45
-AFP 2.74;
-CA 19�9 - 46
-Para 10/05- f/u SAAG�consistent with hepatic congestion from prior disease
#Thrombocytopenia
� Continue monitoring
# Due to cirrhosis, shock
� Continue to monitor closely
#Mechanical fall on Coumadin
-CT head negative
-PT/OT consult
#Paroxysmal A-fib
#Supratherapeutic INR
#-Status post AV node ablation
-most likely synthetic dysfunction causing elevated INR in setting of more than likely cirrhosis
-Patient on Coumadin daily -will hold Coumadin
-Med rec reports patient is on 1 mg of Coumadin daily
-Will follow INR
-Takes tikosyn for history of VT. on hold due to ODALIS and prolonged QTc. Patient does have ICD
-Hold carvedilol 1.5625 mg p.o. twice daily
#ODALIS on CKD stage III
� Most likely secondary to cardiorenal syndrome
� Monitor with dobutamine, increased perfusion diuresis
#Fall with nonsustained and SVT
#Permanent pacemaker pacemaker
interrogated in ER showing episode of nonsustained NSVT, otherwise unremarkable
#Acute hyponatremia
-hypervolemic 2/2 to CHF, ascites, ok with regular diet
-diuretics and monitor
#Left lower extremity chronic ulceration, bilateral dorsal feet at metatarsals open ulcerations chronic
-Patient follows with Dr. Bustos
-Consult wound care
Ordered stat Tylenol this morning
-Plan was for patient to get peripheral arterial lower extremity Doppler with [facility] as outpatient
#HLD
Continue atorvastatin 20 mg every afternoon
# Ulcerative colitis
Continue mesalamine 800 mg p.o. 3 times daily
#Sleep apnea
Uses full mask setting 10 no oxygen
Other PMH:
multilevel DDD
degenerative osteoarthritis right hip
DVT prophylaxis
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
DNR per patient with Candis present, although appears to have memory impairment patient has his sister Ann-Marie Mckee who is also an emergency contact
Total time spent on today's encounter was 57 minutes which included time spent in counseling the patient/family regarding diagnosis and treatment plan as listed above, goals of care, and symptom management. Case was discussed with nursing staff,
specialists, and care coordinators/case management. All labs and imaging personally reviewed by me. Remainder the time spent in detailed review of previous records, lab data, imaging, and other medical provider documentation.
Anticipated Discharge: 24 - 48 hours
Subjective/Interval History
-
Date of Service: October 08, 2024
No chest pain
No sob
Objective Data
-
Labs:
Laboratory Results
10/08/24 10/08/24
04:01 04:12
WBC 10.6
Hgb 14.1
Hct 38.8 L
Plt Count 84 L
PT 26.7 H
INR 2.46
Sodium 125 L Cancelled
Potassium 4.7 Cancelled
Chloride 98 Cancelled
Carbon Dioxide 16 L Cancelled
BUN 51 H Cancelled
Creatinine 1.5 H Cancelled
Glucose 118 H Cancelled
Calcium 8.4 Cancelled
Total Bilirubin 4.3 H
AST 73 H
ALT 77 H
Alkaline Phosphatase 140 H
Vital Signs:
Vital Signs
Temp Pulse Resp BP Pulse Ox
97.7 F 76 14 86/73 98
10/08/24 03:41 10/08/24 04:00 10/08/24 04:00 10/08/24 04:00 10/08/24 04:20
I&O
10/06/24 10/07/24 10/08/24
06:59 06:59 06:59
Intake Total 240 / 240
Output Total 1125 / 1125 1075 / 1075 700 / 700
Balance -1125 / -1125 -1075 / -1075 -460 / -460
--- NOTE | 2024-10-08 09:08 | PTCARENOTE ---
Dr. Khan made aware that patient had 5 run beat of v tach this AM. Patient asymptomatic. No new orders at this time. Care ongoing at this time.
[2024-10-08] MEDS: ASACOL, DELZICOL DR 800 MG PO ×3 (09:12→21:59)
[2024-10-08] MEDS: TYLENOL 1000 MG PO (09:13)
[2024-10-08] MEDS: THERAGRAN 1 TABLET PO (09:13)
[2024-10-08] MEDS: ProAmatine 10 MG PO ×3 (09:13→16:27)
--- NOTE | 2024-10-08 09:25 | W.PN.CARDCBS ---
Today's Communication / Plan
-
Showing little improvement with dobutamine and having nonsustained ventricular tachycardia.
Would continue dobutamine 2.5 mcg kilogram per minute for another 24 hours with IV Bumex.
Repeat EKG to follow QT interval.
Continue midodrine for blood pressure support.
Ideally we could get him home for the holidays over the next several days, however hospice is also totally reasonable.
Would remain off Tikosyn for now with nonsustained VT
Impression / Plan
-
PCP: Dr. Mayers
Primary Franchise Sales Manager: Dr. Lovett
EP: Dr. Arora
Impression:
Presented 10/01/2024 with fall, weakness, hypotension
Acute hypoxic respiratory failure
Acute HFrEF
Cardiogenic shock
Hypotension
ODALIS
Ascites
Abnormal LFTs
Pancreatic mass, known
Hyponatremia
CM EF 10-15%
h/o NICM EF
Hx VT/VF
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
Chronic Tikosyn therapy
Permanent Afib
s/p AV node ablation
Chronic warfarin OAC managed by PCP
h/o Amiodarone thyroiditis
Ulcerative colitis
JULIO CESAR on CPAP
Echo 06/2016: EF 35-40%, AV sclerosis with trivial AI, mildly dilated proximal ascending thoracic aorta
Echo 12/22/2023: EF 19% by Cooper's method, 26% by volumetric assessment, global hypokinesis with anterior wall and anteroseptum moving best, reduced RV systolic function, mod MR, mild to mod TR with PAP 50 mmHg
Echo 05/14/2024: EF 10 to 15% visually, severe global hypokinesis, stage II diastolic dysfunction, moderate to severe MR, moderate TR, mild aortic regurgitation
Echo 07/16/24: LV moderately dilated with EF 10-15%, 17% by Cooper's method, global hypokinesis, mod to sev MR, mild aortic regurgitation, mod to sev TR with PAP 35 mmHg
ECHO 10/02/24: EF 10 to 15%, severe global hypokinesis, mildly enlarged RV size and mildly reduced RV function, severe MR, mild AR, severe TR, PAP 35 to 40 mmHg, no significant change compared to prior
Plan:
-Presenting in cardiogenic shock with ODALIS, elevated LFTs, ascites, hypotension in setting of EF 10-15% and severe MR
-Dobutamine down to 2.5 mcg kilograms per minute because of nonsustained VT. Will likely wean off tomorrow pending course.
-BP is marginal and therefore unlikely to tolerate afterload reduction at this time
-Home BB on hold in s/o cardiogenic shock
-Hold SGTL2
-Cont diuresis with IV Bumex 2 mg twice daily. Would continue to attempt to give Bumex even with marginal blood pressure. Creatinine stable at 1.5.
LFTs slightly improved
-Takes tikosyn for history of VT. on hold due to ODALIS and prolonged QTc. Patient does have ICD. QTc 549 with paced rhythm. Will repeat EKG today.
Continue Coumadin.
-Pancreatic mass felt to be benign per GI notes
-Ongoing GOC discussions, would consider reprogramming ICD tachy therapies
-Hospice is reasonable for him.
HPI 10/02/2024:
Mr. Cooper is an 84-year-old male with past medical history significant for heart failure with reduced ejection fraction (EF 10 to 15%), nonischemic cardiomyopathy, VT/VF status post REMOTE SENSING ANALYST ICD on chronic Tikosyn, permanent atrial fibrillation on
Coumadin, obstructive sleep apnea who presented to emergency department 10/01/2024 after suffering a mechanical fall resulting in him striking his head while on Coumadin. EMS was called and patient was found to be hypotensive and hypoxic. He was
provided fluids bolus of 2500 cc. Patient admitted to feeling short of breath with some generalized weakness and chest discomfort several days prior to admission. proBNP was noted to be elevated at 18,900. Chest x-ray showed no evidence of
pulmonary edema or pleural effusion. EKG showed BiV paced rhythm. Interrogation of ICD in emergency department showed brief episode of NSVT. Head CT was negative. Patient admitted to ongoing weight loss greater than 50 pounds over the last year
prompting. He was found to have abnormal LFTs with concern for ascites and underwent CT of abdomen which demonstrated new 3 cm mass at tail of pancreas as well as moderate ascites.
Of note patient has been dealing with wound of the left lower extremity and was supposed to have outpatient ultrasound/ELIDA which was delayed due to admission.
Progress Note - Franchise Sales Manager
Subjective
Date of Service: October 08, 2024
Still feels weak and tired. Blood pressure remains marginal. Does not feel the nonsustained VT.
Objective
Labs:
10/08/24 04:01
10/08/24 04:12
Labs
Hgb 14.1 g/dL (13.0-18.0) 10/08/24 04:01
Hct 38.8 % (39.0-52.0) L 10/08/24 04:01
Plt Count 84 10^3/uL (130-400) L 10/08/24 04:01
PT 26.7 Sec (11.4-14.6) H 10/08/24 04:01
INR 2.46 10/08/24 04:01
APTT 42.6 Sec (23.4-35.0) H 10/03/24 03:24
Sodium Cancelled 10/08/24 04:12
Potassium Cancelled 10/08/24 04:12
BUN Cancelled 10/08/24 04:12
Creatinine Cancelled 10/08/24 04:12
Glucose Cancelled 10/08/24 04:12
Vital Signs and I&O:
Vital Signs
Temp Pulse Resp BP Pulse Ox
97.8 F 77 15 82/61 96
10/08/24 07:22 10/08/24 09:13 10/08/24 08:17 10/08/24 09:13 10/08/24 08:00
Vital Signs
Temp Pulse Resp BP Pulse Ox
97.8 F 77 15 82/61 96
10/08/24 07:22 10/08/24 09:13 10/08/24 08:17 10/08/24 09:13 10/08/24 08:00
Intake & Output
10/06/24 10/07/24 10/08/24 10/09/24
06:59 06:59 06:59 06:59
Intake Total 240 / 240 480 / 480
Output Total 1125 / 1125 1075 / 1075 700 / 700 200 / 200
Balance -1125 / -1125 -1075 / -1075 -460 / -460 280 / 280
Physical Exam
Physical Exam
GEN: No distress, awake, Ox3
HEENT: supple, anicteric, mmm
LUNGS: bilat rhonchi
CV: Reg, S1/S2, 1/6 syst LSB, S3+
ABD: soft, BS+, + disteneded
EXT: No edema
NEURO: Gross non-focal
SKIN: No rash
--- NOTE | 2024-10-08 09:50 | CM ---
Patient not medically stable for discharge. Hospice still following.
Plan: Case management will continue to follow and assist with discharge planning. Tentative plan is back to [facility] hospice.
[2024-10-08] MEDS: BUMEX 2 MG IV ×2 (10:37→17:14)
--- NOTE | 2024-10-08 10:50 | PN.CDI ---
CDI
- -
CDI:
Physician Documentation Request
Admit Date: 10/01/24 18:52
Dear Doctor Charleen,
Patient being managed for acute on chronic CHF.
Hospitalist progress note refers to the CHF as 'combined systolic/diastolic'
Cardiology as 'HFrEF'
Please clarify the type of CHF you are evaluating, treating or monitoring.
Type
Systolic
Combined Systolic/Diastolic
Other
Use of terms such as suspected, likely, concern for, or probable (associated with a specific diagnosis that is being evaluated, monitored, or treated as if it exists) are acceptable and can be coded in the inpatient setting, when documented at the
time of discharge.
Thank you,
Kelsie Ulloa RN, BSN
CDI Specialist
tiger text
Please use your independent medical judgment in providing your response.
--- NOTE | 2024-10-08 10:51 | PN.CDI ---
CDI
- -
CDI:
Physician Documentation Request
Admit Date: 10/01/24 18:52
Dear Doctor Charleen,
Patient being managed for heart failure, with afib history.
Cardiology refers to the atrial fib as permanent.
Hospitalist progress notes states paroxysmal.
In an attempt to clarify potentially conflicting documentation, please clarify the type of atrial fib:
Paroxysmal atrial fibrillation - terminates spontaneously or with intervention within 7 days of onset
Permanent atrial fibrillation - when a decision has been made to accept the presence of AF and there is no further attempt to restore or maintain sinus rhythm
Other - please specify
Use of terms such as suspected, likely, concern for, or probable (associated with a specific diagnosis that is being evaluated, monitored, or treated as if it exists) are acceptable and can be coded in the inpatient setting, when documented at the
time of discharge.
Thank you,
Kelsie Ulloa RN, BSN
CDI Specialist
tiger text
Please use your independent medical judgment in providing your response.
--- NOTE | 2024-10-08 10:52 | PN.CDI ---
CDI
- -
CDI:
Physician Documentation Request
Admit Date: 10/01/24 18:52
Dear Doctor Charleen,
RD notes and assessment from 10/02 state 'Moderate protein calorie malnutrition. Chronic illness. Assessment subcutaneous loss over triceps- mild, Orbital mild. Assessment of muscle loss over shoulders Mild, clavicles mild. Per previous visit pts
wt was 171 lbs 9 oz on 07/15/24 reflects 15% wt loss in 3 months (severe). As per ASPEN/AND pt meets criteria for moderate protein calorie malnutrition with 15% wt loss in 3 months. NFPE finding, and intakes of < 50% for greater than or equal to 5
days'
Based on the above information and your assessment, which of the following most accurately represents the patient's nutritional status?
Moderate Malnutrition
Other (please specify)
Emmaus Criteria ([facility] Hospitalist 2017)
2 or more criteria must be present for either
non severe or severe malnutrition
Note that the criteria differs related to the
presence of an acute or chronic illness
Acute Illness Chronic Illness
Energy Intake Non Severe: <75% for >7 days Non Severe: <75% for >1 month
Severe: <50% for >5 days Severe: <75% for >1 month
Weight Loss Non Severe: 1-2% over 1 week Non Severe: 5% over 1 month
5% over 1 month 7.5% over 3 months
7.5% over 3 months 10% over 6 months
1 year N/A 20% over 1 year
Severe: >2% over 1 week Severe: >5% over 1 month
>5% over 1 month >7.5% over 3 months
>7.5% over 3 months >10% over 6 months
1 year N/A >20% over 1 year
Body Fat Non Severe: Mild Decrease Non Severe: Mild Loss
Severe: Moderate Decrease Severe: Severe Loss
Muscle Mass Non Severe: Mild Decrease Non Severe: Mild Loss
Severe: Moderate Decrease Severe: Severe Loss
Fluid Accumulation Non Severe: Mild Accumulation Non Severe: Mild Accumulation
Severe: Moderate to severe Severe: Moderate to severe
accumulation accumulation
Reduced Plant Custodian Strength Non Severe: N/A Non Severe: N/A
Severe: Measurably reduced Severe: Measurably reduced
Use of terms such as suspected, likely, concern for, or probable (associated with a specific diagnosis that is being evaluated, monitored, or treated as if it exists) are acceptable and can be coded in the inpatient setting, when documented at the
time of discharge.
Thank you,
Kelsie Ulloa RN, BSN
CDI Specialist
tiger text
Please use your independent medical judgment in providing your response.
--- NOTE | 2024-10-08 12:52 | W.PN.PAL2 ---
Today's Communication
-
Patient seen for palliative care follow up
He reports feeling tired, stiff. right shoulder discomfort today. He shares that they are trying to reduce the drip and then hopefully hope with hospice. Oxygen needs have decreased since tuesday, now down to 3L.
Goals are clear. Patient reports he has spoke to his sister who will be meeting with his 's 2nd medical poa later today to make appropriate care arangements.
Assessment / Plan
-
Assessment/Plan:
Respiratory status improving. Plan for weaning off dobutamine over next 24 hours, and then pending stability home to [facility] with hospice care.
total floor time 30 min
Reason for Admission
Illness Course/HPI
Cristofer is a 83 y/o male with cardiomyopathy EF 10-15% [facility] and [facility]kaness, and significant hypoxia. He also has notable hx of 10lb weight loss in past week, cardiogenic shock/cirrhosis, worsening edema, hx of PAD, AFib,
DDD, LLE wound. Workup in the hospital showed a pancreatic mass that was felt to mostly be benign based on imaging features. Peritoneal fluid was sent earlier today to r/o michael. He was referred to palliative care for goals of care conversation.
Patient had refused hospice referral. He had change in condition overnight, now in IMu on dobutamine and required highflow oxygen.
At the time of my visit he is comfortable and able to converse. blood pressure low - systolic 80s.
Total time 60 mins
Functional Status
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 they live at [facility].
Cristofer has 3 sons from a previous marriage who are not close with him. Cristofer reports his sister Yesika would be his medical poa.
Goals of Care Discussion
Patient Goals
Patient's main focus is to get better so that he can prepare for his 's care needs. He is worried that there are too many loose ends with respect to their belongings/apartment and that she will be in a tough situation.
He has been talking to his sister Yesika (Cristofer's POA) and his 's close friend Leona(who would be Candis's 2nd POA if cristofer unable/passes) and he has been in communication with them to plan for her needs if something were to happen to him
during the hospital stay. he states that additional plans need to be made. [facility] be sending aides for his spouse.
We discussed his prognosis and events in the hospital. He understands that he is critically ill and might not survive the hospitalization. If he does, he would need rehab and high likliehood of returning to the hospital in the near future due to the
severity of his heart disease, the new cardiogenic cirrhosis and this question of underlyning malignancy that is not yet fully answered (results pending).
He states that he is hopeful that the new medication will help, and wants to give it a few days. if he is not improving or getting worse during this hospital stay, then would want to transition to hospice care at [facility] so he could be near
her. He affirms DNR code status.
Objective Data
-
Objective Data:
Vital Signs
Temp Pulse Resp BP Pulse Ox
98.2 F 76 17 75/61 93
10/08/24 11:15 10/08/24 12:16 10/08/24 12:06 10/08/24 12:16 10/08/24 12:38
Laboratory Results
10/08/24 04:01
10/08/24 04:12
PT 26.7 Sec (11.4-14.6) H 10/08/24 04:01
INR 2.46 10/08/24 04:01
APTT 42.6 Sec (23.4-35.0) H 10/03/24 03:24
Total Protein 6.0 g/dl (6.3-8.2) L 10/08/24 04:01
Albumin 3.1 g/dl (3.5-5.0) L 10/08/24 04:01
Free T4 0.98 ng/dl (0.78-2.19) 10/02/24 03:15
Urine Color Yellow 10/01/24 17:00
Urine Clarity Clear (Clear) 10/01/24 17:00
Urine pH 7.0 (5.0-9.0) 10/01/24 17:00
Ur Specific [place] 1.005 (<1.030) 10/01/24 17:00
Urine Ketones Negative (Negative) 10/01/24 17:00
Urine Bilirubin Negative (Negative) 10/01/24 17:00
Palliative Performance Scale
Palliative Performance Scale:
PPS Level Ambulation Activity & Evidence of Disease Self Care Intake Conscious Level
100% Full Normal Activity & Work; Full Intake Full
No Evidence of Disease
90% Full Normal Activity & Work; Full Normal Full
Some Evidence of Disease
80% Full Normal Activity with Effort Full Normal or Full
Some Evidence of Disease Reduced
70% Reduced Unable Normal Job/Work Full Normal or Full
Significant Disease Reduced
60% Reduced Unable Hobby/Housework Occasional Normal or Full or Confusion
Significant Disease Assistance Reduced
50% Mainly Sit/Lie Unable to do Any Work Considerable Normal or Full or Confusion
Extensive Disease Assistance Req'd Reduced
40% Mainly in Bed Unable to do Most Activity Mainly Assistance Normal or Full or Drowsy;
Extensive Disease Reduced +/- Confusion
30% Totally Bed Unable to do Any Activity Total Care Normal or Full or Drowsy;
Bound Extensive Disease Reduced +/- Confusion
20% Totally Bed Bound Unable to do Any Activity Total Care Minimal to Full or Drowsy;
Extensive Disease Sips +/- Confusion
10% Totally Bed Bound Unable to do Any Activity Total Care Mouth Care Drowsy or Coma;
Extensive Disease Only +/- Confusion
0%
PPS Score Level:
Physical Exam
-
General: No Apparent Distress, Comfortable and Appears Chronically Ill
Psych: Calm
--- NOTE | 2024-10-08 13:20 | HOSPNOTE ---
Patient is still not ready for hospice services and is hopeful he may return to [facility] with hospice services when ready for discharge. There is a real possibility patient will need to remain here on comfort measures when needed. Will continue
to follow.
--- NOTE | 2024-10-08 15:55 | PTCARENOTE ---
Patient AOx3. Patient has flat affect. A-V paced on monitor with first degree heart block on monitor. Patient hypotensive. Cardiology aware. Patient weaned to 3L NC. Patient has BARBA. Patient utilizes urinal with river colored urine. OOB to chair
assist x1 with rolling walker. Dobutamine gtt running per order. Call arizmendi within reach, bed in lowest position, and bed wheels locked.
[2024-10-08] MEDS: TYLENOL 650 MG PO (16:29)
[2024-10-08] MEDS: LIPITOR 20 MG PO (17:14)
[2024-10-09] VITALS (12 sets, daily range): BP systolic 77–92; BP diastolic 52–71; PULSE 75; BMI 19.4
--- NOTE | 2024-10-09 03:03 | PTCARENOTE ---
Assumed care of patient from previous RN. Patient aox3 with flat affect. A-V paced on monitor. Cpap overnight. Patient is hypotensive. Dobutamine gtt running at 2.5 mcg per order. OOB to commode with x2 assist. Bed alarm on. Assessment and VS as
documented. patient resting in bed with call arizmendi in reach.
[2024-10-09 06:17] LABS: Blood Urea Nitrogen 63 mg/dl (9-20); Calcium 8.9 mg/dl (8.4-10.2); Carbon Dioxide 16 mmol/L (22-30); Chloride 96 mmol/L (98-107); Estimated Creatinine Clearance 26 ml/min; Glucose 112 mg/dl (70-99); Potassium 5.2 mmol/L (3.5-5.1); Sodium 126 mmol/L (135-145); eGFR 32.51
--- NOTE | 2024-10-09 06:28 | W.PN.HOSP.TC ---
Today's Communication/Plan
-
Worsening medical condition, pt reports feeling worse with aches and weakness, low urine output,
Holding Bumex
Patient agreed to hospice
Consult hospice
Patient wishes to go back to [place] to be with his in is final days, will try to help him achieve that goal if possible
Assessment / Plan
Assessment / Plan
Physical Exam
General: not in Distress and Obese; No Pain, Fever or Chills
HEENT: NormoCephalic, Anicteric, Moist mucous membranes, PERRLA, [place] Conjunctivae, No Ptosis and Oxygen (High flow nasal cannula oxygen)
Respiratory: No Wheezes, Rales or Rhonchi
Cardiac: S1/S2, Regular Rhythm and Peripheral Edema (Bilateral +2 lower extremities); No Murmur, Rub, Gallop or JVD
GI: Soft, Non Tender, Non Distended, Normal Bowel Sounds and No Hepatosplenomegaly
Rectal: no bleeding
Genito-urinary: Nohematuria
Musculoskeletal: No Clubbing, No Cyanosis, Edema, Left Lower Extremity (+2 pitting) and Edema, Right Lower Extremity (+2 pitting); No Edema, Left Upper Extremity or Edema, Right Upper Extremity
Skin: Warm, Dry and Ulcers (Left lower extremity venous stasis ulcer, bilateral plantar ulcerations at MCPs of great toes); No Rash
Neuro: AO x 3, No Motor Deficits, Nonfocal/grossly intact, Cranial Nerves Intact and No Sensory Deficits; No Slurred Speech, Facial Droop, Tremors or Sedated
Psych: Calm
# hyperkalemia due to ODALIS/ cardiorenal syndrome
Give Lokelma
#Acute hypoxic respiratory failure 2/2 acute on chronic CHF, severe cardiomyopathy
Acute episode of hypoxia 10/04,
s/p diuretic Tx
c/w O2 as needed
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
#Chronic severe cardiomyopathy EF 10-15%
#Cardiogenic shock
Patient received aggressive diuretic treatment with Dobutamine gtt
Received oral Midodrine TID also
Pt reports loss of energy, exertional sob and not feeling better
#Acute hypotension c/w cardiogenic shock
#Hx HTN�benign
-negative blood culture
-Held VerQuvo 10 mg daily, Jardiance 10 mg daily
-midodrine added
-dobutamine added
#Acute transaminitis with Hyperbilirubinemia c/w acute ischemic hepatitis
#Ascites
#Low-density mass tail of the pancreas
- Cardiac cachexia
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
� CT pancreatic protocol featuring characteristics of benign mass
�Weight loss of 10 pounds in the past 3 weeks and 50 pounds in the past year
�GI on board
� CEA: 4.45
-AFP 2.74;
-CA 19�9 - 46
-Para 10/05- f/u [facility]�consistent with hepatic congestion from prior disease
#Thrombocytopenia
� Continue monitoring
# Due to cirrhosis, shock
� Continue to monitor closely
#Mechanical fall on Coumadin
-CT head negative
-PT/OT consult
#Paroxysmal A-fib
#Supratherapeutic INR
#-Status post AV node ablation
-most likely synthetic dysfunction causing elevated INR in setting of more than likely cirrhosis
-Patient on Coumadin daily -will hold Coumadin
-Med rec reports patient is on 1 mg of Coumadin daily
-Will follow INR
-Takes tikosyn for history of VT. on hold due to ODALIS and prolonged QTc. Patient does have ICD
-Hold carvedilol 1.5625 mg p.o. twice daily
#ODALIS on CKD stage III
� Secondary to cardiorenal syndrome
Holding Bumex with worsening creatinine
No retention
Pt feels weak and low urine output in last 24 hours.
#Fall with nonsustained and SVT
Episodes of NSVT
#Permanent pacemaker pacemaker
interrogated in ER showing episode of nonsustained NSVT, otherwise unremarkable
#Acute hyponatremia
-hypervolemic 2/2 to CHF, ascites, ok with regular diet
#Left lower extremity chronic ulceration, bilateral dorsal feet at metatarsals open ulcerations chronic
-Patient follows with Dr. Bustos
-Consulted wound care
Ordered PRN Tylenol
#HLD
No changes intended.
# Ulcerative colitis
Continue mesalamine 800 mg p.o. 3 times daily
#Sleep apnea
Uses full mask setting 10 no oxygen
Other PMH:
multilevel DDD
degenerative osteoarthritis right hip
DVT prophylaxis
Continue TRUST OPERATIONS ASSISTANT Coumadin
DNR per patient with Candis present, although appeared to have memory impairment patient had his sister Ann-Marie Mckee who is also an emergency contact
Total time spent on today's encounter was 57 minutes which included time spent in counseling the patient/family regarding diagnosis and treatment plan as listed above, goals of care, and symptom management. Case was discussed with nursing staff,
specialists, and care coordinators/case management. All labs and imaging personally reviewed by me. Remainder the time spent in detailed review of previous records, lab data, imaging, and other medical provider documentation.
Anticipated Discharge: Today
Subjective/Interval History
-
Date of Service: October 09, 2024
He feels tired and unwell over all
He complained of weakness, loss of energy and aches all his body
Objective Data
-
Labs:
Laboratory Results
10/09/24 10/09/24
04:38 05:37
Sodium Cancelled 126 L
Potassium Cancelled 5.2 H
Chloride Cancelled 96 L
Carbon Dioxide Cancelled 16 L
BUN Cancelled 63 H
Creatinine Cancelled 2.0 H
Glucose Cancelled 112 H
Calcium Cancelled 8.9
Vital Signs:
Vital Signs
Temp Pulse Resp BP Pulse Ox
98.6 F 76 13 92/71 95
10/09/24 02:46 12/24/24 04:00 10/09/24 04:00 10/09/24 04:00 10/09/24 04:00
I&O
10/07/24 10/08/24 10/09/24
06:59 06:59 06:59
Intake Total 240 / 240 960 / 960
Output Total 1075 / 1075 700 / 700 200 / 200
Balance -1075 / -1075 -460 / -460 760 / 760
--- NOTE | 2024-10-09 07:35 | PTCARENOTE ---
Pt with 5 beat run VT, Dr. Villaseñor notified.
[2024-10-09] MEDS: BUMEX IV (08:15)
[2024-10-09] MEDS: LOKELMA 10 GRAM PO (09:04)
[2024-10-09] MEDS: ProAmatine 10 MG PO (09:05)
[2024-10-09] MEDS: THERAGRAN 1 TABLET PO (09:05)
[2024-10-09] MEDS: ASACOL, DELZICOL DR 800 MG PO (09:05)
--- NOTE | 2024-10-09 09:14 | CM ---
Patient from [facility] with Hx Heart Failure, cardiomyopathy, ICD implant, LLE wound, mechanical fall at home. O2 3L. Dobutamine gtt. Comfort care initiated today.
Spoke with [facility]; patient will remain in comfort care today.
Spoke with Ann-Marie Mckee, sister, Brian Temple ph [phone];
provided update that patient is not doing well enough for discharge, is being seen by hospice and will remain here in comfort care today. Ann-Marie is aware that the patient had wanted to go home with caregivers, and not go to the [facility].
Ann-Marie says that [facility] tried to put caregiver services in place for the patient's however she refused. Discussed that if patient stabilized that he would need a 24 caregiver at home
Spoke with [facility]; provided clinical update that patient will remain here today in Comfort Care. She has been speaking with the patient's sister and is aware that the declined caregiver services.
Spoke with Caitlin, Laboratory Worker Office; Father Maurizio saw the patient on Tuesday. She will see the patient today.
Plan comfort care.
--- NOTE | 2024-10-09 10:44 | W.CAR.ICD ---
ICD Inactivation Request
-
Senior Foreman Notified: [employer]
The above vendor has been contacted to inactivate the patient's Implantable Cardioverter Defibrillator.
--- NOTE | 2024-10-09 10:46 | W.PN.CARDCBS ---
Today's Communication / Plan
-
Hospice/palliative care
Patient plan to pursue comfort care measures only
Device rep to turn of tachytherapies; magnet over device in short term
Impression / Plan
-
PCP: Dr. Mayers
Primary Customer Facilities Supervisor: Dr. Lovett
EP: Dr. Arora
Impression:
Presented 10/01/2024 with fall, weakness, hypotension
Acute hypoxic respiratory failure
Acute HFrEF
Cardiogenic shock
Hypotension
ODALIS
Ascites
Abnormal LFTs
Pancreatic mass, known
Hyponatremia
CM EF 10-15%
h/o NICM EF
Hx VT/VF
s/p [employer] BUREAU DIRECTOR-D
Chronic Tikosyn therapy
Permanent Afib
s/p AV node ablation
Chronic warfarin OAC managed by PCP
h/o Amiodarone thyroiditis
Ulcerative colitis
JULIO CESAR on CPAP
Echo 06/2016: EF 35-40%, AV sclerosis with trivial AI, mildly dilated proximal ascending thoracic aorta
Echo 12/22/2023: EF 19% by Cooper's method, 26% by volumetric assessment, global hypokinesis with anterior wall and anteroseptum moving best, reduced RV systolic function, mod MR, mild to mod TR with PAP 50 mmHg
Echo 05/14/2024: EF 10 to 15% visually, severe global hypokinesis, stage II diastolic dysfunction, moderate to severe MR, moderate TR, mild aortic regurgitation
Echo 07/16/24: LV moderately dilated with EF 10-15%, 17% by Cooper's method, global hypokinesis, mod to sev MR, mild aortic regurgitation, mod to sev TR with PAP 35 mmHg
ECHO 10/02/24: EF 10 to 15%, severe global hypokinesis, mildly enlarged RV size and mildly reduced RV function, severe MR, mild AR, severe TR, PAP 35 to 40 mmHg, no significant change compared to prior
Plan:
-Presenting in cardiogenic shock with ODALIS, elevated LFTs, ascites, hypotension in setting of EF 10-15% and severe MR; on inotropic therapy and IV diuresis without improvement and poor prognosis.
-Patient evaluated by palliative care as well as hospice following thorough discussion with hospitalist service. Patient wishes to pursue hospice care and comfort measures only. This was confirmed by hospitalist and discussion with patient's
sister with agreement to pursue comfort care. Will contact device claim service representative for deactivation of tachytherapies from ICD.
-Can discontinue other medical therapy as indicated to pursue comfort care.
� Will sign off, please call with questions.
HPI 10/02/2024:
Mr. Cooper is an 84-year-old male with past medical history significant for heart failure with reduced ejection fraction (EF 10 to 15%), nonischemic cardiomyopathy, VT/VF status post BUREAU DIRECTOR ICD on chronic Tikosyn, permanent atrial fibrillation on
Coumadin, obstructive sleep apnea who presented to emergency department 10/01/2024 after suffering a mechanical fall resulting in him striking his head while on Coumadin. EMS was called and patient was found to be hypotensive and hypoxic. He was
provided fluids bolus of 2500 cc. Patient admitted to feeling short of breath with some generalized weakness and chest discomfort several days prior to admission. proBNP was noted to be elevated at 18,900. Chest x-ray showed no evidence of
pulmonary edema or pleural effusion. EKG showed BiV paced rhythm. Interrogation of ICD in emergency department showed brief episode of NSVT. Head CT was negative. Patient admitted to ongoing weight loss greater than 50 pounds over the last year
prompting. He was found to have abnormal LFTs with concern for ascites and underwent CT of abdomen which demonstrated new 3 cm mass at tail of pancreas as well as moderate ascites.
Of note patient has been dealing with wound of the left lower extremity and was supposed to have outpatient ultrasound/ELIDA which was delayed due to admission.
Progress Note - Customer Facilities Supervisor
Subjective
Date of Service: October 09, 2024
Patient seen and examined. Reporting fatigue, weakness, shortness of breath. Blood pressure remains low. Episodes of NSVT noted on telemetry, asymptomatic.
Objective
Labs:
10/08/24 04:01
10/09/24 05:37
Labs
Hgb 14.1 g/dL (13.0-18.0) 10/08/24 04:01
Hct 38.8 % (39.0-52.0) L 10/08/24 04:01
Plt Count 84 10^3/uL (130-400) L 10/08/24 04:01
PT 26.7 Sec (11.4-14.6) H 10/08/24 04:01
INR 2.46 10/08/24 04:01
APTT 42.6 Sec (23.4-35.0) H 10/03/24 03:24
Sodium 126 mmol/L (135-145) L 10/09/24 05:37
Potassium 5.2 mmol/L (3.5-5.1) H 10/09/24 05:37
BUN 63 mg/dl (9-20) H 10/09/24 05:37
Creatinine 2.0 mg/dL (0.7-1.3) H 10/09/24 05:37
Glucose 112 mg/dl (70-99) H 10/09/24 05:37
Vital Signs and I&O:
Vital Signs
Temp Pulse Resp BP Pulse Ox
99.0 F 78 19 88/52 94
10/09/24 07:25 10/09/24 08:00 10/09/24 08:00 10/09/24 08:00 10/09/24 08:20
Vital Signs
Temp Pulse Resp BP Pulse Ox
99.0 F 78 19 88/52 94
10/09/24 07:25 10/09/24 08:00 10/09/24 08:00 10/09/24 08:00 10/09/24 08:20
Intake & Output
10/07/24 10/08/24 10/09/24 10/10/24
06:59 06:59 06:59 06:59
Intake Total 240 / 240 960 / 960
Output Total 1075 / 1075 700 / 700 200 / 200
Balance -1075 / -1075 -460 / -460 760 / 760
Physical Exam
Physical Exam
GEN: No distress, awake, Ox3
HEENT: supple, anicteric, mmm
LUNGS: bilat rhonchi
CV: Reg, S1/S2, 1/6 syst LSB, S3+
ABD: soft, BS+, + disteneded
EXT: No edema
NEURO: Gross non-focal
SKIN: No rash
[2024-10-09] MEDS: MORPHINE SULFATE 1 MG IV ×2 (10:51→18:29)
--- NOTE | 2024-10-09 11:08 | PTCARENOTE ---
Pt wishing to pursue comfort care. Order received to d/c Dobutamine gtt, see intervention. Magnet placed over pacer per cardiology order while awaiting device rep. PRN morphine administered. Pt resting at this time.
--- NOTE | 2024-10-09 11:39 | HOSPNOTE ---
Spoke with patient and floor RN, patient is complaining of bilateral arm pain. Patient was medicated for pain management. Dobutamine drip was discontinued and comfort orders initiated. Cardiology is working on contacting the rep to turn off the
AICD. Patient and family in agreement with comfort. We will continue to follow.
[2024-10-09] MEDS: ProAmatine PO (14:01)
--- NOTE | 2024-10-09 14:05 | PTCARENOTE ---
[employer] rep to bedside to turn off ICD therapies. Magnet removed per orders.
--- NOTE | 2024-10-09 15:24 | W.ICD.INACTI ---
ICD Device Inactivated
-
The patient's ICD device has been inactivated by the vendor.
--- NOTE | 2024-10-09 19:11 | PTCARENOTE ---
Pt transferred to 2131. Belongings collected and sent with pt.
[2024-10-10] MEDS: MORPHINE SULFATE 1 MG IV ×2 (04:50→07:57)
[2024-10-10 07:40] VITALS: BP 87/62
--- NOTE | 2024-10-10 09:44 | W.PN.HOSP.TC ---
Today's Communication/Plan
-
Comfort care level
Change to Dilaudid due to ODALIS for comfort
Assessment / Plan
Assessment / Plan
Physical Exam
General:chronically ill looking.
HEENT: Normocephalic, on nasal O2.
Respiratory: bilat rhonchi
Cardiac: S1/S2, + murmur.
GI: Soft, Non Tender, Non Distended,
Rectal: no bleeding
Genito-urinary: No hematuria
Musculoskeletal: edema lower legs.
Skin: Warm, Dry and Ulcers (Left lower extremity venous stasis ulcer, bilateral plantar ulcerations at MCPs of great toes); No Rash
Neuro: AO to self and surroundings, weakness noted, he followed commands appropriately.
Psych: Calm
# Goal of care discussion
Long discussion with patient. Patient decided to pursue hospice due to heart failure. He failed medical treatment and continued to do poorly. Discussed with his sister per patient request as his has cognitive impairment and he did not want her
to know such discussion. Sister agreed to follow with patient's wishes and asked to provide inpatient care due to lack of out of hospital support system. He remained DNR/DNI/ ICD deactivated. Discussion with hospice nurse, recommended to do comfort
care level for short time, use morphine for SOB, if stabilizes then can be discharged with OP hospice. Change to Dilaudid due to ODALIS.
# hyperkalemia due to ODALIS/ cardiorenal syndrome
#Acute hypoxic respiratory failure 2/2 acute on chronic CHF, severe cardiomyopathy
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
#Chronic severe cardiomyopathy EF 10-15%
#Cardiogenic shock
#Acute hypotension c/w cardiogenic shock
#Hx HTN�benign
#Acute transaminitis with Hyperbilirubinemia c/w acute ischemic hepatitis
#Ascites
#Low-density mass tail of the pancreas
# Cardiac cachexia
#Thrombocytopenia
# Due to cirrhosis, shock
#Gait dysfunction.
#Paroxysmal A-fib
#Supratherapeutic INR
#-Status post AV node ablation
#ODALIS on CKD stage III/ cardiorenal syndrome with oligouria.
# Nonsustained and SVT
#Permanent pacemaker pacemaker
#Acute hyponatremia
#Left lower extremity chronic ulceration, bilateral dorsal feet at metatarsals open ulcerations chronic
#HLD
# Ulcerative colitis
#Sleep apnea
#multilevel DDD
Total time spent to see the patient, examine the patient, review data and lab results, discuss the treatment plan with patient, nursing staff around 55 minutes
Anticipated Discharge: > 48 hours
Subjective/Interval History
-
Date of Service: October 10, 2024
He feels tired
No chest pain
He does not feel hungry
Objective Data
-
Vital Signs:
Vital Signs
Temp Pulse Resp BP Pulse Ox
97.1 F 76 20 87/62 92
10/10/24 07:40 10/10/24 07:40 10/10/24 07:40 10/10/24 07:40 10/10/24 07:40
I&O
10/09/24 10/10/24 10/11/24
06:59 06:59 06:59
Intake Total 960 / 960 120 / 120
Output Total 200 / 200 50 / 50
Balance 760 / 760 70 / 70
[2024-10-10] MEDS: DILAUDID 0.5 MG IV (15:23)
[2024-10-10 19:34] VITALS: BP 89/59
[2024-10-11] MEDS: DILAUDID 0.5 MG IV ×3 (05:13→14:25)
[2024-10-11 07:56] VITALS: BP 104/64
--- NOTE | 2024-10-11 08:40 | W.PN.HOSP.TC ---
Today's Communication/Plan
-
Follow with hospice recommendations
PT seems uncomfortable this morning
Assessment / Plan
Assessment / Plan
Physical Exam
General:chronically ill looking.
HEENT: Normocephalic, on nasal O2.
Respiratory: bilat rhonchi
Cardiac: S1/S2, + murmur.
GI: Soft, Non Tender, Non Distended,
Rectal: no bleeding
Genito-urinary: No hematuria
Musculoskeletal: edema lower legs.
Skin: Warm, Dry and Ulcers (Left lower extremity venous stasis ulcer, bilateral plantar ulcerations at MCPs of great toes); No Rash
Neuro: AO to self and surroundings, weakness noted, he followed commands appropriately.
Psych: Calm
# Goal of care discussion
Long discussion with patient. Patient decided to pursue hospice due to heart failure. He failed medical treatment and continued to do poorly. Discussed with his sister per patient request as his has cognitive impairment and he did not want her
to know such discussion. Sister agreed to follow with patient's wishes and asked to provide inpatient care due to lack of out of hospital support system. He remained DNR/DNI/ ICD deactivated. Discussion with hospice nurse, recommended to do comfort
care level for short time, use Dilaudid for discomfort/ SOB, if stabilizes then can be discharged with OP hospice. Changed to Dilaudid due to ODALIS.
# hyperkalemia due to ODALIS/ cardiorenal syndrome
#Acute hypoxic respiratory failure 2/2 acute on chronic CHF, severe cardiomyopathy
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
#Chronic severe cardiomyopathy EF 10-15%
#Cardiogenic shock
#Acute hypotension c/w cardiogenic shock
#Hx HTN�benign
#Acute transaminitis with Hyperbilirubinemia c/w acute ischemic hepatitis
#Ascites
#Low-density mass tail of the pancreas
# Cardiac cachexia
#Thrombocytopenia
# Due to cirrhosis, shock
#Gait dysfunction.
#Paroxysmal A-fib
#Supratherapeutic INR
#-Status post AV node ablation
#ODALIS on CKD stage III/ cardiorenal syndrome with oligouria.
# Nonsustained and SVT
#Permanent pacemaker pacemaker
#Acute hyponatremia
#Left lower extremity chronic ulceration, bilateral dorsal feet at metatarsals open ulcerations chronic
#HLD
# Ulcerative colitis
#Sleep apnea
#multilevel DDD
Total time spent to see the patient, examine the patient, review data and lab results, discuss the treatment plan with patient, sister, nursing staff around 45 minutes
Anticipated Discharge: Within 24 hours
Subjective/Interval History
-
Date of Service: October 11, 2024
He seems uncomfortable, unable to express himself
Objective Data
-
Vital Signs:
Vital Signs
Temp Pulse Resp BP Pulse Ox
97.0 F 78 14 104/64 97
10/11/24 07:56 10/11/24 07:56 10/11/24 07:56 10/11/24 07:56 10/11/24 07:56
I&O
10/10/24 10/11/24 10/12/24
06:59 06:59 06:59
Intake Total 120 / 120 120 / 120
Output Total 50 / 50
Balance 70 / 70 120 / 120
--- NOTE | 2024-10-11 10:12 | HOSPNOTE ---
Hospice continues to follow for support. Recommend continuing comfort measures at this time. Spoke to Primary RN who states patient is comfortable on current regimen. Hospice will continue to follow and be available for support.
--- NOTE | 2024-10-11 10:15 | CM ---
Reviewed the chart notes. CM continues to be available to patient/family.
Plan: Comfort care continues.
--- NOTE | 2024-10-11 15:26 | HOSPNOTE ---
Spoke with sister Ann-Marie to offer emotional support. Ann-Marie is not able to visit the patient because her is having knee issues. Ann-Marie shares that patient's has confusion and it will be difficult to explain what is happening to her but Ann-Marie
feels that his knows something is going on. Ann-Marie is happy that the patient did not pass on [facility]. She is still hoping he might be able to be discharged from the hospital. This RN also spoke with nurse Schmidt to get update. Ann-Marie states that
she loves the patient and she is praying for him.
[2024-10-11 20:57] VITALS: BP 72/56
[2024-10-12] MEDS: DILAUDID 0.5 MG IV ×3 (01:03→09:08)
[2024-10-12 07:40] VITALS: BP 120/84
--- NOTE | 2024-10-12 10:40 | W.PN.HOSP.TC ---
Today's Communication/Plan
-
follow with hospice nurse recommendations
Assessment / Plan
Assessment / Plan
Physical Exam
General:chronically ill looking.
HEENT: Normocephalic, on nasal O2.
Respiratory: bilat rhonchi
Cardiac: S1/S2, + murmur.
GI: Soft, Non Tender, Non Distended,
Rectal: no bleeding
Genito-urinary: No hematuria
Musculoskeletal: edema lower legs.
Skin: Warm, Dry and Ulcers (Left lower extremity venous stasis ulcer, bilateral plantar ulcerations at MCPs of great toes); No Rash
Neuro: AO to self and surroundings, weakness noted, he followed commands appropriately.
Psych: Calm
# Goal of care discussion
Long discussion with patient. Patient decided to pursue hospice due to heart failure. He failed medical treatment and continued to do poorly. Discussed with his sister per patient request as his has cognitive impairment and he did not want her
to know such discussion. Sister agreed to follow with patient's wishes and asked to provide inpatient care due to lack of out of hospital support system. He remained DNR/DNI/ ICD deactivated. Discussion with hospice nurse, recommended to do comfort
care level for short time, use Dilaudid for discomfort/ SOB, if stabilizes then can be discharged with OP hospice. Changed to Dilaudid due to ODALIS.
# hyperkalemia due to ODALIS/ cardiorenal syndrome
#Acute hypoxic respiratory failure 2/2 acute on chronic CHF, severe cardiomyopathy
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
#Chronic severe cardiomyopathy EF 10-15%
#Cardiogenic shock
#Acute hypotension c/w cardiogenic shock
#Hx HTN�benign
#Acute transaminitis with Hyperbilirubinemia c/w acute ischemic hepatitis
#Ascites
#Low-density mass tail of the pancreas
# Cardiac cachexia
#Thrombocytopenia
# Due to cirrhosis, shock
#Gait dysfunction.
#Paroxysmal A-fib
#Supratherapeutic INR
#-Status post AV node ablation
#ODALIS on CKD stage III/ cardiorenal syndrome with oligouria.
# Nonsustained and SVT
#Permanent pacemaker pacemaker
#Acute hyponatremia
#Left lower extremity chronic ulceration, bilateral dorsal feet at metatarsals open ulcerations chronic
#HLD
# Ulcerative colitis
#Sleep apnea
#multilevel DDD
Total time spent to see the patient, examine the patient, review data and lab results, discuss the treatment plan with patient, sister, nursing staff around 45 minutes
Anticipated Discharge: Within 24 hours
Subjective/Interval History
-
Date of Service: October 12, 2024
no fevers
Objective Data
-
Vital Signs:
Vital Signs
Temp Pulse Resp BP Pulse Ox
97.4 F 76 10 120/84 95
10/12/24 07:40 10/12/24 07:40 10/12/24 07:40 10/12/24 07:40 10/12/24 07:40
I&O
10/11/24 10/12/24 10/13/24
06:59 06:59 06:59
Intake Total 120 / 120
Balance 120 / 120
--- NOTE | 2024-10-12 11:05 | HOSPNOTE ---
Hospice continues to follow for support. Spoke to Primary RN who reports patient is more comfortable today than yesterday. She did give him a dose of IV Dilaudid this morning as he was grimacing and tense. Recommend to continue comfort measures at
this time and hospice will continue to follow for support.
--- NOTE | 2024-10-12 13:45 | CM ---
Chart reviewed. CM will monitor and support patient and family as needed
--- NOTE | 2024-10-12 17:32 | W.PN.DEATH ---
Pronouncement of
-
Called to see patient to pronounce.
No spontaneous heart tones or respirations noted.
Patient not responsive to verbal stimuli.
Patient is pronounced .
Time of : 17:23
Date of : 10/12/24
Cause of : Akute kidney injury
--- NOTE | 2024-10-12 17:36 | W.DCSUMMARY ---
Discharge Summary
Discharge Data
Date of Admission: 10/01/24
Date of Discharge: 10/12/24
-
Pending Results: No
Hospital Course
83yo M with PMHX of CHF, HTN, liver cirrhosis, SVT, ulcerative colitis admitted with cacute on chronic combined CHF exacerbation, developed hypotension and cardiorenal syndrome eventually patient decised to establish hospice. He on
10/12/24 at 5:23pm.
patient was managed for:
# hyperkalemia due to ODALIS/ cardiorenal syndrome
#Acute hypoxic respiratory failure 2/2 acute on chronic CHF, severe cardiomyopathy
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
#Chronic severe cardiomyopathy EF 10-15%
#Cardiogenic shock
#Acute hypotension c/w cardiogenic shock
#Hx HTN�benign
#Acute transaminitis with Hyperbilirubinemia c/w acute ischemic hepatitis
#Ascites
#Low-density mass tail of the pancreas
# Cardiac cachexia
#Thrombocytopenia
# Due to cirrhosis, shock
#Gait dysfunction.
#Paroxysmal A-fib
#Supratherapeutic INR
#-Status post AV node ablation
#ODALIS on CKD stage III/ cardiorenal syndrome with oligouria.
# Nonsustained and SVT
#Permanent pacemaker pacemaker
#Acute hyponatremia
#Left lower extremity chronic ulceration, bilateral dorsal feet at metatarsals open ulcerations chronic
#HLD
# Ulcerative colitis
#Sleep apnea
#multilevel DDD
Discharge Plan
-
Others Tests: Would plan eventual biopsy of pancreatic mass if and when able
Activity Restrictions/Additional Instructions:
Wound Care Instructions
L leg and b/l plantar feet: clean with soap and water, Puracol(collagen dressing)
tear off piece of collagen, moisten with saline prior to placing in wound, cover with dry dressing and change q 3 days and prn drainage.
Resume Tubigrip compression knee high daily as directed
Follow up at wound care center call for an appointment.
Instructions: *[facility] Heart Failure Instructions
Referrals:
UNKNOWN - PT DOES,NOT KNOW [Family Provider] -
Prescriptions:
No Action
atorvastatin 20 MG tablet
20 mg PO QPM
[id number] [id number] [Osteo Bi-Flex (5-Loxin)] 1 EACH tablet
1 tab PO DAILY
mesalamine [Delzicol] 400 mg Capsule (With Del Rel Tablets)
800 mg PO TID@0800,1600,2300
Jardiance 10 mg Tablet
10 mg PO DAILY
Verquvo 10 mg Tablet
10 mg PO DAILY
dofetilide 250 MCG capsule
250 mcg PO BID@1000,2200
carvedilol 3.125 mg Tablet
1.5625 mg PO BID 30 Days Qty: 60 0RF
Theragen Tablet
1 tab PO DAILY
bumetanide 1 mg Tablet
1 mg PO BID
warfarin 1 mg Tablet
1 mg PO QPM
metolazone 2.5 mg tablet
2.5 mg PO DAILY PRN (Reason: For weight gain > 3 Lb)
potassium chloride [Klor-Con M20] 20 mEq tablet,ER particles/crystals
40 meq PO DAILY
Discharge Date and Time
Print Language: MACANESE
--- NOTE | 2024-10-12 17:46 | PTCARENOTE ---
Notified sister Ann-Marie of patient's , as per hospitalist's request. Provided emotional support. Sister states that she will call the home for final arrangements, and will notify the patient's spouse (who has dementia) in person tomorrow,
to provide appropriate support.
== END 2024-10-12 17:23 | disposition expired | DRG 291 ==
LOC: 2 NORTH 18:52
PROVIDERS: Clinical Nurse Specialist Family Health; Hospitalist; Internal Medicine; Radiology Vascular & Interventional Radiology; ADMITTING PHYSICIAN Hospitalist; ATTENDING PHYSICIAN Internal Medicine; CONSULT PHYSICIAN Internal Medicine Critical Care Medicine; CONSULT PHYSICIAN Internal Medicine Hospice and Palliative Medicine; CONSULT PHYSICIAN Student in an Organized Health Care Education/Training Program; EMERGENCY PHYSICIAN Student in an Organized Health Care Education/Training Program; OTHER PHYSICIAN Nuclear Medicine Nuclear Cardiology
PROC: 5A0935A Assistance with Respiratory Ventilation, Less than 24 Consecutive Hours, High Flow/Velocity Cannula (ICD-10-PCS; 2024-10-01)
PROC: 5A09357 Assistance with Respiratory Ventilation, Less than 24 Consecutive Hours, Continuous Positive Airway Pressure (ICD-10-PCS; 2024-10-03)
PROC: 0W9G3ZZ Drainage of Peritoneal Cavity, Percutaneous Approach (ICD-10-PCS; 2024-10-05)
DX: I50.43 Acute on chronic combined systolic (congestive) and diastolic (congestive) heart failure (principal); J96.01 Acute respiratory failure with hypoxia; K72.00 Acute and subacute hepatic failure without coma; N17.9 Acute kidney failure, unspecified; R18.8 Other ascites; I47.10 Supraventricular tachycardia, unspecified; E87.1 Hypo-osmolality and hyponatremia; Z66 Do not resuscitate; Z51.5 Encounter for palliative care; K51.90 Ulcerative colitis, unspecified, without complications; E87.20 Acidosis, unspecified; E44.0 Moderate protein-calorie malnutrition; Z68.1 Body mass index [BMI] 19.9 or less, adult; I42.8 Other cardiomyopathies; R57.0 Cardiogenic shock; I25.10 Atherosclerotic heart disease of native coronary artery without angina pectoris; I95.9 Hypotension, unspecified; G47.33 Obstructive sleep apnea (adult) (pediatric); D69.59 Other secondary thrombocytopenia; L97.521 Non-pressure chronic ulcer of other part of left foot limited to breakdown of skin; L97.511 Non-pressure chronic ulcer of other part of right foot limited to breakdown of skin; R63.4 Abnormal weight loss; S09.90XA Unspecified injury of head, initial encounter; E87.5 Hyperkalemia; E86.1 Hypovolemia; E78.00 Pure hypercholesterolemia, unspecified; I44.7 Left bundle-branch block, unspecified; E03.8 Other specified hypothyroidism; N18.30 Chronic kidney disease, stage 3 unspecified; R62.7 Adult failure to thrive; R79.1 Abnormal coagulation profile; I48.0 Paroxysmal atrial fibrillation; I08.1 Rheumatic disorders of both mitral and tricuspid valves; Z11.52 Encounter for screening for COVID-19; Z95.810 Presence of automatic (implantable) cardiac defibrillator; Z88.2 Allergy status to sulfonamides; Z88.1 Allergy status to other antibiotic agents; Z79.899 Other long term (current) drug therapy; Z79.84 Long term (current) use of oral hypoglycemic drugs; Z79.01 Long term (current) use of anticoagulants; W18.39XA Other fall on same level, initial encounter; Y92.481 Parking lot as the place of occurrence of the external cause; K86.9 Disease of pancreas, unspecified
CPT/HCPCS: 88305; 93308; 49083; 70450; 71045; 71275; 74174; 74178; 80048; 80053; 80061; 81003; 82024; 82042; 82105; 82150; 82248; 82378; 82533; 82805; 83605; 83615; 83735; 83880; 83930; 83935; 84100; 84157; 84300; 84439; 84443; 84484; 85025; 85610; 85730; 86301; 87015; 87040; 87070; 87205; 87502; 87811; 88112; 89051; 93005; 93321; 93325; 94660; 96360; 97110; 97116; 97163; 97167; 99291; Q9967